=== PATIENT | male | born 1940 | race Caucasian/White ===

== ENCOUNTER 2019-12-26 19:55 | Observation (INO) | payer OTHER, SELFPAY ==
[2019-12-26 19:56] VITALS: PULSE 73; RESP 17; TEMP 35.8; O2SAT 96; BMI 29.0
--- NOTE | 2019-12-26 20:11 | W.ED.CHESTPA ---
Documented by User: ARMINDA Cárdenas 12/26/19 23:24 HPI - Chest Pain General: Chief Complaint: Chest Pain Stated Complaint: CHEST PAIN/BACK PAIN Time Seen by Provider: 12/26/19 20:11 History of Present Illness: HPI narrative: Patient is an 79-year-old male comes to the ED with back pain that radiates to the epigastric region and lower chest. Patient has a PMH of diabetes and hypertension. Patient says that the middle of the back pain that radiates to his lower chest and epigastric region started right after eating dinner tonight. He ate some fried chicken tenders and within an hour of eating he developed this pain. He rated it at its worst an 8 out of 10, but currently while here in the ED he says is gotten better and is now around a 2 out of 10. He has had some nausea with this pain and vomited once. Denies any bladder or bowel symptoms. Patient says he sat down and rested while at home when pain started and it did not improve. He tried to take some Tums at home and that did not improve it either. Denies any history of a prior heart attack or acid reflux. Patient still has his gallbladder. Associated symptoms: Reports abdominal pain (epigastric), nausea and vomiting; Deny dyspnea, fever(s) or palpitations Review of Systems Const: Denies: fever, chills or fatigue Eyes: Denies: change in vision or eye discomfort ENMT: Denies: throat pain, painful swallowing, nasal discharge or nasal congestion Card: Reports: chest pain (back pain radiates to anterior lower chest); Denies: palpitations, edema, swelling of feet/ankles, shortness of breath on exertion or shortness of breath when lying down Resp: Denies: shortness of breath, productive cough or non-productive cough GI: Reports: abdominal pain (epigastric), nausea and vomiting; Denies: diarrhea, constipation or blood in stool : Denies: flank pain, difficulty urinating, painful urination or blood in urine Musc: Denies: neck pain, back pain or extremity swelling Skin/Breast: Denies: rash or new lesion Neuro: Denies: headache, numbness in extremities or weakness in extremities COUNTS INCLUDE 234 BEDS AT THE [facility] ED PFSH: Medical History (Updated 12/27/19 @ 16:25 by Josh Bonilla MD) CKD (chronic kidney disease) Hyperlipidemia Hypertension Kidney failure Surgical History (Updated 12/27/19 @ 16:25 by Josh Bonilla MD) H/O left wrist surgery Hx of cataract surgery Status post laparoscopic cholecystectomy (~12/27/19) Social History Smoking and tobacco status: never smoked Physical Exam Narrative: EXAM NARRATIVE: Patient is an 79-year-old male who is sitting comfortably on the exam bed when I enter the room. He does not appear in any acute distress or respiratory distress. Const: COMMON NORMALS: oriented x3 HENMT: COMMON NORMALS: normocephalic HEAD & SCALP: normocephalic MOUTH: oral and palatal mucosa normal THROAT: posterior oropharynx normal and uvula midline Neck/C-Spine: COMMON NORMALS: supple GENERAL: Yes normal visual inspection Resp: COMMON NORMALS: normal respiratory effort, no retractions and no use of accessory muscles EFFORT & INSPECTION: Yes able to speak in complete sentences and No respiratory distress AUSCULTATION: crackles (light/mild--Mid and bases of both right and left lung.) Laterality: bilateral and posterior Cardio: COMMON NORMALS: regular rate, regular rhythm, S1 normal heart sound, S2 normal heart sound, no gallops, no clicks, no murmurs and peripheral pulses 2+ throughout RATE: regular rate RHYTHM: regular rhythm HEART SOUNDS: S1 normal and S2 normal PERIPHERAL PULSES: pulses 2+ throughout GI: COMMON NORMALS: normal to inspection, nondistended, normoactive bowel sounds, soft to palpation, no hepatosplenomegaly and no masses PALPATION: Yes soft, Yes tender Details: RUQ (caraballo sign) and Yes no hepatosplenomegaly : COMMON NORMALS: Yes no CVA tenderness BLADDER/KIDNEY EXAM: Yes no CVA tenderness Back/Pelvis: COMMON NORMALS: no CVA tenderness Extremity: COMMON NORMALS: normal to inspection, normal capillary refill and no pedal edema Neuro: COMMON NORMALS: oriented x3 and moves all extremities Skin: COMMON NORMALS: no rashes or lesions noted GENERAL SKIN EXAM: no rashes or lesions noted and dry skin Course ED course: I spoke with Dr. Damian about patient's case and ultrasound for gallbladder findings. We recommended that patient gets admitted and general surgery sees them tomorrow to remove gallbladder, but patient wanted to go home and think about it. Reevaluation(s): Reevaluation #1: Patient says he feels good and is not in any pain currently. Time: 22:33 Vital Signs: Vital signs: Vital Signs Temperature 100.0 F H 12/28/19 10:58 Pulse Rate 70 12/28/19 10:58 Respiratory Rate 16 12/28/19 10:58 Blood Pressure 141/63 12/28/19 10:58 Pulse Oximetry 93 12/28/19 10:58 MDM - Chest Pain MDM Narrative: Medical decision making narrative: Patient is an 79-year-old male comes to the ED with epigastric pain that radiates to the back. Physical exam was positive for right upper quadrant tenderness and Caraballo sign. EKG showed normal sinus rhythm and troponins were negative. Ultrasound of the gallbladder was performed and showed gallbladder wall thickening with multiple gallstones present. CBC was unremarkable white blood cell count was 7.7. CMP was remarkable for creatinine of 1.8. I discussed this case with Dr. Junior here in the ED and he recommended patient gets admitted and seen by general surgery for possible gallbladder removal. We discussed the ultrasound findings with the patient and told him about our recommendation of being admitted for possible surgery for gallbladder removal tomorrow. Patient agreed with plan and would like to be admitted. Dr. Damian is handling the admission process. Lab Data: Attestation: I reviewed the patient's lab results. Labs: Lab Results 12/26/19 12/26/19 12/26/19 Range/Units 20:30 20:30 20:30 WBC 7.7 (4.0-10.0) 10^3/ uL RBC 5.31 H (4.1-5.3) 10^6/u L Hgb 14.7 (11.7-16.6) g/dL Hct 46.0 (42.0-52.0) % MCV 86.6 (80-94) fL MCH 27.7 L (28.0-34.0) pg MCHC 32.0 (30.0-36.0) g/dL RDW 14.4 (12.1-15.1) % Plt Count 295 (130-400) 10^3/c mm MPV 9.5 (7.4-10.4) fL Neut % (Auto) 82.2 % Lymph % (Auto) 10.5 % [place] % (Auto) 5.0 % Eos % (Auto) 1.4 % Baso % (Auto) 0.5 % Neut # (Auto) 6.3 (1.8-7.7) 10^3/u L Lymph # (Auto) 0.8 (0.8-4.8) 10^3/u L [place] # (Auto) 0.4 (0.2-0.9) 10^3/u L Eos # (Auto) 0.1 (0.0-0.8) 10^3/u L Baso # (Auto) 0.0 (0.0-0.1) 10^3/u L Nucleated RBC % (a uto) 0 % Nucleated RBCs # 0.0 /100WBC Sodium 139 (136-145) mmol/L Potassium 4.0 (3.5-5.1) mmol/L Chloride 101 (98-107) mmol/L Carbon Dioxide 24 (22-29) mmol/L Anion Gap 18.0 (5-19) BUN 33 H (8-23) mg/dL Creatinine 1.8 H (0.7-1.2) mg/dL Glucose 198 H (65-115) mg/dL Estimat Average Gl ucose Hemoglobin A1c (4.0-6.0) % Calculated Osmolal ity 291 (285-295) mOsm/k g Calcium 10.2 (8.5-10.5) mg/dL Total Bilirubin 1.0 (0.15-1.2) mg/dL AST 46 H (0-40) U/L ALT 24 (0-41) U/L Alkaline Phosphata se 52 (40-130) IU/L Troponin T Baselin e 12 (0-15) ng/mL Troponin T 120 Min [place] (0-15) ng/mL Delta Troponin T (0-10) ABS# C-Reactive Protein (0.0-4.9) mg/L Total Protein 7.3 (6.6-8.7) g/dL Albumin 4.4 (3.5-5.2) g/dL Globulin 2.9 (1.3-4.6) g/dL Lipase 30 (13-60) U/L Procalcitonin (0-0.5) ng/mL 12/26/19 12/26/19 12/26/19 Range/Units 20:30 20:30 22:40 WBC (4.0-10.0) 10^3/ uL RBC (4.1-5.3) 10^6/u L Hgb (11.7-16.6) g/dL Hct (42.0-52.0) % MCV (80-94) fL MCH (28.0-34.0) pg MCHC (30.0-36.0) g/dL RDW (12.1-15.1) % Plt Count (130-400) 10^3/c mm MPV (7.4-10.4) fL Neut % (Auto) % Lymph % (Auto) % [place] % (Auto) % Eos % (Auto) % Baso % (Auto) % Neut # (Auto) (1.8-7.7) 10^3/u L Lymph # (Auto) (0.8-4.8) 10^3/u L [place] # (Auto) (0.2-0.9) 10^3/u L Eos # (Auto) (0.0-0.8) 10^3/u L Baso # (Auto) (0.0-0.1) 10^3/u L Nucleated RBC % (a uto) % Nucleated RBCs # /100WBC Sodium (136-145) mmol/L Potassium (3.5-5.1) mmol/L Chloride (98-107) mmol/L Carbon Dioxide (22-29) mmol/L Anion Gap (5-19) BUN (8-23) mg/dL Creatinine (0.7-1.2) mg/dL Glucose (65-115) mg/dL Estimat Average Gl ucose 146 Hemoglobin A1c 6.7 H (4.0-6.0) % Calculated Osmolal ity (285-295) mOsm/k g Calcium (8.5-10.5) mg/dL Total Bilirubin (0.15-1.2) mg/dL AST (0-40) U/L ALT (0-41) U/L Alkaline Phosphata se (40-130) IU/L Troponin T Baselin e (0-15) ng/mL Troponin T 120 Min [place] 13.59 (0-15) ng/mL Delta Troponin T 1.59 (0-10) ABS# C-Reactive Protein 5.1 H (0.0-4.9) mg/L Total Protein (6.6-8.7) g/dL Albumin (3.5-5.2) g/dL Globulin (1.3-4.6) g/dL Lipase (13-60) U/L Procalcitonin 0.05 (0-0.5) ng/mL Imaging Data^: CXR: Attestation: I personally reviewed and interpreted this imaging study as follows: Radiologist's impression: [address] [address] XRay Report Signed Patient: Siva Malik Unit #: [id number] : 1940 Age/Sex: 79 / M ADM Date: 12/26/19 Loc: ER Room/Bed: Attending Dr: Ordering Provider/Ordering MD: Brijesh Juarez Date of Service: 12/26/19 Procedure(s): XR chest 1V portable [id number] Accession Number(s): [id number] Report Number: [id number] PROCEDURE INFORMATION: Exam: XR Chest, 1 View Exam date and time: 12/26/2019 8:14 PM Age: 79 years old Clinical indication: Other: Back pain and low chest pain TECHNIQUE: Imaging protocol: XR of the chest Views: 1 view. COMPARISON: No relevant prior studies available. FINDINGS: Limitations: The study is made with less than full inspiration. Lungs: No focal infiltrate is identified. Pleural space: Unremarkable. No pleural effusion. No pneumothorax. Heart/Mediastinum: Heart is upper limits normal in size. Diaphragm: There is mild elevation of the left hemidiaphragm. Vasculature: There are atherosclerotic changes in the aortic arch. 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 XR/XR chest 1V portable [id number] IMPRESSION: No acute infiltrates. Dictated By: Salinas Alfonso Signed By: Salinas Alfonso Signed Date/Time: 12/26/192043 DD/ 42 US: Attestation: I personally reviewed and interpreted this imaging study as follows: Radiologist's impression: [place] [address] [place] [address] Ultrasound Report Signed Patient: Siva Malik Unit #: [id number] : 1940 Age/Sex: 79 / M ADM Date: 12/26/19 Loc: ER Room/Bed: Attending Dr: Ordering Provider/Ordering MD: Brijesh Juarez Date of Service: 12/26/19 Procedure(s): US gall bladder 76683 Accession Number(s): [id number] Report Number: [id number] PROCEDURE INFORMATION: Exam: US Abdomen Limited, Right Upper Quadrant Exam date and time: 12/26/2019 8:55 PM Age: 79 years old Clinical indication: Abdominal pain; Acute; Additional info: Epigastric pain with nausea and vomiting TECHNIQUE: Imaging protocol: Real-time ultrasound of the abdomen with image documentation. Examination was focused on the right upper quadrant. COMPARISON: US Renal Kidney Structu* [id number] 07/08/2019 3:04 PM FINDINGS: Liver: Liver is normal size and shows normal uniform echogenicity. There is no focal abnormality within the liver. Gallbladder: There are multiple gallstones in the gallbladder. There is borderline gallbladder wall thickening, the gallbladder wall measures 4 mm. There is no pericholecystic fluid. Common bile duct: There is no biliary tract dilatation, common bile duct measures 4 mm. Pancreas: Pancreas mostly obscured by intestinal gas. Right kidney: No focal abnormality is seen in the right kidney. There is no hydronephrosis. US/US gall bladder [id number] IMPRESSION: Cholelithiasis and mild gallbladder wall thickening. Dictated By: Salinas Alfonso Signed By: Salinas Alfonso Signed Date/Time: 12/26/192119 DD/ 18 EKG Data^: EKG 1: Attestation: I personally reviewed and interpreted this EKG as follows: EKG interpretation date: 12/26/19 EKG interpretation time: 20:13 Interpretation: Normal sinus rhythm with possible first-degree AV block. 72 bpm,no ST segment elevation or depression seen. Discharge Plan Discharge Patient Disposition: Admitted As Inpatient Admit Provider: Josh Bonilla Clinical Impression: Gallstones and inflammation of gallbladder without obstruction Condition: Stable Discharge Orders: Discharge Order (Routine); Ordered 12/27/19 Ordered By: Josh Bonilla Referrals: Josh Bonilla MD [Physician] - 2 weeks (Please call Dr. Bonilla's office on Sunday to schedule a post surgical followup to be seen in 2 weeks. [phone]) Prashanth Wheat MD [Family Provider] - (On Sunday, Please call [facility] to schedule a followup with your primary animal caregiver to be seen within 1 week. [phone]) Patient Instructions: Hydrocodone/Acetaminophen (By mouth), Laxative, Stool Softeners (By mouth), Ondansetron (By mouth), Biliary Colic (ED), Laparoscopic Cholecystectomy (DC), Acute Nausea and Vomiting (ED) Additional Instructions: 1. Up and walking as tolerated. 2. Ok to shower in 48 hours after surgery. 3. Remove Dermabond dressing in 7-10 days. 4. Do not lift more than 10 pounds. 5. Do not operate heavy machinery or drive while using pain medications. 6. Advised to return to ER or contact my office if there are any signs of infection like, increasing pain, fevers, chills, redness or drainage of pus. Discharge Date/Time: 12/26/19 23:44 Coding Level of Care Code ED Tailoring Teacher for Chg Fwd Exam Comprehensive Documented by User: Aixa Damian 12/29/19 18:46 HPI - Chest Pain General: Chief Complaint: Chest Pain Stated Complaint: CHEST PAIN/BACK PAIN Time Seen by Provider: 12/26/19 20:11 COUNTS INCLUDE 234 BEDS AT THE [facility] ED PFSH: Medical History (Updated 12/27/19 @ 16:25 by Jsoh Bonilla MD) CKD (chronic kidney disease) Hyperlipidemia Hypertension Kidney failure Surgical History (Updated 12/27/19 @ 16:25 by Josh Bonilla MD) H/O left wrist surgery Hx of cataract surgery Status post laparoscopic cholecystectomy (~12/27/19) Social History Smoking and tobacco status: never smoked Course Vital Signs: Vital signs: Vital Signs Temperature 100.0 F H 12/28/19 10:58 Pulse Rate 70 12/28/19 10:58 Respiratory Rate 16 12/28/19 10:58 Blood Pressure 141/63 12/28/19 10:58 Pulse Oximetry 93 12/28/19 10:58 MDM - Chest Pain Lab Data: Labs: Lab Results 12/26/19 12/26/19 12/26/19 Range/Units 20:30 20:30 20:30 WBC 7.7 (4.0-10.0) 10^3/ uL RBC 5.31 H (4.1-5.3) 10^6/u L Hgb 14.7 (11.7-16.6) g/dL Hct 46.0 (42.0-52.0) % MCV 86.6 (80-94) fL MCH 27.7 L (28.0-34.0) pg MCHC 32.0 (30.0-36.0) g/dL RDW 14.4 (12.1-15.1) % Plt Count 295 (130-400) 10^3/c mm MPV 9.5 (7.4-10.4) fL Neut % (Auto) 82.2 % Lymph % (Auto) 10.5 % [place] % (Auto) 5.0 % Eos % (Auto) 1.4 % Baso % (Auto) 0.5 % Neut # (Auto) 6.3 (1.8-7.7) 10^3/u L Lymph # (Auto) 0.8 (0.8-4.8) 10^3/u L [place] # (Auto) 0.4 (0.2-0.9) 10^3/u L Eos # (Auto) 0.1 (0.0-0.8) 10^3/u L Baso # (Auto) 0.0 (0.0-0.1) 10^3/u L Nucleated RBC % (a uto) 0 % Nucleated RBCs # 0.0 /100WBC Sodium 139 (136-145) mmol/L Potassium 4.0 (3.5-5.1) mmol/L Chloride 101 (98-107) mmol/L Carbon Dioxide 24 (22-29) mmol/L Anion Gap 18.0 (5-19) BUN 33 H (8-23) mg/dL Creatinine 1.8 H (0.7-1.2) mg/dL Glucose 198 H (65-115) mg/dL Estimat Average Gl ucose Hemoglobin A1c (4.0-6.0) % Calculated Osmolal ity 291 (285-295) mOsm/k g Calcium 10.2 (8.5-10.5) mg/dL Total Bilirubin 1.0 (0.15-1.2) mg/dL AST 46 H (0-40) U/L ALT 24 (0-41) U/L Alkaline Phosphata se 52 (40-130) IU/L Troponin T Baselin e 12 (0-15) ng/mL Troponin T 120 Min [place] (0-15) ng/mL Delta Troponin T (0-10) ABS# C-Reactive Protein (0.0-4.9) mg/L Total Protein 7.3 (6.6-8.7) g/dL Albumin 4.4 (3.5-5.2) g/dL Globulin 2.9 (1.3-4.6) g/dL Lipase 30 (13-60) U/L Procalcitonin (0-0.5) ng/mL 12/26/19 12/26/19 12/26/19 Range/Units 20:30 20:30 22:40 WBC (4.0-10.0) 10^3/ uL RBC (4.1-5.3) 10^6/u L Hgb (11.7-16.6) g/dL Hct (42.0-52.0) % MCV (80-94) fL MCH (28.0-34.0) pg MCHC (30.0-36.0) g/dL RDW (12.1-15.1) % Plt Count (130-400) 10^3/c mm MPV (7.4-10.4) fL Neut % (Auto) % Lymph % (Auto) % [place] % (Auto) % Eos % (Auto) % Baso % (Auto) % Neut # (Auto) (1.8-7.7) 10^3/u L Lymph # (Auto) (0.8-4.8) 10^3/u L [place] # (Auto) (0.2-0.9) 10^3/u L Eos # (Auto) (0.0-0.8) 10^3/u L Baso # (Auto) (0.0-0.1) 10^3/u L Nucleated RBC % (a uto) % Nucleated RBCs # /100WBC Sodium (136-145) mmol/L Potassium (3.5-5.1) mmol/L Chloride (98-107) mmol/L Carbon Dioxide (22-29) mmol/L Anion Gap (5-19) BUN (8-23) mg/dL Creatinine (0.7-1.2) mg/dL Glucose (65-115) mg/dL Estimat Average Gl ucose 146 Hemoglobin A1c 6.7 H (4.0-6.0) % Calculated Osmolal ity (285-295) mOsm/k g Calcium (8.5-10.5) mg/dL Total Bilirubin (0.15-1.2) mg/dL AST (0-40) U/L ALT (0-41) U/L Alkaline Phosphata se (40-130) IU/L Troponin T Baselin e (0-15) ng/mL Troponin T 120 Min [place] 13.59 (0-15) ng/mL Delta Troponin T 1.59 (0-10) ABS# C-Reactive Protein 5.1 H (0.0-4.9) mg/L Total Protein (6.6-8.7) g/dL Albumin (3.5-5.2) g/dL Globulin (1.3-4.6) g/dL Lipase (13-60) U/L Procalcitonin 0.05 (0-0.5) ng/mL Discharge Plan Discharge Patient Disposition: Admitted As Inpatient Admit Provider: Josh Bonilla Clinical Impression: Gallstones and inflammation of gallbladder without obstruction Condition: Stable Discharge Orders: Discharge Order (Routine); Ordered 12/27/19 Ordered By: Josh Bonilla Referrals: Josh Bonilla MD [Physician] - 2 weeks (Please call Dr. Bonilla's office on Sunday to schedule a post surgical followup to be seen in 2 weeks. [phone]) Prashanth Wheat MD [Family Provider] - (On Sunday, Please call [facility] to schedule a followup with your primary animal caregiver to be seen within 1 week. [phone]) Patient Instructions: Hydrocodone/Acetaminophen (By mouth), Laxative, Stool Softeners (By mouth), Ondansetron (By mouth), Biliary Colic (ED), Laparoscopic Cholecystectomy (DC), Acute Nausea and Vomiting (ED) Additional Instructions: 1. Up and walking as tolerated. 2. Ok to shower in 48 hours after surgery. 3. Remove Dermabond dressing in 7-10 days. 4. Do not lift more than 10 pounds. 5. Do not operate heavy machinery or drive while using pain medications. 6. Advised to return to ER or contact my office if there are any signs of infection like, increasing pain, fevers, chills, redness or drainage of pus. Discharge Date/Time: 12/26/19 23:44 Coding Level of Care Code ED Tailoring Teacher for Chg Fwd Exam Comprehensive
--- NOTE | 2019-12-26 20:12 | ECG_ITS ---
Measurements Intervals [place] Rate: 72 P: 60 LA: 273 QRS: 20 QRSD: 86 T: 64 QT: 380 QTc: 417 SINUS RHYTHM WITH FIRST DEGREE AV BLOCK MINIMAL ST DEPRESSION [0.025+ mV ST DEPRESSION] No previous ECG available for comparison Electronically Signed On 12-27-2019 14:01:53 CDT by Mary Ann Ortega M.D. [id number]
--- NOTE | 2019-12-26 20:20 | USR_ITS ---
PROCEDURE INFORMATION: Exam: US Abdomen Limited, Right Upper Quadrant Exam date and time: 12/26/2019 8:55 PM Age: 79 years old Clinical indication: Abdominal pain; Acute; Additional info: Epigastric pain with nausea and vomiting TECHNIQUE: Imaging protocol: Real-time ultrasound of the abdomen with image documentation. Examination was focused on the right upper quadrant. COMPARISON: US Renal Kidney Structu* [id number] 07/08/2019 3:04 PM FINDINGS: Liver: Liver is normal size and shows normal uniform echogenicity. There is no focal abnormality within the liver. Gallbladder: There are multiple gallstones in the gallbladder. There is borderline gallbladder wall thickening, the gallbladder wall measures 4 mm. There is no pericholecystic fluid. Common bile duct: There is no biliary tract dilatation, common bile duct measures 4 mm. Pancreas: Pancreas mostly obscured by intestinal gas. Right kidney: No focal abnormality is seen in the right kidney. There is no hydronephrosis. US/US gall bladder [id number] IMPRESSION: Cholelithiasis and mild gallbladder wall thickening.
[2019-12-26 20:58] LABS: Basophils % 0.5 %; Eosinophils # 0.1 10^3/uL (0.0-0.8); Eosinophils % 1.4 %; Hemoglobin 14.7 g/dL (11.7-16.6); Lymphocytes # 0.8 10^3/uL (0.8-4.8); Lymphocytes % 10.5 %; Mean Corpuscular Hemoglobin 27.7 pg (28.0-34.0); Mean Corpuscular Volume 86.6 fL (80-94); Mean Platelet Volume 9.5 fL (7.4-10.4); Monocytes # 0.4 10^3/uL (0.2-0.9); Neutrophils # 6.3 10^3/uL (1.8-7.7); Neutrophils % 82.2 %; Nucleated Red Blood Cells % 0 %; Platelet Count 295 10^3/cmm (130-400); Red Blood Count 5.31 10^6/uL (4.1-5.3); Red Cell Distribution Width 14.4 % (12.1-15.1); White Blood Count 7.7 10^3/uL (4.0-10.0)
[2019-12-26] MEDS: ondansetron 2 mg/ML SDV 2 mL 4 MG IVP (21:10)
[2019-12-26] MEDS: lidocaine 2% viscous 15 ML, aluminum-mag hydrox-simethicon 30 ML, sucralfate oral liq 1 GM PO (21:10)
[2019-12-26] MEDS: sodium chloride 0.9% 500 ML IV (21:10)
[2019-12-26 21:13] VITALS: BP 144/64; PULSE 86; RESP 16; O2SAT 96
[2019-12-26 21:19] LABS: Alanine Aminotransferase 24 U/L (0-41); Albumin Level 4.4 g/dL (3.5-5.2); Alkaline Phosphatase 52 IU/L (40-130); Aspartate Amino Transferase 46 U/L (0-40); Blood Urea Nitrogen 33 mg/dL (8-23); Calcium 10.2 mg/dL (8.5-10.5); Carbon Dioxide 24 mmol/L (22-29); Chloride 101 mmol/L (98-107); Globulin 2.9 g/dL (1.3-4.6); Glucose 198 mg/dL (65-115); Lipase 30 U/L (13-60); Osmolality Calculated 291 mOsm/kg (285-295); Sodium 139 mmol/L (136-145); Total Protein 7.3 g/dL (6.6-8.7)
[2019-12-26 21:21] LABS: Troponin(5th) Baseline 12 ng/mL (0-15)
--- NOTE | 2019-12-26 22:12 | ECG_ITS ---
Measurements Intervals [place] Rate: 73 P: 57 VA: 285 QRS: 28 QRSD: 85 T: 15 QT: 399 QTc: 442 SINUS RHYTHM WITH FIRST DEGREE AV BLOCK WITH FREQUENT SUPRAVENTRICULAR PREMATURE COM COMPLEXES MODERATE ST DEPRESSION [0.05+ mV ST DEPRESSION] No previous ECG available for comparison Electronically Signed On 12-27-2019 14:05:46 CDT by Mary Ann Ortega M.D. [email or web address]
[2019-12-26] MEDS: piperacillin-tazobactam 3.375 GM in sodium chloride 0.9% (plus) 50 ML IV (22:40)
[2019-12-26] MEDS: sodium chloride 0.9% 500 ML 999 ML IV (22:52)
[2019-12-26 22:59] LABS: Troponin 5 2HR 13.59 ng/mL (0-15); Troponin 5 2HR Delta 1.59 ABS# (0-10)
[2019-12-26 23:28] VITALS: BP 146/70; PULSE 68; RESP 16; O2SAT 96
[2019-12-26 23:56] VITALS: BP 152/65; PULSE 78; RESP 18; TEMP 36.6; O2SAT 96
[2019-12-27] VITALS (17 sets, daily range): BP systolic 115–158; BP diastolic 61–76; PULSE 61–87; RESP 16–26; TEMP 36.3–37.2; O2SAT 93–100
[2019-12-27] MEDS: sodium chloride 0.9% 1,000 ML 100 ML IV ×2 (00:02→13:12)
--- NOTE | 2019-12-27 01:01 | P.CONIM_ITS ---
Providers/Reason For Consult Consulting Physican/Specialty*: General surgery Reason for Consult*: Medicine consult, chest pain, CAROL Attending Physician: Josh Bonilla MD History of Present Illness History of Present Illness Siva Malik is a 79 year old male with a past medical history of hypertension, hyperlipidemia, CKD, diet-controlled type 2 diabetes mellitus, BPH who presents to the emergency room due to right-sided back pain, right flank pain, epigastric pain. Patient states that this evening, around 6 PM, he had a chicken basket from [employer], fried chicken tenders, with biscuits and gravy. After eating his meal, he sat in a chair, and started developed right back pain, pain persisted in any position, gradually worsened, radiated around to the right flank, and then also started to develop in the epigastrium some days and to some degree more on the right upper quadrant. Associate with some nausea, no vomiting, no fevers, no chills, no lightheadedness, no dizziness. Patient denies any previous history of abdominal pain, no history of cholelithiasis, no history of cholecystitis. As patient's symptoms persisted, became more severe he presented to the emergency room to seek attention. Patient denies any chest pain, does state that he has pain in the epigastrium, but no chest pain, no palpitations, no shortness of breath, no cough, he does have a greater than [id number] history of smoking, but quit more than 10 years ago, is not on any inhalers, does state that time from time to time he will have intermittent shortness of breath, no wheezing, no falls, no injuries, no history of DVTs, no history of PEs. Review of Systems Const: Denies: fever, chills, fatigue or malaise Eyes: Denies: change in vision or blurry vision ENMT: Denies: nasal congestion Resp: Denies: shortness of breath, productive cough, non-productive cough or wheezing GI: Denies: abdominal pain, nausea, vomiting, vomiting blood, diarrhea, constipation, blood in stool or black tarry stool : Denies: flank pain, difficulty urinating, painful urination or urinary frequency Musc: Denies: neck pain or back pain Skin/Breast: Denies: rash Neuro: Denies: headache, dizziness or vertigo Psych: Denies: anxiety or depression Endo: Denies: excessive urination or excessive thirst Meds/Allergies Home Medications and Allergies Home Medications Medication Instructions Recorded Confirmed Type amlodipine 5 mg PO BEDTIME 12/27/19 12/27/19 History aspirin [Aspirin Low Dose] 81 mg PO DAILY 12/27/19 12/27/19 History cinnamon bark [Cinnamon] 2,000 mg PO DAILY 12/27/19 12/27/19 History ergocalciferol (vitamin D2) 1 unit PO DAILY 12/27/19 12/27/19 History [Vitamin D2] lisinopril 40 mg PO BEDTIME 12/27/19 12/27/19 History lovastatin 20 mg PO DAILY 12/27/19 12/27/19 History metoprolol succinate 25 mg PO BEDTIME 12/27/19 12/27/19 History tamsulosin [Flomax] 0.4 mg PO BEDTIME 12/27/19 12/27/19 History trazodone 50 mg PO BEDTIME 12/27/19 12/27/19 History Allergies Allergy/AdvReac Type Severity Reaction Status Date / Time No Known Allergies Allergy Verified 12/27/19 00:03 Current Medications Current Medications Generic Name Dose Route Start Last Admin Trade Name Freq PRN Reason Stop Dose Admin Sodium Chloride 1,000 mls @ 100 mls/hr 12/26/19 23:40 12/27/19 00:02 Sodium Chloride 0.9% IV 100 mls/hr .Q10H MEGHAN Administration PFSH Acute PFSH: Medical History (Updated 12/27/19 @ 01:12 by Edgar Gibbons MD) CKD (chronic kidney disease) Hyperlipidemia Hypertension Kidney failure Surgical History (Updated 12/27/19 @ 01:07 by Edgar Gibbons MD) H/O left wrist surgery Hx of cataract surgery Social History Smoking and tobacco status: never smoked Vitals/I&O/Wt Last Vital Signs Temp 97.9 F 12/26/19 23:56 Pulse 78 12/26/19 23:56 Resp 18 12/26/19 23:56 BP 152/65 12/26/19 23:56 Pulse Ox 96 12/26/19 23:56 12/26/19 12/26/19 12/27/19 14:59 22:59 06:59 Intake Total 1050 / 1050 Balance 1050 / 1050 Weight last 48 hrs Weight 81.647 kg Physical Exam Const: COMMON NORMALS: no apparent distress and oriented x3 GENERAL APPEARANCE: cooperative and comfortable HENMT: COMMON NORMALS: normocephalic HEAD & SCALP: normocephalic Eye: COMMON NORMALS: PERRL, EOMs intact bilaterally and no papilledema GENERAL EYE: normal appearance of both eyes PUPIL: Yes PERRL DIRECT OPHTHALMOSCOPY: Yes no papilledema Neck/C-Spine: COMMON NORMALS: full ROM, no lymphadenopathy, no JVD and thyroid normal THYROID: thyroid normal Lymph: LYMPHATIC: no lymphadenopathy noted Resp: COMMON NORMALS: normal respiratory effort, no retractions, no use of accessory muscles and clear to auscultation bilaterally AUSCULTATION: clear to auscultation bilaterally Cardio: COMMON NORMALS: no JVD, regular rate, regular rhythm, S1 normal heart sound, S2 normal heart sound, no gallops, no clicks and no murmurs RATE: regular rate RHYTHM: regular rhythm HEART SOUNDS: S1 normal and S2 normal GI: COMMON NORMALS: normal to inspection, nondistended, normoactive bowel sounds, soft to palpation, non-tender and no hepatosplenomegaly PALPATION: Yes soft, Yes tender (Gastro) Details: RLQ and RUQ and Yes no hepatosplenomegaly : COMMON NORMALS: Yes no CVA tenderness BLADDER/KIDNEY EXAM: Yes no CVA tenderness Back/Pelvis: COMMON NORMALS: no CVA tenderness THORACIC SPINE/UPPER BACK: Yes normal to inspection, Yes thoracic ROM normal, No thoracic spinal tenderness and No paraspinal muscle tenderness LUMBAR SPINE/LOWER BACK: Yes normal to inspection, Yes lumbar ROM normal, No lumbar spinal tenderness and No paraspinal muscle tenderness Extremity: COMMON NORMALS: normal to inspection, full ROM and no pedal edema Neuro: COMMON NORMALS: oriented x3, CN's II-XII intact bilaterally, moves all extremities and no focal motor deficits Psych: COMMON NORMALS: mental status grossly normal, thought process normal and cooperative THOUGHT PROCESS: normal thought process Data Micro: Micro: Microbiology 12/26/19 22:40 Blood Culture - Pr eliminary Blood SPECIMEN [facility] DANIELLE 12/26/19 20:53 Blood Culture - Pr eliminary Blood SPECIMEN [facility] A&P Assessment and plan (1) Gallstones and inflammation of gallbladder without obstruction: -No significant leukocytosis -Cholelithiasis and mild gallbladder wall thickening -Inflammatory markers pending Plan: -N.p.o. -IV fluids -Zosyn -Blood cultures -Dr. Bonilla has been consulted Status: Acute (2) Hypertension: Hold lisinopril given acute kidney injury Continue amlodipine, continue metoprolol Status: Acute (3) Hyperlipidemia: Continue atorvastatin Status: Acute (4) CKD (chronic kidney disease): Status: Acute (5) Diet-controlled type 2 diabetes mellitus: Check hemoglobin A1c, check blood sugars 3 times daily Status: Acute (6) Epigastric pain: -Patient denies chest pain -Denies palpitations, denies shortness of breath -Denies history of CAD, no history of CABG, no history of CHF, no history of stress test -No history of DVT, no history of PE -Has had right wrist surgery, had anesthesia, no complications -Has a greater than [id number] history of smoking, quit more than 10 years ago, no diagnosis of COPD, chest x-ray no pneumonia, saturating high 90s on room air -EKG shows no acute ST-T wave changes, baseline troponin within normal limits -Patient is intermediate for intermediate risk surgery -Echocardiogram on July 11, 2017 showed an ejection fraction 62%, no regional wall motion abnormalities, pulmonary arterial pressure was 35 mmHg Plan: -Trend troponins -Serial EKGs, telemetry monitoring -We will obtain echocardiogram Status: Acute (7) Acute kidney injury superimposed on CKD: -Creatinine 1.8, baseline creatinine 1.1 -Patient states that he is Dr. 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
--- NOTE | 2019-12-27 01:18 | USCV_ITS ---
Siva Malik Age: 79 Gender: M : 1940 Exam Date: 12/27/2019 11:23 Ordering Phys: Edgar Gibbons MD Technologist: Corine Davidson Exam Location: [facility] [place] Indication: SOB BP: 115 / 65 HR: 84 Rhythm: Sinus Technical Quality: Suboptimal MEASUREMENTS (Male / Female) Normal Values 2D ECHO LV Diastolic Diameter PLAX 2.4 cm 4.2 - 5.9 / 3.9 - 5.3 cm LV Systolic Diameter PLAX 1.7 cm LV Chamber Size 3.6 cm IVS Diastolic Thickness 1.8 cm 0.6 - 1.0 / 0.6 - 0.9 cm IVS Systolic Thickness 1.9 cm LVPW Diastolic Thickness 0.7 cm 0.6 - 1.0 / 0.6 - 0.9 cm LVPW Systolic Thickness 1.3 cm RV Chamber Size 1.9 cm LVOT Diameter 1.8 cm LV Ejection Fraction 2D Teich 60.8 % LV Ejection Fraction MOD 2C 58.9 % LV Ejection Fraction 2C AL 59.6 % LA Diameter 4.0 cm LA Width 2.6 cm LA Height 5.5 cm RA Width 2.5 cm RA Height 5.5 cm Aorta at Sinotubular Diameter 1.8 cm M-MODE LV Diastolic Diameter MM 4.5 cm 4.2 - 5.9 / 3.9 - 5.3 cm LV Systolic Diameter MM 3.3 cm LV Ejection Fraction MM Teich 52.7 % IVS Diastolic Thickness MM 1.0 cm 0.6 - 1.0 / 0.6 - 0.9 cm IVS Systolic Thickness MM 1.2 cm LVPW Diastolic Thickness MM 1.0 cm 0.6 - 1.0 / 0.6 - 0.9 cm LVPW Systolic Thickness MM 1.1 cm Aortic Annulus Diameter 3.4 cm LA Ao Ratio MM 1.2 MV E Point Septal Separation 0.5 cm DOPPLER AV Peak Velocity 139.0 cm/s LVOT Peak Velocity 116.0 cm/s AV Area Cont Eq vti 2.0 cm squared AV Area Cont Eq pk 2.1 cm squared MV Area PHT 2.9 cm squared Mitral E to A Ratio 1.1 MV E' Velocity 12.0 cm/s Mitral E to MV E' Ratio 8.0 Mitral E to LV E' Lateral Ratio 8.4 Mitral E to LV E' Septal Ratio 7.7 TR Peak Velocity 290.0 cm/s TR Peak Gradient 33.6 mmHg TV Peak E Velocity 81.0 cm/s Right Atrial Pressure 3.0 mmHg Pulmonary Artery Systolic Pressu 36.6 mmHg PV Peak Velocity 126.0 cm/s RV Acceleration Time 0.1 s RV Ejection Time 0.2 s RV AcT/ET 0.3 FINDINGS Left Ventricle Normal left ventricular size, systolic function and wall thickness, with no regional wall motion abnormalities. Left ventricular ejection fraction is estimated at 71 %. Normal diastolic function. Right Ventricle Normal right ventricular size and systolic function, RVSP 36.6 mmHg. Right Atrium Normal right atrial size. Left Atrium Normal left atrial size. Mitral Valve Mild mitral annular calcification. Structurally normal mitral valve. No mitral valve stenosis. Trace mitral valve regurgitation. Aortic Valve Thickened trileaflet aortic valve. No aortic valve stenosis. No aortic valve regurgitation. Tricuspid Valve Structurally normal tricuspid valve. No tricuspid valve stenosis. Trace to mild tricuspid valve regurgitation. Pulmonic Valve No pulmonary valve stenosis. Trace pulmonary valve regurgitation. Pericardium No pericardial effusion. Aorta Normal sized aortic root. CONCLUSIONS 1. Normal left ventricular size, systolic function and wall thickness, with no regional wall motion abnormalities. Left ventricular ejection fraction is estimated at 71 %. Normal diastolic function. 2. Normal right ventricular size and systolic function, RVSP 36.6 mmHg. 3. No significant valvular abnormality. 4. When compared to study dated 07/11/2017, there has been no significant change. Mary Ann Ortega MD (Electronically Signed) Final Date: 27 December 2019 14:14 S
--- NOTE | 2019-12-27 01:18 | USR_ITS ---
PROCEDURE INFORMATION: Exam: US Retroperitoneal Complete. Exam date and time: 12/27/2019 10:27 AM Age: 79 years old Clinical indication: Abnormal findings; Abnormal lab test; Abnormal kidney function lab tests; Additional info: Jaspreet TECHNIQUE: Imaging protocol: Real-time ultrasound of the retroperitoneum with image documentation. Complete exam. COMPARISON: US gall bladder [id number] 12/26/2019 8:48 PM FINDINGS: Right kidney: No stones. No hydronephrosis. 3.6 cm x 5 cm x 10 cm (cortex 8.8 mm) Left kidney: No stones. No hydronephrosis. 10.6 cm x 5.3 cm x 4.2 cm (cortex 11.3 mm) The urinary bladder does not show intrinsic abnormality. The bladder is incompletely distended. The prostate gland shows areas of increased echogenicity which may reflect calcifications. The prostate gland measures 3.4 cm x 3.3 cm x 5 cm US/US renal BI* [id number] IMPRESSION: 1. Negative bilateral kidneys . 2. Prostate gland is prominent 3. Urinary bladder is incompletely filled .
[2019-12-27 01:59] LABS: Estmated Average Glucose 146; Hemoglobin A1C 6.7 % (4.0-6.0)
--- NOTE | 2019-12-27 02:12 | ECG_ITS ---
Measurements Intervals [place] Rate: 77 P: VA: 0 QRS: -23 QRSD: 84 T: 57 QT: 373 QTc: 423 SINUS RHYTHM WITH frequent pac's BORDERLINE LEFT AXIS DEVIATION [QRS AXIS < -20] POSSIBLE RIGHT VENTRICULAR CONDUCTION DELAY [RSR (QR) IN V1/V2] No previous ECG available for comparison Electronically Signed On 12-27-2019 14:04:01 CDT by Mary Ann Ortega M.D. [email or web address]
[2019-12-27 02:13] LABS: Protein Urine Neg (Negative); Urine Appearance Clear (CLEAR); Urine Color Yellow (Yellow); pH Urine 8 (5-7)
[2019-12-27 02:14] LABS: Add Urine Microscopic? YES; Bacteria Urine TRACE; Bilirubin Urine Neg (NEGATIVE); Blood Urine Trace (Negative); Glucose Urine UA 1+ (Normal); Ketones Urine Negative (Negative); Leukocyte Esterase Urine Negative (Negative); Nitrate Urine Negative (Negative); RBC Urine 0-4 /hpf (0-2); Sulfosalicylic Acid Urine Negative (Negative); Urobilinogen Urine Norm (Negative)
[2019-12-27 02:48] LABS: Procalcitonin 0.05 ng/mL (0-0.5)
[2019-12-27 02:59] LABS: C Reactive Protein 5.1 mg/L (0.0-4.9)
[2019-12-27 03:14] LABS: Basophils % 0.5 %; Eosinophils # 0.1 10^3/uL (0.0-0.8); Eosinophils % 0.8 %; Hemoglobin 12.2 g/dL (11.7-16.6); Lymphocytes # 0.6 10^3/uL (0.8-4.8); Lymphocytes % 10.3 %; Mean Corpuscular HGB Conc 32.1 g/dL (30.0-36.0); Mean Corpuscular Volume 87.4 fL (80-94); Mean Platelet Volume 9.2 fL (7.4-10.4); Monocytes # 0.4 10^3/uL (0.2-0.9); Monocytes % 7.2 %; Neutrophils # 4.9 10^3/uL (1.8-7.7); Nucleated Red Blood Cells % 0 %; Platelet Count 231 10^3/cmm (130-400); Red Blood Count 4.35 10^6/uL (4.1-5.3)
[2019-12-27 03:28] LABS: Troponin 5 6HR 18.58 ng/mL (0-15); Troponin 5 6HR Delta 6.58 ng/L (0-12)
[2019-12-27 03:56] LABS: Alanine Aminotransferase 213 U/L (0-41); Albumin Level 3.7 g/dL (3.5-5.2); Alkaline Phosphatase 54 IU/L (40-130); Anion Gap 16.3 (5-19); Aspartate Amino Transferase 360 U/L (0-40); Blood Urea Nitrogen 25 mg/dL (8-23); Calcium 9.5 mg/dL (8.5-10.5); Carbon Dioxide 23 mmol/L (22-29); Chloride 108 mmol/L (98-107); Globulin 2.2 g/dL (1.3-4.6); Glucose 200 mg/dL (65-115); Osmolality Calculated 298 mOsm/kg (285-295); Potassium 4.3 mmol/L (3.5-5.1); Sodium 143 mmol/L (136-145); Total Bilirubin 0.6 mg/dL (0.15-1.2); Total Protein 5.9 g/dL (6.6-8.7)
[2019-12-27 06:33] LABS: Glucose Point of Care 128 mg/dL (70-110)
[2019-12-27] MEDS: piperacillin-tazobactam 3.375 GM in sodium chloride 0.9% (plus) 50 ML IV (09:45)
--- NOTE | 2019-12-27 09:56 | P.HP_ITS ---
Providers/Chief Complaint Admitting Physician: Josh Bonilla MD Chief Complaint: CHEST PAIN/BACK PAIN History of Present Illness Siva Malik is a 79 year old male who presented to the ER last night with initially what is right-sided back pain which then subsequently radiated to the right upper quadrant. Patient had nausea and one episode of vomiting on his way in. He states that he had just eaten fried chicken at [employer] earlier in the evening. He denies any fevers, chills or jaundice. Review of Systems General: Reports: 10 or more systems reviewed and unremarkable except in HPI and below Medications/Allergies Home Medications Medication Instructions Recorded Confirmed Last Taken Type amlodipine 5 mg PO BEDTIME 12/27/19 12/27/19 Unknown History aspirin [Aspirin Low Dose] 81 mg PO DAILY 12/27/19 12/27/19 Unknown History cinnamon bark [Cinnamon] 2,000 mg PO DAILY 12/27/19 12/27/19 Unknown History ergocalciferol (vitamin D2) 1 unit PO DAILY 12/27/19 12/27/19 Unknown History [Vitamin D2] lisinopril 40 mg PO BEDTIME 12/27/19 12/27/19 Unknown History lovastatin 20 mg PO DAILY 12/27/19 12/27/19 Unknown History metoprolol succinate 25 mg PO BEDTIME 12/27/19 12/27/19 Unknown History tamsulosin [Flomax] 0.4 mg PO BEDTIME 12/27/19 12/27/19 Unknown History trazodone 50 mg PO BEDTIME 12/27/19 12/27/19 Unknown History Allergies Allergy/AdvReac Type Severity Reaction Status Date / Time No Known Allergies Allergy Verified 12/27/19 00:03 PFSH Acute PFSH: Medical History CKD (chronic kidney disease) Hyperlipidemia Hypertension Kidney failure Surgical History H/O left wrist surgery Hx of cataract surgery Social History Smoking and tobacco status: never smoked Vitals/I&O/Wt Last Vital Signs Temp 98.7 F 12/27/19 08:00 Pulse 83 12/27/19 08:00 Resp 17 04/18/20 08:00 BP 131/68 12/27/19 08:00 Pulse Ox 96 12/27/19 08:00 12/26/19 12/27/19 12/27/19 22:59 06:59 14:59 Intake Total 1050 / 1050 Output Total 0 / 0 Balance 1050 / 1050 Weight last 48 hrs Weight 180 lb Physical Exam Narrative: EXAM NARRATIVE: HEENT: Normocephalic Eye: Sclera /conjunctiva normal Respiratory and chest: Bilateral clear breath sounds on auscultation Cardiovascular: Normal S1 and S2 heart sounds Abdomen: Soft to palpation, tender right upper quadrant Neurological: Oriented to place person and time Skin: Intact, no lesions appreciated on gross exam Data : 12/27/19 03:00 12/27/19 03:00 Micro: Microbiology 12/26/19 22:40 Blood Culture - Preliminary Blood SPECIMEN COLLECTED 12/26/19 20:53 Blood Culture - Preliminary Blood SPECIMEN COLLECTED A&P Assessment and plan (1) Gallstones and inflammation of gallbladder without obstruction: 79-year-old gentleman with right upper quadrant pain, nausea and vomiting after eating greasy food, tender in the right upper quadrant. Ultrasound showed gallstones Plan for laparoscopic possible open cholecystectomy Procedure, risks, benefits and alternatives have been discussed with the patient who wishes to proceed with surgery. Status: Acute Attestations Medical Necessity Statement*: Symptomatic cholelithiasis Coding Level of Care Code Acute Compressed Gases Tester for Marla [facility] Diagnoses Gallstones and inflammation of gallbladder without obstruction K80.00
--- NOTE | 2019-12-27 10:00 | PC.NURSE ---
Surgical scrub completed for surgery at this time. Patient tolerated well.
[2019-12-27 11:04] LABS: Glucose Point of Care 150 mg/dL (70-110)
--- NOTE | 2019-12-27 11:18 | PC.NURSE ---
US at bedside to Electrocardiogram at this time.
--- NOTE | 2019-12-27 12:30 | PM.CONSULT ---
Providers/Reason For Consult Consulting Physican/Specialty*: Dr. Ortega, cardiology Reason for Consult*: Preop clearance for acute cholecystitis Attending Physician: Josh Bonilla MD History of Present Illness History of Present Illness Siva Malik is a 79 year old male with past medical history of hypertension,hyperlipidemia, chronic kidney disease stage3 (followed by Dr. Zuluaga), diabetes mellitus type 2 (diet-controlled) and benign prostatic hypertrophy who presented to the ER with complaints of right upper abdominal pain as well as right-sided back pain. Complains of some nausea but denies any vomiting fever, chills, lightheadedness or dizziness. He denies having any prior history of cholelithiasis or similar abdominal pain. 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 Before COVID pandemic he was able to go outside and do grocery shopping on his own. He denies having any exertional dyspnea or chest discomfort. His activities are limited by arthritis. He denies any history of OR or stents. He has [id number] history of smoking but states he quit about 4-5 years ago. In the ER he underwent abdominal ultrasound and was found to have cholelithiasis with gallbladder wall thickening. I have been asked to evaluate the patient for preop clearance for laparoscopic cholecystectomy. Review of Systems Const: Denies: fever or chills Card: Denies: chest pain, palpitations, irregular heart rhythm, shortness of breath on exertion or shortness of breath when lying down Resp: Denies: shortness of breath, productive cough or non-productive cough GI: Reports: abdominal pain and nausea; Denies: vomiting, blood in stool or black tarry stool : Denies: blood in urine Skin/Breast: Denies: rash Neuro: Denies: headache, numbness in extremities, weakness in extremities or slurred speech Psych: Denies: anxiety or depression Eduin/Lymph: Denies: easy bruising or easy bleeding Meds/Allergies Home Medications and Allergies Home Medications Medication Instructions Recorded Confirmed Type amlodipine 5 mg PO BEDTIME 12/27/19 12/27/19 History aspirin [Aspirin Low Dose] 81 mg PO DAILY 12/27/19 12/27/19 History cinnamon bark [Cinnamon] 2,000 mg PO DAILY 12/27/19 12/27/19 History ergocalciferol (vitamin D2) 1 unit PO DAILY 12/27/19 12/27/19 History [Vitamin D2] lisinopril 40 mg PO BEDTIME 12/27/19 12/27/19 History lovastatin 20 mg PO DAILY 12/27/19 12/27/19 History metoprolol succinate 25 mg PO BEDTIME 12/27/19 12/27/19 History tamsulosin [Flomax] 0.4 mg PO BEDTIME 12/27/19 12/27/19 History trazodone 50 mg PO BEDTIME 12/27/19 12/27/19 History Allergies Allergy/AdvReac Type Severity Reaction Status Date / Time No Known Allergies Allergy Verified 12/27/19 00:03 Current Medications Current Medications Generic Name Dose Route Start Last Admin Trade Name Freq PRN Reason Stop Dose Admin Atorvastatin Calcium 20 mg 12/27/19 09:00 12/27/19 09:49 Lipitor PO Not Given DAILY MEGHAN Sodium Chloride 1,000 mls @ 100 mls/hr 12/26/19 23:40 12/27/19 00:02 Sodium Chloride 0.9% IV 100 mls/hr .Q10H MEGHAN Administration Piperacillin Sod/Tazobactam 50 mls @ 12.5 mls/hr 12/27/19 08:30 12/27/19 09:45 Sod 3.375 gm/ Sodium Chloride IV 12.5 mls/hr Q8H MEGHAN Administration Protocol As Directed PFSH Acute PFSH: Medical History CKD (chronic kidney disease) Hyperlipidemia Hypertension Kidney failure Surgical History H/O left wrist surgery Hx of cataract surgery Social History Smoking and tobacco status: never smoked Vitals/I&O/Wt Last Vital Signs Temp 98.6 F 12/27/19 11:50 Pulse 83 12/27/19 11:50 Resp 17 12/27/19 11:50 BP 127/61 12/27/19 11:50 Pulse Ox 96 12/27/19 11:50 12/26/19 12/27/19 12/27/19 22:59 06:59 14:59 Intake Total 1050 / 1050 Output Total 0 / 0 675 / 675 Balance 1050 / 1050 -675 / -675 Weight last 48 hrs Weight 180 lb Physical Exam Narrative: EXAM NARRATIVE: GENERAL: Averagely built and averagely nourished in no acute distress HEENT: Extraocular movement intact. Pupils equal round reactive to light. No pallor or icterus. NECK: central trachea, no JVD, CARDIOVASCULAR SYSTEM: S1-S2 regular. No S3 or S4 present. No murmur rubs or gallops. RESPIRATORY SYSTEM: Chest clear to auscultation. No wheezes rhonchi or rubs heard. No use of accessory muscles. ABDOMEN: Soft, nontender and nondistended. Normal bowel sounds present. EXTREMITIES: No cyanosis or clubbing. No edema. No signs of chronic venous insufficiency. 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 No focal neurological deficits. Data Micro: Micro: Microbiology 12/26/19 22:40 Blood Culture - Pr eliminary Blood SPECIMEN [facility] D[facility] 12/26/19 20:53 Blood Culture - Pr eliminary Blood SPECIMEN [facility] A&P Assessment and plan (1) Pre-operative clearance: Functional status greater than 4 METS. His EKG showed sinus rhythm with first-degree AV block with frequent PACs. -No evidence of acute coronary syndrome CHF or significant valvular disease. -Patient is at acceptable risk for perioperative cardiac events. -No further cardiac testing is warranted at this point. Status: Acute (2) Gallstones and inflammation of gallbladder without obstruction: Status: Acute (3) Hypertension: Status: Acute Qualifiers: Hypertension type: essential hypertension Qualified Code(s): I10 - Essential (primary) hypertension (4) Hyperlipidemia: Status: Acute Qualifiers: Hyperlipidemia type: unspecified Qualified Code(s): E78.5 - Hyperlipidemia, unspecified (5) Diet-controlled type 2 diabetes mellitus: Status: Acute Additional A&P Information Episodes of bradycardia on telemetry last night with pauses than 2 seconds: Continue to monitor closely on telemetry, if these findings persist after the surgery would recommend discontinuing metoprolol. CAROL on chronic kidney disease stage III Transaminitis Thank you for allowing me to participate in patient's care. Please feel free to call with questions or concerns. Consult Attestations Medical Necessity Statement: As per primary team Coding Level of Care Code Acute Physicist [place] for [facility] Fwd Diagnoses Pre-operative clearance Z01.818 Gallstones and inflammation of gallbladder without obstruction K80.00 Hypertension I10 Hypertension type: essential hypertension Hyperlipidemia E78.5 Hyperlipidemia type: unspecified Diet-controlled type 2 diabetes mellitus E11.9
--- NOTE | 2019-12-27 12:57 | P.PN_ITS ---
Subjective Subjective: Interval history: The patient is doing okay. He reports that the pain is well controlled. Denies nausea vomiting. No chest pain, shortness of breath, cough, palpitations. No fever or chills. Medications: Reviewed: Yes Medication Review Details: Generic Name Dose Route Start Last Admin Trade Name Darellq PRN Reason Stop Dose Admin Atorvastatin Calci um 20 mg 12/27/19 09:00 12/27/19 09:49 Lipitor PO Not Given DAILY MEGHAN Sodium Chloride 1,000 mls @ 100 m ls/hr 12/26/19 23:40 12/27/19 00:02 Sodium Chloride 0.9% IV 100 mls/hr .Q10H MEGHAN Administration Piperacillin Sod/T azobactam 50 mls @ 12.5 mls /hr 12/27/19 08:30 12/27/19 09:45 Sod 3.375 gm/ So dium Chloride IV 12.5 mls/hr Q8H MEGHAN Administration Protocol As Directed Vitals/I&O/Wt Last Vital Signs Temp 98.6 F 12/27/19 11:50 Pulse 83 12/27/19 11:50 Resp 17 12/27/19 11:50 BP 127/61 12/27/19 11:50 Pulse Ox 96 12/27/19 11:50 12/26/19 12/27/19 12/27/19 22:59 06:59 14:59 Intake Total 1050 / 1050 Output Total 0 / 0 675 / 675 Balance 1050 / 1050 -675 / -675 Weight last 48 hrs Weight 81.647 kg Physical Exam Narrative: EXAM NARRATIVE: The patient is awake alert and oriented. No acute distress. Mood and affect are appropriate. Skin is warm and dry. Moist mucous membranes. Eyes PERRLA, extraocular muscle intact. Normal speech. Neck supple, no JVD Lungs clear bilaterally. Heart S1, S2, regular Abdomen soft, nontender, bowel sounds are present Extremities trace edema, no cyanosis, no calf tenderness bilaterally Data : 12/27/19 03:00 12/27/19 03:00 Micro: Microbiology 12/26/19 22:40 Blood Culture - Preliminary Blood SPECIMEN COLLECTED 12/26/19 20:53 Blood Culture - Preliminary Blood SPECIMEN COLLECTED A&P Additional A&P Information Acute cholecystitis. Currently on Zosyn. Continue pain management. Surgery after cardiac evaluation. Elevated LFTs. Probably secondary to above. Will continue monitoring. Reported back pain and epigastric pain with associated elevation of troponin. As a risk factors for coronary artery disease. Echo is ordered. Requesting cardiac consultation. Appreciate Dr. Ortega's input. Currently on aspirin and beta-bertrand. Hypertension. Currently well controlled. Continue current management. History of diabetes. We will monitor closely. For hyperglycemia will order insulin sliding scale. Chronic kidney disease with slightly worsened creatinine. We will continue hydration and monitoring of renal function. DVT prophylaxis. Teds and SCDs. Will consider Lovenox after surgery if it is okay from the surgical standpoint. The plan of care was discussed with the patient. He verbalized understanding and agreement. Attestations Medical Necessity Statement*: The plan of care requires that the patient remains in the hospital. Coding Level of Care Code Acute Dispatcher Tow Truck for Marla Stanley
--- NOTE | 2019-12-27 14:36 | PC.CHAP ---
Pastoral Care Encounter/Spiritual Assessment Type of Contact [] Declined medical observer visit [] Patient/Family/Request visit [] Outpatient visit [] Follow-up visit [] Physician referral [] Code/Alert [X] Routine visit [] Staff referral [] Actively dying [] Patient sleeping [] Family support [] [] Out of room [] Palliative care [] [] Receiving care in room [] Pre-surgical visit [] Trauma [] Long length of stay [] ICU visit [] Other: Relational/Emotional Strength [] Patient feels connected with others/family/visitors/staff [] Distress [] Loneliness/isolation [] Abandonment Spirituality of Patient [] Person of [place] [] Attends Yazidism of their [place] [] Believes in Prayer [] Reads Bible or Evangelical materials [] There are Spiritual issues to be addressed Referral Management Liaison Interventions [] Prayer [] Active listening [] Non-anxious presence [] Spiritual/emotional support [] Crisis/trauma care [] Spiritual counseling [] Bereavement support [] Provided bereavement packet [] Provided Bible/devotional materials [] Provided toy/stuffed animal, coloring book to patient or family member [] Provided Communion [] Anointing/[place] [] Salvation [] Completed spiritual assessment [] Other: Impact on Illness or Injury [] Angry [] Fearful [] Anxious [] Often cries [] Exhaustion [] Unable to work [] Unable to attend pentecostalism [] Unable to walk/stand [] Unable to read [] Unable to drive [] Unable to eat/drink [] Unable to sleep [] Unable to be with family [] Patient intubated [] Other: Summary Time spent with patient
--- NOTE | 2019-12-27 14:42 | PC.NURSE ---
Patient to surgery at this time. Patient's ring, wallet, and watch placed in a bio bag and placed in patient's back right pocket of his pants. Glasses and cellphone on the bedside table at bedside. Patient is A&Ox3. Respirations even and non-labored on room air.
--- NOTE | 2019-12-27 14:54 | P.ANESASSM_ITS ---
Pre-Anesthetic Assessment Pre-Anesthetic Assessment: Height/Weight: Height 1.68 m Weight 81.647 kg Temp Pulse Resp BP Pulse Ox 98.6 F 83 17 127/61 96 12/27/19 11:50 12/27/19 11:50 12/27/19 11:50 12/27/19 11:50 12/27/19 11:50 Preop Diagnosis: acute cholecystitis Proposed Procedure: Operation Date: 12/27/19 13:50 Proposed Procedures p Laparoscopic Cholecystectomy(Not Applicable) - Josh Bonilla MD Social: Social History: Tobacco (quit 30 year ago) and No alcohol Exam: Pre-Anes Outpt Exam: alert, oriented x 3, clear to auscultation bilater ally and regular rate & rhythm Airway: Submandibular: WNL Cervical ROM: WNL MP: 1 Dentition: False (Upper and lower) Pulmonary: Pulmonary: None reported CV/HEM: CV/HEM: HTN : : Chronic renal Insufficiency Hepatic: Hepatic: None reported GI: GI: None reported Metabolic: Metabolic: DM and Hyperlipidemia Musc/skel: Musc/skel: OA/DJD Neuropsych: Neuropsych: None reported Anesthetic Plan: ASA status: 2E Anesthesia: Anesthesia Evaluation and Gene ral Risk of > 500 ml blood loss (7ml/kg in children): No Meds/Allergies Current Medications: Current Medications Generic Name Dose Route Start Last Admin Trade Name Freq PRN Reason Stop Dose Admin Atorvastatin Calci um 20 mg 12/27/19 09:00 12/27/19 09:49 Lipitor PO Not Given DAILY MEGHAN Sodium Chloride 1,000 mls @ 100 m ls/hr 12/26/19 23:40 12/27/19 13:12 Sodium Chloride 0.9% IV 100 mls/hr .Q10H MEGHAN Administration Piperacillin Sod/T azobactam 50 mls @ 12.5 mls /hr 12/27/19 08:30 12/27/19 13:45 Sod 3.375 gm/ So dium Chloride IV Infused Q8H MEGHAN Infusion Protocol As Directed Additional Medication Information: Generic Name Dose Route Start Last Admin Trade Name Freq PRN Reason Stop Dose Admin Atorvastatin Calci um 20 mg 12/27/19 09:00 12/27/19 09:49 Lipitor PO Not Given DAILY MEGHAN Sodium Chloride 1,000 mls @ 100 m ls/hr 12/26/19 23:40 12/27/19 00:02 Sodium Chloride 0.9% IV 100 mls/hr .Q10H MEGHAN Administration Piperacillin Sod/T azobactam 50 mls @ 12.5 mls /hr 12/27/19 08:30 12/27/19 09:45 Sod 3.375 gm/ So dium Chloride IV 12.5 mls/hr Q8H MEGHAN Administration Protocol As Directed PFSH Anesthesia PFSH: Medical History CKD (chronic kidney disease) Hyperlipidemia Hypertension Kidney failure Surgical History H/O left wrist surgery Hx of cataract surgery Social History Smoking and tobacco status: never smoked Data Anesthesia CBC & Chem 7: 12/27/19 03:00 12/27/19 03:00 Other Labs: Laboratory Results - last 48 hr 12/26/19 12/26/19 12/26/19 20:30 20:30 20:30 WBC 7.7 RBC 5.31 H Hgb 14.7 Hct 46.0 MCV 86.6 MCH 27.7 L MCHC 32.0 RDW 14.4 Plt Count 295 MPV 9.5 Neut % (Auto) 82.2 Lymph % (Auto) 10.5 [place] % (Auto) 5.0 Eos % (Auto) 1.4 Baso % (Auto) 0.5 Neut # (Auto) 6.3 Lymph # (Auto) 0.8 [place] # (Auto) 0.4 Eos # (Auto) 0.1 Baso # (Auto) 0.0 Nucleated RBC % (auto) 0 Nucleated RBCs # 0.0 Sodium 139 Potassium 4.0 Chloride 101 Carbon Dioxide 24 Anion Gap 18.0 BUN 33 H Creatinine 1.8 H Glucose 198 H POC Glucose Estimat Average Glucose Hemoglobin A1c Calculated Osmolality 291 Calcium 10.2 Total Bilirubin 1.0 AST 46 H ALT 24 Alkaline Phosphatase 52 Troponin I 6 Hour Troponin I Hi Sens Del Troponin T Baseline 12 Troponin T 120 Minute Delta Troponin T C-Reactive Protein Total Protein 7.3 Albumin 4.4 Globulin 2.9 Lipase 30 Procalcitonin Urine Color Urine Appearance Urine pH Ur Specific [place] Urine Protein Urine Glucose (UA) Urine Ketones Urine Blood Urine Nitrate Urine Bilirubin Prot Sulfosalicylic Acd Urine Urobilinogen Ur Leukocyte Esterase Urine RBC Urine WBC Ur Squamous Epith Cells Urine Bacteria 12/26/19 12/26/19 12/26/19 20:30 20:30 22:40 WBC RBC Hgb Hct MCV MCH MCHC RDW Plt Count MPV Neut % (Auto) Lymph % (Auto) [place] % (Auto) Eos % (Auto) Baso % (Auto) Neut # (Auto) Lymph # (Auto) [place] # (Auto) Eos # (Auto) Baso # (Auto) Nucleated RBC % (auto) Nucleated RBCs # Sodium Potassium Chloride Carbon Dioxide Anion Gap BUN Creatinine Glucose POC Glucose Estimat Average Glucose 146 Hemoglobin A1c 6.7 H Calculated Osmolality Calcium Total Bilirubin AST ALT Alkaline Phosphatase Troponin I 6 Hour Troponin I Hi Sens Del Troponin T Baseline Troponin T 120 Minute 13.59 Delta Troponin T 1.59 C-Reactive Protein 5.1 H Total Protein Albumin Globulin Lipase Procalcitonin 0.05 Urine Color Urine Appearance Urine pH Ur Specific [place] Urine Protein Urine Glucose (UA) Urine Ketones Urine Blood Urine Nitrate Urine Bilirubin Prot Sulfosalicylic Acd Urine Urobilinogen Ur Leukocyte Esterase Urine RBC Urine WBC Ur Squamous Epith Cells Urine Bacteria 12/27/19 12/27/19 12/27/19 01:54 03:00 03:00 WBC 6.0 RBC 4.35 Hgb 12.2 Hct 38.0 L MCV 87.4 MCH 28.0 MCHC 32.1 RDW 14.0 Plt Count 231 MPV 9.2 Neut % (Auto) 81.0 Lymph % (Auto) 10.3 [place] % (Auto) 7.2 Eos % (Auto) 0.8 Baso % (Auto) 0.5 Neut # (Auto) 4.9 Lymph # (Auto) 0.6 L [place] # (Auto) 0.4 Eos # (Auto) 0.1 Baso # (Auto) 0.0 Nucleated RBC % (auto) 0 Nucleated RBCs # 0.0 Sodium Potassium Chloride Carbon Dioxide Anion Gap BUN Creatinine Glucose POC Glucose Estimat Average Glucose Hemoglobin A1c Calculated Osmolality Calcium Total Bilirubin AST ALT Alkaline Phosphatase Troponin I 6 Hour 18.58 H Troponin I Hi Sens Del 6.58 Troponin T Baseline Troponin T 120 Minute Delta Troponin T C-Reactive Protein Total Protein Albumin Globulin Lipase Procalcitonin Urine Color Yellow Urine Appearance Clear Urine pH 8 H Ur Specific [place] 1.010 Urine Protein Neg Urine Glucose (UA) 1+ Urine Ketones Negative Urine Blood Trace H Urine Nitrate Negative Urine Bilirubin Neg Prot Sulfosalicylic Acd Negative Urine Urobilinogen Norm Ur Leukocyte Esterase Negative Urine RBC 0-4 H Urine WBC None Ur Squamous Epith Cells None Urine Bacteria Trace 12/27/19 12/27/19 12/27/19 03:00 06:28 10:58 WBC RBC Hgb Hct MCV MCH MCHC RDW Plt Count MPV Neut % (Auto) Lymph % (Auto) [place] % (Auto) Eos % (Auto) Baso % (Auto) Neut # (Auto) Lymph # (Auto) [place] # (Auto) Eos # (Auto) Baso # (Auto) Nucleated RBC % (auto) Nucleated RBCs # Sodium 143 Potassium 4.3 Chloride 108 H Carbon Dioxide 23 Anion Gap 16.3 BUN 25 H Creatinine 1.6 H Glucose 200 H POC Glucose 128 150 Estimat Average Glucose Hemoglobin A1c Calculated Osmolality 298 H Calcium 9.5 Total Bilirubin 0.6 AST 360 H ALT 213 H Alkaline Phosphatase 54 Troponin I 6 Hour Troponin I Hi Sens Del Troponin T Baseline Troponin T 120 Minute Delta Troponin T C-Reactive Protein Total Protein 5.9 L Albumin 3.7 Globulin 2.2 Lipase Procalcitonin Urine Color Urine Appearance Urine pH Ur Specific [place] Urine Protein Urine Glucose (UA) Urine Ketones Urine Blood Urine Nitrate Urine Bilirubin Prot Sulfosalicylic Acd Urine Urobilinogen Ur Leukocyte Esterase Urine RBC Urine WBC Ur Squamous Epith Cells Urine Bacteria Micro: Microbiology 12/26/19 22:40 Blood Culture - Preliminary Blood SPECIMEN COLLECTED 12/26/19 20:53 Blood Culture - Preliminary Blood SPECIMEN COLLECTED Cardiac Studies: No Data to Display
[2019-12-27] MEDS: sodium chloride 0.9% 1,000 ML 30 ML IV (15:03)
[2019-12-27 15:11] LABS: Glucose Point of Care 109 mg/dL (70-110)
[2019-12-27] MEDS: metoprolol succinate ER (24 HR) 25 mg Tablet PO (15:12)
--- NOTE | 2019-12-27 16:26 | PM.OP ---
Operative Report Date of procedure: December 27, 2019 Pre-op Diagnosis: acute calculus cholecystitis Post-op diagnosis: same Procedure Done: Laparoscopic cholecystectomy Specimens removed/disposition: Gallbladder Surgeon: Josh Bonilla Anesthesia: General Estimated blood loss (mL): 10 Condition: stable Disposition: PACU Procedure: The patient was taken to the operating room and was intubated under general anesthesia. After the antibiotic had been administered, the abdomen was prepped and draped in a sterile manner. Using a #15 blade, a 1 centimeter infraumbilical curvilinear incision was made and using an open Duran technique the peritoneal cavity was entered. A 10 millimeter port was placed and 15 millimeters of pneumoperitoneum was created. A 10 millimeter, 30 degrees scope was then introduced. Three 5 millimeter ports were placed in the epigastric, midclavicular and the anterior axillary line two fingerbreadths below the costal margin on the right side under the direct visualization. Ratcheted forceps were introduced into the lateral most port and was used to retract the fundus of the gallbladder cephalad and using forceps the infundibulum of the gallbladder was retracted laterally. Using L-hook cautery the peritoneum overlying the Calot's triangle was opened medially and laterally until the cystic duct and the cystic artery were skeletonized. There was drainage of bile and spillage of stones due to an opening made in the body of the gallbladder which was irrigated and suctioned out. Dissection was carried along the body of the gallbladder and after ensuring critical view of safety, 4 clips applied on the cystic duct and 3 clips applied on the cystic artery and cut leaving, 3 clips on the remaining portion of the duct and 2 clips on the remaining portion of the artery. The rest of the gallbladder was dissected off the liver using L-hook cautery. There was no bleeding or bile leaking noted from the gallbladder fossa and the clips appeared to be in place. An EndoCatch bag was introduced to remove the gallbladder. All the ports were removed under direct visualization and there was no bleeding noted from the port sites. The fascia of the umbilicus was closed using [id number] Vicryl sutures and the subcutaneous tissue was approximated using 3-0 Vicryl sutures. The skin at all four ports were closed using 4-0 Monocryl and Dermabond. A total of 10 millimeters of 0.5% Marcaine was infiltrated around the port sites. The patient was stable throughout the procedure.
--- NOTE | 2019-12-27 16:27 | SUR.PHASEI ---
1626 PATIENT TO PACU AT THIS TIME FROM OR. ORAL AIRWAY IN PLACE. SPO2 100% ON SIMPLE MASK AT 8L. 4 INCISIONS TO ABDOMEN, CLOSED WITH AYLEEN WEISS.
--- NOTE | 2019-12-27 16:27 | PM.DCS ---
Discharge Providers Date of Admission: 12/26/19 22:51 Date of Discharge: December 27, 2019 Attending Provider at Admission: Josh Bonilla MD Attending Provider at Discharge: Josh Bonilla MD Diagnoses at Discharge Discharge Diagnosis (1) Status post laparoscopic cholecystectomy: Status: Acute Reason for Visit Reason for Visit: Reason For Visit: CHEST PAIN/BACK PAIN Hospital Course Hospital Course: Siva Malik is a 79 year old male who presented to the ER last night with initially what is right-sided back pain which then subsequently radiated to the right upper quadrant. Patient had nausea and one episode of vomiting on his way in. He states that he had just eaten fried chicken at [employer] earlier in the evening. He denies any fevers, chills or jaundice. Patient had couple of episodes of bradycardia and underwent an ECHO He was admitted to the hospital and underwent laparoscopic cholecystectomy the following day. At the time of discharge his vital signs are stable he is tolerating a clear liquid diet and his pain was controlled. Discharge Data Data Completed and Pending: Completed Studies During Hospitalization Category Date Time Status XR chest 1V fortunato ble [id number] Stat Exams 12/26/19 20:11 Completed CV echo complete* [id number] Routine Ultrasound 12/27/19 01:18 Completed US gall bladder 7 [id number] Urgent Ultrasound 12/26/19 20:20 Completed US renal BI* [id number] Routine Ultrasound 12/27/19 01:18 Taken Pending at discharge Category Date Time Status ES surgery / GI i mages Routine Exams 12/27/19 14:45 Ordered Blood Culture Sta t Lab 12/26/19 22:40 Results Complete Blood Co unt w/Auto AM LABS Lab 12/28/19 04:00 Ordered Magnesium AM LABS Lab 12/28/19 04:00 Ordered Renal Function Pa constantine AM LABS Lab 12/28/19 04:00 Ordered Labs from last 24 hours 12/27/19 12/27/19 12/27/19 15:07 10:58 06:28 WBC RBC Hgb Hct MCV MCH MCHC RDW Plt Count MPV Neut % (Auto) Lymph % (Auto) [place] % (Auto) Eos % (Auto) Baso % (Auto) Neut # (Auto) Lymph # (Auto) [place] # (Auto) Eos # (Auto) Baso # (Auto) Nucleated RBC % (a uto) Nucleated RBCs # Sodium Potassium Chloride Carbon Dioxide Anion Gap BUN Creatinine Glucose POC Glucose 109 150 128 Estimat Average Gl ucose Hemoglobin A1c Calculated Osmolal ity Calcium Total Bilirubin AST ALT Alkaline Phosphata se Troponin I 6 Hour Troponin I Hi Sens Del Troponin T Baselin e Troponin T 120 Min [place] Troponin T C-Reactive Protein Total Protein Albumin Globulin Lipase Procalcitonin Urine Color Urine Appearance Urine pH Ur Specific Gravit y Urine Protein Urine Glucose (UA) Urine Ketones Urine Blood Urine Nitrate Urine Bilirubin Prot Sulfosalicyli c Acd Urine Urobilinogen Ur Leukocyte Maddie ase Urine RBC Urine WBC Ur Squamous Epith Cells Urine Bacteria 12/27/19 12/27/19 12/27/19 03:00 03:00 03:00 WBC 6.0 RBC 4.35 Hgb 12.2 Hct 38.0 L MCV 87.4 MCH 28.0 MCHC 32.1 RDW 14.0 Plt Count 231 MPV 9.2 Neut % (Auto) 81.0 Lymph % (Auto) 10.3 [place] % (Auto) 7.2 Eos % (Auto) 0.8 Baso % (Auto) 0.5 Neut # (Auto) 4.9 Lymph # (Auto) 0.6 L [place] # (Auto) 0.4 Eos # (Auto) 0.1 Baso # (Auto) 0.0 Nucleated RBC % (a uto) 0 Nucleated RBCs # 0.0 Sodium 143 Potassium 4.3 Chloride 108 H Carbon Dioxide 23 Anion Gap 16.3 BUN 25 H Creatinine 1.6 H Glucose 200 H POC Glucose Estimat Average Gl ucose Hemoglobin A1c Calculated Osmolal ity 298 H Calcium 9.5 Total Bilirubin 0.6 AST 360 H ALT 213 H Alkaline Phosphata se 54 Troponin I 6 Hour 18.58 H Troponin I Hi Sens Del 6.58 Troponin T Baselin e Troponin T 120 Min [place] Troponin T C-Reactive Protein Total Protein 5.9 L Albumin 3.7 Globulin 2.2 Lipase Procalcitonin Urine Color Urine Appearance Urine pH Ur Specific Gravit y Urine Protein Urine Glucose (UA) Urine Ketones Urine Blood Urine Nitrate Urine Bilirubin Prot Sulfosalicyli c Acd Urine Urobilinogen Ur Leukocyte Maddie ase Urine RBC Urine WBC Ur Squamous Epith Cells Urine Bacteria 12/27/19 12/26/19 12/26/19 01:54 22:40 20:30 WBC RBC Hgb Hct MCV MCH MCHC RDW Plt Count MPV Neut % (Auto) Lymph % (Auto) [place] % (Auto) Eos % (Auto) Baso % (Auto) Neut # (Auto) Lymph # (Auto) [place] # (Auto) Eos # (Auto) Baso # (Auto) Nucleated RBC % (a uto) Nucleated RBCs # Sodium Potassium Chloride Carbon Dioxide Anion Gap BUN Creatinine Glucose POC Glucose Estimat Average Gl ucose Hemoglobin A1c Calculated Osmolal ity Calcium Total Bilirubin AST ALT Alkaline Phosphata se Troponin I 6 Hour Troponin I Hi Sens Del Troponin T Baselin e Troponin T 120 Min [place] 13.59 Delta Troponin T 1.59 C-Reactive Protein 5.1 H Total Protein Albumin Globulin Lipase Procalcitonin 0.05 Urine Color Yellow Urine Appearance Clear Urine pH 8 H Ur Specific Gravit y 1.010 Urine Protein Neg Urine Glucose (UA) 1+ Urine Ketones Negative Urine Blood Trace H Urine Nitrate Negative Urine Bilirubin Neg Prot Sulfosalicyli c Acd Negative Urine Urobilinogen Norm Ur Leukocyte Maddie ase Negative Urine RBC 0-4 H Urine WBC None Ur Squamous Epith Cells None Urine Bacteria Trace 12/26/19 12/26/19 12/26/19 20:30 20:30 20:30 WBC RBC Hgb Hct MCV MCH MCHC RDW Plt Count MPV Neut % (Auto) Lymph % (Auto) [place] % (Auto) Eos % (Auto) Baso % (Auto) Neut # (Auto) Lymph # (Auto) [place] # (Auto) Eos # (Auto) Baso # (Auto) Nucleated RBC % (a uto) Nucleated RBCs # Sodium 139 Potassium 4.0 Chloride 101 Carbon Dioxide 24 Anion Gap 18.0 BUN 33 H Creatinine 1.8 H Glucose 198 H POC Glucose Estimat Average Gl ucose 146 Hemoglobin A1c 6.7 H Calculated Osmolal ity 291 Calcium 10.2 Total Bilirubin 1.0 AST 46 H ALT 24 Alkaline Phosphata se 52 Troponin I 6 Hour Troponin I Hi Sens Del Troponin T Baselin e 12 Troponin T 120 Min [place] Troponin T C-Reactive Protein Total Protein 7.3 Albumin 4.4 Globulin 2.9 Lipase 30 Procalcitonin Urine Color Urine Appearance Urine pH Ur Specific Gravit y Urine Protein Urine Glucose (UA) Urine Ketones Urine Blood Urine Nitrate Urine Bilirubin Prot Sulfosalicyli c Acd Urine Urobilinogen Ur Leukocyte Maddie ase Urine RBC Urine WBC Ur Squamous Epith Cells Urine Bacteria 12/26/19 20:30 WBC 7.7 RBC 5.31 H Hgb 14.7 Hct 46.0 MCV 86.6 MCH 27.7 L MCHC 32.0 RDW 14.4 Plt Count 295 MPV 9.5 Neut % (Auto) 82.2 Lymph % (Auto) 10.5 [place] % (Auto) 5.0 Eos % (Auto) 1.4 Baso % (Auto) 0.5 Neut # (Auto) 6.3 Lymph # (Auto) 0.8 [place] # (Auto) 0.4 Eos # (Auto) 0.1 Baso # (Auto) 0.0 Nucleated RBC % (a uto) 0 Nucleated RBCs # 0.0 Sodium Potassium Chloride Carbon Dioxide Anion Gap BUN Creatinine Glucose POC Glucose Estimat Average Gl ucose Hemoglobin A1c Calculated Osmolal ity Calcium Total Bilirubin AST ALT Alkaline Phosphata se Troponin I 6 Hour Troponin I Hi Sens Del Troponin T Baselin e Troponin T 120 Min [place] Troponin T C-Reactive Protein Total Protein Albumin Globulin Lipase Procalcitonin Urine Color Urine Appearance Urine pH Ur Specific Gravit y Urine Protein Urine Glucose (UA) Urine Ketones Urine Blood Urine Nitrate Urine Bilirubin Prot Sulfosalicyli c Acd Urine Urobilinogen Ur Leukocyte Maddie ase Urine RBC Urine WBC Ur Squamous Epith Cells Urine Bacteria Imaging^: Echo: Radiologist's impression: MEASUREMENTS (Male / Female) Normal Values 2D ECHO LV Diastolic Diameter PLAX 2.4 cm 4.2 - 5.9 / 3.9 - 5.3 cm LV Systolic Diameter PLAX 1.7 cm LV Chamber Size 3.6 cm IVS Diastolic Thickness 1.8 cm 0.6 - 1.0 / 0.6 - 0.9 cm IVS Systolic Thickness 1.9 cm LVPW Diastolic Thickness 0.7 cm 0.6 - 1.0 / 0.6 - 0.9 cm LVPW Systolic Thickness 1.3 cm RV Chamber Size 1.9 cm LVOT Diameter 1.8 cm LV Ejection Fraction 2D Teich 60.8 % LV Ejection Fraction MOD 2C 58.9 % LV Ejection Fraction 2C AL 59.6 % LA Diameter 4.0 cm LA Width 2.6 cm LA Height 5.5 cm RA Width 2.5 cm RA Height 5.5 cm Aorta at Sinotubular Diameter 1.8 cm M-MODE LV Diastolic Diameter MM 4.5 cm 4.2 - 5.9 / 3.9 - 5.3 cm LV Systolic Diameter MM 3.3 cm LV Ejection Fraction MM Teich 52.7 % IVS Diastolic Thickness MM 1.0 cm 0.6 - 1.0 / 0.6 - 0.9 cm IVS Systolic Thickness MM 1.2 cm LVPW Diastolic Thickness MM 1.0 cm 0.6 - 1.0 / 0.6 - 0.9 cm LVPW Systolic Thickness MM 1.1 cm Aortic Annulus Diameter 3.4 cm LA Ao Ratio MM 1.2 MV E Point Septal Separation 0.5 cm DOPPLER AV Peak Velocity 139.0 cm/s LVOT Peak Velocity 116.0 cm/s AV Area Cont Eq vti 2.0 cm squared AV Area Cont Eq pk 2.1 cm squared MV Area PHT 2.9 cm squared Mitral E to A Ratio 1.1 MV E' Velocity 12.0 cm/s Mitral E to MV E' Ratio 8.0 Mitral E to LV E' Lateral Ratio 8.4 Mitral E to LV E' Septal Ratio 7.7 TR Peak Velocity 290.0 cm/s TR Peak Gradient 33.6 mmHg TV Peak E Velocity 81.0 cm/s Right Atrial Pressure 3.0 mmHg Pulmonary Artery Systolic Pressu 36.6 mmHg PV Peak Velocity 126.0 cm/s RV Acceleration Time 0.1 s RV Ejection Time 0.2 s RV AcT/ET 0.3 FINDINGS Left Ventricle Normal left ventricular size, systolic function and wall thickness, with no regional wall motion abnormalities. Left ventricular ejection fraction is estimated at 71 %. Normal diastolic function. Right Ventricle Normal right ventricular size and systolic function, RVSP 36.6 mmHg. Right Atrium Normal right atrial size. Left Atrium Normal left atrial size. Mitral Valve Mild mitral annular calcification. Structurally normal mitral valve. No mitral valve stenosis. Trace mitral valve regurgitation. Aortic Valve Thickened trileaflet aortic valve. No aortic valve stenosis. No aortic valve regurgitation. Tricuspid Valve Structurally normal tricuspid valve. No tricuspid valve stenosis. Trace to mild tricuspid valve regurgitation. Pulmonic Valve No pulmonary valve stenosis. Trace pulmonary valve regurgitation. Pericardium No pericardial effusion. Aorta Normal sized aortic root. CONCLUSIONS 1. Normal left ventricular size, systolic function and wall thickness, with no regional wall motion abnormalities. Left ventricular ejection fraction is estimated at 71 %. Normal diastolic function. 2. Normal right ventricular size and systolic function, RVSP 36.6 mmHg. 3. No significant valvular abnormality. 4. When compared to study dated 07/11/2017, there has been no significant change. US: Radiologist's impression: PROCEDURE INFORMATION: Exam: US Retroperitoneal Complete. Exam date and time: 12/27/2019 10:27 AM Age: 79 years old Clinical indication: Abnormal findings; Abnormal lab test; Abnormal kidney function lab tests; Additional info: Jaspreet TECHNIQUE: Imaging protocol: Real-time ultrasound of the retroperitoneum with image documentation. Complete exam. COMPARISON: US gall bladder [id number] 12/26/2019 8:48 PM FINDINGS: Right kidney: No stones. No hydronephrosis. 3.6 cm x 5 cm x 10 cm (cortex 8.8 mm) Left kidney: No stones. No hydronephrosis. 10.6 cm x 5.3 cm x 4.2 cm (cortex 11.3 mm) The urinary bladder does not show intrinsic abnormality. The bladder is incompletely distended. The prostate gland shows areas of increased echogenicity which may reflect calcifications. The prostate gland measures 3.4 cm x 3.3 cm x 5 cm US/US renal BI* [id number] IMPRESSION: 1. Negative bilateral kidneys . 2. Prostate gland is prominent 3. Urinary bladder is incompletely filled . Vitals: Last Vital Signs Temp 99.0 F 12/27/19 14:54 Pulse 87 12/27/19 14:54 Resp 18 12/27/19 14:54 BP 158/71 12/27/19 14:54 Pulse Ox 97 12/27/19 14:54 Discharge Plan Discharge Patient Disposition: Home, Self-Care Condition: Stable Prescriptions: New hydrocodone-acetaminophen [[place]] 5-325 mg tablet 1 tab PO Q6H 7 Days Qty: 20 RF: 0 docusate sodium [Colace] 100 mg capsule 100 mg PO BID Qty: 30 RF: 0 ondansetron HCl [Zofran] 4 mg tablet 4 mg PO Q6H PRN (Reason: nausea and vomiting) Qty: 20 RF: 0 No Action trazodone 50 mg Tablet 50 mg PO BEDTIME RF: 0 amlodipine 5 mg Tablet 5 mg PO BEDTIME RF: 0 Aspirin Low Dose 81 mg Tablet,Delayed Release (Dr/Ec) 81 mg PO DAILY RF: 0 Flomax 0.4 mg Capsule 0.4 mg PO BEDTIME RF: 0 metoprolol succinate 25 mg Tablet Extended Release 24 Hr 25 mg PO BEDTIME RF: 0 Vitamin D2 1,250 mcg (50,000 unit) Capsule 1 unit PO DAILY RF: 0 lovastatin 20 mg Tablet 20 mg PO DAILY RF: 0 lisinopril 40 mg Tablet 40 mg PO BEDTIME RF: 0 Cinnamon 500 mg Capsule 2,000 mg PO DAILY RF: 0 Discharge Orders: Discharge Order (Routine); Ordered 12/27/19 Ordered By: Josh Bonilla Referrals: Prashanth Wheat MD [Family Provider] - Josh Bonilla MD [Physician] - 2 weeks Patient Instructions: Cholecystitis (ED), Biliary Colic (ED), Acute Nausea and Vomiting (ED) Activity Restrictions/Additional Instructions: 1. Up and walking as tolerated. 2. Ok to shower in 48 hours after surgery. 3. Remove Dermabond dressing in 7-10 days. 4. Do not lift more than 10 pounds. 5. Do not operate heavy machinery or drive while using pain medications. 6. Advised to return to ER or contact my office if there are any signs of infection like, increasing pain, fevers, chills, redness or drainage of pus. Discharge Attestations Time Spent in Discharge Care*: less than 30 min Quality Metrics Clinical Quality Measures During this hospital stay, did patient experience: None Coding Level of Care Code Acute Certified Massage Therapist for Marla Stanley Diagnoses Status post laparoscopic cholecystectomy Z90.49
[2019-12-27] MEDS: fentaNYL 50 mcg/mL INJ 2mL IVP (16:37)
--- NOTE | 2019-12-27 17:05 | PC.NURSE ---
Patient returned to his room at this time. Patient is A&Ox3. Respirations even and non-labored on room air. Patient is rating his pain an 8/10.
--- NOTE | 2019-12-27 17:08 | SUR.PHASEI ---
1653 PATIENT TO MED SURG AT THIS TIME FROM PACU. RR EVEN AND UNLABORED. 4 INCISIONS TO ABDOMEN, CDI. TOLERATING ICE CHIPS. DENIES NAUSEA. WHEN ARRIVING TO MED SURG PATIENT AMBULATED TO BED WITH STEADY GAIT.
[2019-12-27 17:11] LABS: Glucose Point of Care 143 mg/dL (70-110)
[2019-12-27] MEDS: ondansetron 2 mg/ML SDV 2 mL 4 MG IVP (18:38)
[2019-12-27] MEDS: morphine 4 mg/mL SDV 1 mL 2 MG IVP (18:40)
[2019-12-27] MEDS: sodium chloride 0.9% 1,000 ML 75 ML IV (18:46)
[2019-12-27 21:19] LABS: Glucose Point of Care 143 mg/dL (70-110)
[2019-12-27] MEDS: HYDROcodone-acetaminophen 5-325 mg Tablet 1 TAB PO (21:31)
[2019-12-28] VITALS: BP 138/68; PULSE 82; RESP 18; TEMP 36.9; O2SAT 96
[2019-12-28 04:00] VITALS: BP 161/69; PULSE 71; RESP 18; TEMP 36.8; O2SAT 94
[2019-12-28] MEDS: HYDROcodone-acetaminophen 5-325 mg Tablet 1 TAB PO (04:01)
[2019-12-28] MEDS: sodium chloride 0.9% 1,000 ML 75 ML IV (05:12)
[2019-12-28 05:51] LABS: Basophils % 0.4 %; Eosinophils % 0.4 %; Hematocrit 40.5 % (42.0-52.0); Hemoglobin 12.6 g/dL (11.7-16.6); Lymphocytes # 0.5 10^3/uL (0.8-4.8); Lymphocytes % 5.7 %; Mean Corpuscular HGB Conc 31.1 g/dL (30.0-36.0); Mean Corpuscular Hemoglobin 27.7 pg (28.0-34.0); Mean Platelet Volume 9.6 fL (7.4-10.4); Monocytes # 0.6 10^3/uL (0.2-0.9); Monocytes % 7.1 %; Neutrophils # 7.4 10^3/uL (1.8-7.7); Neutrophils % 86.2 %; Nucleated Red Blood Cells % 0 %; Platelet Count 267 10^3/cmm (130-400); Red Blood Count 4.55 10^6/uL (4.1-5.3); Red Cell Distribution Width 14.6 % (12.1-15.1); White Blood Count 8.6 10^3/uL (4.0-10.0)
[2019-12-28 06:18] LABS: Magnesium 1.9 mg/dL (1.7-2.3)
[2019-12-28 06:19] LABS: Albumin Level 3.8 g/dL (3.5-5.2); Anion Gap 17.4 (5-19); Blood Urea Nitrogen 17 mg/dL (8-23); Calcium 9.2 mg/dL (8.5-10.5); Carbon Dioxide 21 mmol/L (22-29); Chloride 106 mmol/L (98-107); Glucose 136 mg/dL (65-115); Phosphorus 3.1 mg/dL (2.5-4.5); Potassium 4.4 mmol/L (3.5-5.1); Sodium 140 mmol/L (136-145)
[2019-12-28 07:58] VITALS: BP 141/63; PULSE 70; RESP 16; TEMP 37.8; O2SAT 93
--- NOTE | 2019-12-28 10:45 | PM.PN ---
Subjective Subjective: Interval history: Patient has been doing well denies any pain fevers chills or drainage Vitals/I&O/Wt Last Vital Signs Temp 100.0 F H 12/28/19 07:58 Pulse 70 12/28/19 07:58 Resp 16 12/28/19 07:58 BP 141/63 12/28/19 07:58 Pulse Ox 93 12/28/19 07:58 12/27/19 12/28/19 12/28/19 22:59 06:59 14:59 Intake Total 2049 Output Total 70 / 1495 250 / 1495 50 / 50 Balance -70 / 555 750 / 555 -50 / -50 Weight last 48 hrs Weight 180 lb Physical Exam Narrative: EXAM NARRATIVE: Abdomen:, Soft, nontender, nondistended incisions healing well Data : 12/28/19 04:55 12/28/19 04:55 Micro: Microbiology 12/26/19 22:40 Blood Culture - Preliminary Blood NEGATIVE TO DATE 12/26/19 20:53 Blood Culture - Preliminary Blood NEGATIVE TO DATE A&P Assessment and plan (1) Status post laparoscopic cholecystectomy: Doing well DC home today Status: Acute Attestations Medical Necessity Statement*: DC home today Coding Level of Care Code Acute Asbestos Wire Finisher for Chg Fwterrance Diagnoses Status post laparoscopic cholecystectomy Z90.49
[2019-12-28 10:58] VITALS: BP 141/63; PULSE 70; RESP 16; TEMP 37.8; O2SAT 93
== END 2019-12-28 10:59 | disposition home or self-care (01) ==
LOC: ER 22:57 → MEDSURG 23:18
PROVIDERS: Emergency Medicine; Family Medicine; Internal Medicine; Admitting Provider Surgery; Emergency Provider Physician Assistant; Family Provider Family Medicine; Visit Provider Surgery
PROC: 0FT44ZZ Resection of Gallbladder, Percutaneous Endoscopic Approach (ICD-10-PCS; CPT 47562; principal; 2019-12-27 13:30)
DX: K80.10 Calculus of gallbladder with chronic cholecystitis without obstruction (principal); Z79.82 Long term (current) use of aspirin; E78.5 Hyperlipidemia, unspecified; M19.90 Unspecified osteoarthritis, unspecified site; E11.22 Type 2 diabetes mellitus with diabetic chronic kidney disease; I12.9 Hypertensive chronic kidney disease with stage 1 through stage 4 chronic kidney disease, or unspecified chronic kidney disease; N18.9 Chronic kidney disease, unspecified
CPT/HCPCS: 47562; 12345; 36415; 36416; 71045; 76705; 76770; 80053; 80069; 81001; 82962; 83036; 83690; 83735; 84145; 84484; 85025; 86140; 87040; 88304; 93005; 93306; 96361; 96365; 96366; 96374; 99283; G0378; J2001; J2270; J2405; J2543; J2704; J3010; J3490; J7030; J7040

== ENCOUNTER 2020-02-16 10:14 | Outpatient (CLI) | payer OTHER, SELFPAY ==
--- NOTE | 2020-02-16 10:27 | CT_ITS ---
WS: [id number] NONCONTRAST CT RIGHT SHOULDER TECHNIQUE: Noncontrast CT right shoulder with coronal and sagittal reformatted images. CLINICAL INFORMATION: R SHOULDER PAIN COMPARISON: None. DLP: 1586.[address] scans at [facility] use at least one of these dose optimization techniques: automat ed exposure control; mA and/or kV adjustment per patient size (includes targeted exams where dose is matched to clinical indication); or iterative reconstruction. 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 No lytic de struction. Moderate degenerative arthritis at the AC joint. Mild downsloping of the acromion with sli ght subacromial spurring. Mild narrowing of the subacromial space. Mild chronic thinning of the supra spinatus. Infraspinatus appears intact. Teres minor appears intact. Normal subscapularis. Normal biceps tendon in the bicipital groove. Moderate degenerative narrowing at the glenohumeral yaneth nt. CT/CT shoulder RT wo con* [id number] IMPRESSION: 1. Moderate degenerative arthritis at the AC joint with mild downsloping of th e acromion. 2. Sclerotic lesion proximal humerus measuring 2.1 x 1.5 cm most consistent wi th benign chondroma. 3. Chronic thinning of the supraspinatus distally. Rotator cuff otherwise appe ars unremarkable. 4. Moderate degenerative narrowing of the glenohumeral joint. 5. No acute fractures.
== END 2020-02-16 10:15 | disposition home or self-care (01) ==
LOC: RAD 10:16
PROVIDERS: Family Provider Family Medicine; Visit Provider Family Medicine
DX: M25.511 Pain in right shoulder (principal); M19.011 Primary osteoarthritis, right shoulder; M89.9 Disorder of bone, unspecified
CPT/HCPCS: 73200

== ENCOUNTER → 2020-04-21 08:19 | Outpatient (BNVA) | payer OTHER, SELFPAY | PROVIDERS: Family Provider Family Medicine; PCP Family Medicine; Referring Provider Family Medicine; Visit Provider Anesthesiology Pain Medicine | DX: G89.29 Other chronic pain (principal); M75.91 Shoulder lesion, unspecified, right shoulder; M19.011 Primary osteoarthritis, right shoulder; M25.511 Pain in right shoulder; Z79.891 Long term (current) use of opiate analgesic | CPT/HCPCS: 20610; 99204; J1030; J3490 ==

== ENCOUNTER → 2020-05-19 09:32 | Outpatient (BNVA) | payer OTHER, SELFPAY | PROVIDERS: Family Provider Family Medicine; PCP Family Medicine; Visit Provider Anesthesiology Pain Medicine | DX: M19.011 Primary osteoarthritis, right shoulder (principal); M75.91 Shoulder lesion, unspecified, right shoulder | CPT/HCPCS: 99213 ==

== ENCOUNTER → 2020-07-14 09:45 | Outpatient (BNVA) | payer OTHER, SELFPAY | PROVIDERS: Family Provider Family Medicine; PCP Family Medicine; Visit Provider Anesthesiology Pain Medicine | DX: M79.672 Pain in left foot (principal); L60.0 Ingrowing nail; M19.011 Primary osteoarthritis, right shoulder; M75.91 Shoulder lesion, unspecified, right shoulder | CPT/HCPCS: 99213; 99214 ==

== ENCOUNTER 2020-07-20 00:57 | Inpatient (IN) | payer OTHER, MEDICARE, SELFPAY ==
[2020-07-20] VITALS (19 sets, daily range): BP systolic 98–174; BP diastolic 57–94; PULSE 60–87; RESP 14–30; TEMP 36.3–36.7; O2SAT 93–98; BMI 27.3
--- NOTE | 2020-07-20 01:09 | XR_ITS ---
WS: [id number] XR chest 1V portable [id number] REASON FOR EXAM: Dyspnea FINDINGS: Compared to previous examination of 12/26/2019 a reticular interstitial infiltrative pattern is seen in the lower lung parker, most notably on the left. The costophrenic angles are blunted, in part by a djacent consolidated lung. The heart is not significantly enlarged. The thoracic aorta is moderately tortuous. Popcorn-like calc ification in the humeral head, probable enchondroma. XR/XR chest 1V portable [id number] IMPRESSION: Interstitial infiltrative process in the lower lungs of uncertain chronicity. T he findings are compatible with acute subacute pneumonitis, less likely congest linda failure.
--- NOTE | 2020-07-20 01:10 | ECG_ITS ---
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 Measurements Intervals [place] Rate: 77 P: 79 DC: 220 QRS: -52 QRSD: 85 T: 95 QT: 313 QTc: 355 Interpretive Statements SINUS RHYTHM WITH FIRST DEGREE AV BLOCK PATTERN CONSISTENT WITH PULMONARY DISEASE LEFT ANTERIOR FASCICULAR BLOCK [QRS AXIS <= -45, QR IN I, RS IN II] NONSPECIFIC ST & T-WAVE ABNORMALITY Compared to ECG 12/27/2019 10:34:03 First degree AV block now present Left anterior fascicular block now present T-wave abnormality now present Electronically Signed On 07-20-2020 19:15:34 MILK BOTTLER by Fer Mayers M.D. [email or web address]
--- NOTE | 2020-07-20 01:20 | W.ED.SOB ---
HPI - SOB/Dyspnea General: Chief Complaint: Shortness of Breath/Dyspnea Stated Complaint: SOB Time Seen by Provider: 07/20/20 01:03 Source: patient and EMS Mode of arrival: EMS Limitations: no limitations History of Present Illness: HPI Narrative: Don very nice 79-year-old male comes in complaining of pain across both the shoulder blades, shortness of breath and diaphoresis. Patient was at home getting ready for bed when he developed the symptoms and of back pain first. He developed the diaphoresis and nausea and then became sweaty. This is primarily now he feels short of breath. He denies any fevers, chills or other complaints. Patient denies a history of heart problems but does have a history of high blood pressure and kidney disease according to him. Currently the patient still does have his back pain. Associated symptoms: Reports diaphoresis and nausea; Deny abdominal pain, chest congestion, chest pain, dizziness, extremity pain, fever(s), hemoptysis, lightheadedness, orthopnea, palpitations, syncope or vomiting Review of Systems Const: Reports: diaphoresis; Denies: fever(s), chills, body aches, fatigue or malaise Eyes: Denies: change in vision, blurry vision, photophobia, eye discomfort, eye discharge, eye redness or yellow eyes ENMT: Denies: throat pain, odynophagia, hoarseness, swelling of lips/tongue, ear or mastoid pain, ear discharge, change in hearing or nasal discharge Card: Denies: chest pain, palpitations, irregular heart rhythm, edema, lightheadedness, syncope, pre-syncope, dyspnea on exertion or orthopnea Resp: Reports: dyspnea; Denies: productive cough, non-productive cough, wheezing, hemoptysis or chest congestion GI: Reports: nausea; Denies: abdominal pain, vomiting, hematemesis, coffee ground emesis, heartburn, diarrhea, constipation, GI cramping, hematochezia or melena : Denies: flank pain, dysuria, urinary frequency, urinary urgency or hematuria Musc: Reports: back pain; Denies: neck pain, extremity pain, extremity swelling, joint pain, joint swelling, joint redness, joint warmth or joint stiffness Skin/Breast: Denies: rash, pruritus, erythema, skin pain or skin tenderness Neuro: Denies: headache(s), numbness in extremities, weakness in extremities, sensory changes, lack of coordination, difficulty walking, dizziness, vertigo, confusion, Slurred speech present or seizure-like activity Eduin/Lymph: Denies: easy bruising, easy bleeding, petechiae, purpura or enlarged lymph nodes All/Imm: Denies: urticaria, throat swelling, tongue swelling, facial swelling or acute wheezing PFSH ED PFSH: Medical History (Updated 07/20/20 @ 03:40 by Soumya Melara MD) CKD (chronic kidney disease) Hyperlipidemia Hypertension 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 Pain management contract signed Surgical History H/O left wrist surgery Hx of cataract surgery Status post laparoscopic cholecystectomy (~12/27/19) Family History Denies family history of CAD (coronary artery disease) Anesthesia complication Bleeding disorder Social History Smoking and tobacco status: former smoker Alcohol intake: never Physical Exam Const: COMMON NORMALS: no acute distress, patient oriented x3, no limitations and alert GENERAL APPEARANCE: cooperative HENMT: COMMON NORMALS: normocephalic, atraumatic, external ears normal, EAC's normal and Normal external nose present HEAD & SCALP: normal to inspection, normocephalic and atraumatic FACE & SINUS: normal facial exam and face symmetric NOSE: Normal external nose present and Normal nares present EXTERNAL EAR: Yes external ears normal EXTERNAL AUDITORY CANAL: EAC's normal MOUTH: Normal oral and palatal mucosa present, lip normal and tongue normal Eye: COMMON NORMALS: Equal, round and reactive pupils present and conjunctivae normal GENERAL EYE: appearance normal, both eyes and all related structures ALIGNMENT: Yes alignment normal PERIORBITAL: periorbital findings normal EYELID: eyelids normal CONJUNCTIVA: Yes conjunctivae normal SCLERA: sclerae normal PUPIL: Yes Equal, round and reactive pupils present Neck/C-Spine: COMMON NORMALS: full ROM, no lymphadenopathy, supple, no meningeal signs and no JVD GENERAL: Yes normal visual inspection and Yes trachea midline Chest: COMMONS NORMALS: normal inspection of the chest and normal palpation of entire chest wall Resp: COMMON NORMALS: normal respiratory effort, No retractions, No use of accessory muscles and clear to auscultation bilaterally EFFORT & INSPECTION: Yes able to speak in complete sentences and Yes symmetric chest movement AUSCULTATION: clear to auscultation bilaterally, no crackles, no rales, no rhonchi and no wheezes Cardio: COMMON NORMALS: no JVD, regular rate, regular rhythm, S1 normal heart sound present and S2 normal heart sound present RATE: regular rate RHYTHM: regular rhythm HEART SOUNDS: S1 normal heart sound present, S2 normal heart sound present, no click, no gallops, no murmurs and no rubs GI: COMMON NORMALS: Soft to palpation and No hepatosplenomegaly present PALPATION: Yes Soft to palpation, No Tenderness to palpation present (GI), No Guarding due to palpation present (GI), No Rigid due to palpation, Yes No hepatosplenomegaly present, No Hernia present, No Palpable mass present and No Pulsatile mass present : COMMON NORMALS: Yes no CVA tenderness BLADDER/KIDNEY EXAM: Yes no CVA tenderness Back/Pelvis: COMMON NORMALS: no CVA tenderness, thoracic and lumbar spine normal to inspection, no thoracic nor lumbar tenderness and thoraco-lumbar ROM normal Extremity: COMMON NORMALS: normal to inspection, full ROM, capillary refill normal, no joint enlargement, no clubbing, cyanosis or edema and no calf tenderness Neuro: COMMON NORMALS: patient oriented x3, CN's II-XII intact bilaterally, moves all extremities, no focal motor deficits and no sensory deficits noted SENSORIUM/ORIENTATION: Yes alert MENINGEAL SIGNS: Yes no meningeal signs SPEECH: speech normal Psych: COMMON NORMALS: mental status grossly normal, Normal thought process present, cooperative, normal affect, speech normal and activity/motor behavior normal SPEECH: Yes normal speech THOUGHT PROCESS: Normal thought process present Skin: COMMON NORMALS: no rashes or lesions noted, turgor normal, no jaundice, no petechiae and no mottling GENERAL SKIN EXAM: no rashes or lesions noted and turgor normal Course ED course: 212 -EKGs and Case reviewed with Dr. Mayers. He agrees with heparin and Lasix at this time but believes because the patient's blood pressure has been soft to hold off on nitroglycerin. Currently the patient is chest pain free. 9 -patient second troponin is come back with a positive delta. Patient is still having no chest pain or shortness of breath. This was reviewed with Dr. Melara, agrees with going ahead and giving 300 mg of Plavix p.o. Vital Signs: Vital signs: Vital Signs Temperature 98.0 F 07/20/20 01:01 Pulse Rate 69 07/20/20 03:46 Respiratory Rate 14 07/20/20 03:46 Blood Pressure 124/71 07/20/20 03:46 Pulse Oximetry 96 07/20/20 03:46 MDM - SOB/Dyspnea Lab Data: Labs: Lab Results 07/20/20 07/20/20 07/20/20 Range/Units 00:45 00:45 00:45 WBC 12.7 H (4.0-10.0) 10^3/ uL RBC 5.54 H (4.1-5.3) 10^6/u L Hgb 15.5 (11.7-16.6) g/dL Hct 49.2 (42.0-52.0) % MCV 88.8 (80-94) fL MCH 28.0 (28.0-34.0) pg MCHC 31.5 (30.0-36.0) g/dL RDW 14.0 (12.1-15.1) % Plt Count 315 (130-400) 10^3/c mm MPV 10.0 (7.4-10.4) fL Neut % (Auto) 85.9 % Lymph % (Auto) 8.3 % [place] % (Auto) 3.6 % Eos % (Auto) 1.3 % Baso % (Auto) 0.5 % Neut # (Auto) 10.91 H (1.8-7.7) 10^3/u L Lymph # (Auto) 1.1 (0.8-4.8) 10^3/u L [place] # (Auto) 0.5 (0.2-0.9) 10^3/u L Eos # (Auto) 0.2 (0.0-0.8) 10^3/u L Baso # (Auto) 0.1 (0.0-0.1) 10^3/u L Nucleated RBC % (a uto) 0 % Nucleated RBCs # 0.0 /100WBC PT 14.20 (12.1-14.9) SECO NDS INR 1.06 (0.8-1.2) Sodium 140 (136-145) mmol/L Potassium 4.0 (3.5-5.1) mmol/L Chloride 103 (98-107) mmol/L Carbon Dioxide 23 (22-29) mmol/L Anion Gap 18.0 (5-19) BUN 28 H (8-23) mg/dL Creatinine 2.0 H (0.7-1.2) mg/dL GFR Calculation Not Reportable Glucose 255 H (65-115) mg/dL Calculated Osmolal ity 304 H (285-295) mOsm/k g Calcium 9.6 (8.5-10.5) mg/dL Total Bilirubin 0.3 (0.15-1.2) mg/dL AST 17 (0-40) U/L ALT 14 (0-41) U/L Alkaline Phosphata se 64 (40-130) IU/L Creatine Kinase 42 (39-308) U/L Troponin T Baselin e (0-15) ng/L Troponin T 120 Min havasupai (0-15) ng/L Delta Troponin T (0-10) ABS# NT-Pro-B Natriuret Pep 958 H (0-450) pg/mL Total Protein 7.0 (6.6-8.7) g/dL Albumin 4.1 (3.5-5.2) g/dL Globulin 2.9 (1.3-4.6) g/dL Urine Color (Yellow) Urine Appearance (CLEAR) Urine pH (5-7) Ur Specific Gravit y (1.005-1.030) Urine Protein (Negative) Urine Glucose (UA) (Normal) Urine Ketones (Negative) Urine Blood (Negative) Urine Nitrate (Negative) Urine Bilirubin (Negative) Urine Urobilinogen (Negative) mg/dL Ur Leukocyte Maddie ase (Negative) Influenza Type A A g (Negative) Influenza Type B A g (Negative) SARS-CoV-2 Ag (Rap id) (Negative) 07/20/20 07/20/20 07/20/20 Range/Units 00:45 01:47 02:19 WBC (4.0-10.0) 10^3/ uL RBC (4.1-5.3) 10^6/u L Hgb (11.7-16.6) g/dL Hct (42.0-52.0) % MCV (80-94) fL MCH (28.0-34.0) pg MCHC (30.0-36.0) g/dL RDW (12.1-15.1) % Plt Count (130-400) 10^3/c mm MPV (7.4-10.4) fL Neut % (Auto) % Lymph % (Auto) % [place] % (Auto) % Eos % (Auto) % Baso % (Auto) % Neut # (Auto) (1.8-7.7) 10^3/u L Lymph # (Auto) (0.8-4.8) 10^3/u L [place] # (Auto) (0.2-0.9) 10^3/u L Eos # (Auto) (0.0-0.8) 10^3/u L Baso # (Auto) (0.0-0.1) 10^3/u L Nucleated RBC % (a uto) % Nucleated RBCs # /100WBC PT (12.1-14.9) SECO NDS INR (0.8-1.2) Sodium (136-145) mmol/L Potassium (3.5-5.1) mmol/L Chloride (98-107) mmol/L Carbon Dioxide (22-29) mmol/L Anion Gap (5-19) BUN (8-23) mg/dL Creatinine (0.7-1.2) mg/dL GFR Calculation Glucose (65-115) mg/dL Calculated Osmolal ity (285-295) mOsm/k g Calcium (8.5-10.5) mg/dL Total Bilirubin (0.15-1.2) mg/dL AST (0-40) U/L ALT (0-41) U/L Alkaline Phosphata se (40-130) IU/L Creatine Kinase (39-308) U/L Troponin T Baselin e 89 H (0-15) ng/L Troponin T 120 Min havasupai (0-15) ng/L Delta Troponin T (0-10) ABS# NT-Pro-B Natriuret Pep (0-450) pg/mL Total Protein (6.6-8.7) g/dL Albumin (3.5-5.2) g/dL Globulin (1.3-4.6) g/dL Urine Color Yellow (Yellow) Urine Appearance Clear (CLEAR) Urine pH 5.0 (5-7) Ur Specific Gravit y 1.015 (1.005-1.030) Urine Protein Neg (Negative) Urine Glucose (UA) Norm (Normal) Urine Ketones Negative (Negative) Urine Blood Neg (Negative) Urine Nitrate Negative (Negative) Urine Bilirubin Neg (Negative) Urine Urobilinogen Norm (Negative) mg/dL Ur Leukocyte Maddie ase Negative (Negative) Influenza Type A A g Negative (Negative) Influenza Type B A g Negative (Negative) SARS-CoV-2 Ag (Rap id) (Negative) 07/20/20 07/20/20 Range/Units 02:19 03:36 WBC (4.0-10.0) 10^3/ uL RBC (4.1-5.3) 10^6/u L Hgb (11.7-16.6) g/dL Hct (42.0-52.0) % MCV (80-94) fL MCH (28.0-34.0) pg MCHC (30.0-36.0) g/dL RDW (12.1-15.1) % Plt Count (130-400) 10^3/c mm MPV (7.4-10.4) fL Neut % (Auto) % Lymph % (Auto) % [place] % (Auto) % Eos % (Auto) % Baso % (Auto) % Neut # (Auto) (1.8-7.7) 10^3/u L Lymph # (Auto) (0.8-4.8) 10^3/u L [place] # (Auto) (0.2-0.9) 10^3/u L Eos # (Auto) (0.0-0.8) 10^3/u L Baso # (Auto) (0.0-0.1) 10^3/u L Nucleated RBC % (a uto) % Nucleated RBCs # /100WBC PT (12.1-14.9) SECO NDS INR (0.8-1.2) Sodium (136-145) mmol/L Potassium (3.5-5.1) mmol/L Chloride (98-107) mmol/L Carbon Dioxide (22-29) mmol/L Anion Gap (5-19) BUN (8-23) mg/dL Creatinine (0.7-1.2) mg/dL GFR Calculation Glucose (65-115) mg/dL Calculated Osmolal ity (285-295) mOsm/k g Calcium (8.5-10.5) mg/dL Total Bilirubin (0.15-1.2) mg/dL AST (0-40) U/L ALT (0-41) U/L Alkaline Phosphata se (40-130) IU/L Creatine Kinase (39-308) U/L Troponin T Baselin e (0-15) ng/L Troponin T 120 Min havasupai 417.9 H (0-15) ng/L Delta Troponin T 328.9 H* (0-10) ABS# NT-Pro-B Natriuret Pep (0-450) pg/mL Total Protein (6.6-8.7) g/dL Albumin (3.5-5.2) g/dL Globulin (1.3-4.6) g/dL Urine Color (Yellow) Urine Appearance (CLEAR) Urine pH (5-7) Ur Specific Gravit y (1.005-1.030) Urine Protein (Negative) Urine Glucose (UA) (Normal) Urine Ketones (Negative) Urine Blood (Negative) Urine Nitrate (Negative) Urine Bilirubin (Negative) Urine Urobilinogen (Negative) mg/dL Ur Leukocyte Maddie ase (Negative) Influenza Type A A g (Negative) Influenza Type B A g (Negative) SARS-CoV-2 Ag (Rap id) Negative (Negative) Imaging Data^: CXR: Attestation: I personally reviewed and interpreted this imaging study as follows: My impression: Cardiomegaly with mild pulmonary vascular congestion. EKG Data^: EKG 1: Attestation: I personally reviewed and interpreted this EKG as follows: EKG Interpretation Date: 07/20/20 EKG interpretation time: 01:05 Interpretation: Normal sinus rhythm with ventricular rate of 77 beats a minute, ST segment depression in inferior, anterior and lateral leads. New from previous. EKG 2: Attestation: I personally reviewed and interpreted this EKG as follows: EKG Interpretation Date: 07/20/20 EKG interpretation time: 01:55 Interpretation: Normal sinus rhythm at 82 beats a minute, first-degree AV block, nonspecific ST and T wave changes. EKG 3: Attestation: I personally reviewed and interpreted this EKG as follows: EKG Interpretation Date: 07/20/20 EKG interpretation time: 04:27 Interpretation: Normal sinus rhythm at 70 beats a minute, T wave inversions in V2, V3 V4 and V5. Otherwise no acute ST-T wave changes. Discharge Plan Discharge Prescriptions: No Action omeprazole 20 mg capsule,delayed release(DR/EC) 20 mg PO DAILY RF: 0 trazodone 50 mg Tablet 50 mg PO BEDTIME RF: 0 Aspirin Low Dose 81 mg Tablet,Delayed Release (Dr/Ec) 81 mg PO DAILY RF: 0 Flomax 0.4 mg Capsule 0.4 mg PO BEDTIME RF: 0 metoprolol succinate 25 mg Tablet Extended Release 24 Hr 25 mg PO BEDTIME RF: 0 Vitamin D2 1,250 mcg (50,000 unit) Capsule 1 unit PO DAILY RF: 0 lovastatin 20 mg Tablet 20 mg PO DAILY RF: 0 lisinopril 40 mg Tablet 40 mg PO BEDTIME RF: 0 Cinnamon 500 mg Capsule 2,000 mg PO DAILY RF: 0 Zofran 4 mg tablet 4 mg PO Q6H PRN (Reason: nausea and vomiting) Qty: 20 RF: 0 Colace 100 mg capsule 100 mg PO BID Qty: 30 RF: 0 Coding Level of Care Code ED Flatwork Folder for Chg Fwd Exam Comprehensive
[2020-07-20 01:30] LABS: INR 1.06 (0.8-1.2)
[2020-07-20 01:31] LABS: Basophils # 0.1 10^3/uL (0.0-0.1); Basophils % 0.5 %; Eosinophils # 0.2 10^3/uL (0.0-0.8); Eosinophils % 1.3 %; Hematocrit 49.2 % (42.0-52.0); Hemoglobin 15.5 g/dL (11.7-16.6); Lymphocytes # 1.1 10^3/uL (0.8-4.8); Lymphocytes % 8.3 %; Mean Corpuscular HGB Conc 31.5 g/dL (30.0-36.0); Mean Corpuscular Volume 88.8 fL (80-94); Monocytes # 0.5 10^3/uL (0.2-0.9); Monocytes % 3.6 %; Neutrophils # 10.91 10^3/uL (1.8-7.7); Neutrophils % 85.9 %; Nucleated Red Blood Cells % 0 %; Platelet Count 315 10^3/cmm (130-400); Red Blood Count 5.54 10^6/uL (4.1-5.3); White Blood Count 12.7 10^3/uL (4.0-10.0)
--- NOTE | 2020-07-20 01:46 | ECG_ITS ---
[facility] Test Date: 2020-07-20 Pat Name: Siva Malik Department: Room: Gender: Male Bar Manager: : 1940 Requested By: Aixa Burkett Order Number: [id number] Desi MD: Fer Mayers M.D. Measurements Intervals [place] Rate: 82 P: 95 CT: 231 QRS: -37 QRSD: 92 T: 78 QT: 375 QTc: 439 Interpretive Statements SINUS RHYTHM WITH FIRST DEGREE AV BLOCK MARKED LEFT AXIS DEVIATION [QRS AXIS < -30] NONSPECIFIC ST & T-WAVE ABNORMALITY Compared to ECG 07/20/2020 01:05:10 Left-axis deviation now present Left anterior fascicular block no longer present T-wave abnormality still present Electronically Signed On 07-20-2020 19:15:47 CAT SCAN TECHNOLOGIST by Fer Mayers M.D. [id number] f
[2020-07-20 01:56] LABS: Troponin(5th) Baseline 89 ng/L (0-15)
[2020-07-20 02:04] LABS: Alanine Aminotransferase 14 U/L (0-41); Albumin Level 4.1 g/dL (3.5-5.2); Alkaline Phosphatase 64 IU/L (40-130); Aspartate Amino Transferase 17 U/L (0-40); Blood Urea Nitrogen 28 mg/dL (8-23); Calcium 9.6 mg/dL (8.5-10.5); Carbon Dioxide 23 mmol/L (22-29); Chloride 103 mmol/L (98-107); Creatine Phosphokinase 42 U/L (39-308); Globulin 2.9 g/dL (1.3-4.6); Glucose 255 mg/dL (65-115); NT Pro B Type Natriuretic Pept 958 pg/mL (0-450); Osmolality Calculated 304 mOsm/kg (285-295); Sodium 140 mmol/L (136-145); Total Bilirubin 0.3 mg/dL (0.15-1.2)
[2020-07-20 02:22] LABS: Add Urine Microscopic? NO
--- NOTE | 2020-07-20 02:27 | PM.HP ---
Providers/Chief Complaint Primary Care Provider: Portia Larose MD Chief Complaint: SOB History of Present Illness Siva Malik is a 79 year old male who does not have significant past cardiac history came in with chief complaint of right-sided chest discomfort. Patient is stating that since December he has been experiencing right-sided chest discomfort especially back pain which gets aggravated after eating. Today when he went to bed after eating dinner he started experiencing back pain in between his scapula which was radiating towards his right arm and neck area associated with nausea and diaphoresis. He is describing this discomfort as sharp stabbing pain, endorses orthopnea and PND, has not noticed recent edema of legs. He considers himself fairly active, lives alone, former smoker. Patient is stating that his symptoms were improved after taking sublingual nitroglycerin. Diagnosis in the ER revealed normal hemodynamics, patient is chest pain-free, troponin 89, EKG showing diffuse ST depression, he has been initiated on heparin drip, at the time of my evaluation not endorsing active chest pain, new onset CHF, bilateral vascular congestion evident on x-ray, pulmonary oedema. He has received 40 mg of IV Lasix as well. Review of Systems Const: Reports: chills, body aches and fatigue Eyes: Denies: change in vision ENMT: Denies: throat pain Card: Reports: chest pain, lightheadedness, dyspnea on exertion and orthopnea Resp: Denies: dyspnea GI: Denies: abdominal pain : Denies: flank pain Musc: Denies: neck pain Skin/Breast: Denies: lesions Neuro: Denies: headache(s) Psych: Denies: anxiety Endo: Denies: polyuria Eduin/Lymph: Denies: easy bruising All/Imm: Denies: urticaria Medications/Allergies Home Medications Medication Instructions Recorded Confirmed Last Taken Type Aspirin Low Dose 81 mg PO DAILY 12/27/19 07/14/20 Unknown History Cinnamon 2,000 mg PO DAILY 12/27/19 07/14/20 Unknown History Flomax 0.4 mg PO BEDTIME 12/27/19 07/14/20 Unknown History Vitamin D2 1 unit PO DAILY 12/27/19 07/14/20 Unknown History docusate sodium [Colace] 100 mg PO BID #30 cap 12/27/19 07/14/20 Unknown Rx lisinopril 40 mg PO BEDTIME 12/27/19 07/14/20 Unknown History lovastatin 20 mg PO DAILY 12/27/19 07/14/20 Unknown History metoprolol succinate 25 mg PO BEDTIME 12/27/19 07/14/20 Unknown History ondansetron HCl [Zofran] 4 mg PO Q6H PRN #20 tab 12/27/19 07/14/20 Unknown Rx trazodone 50 mg PO BEDTIME 12/27/19 07/14/20 Unknown History omeprazole 20 mg capsule,delayed 20 mg PO DAILY 07/14/20 07/14/20 Unknown History release Allergies Allergy/AdvReac Type Severity Reaction Status Date / Time No Known Allergies Allergy Verified 07/14/20 10:24 PFSH Acute PFSH: Medical History (Updated 07/20/20 @ 03:40 by Soumya Melara MD) CKD (chronic kidney disease) Hyperlipidemia Hypertension Kidney failure [facility] (current) use of opiate analgesic Pain management contract signed Surgical History H/O left wrist surgery Hx of cataract surgery Status post laparoscopic cholecystectomy (~12/27/19) Family History Denies family history of CAD (coronary artery disease) Anesthesia complication Bleeding disorder Social History Smoking and tobacco status: former smoker Alcohol intake: never Vitals/I&O/Wt Last Vital Signs Temp 98.0 F 07/20/20 01:01 Pulse 84 07/20/20 01:26 Resp 20 H 07/20/20 01:26 BP 106/63 07/20/20 01:26 Pulse Ox 95 07/20/20 01:26 Weight last 48 hrs Weight 79.379 kg Physical Exam Narrative: EXAM NARRATIVE: elderly male Currently laying comfortably in his bed Saturating well on 4 L nasal cannula Not complaining of active chest pain Appears stated age S1, S2 no sinus arrhythmia, no overt clinical signs of heart failure Bilateral breath sounds present with crackles at the bases no active wheezing or stridor Abdomen soft nontender bowel sound present Lower extremity no edema gangrene ulcer EOMI, PERRLA Appropriate mood and affect No acute respiratory distress Data : 07/20/20 00:45 07/20/20 00:45 A&P Assessment and plan (1) NSTEMI (non-ST elevated myocardial infarction): Status: Acute (2) Acute kidney injury superimposed on chronic kidney disease: Status: Acute (3) New onset of congestive heart failure: Status: Acute Additional A&P Information Non-ST segment elevation [place] Diffuse ST depression, troponin 89, No active chest pain, hemodynamically stable I would go ahead and initiate ACS protocol with heparin Echo in the morning Most likely after 48 hours he will further intervention such as cardiac stress test versus angiogram Acute on chronic kidney disease Patient was supposed to follow-up with nephrology of of this month, he will need to reschedule his appointment Acute on chronic kidney disease most likely secondary to CHF onset Anticipating improvement with diuresis New onset CHF Received 40 IV Lasix in the ER He is na?ve to Lasix I would only use p.o. 20 mg of Lasix for now Chest x-ray consistent with primary edema, high BNP, Start aspirin, Plavix high-dose statin, hold lisinopril Type 2 diabetes: Consistent carb diet, insulin sliding scale low-dose Full code DVT prophylaxis not needed currently on heparin drip Cardiac diet Attestations Medical Necessity Statement*: Anticipating discharge in less than 48 hours currently need management of new onset CHF, A. fib Time Spent in Patient Care: (>than 50% of time spent in counselling and/or direct pt care on unit). 40min Coding Level of Care Code Acute Painter Helper Spray for Marla Stanley Diagnoses NSTEMI (non-ST elevated myocardial infarction) I21.4 Acute kidney injury superimposed on chronic kidney disease N17.9; N18.9 New onset of congestive heart failure I50.9
[2020-07-20] MEDS: FUROsemide 10 mg/mL SDV 2mL 20 MG IVP ×2 (02:40→03:04)
[2020-07-20] MEDS: aspirin 325 mg Tablet PO (02:40)
[2020-07-20 03:10] LABS: Bilirubin Urine Neg (Negative); Blood Urine Neg (Negative); Glucose Urine UA Norm (Normal); Ketones Urine Negative (Negative); Leukocyte Esterase Urine Negative (Negative); Nitrate Urine Negative (Negative); Protein Urine Neg (Negative); Specific Gravity, Urine 1.015 (1.005-1.030); Urine Appearance Clear (CLEAR); Urine Color Yellow (Yellow); Urobilinogen Urine Norm (Negative)
[2020-07-20 03:13] LABS: Influenza A by IFA Negative (Negative); Influenza B by IFA Negative (Negative); SARS Covid-2 Antigen Negative (Negative)
[2020-07-20 04:13] LABS: Troponin 5 2HR 417.9 ng/L (0-15); Troponin 5 2HR Delta 328.9 ABS# (0-10)
[2020-07-20] MEDS: clopidogrel 300 mg Tablet PO (04:32)
--- NOTE | 2020-07-20 07:10 | ECG_ITS ---
[facility] Test Date: 2020-07-20 Pat Name: Siva Malik Department: Room: Gender: Male Analysis Director: : 1940 Requested By: Aixa Burkett Order Number: [id number] Desi MD: Fer Mayers M.D. Measurements Intervals [place] Rate: 72 P: 57 VA: 213 QRS: -19 QRSD: 95 T: 82 QT: 400 QTc: 438 Interpretive Statements SINUS RHYTHM WITH MARKED SINUS ARRHYTHMIA WITH FIRST DEGREE AV BLOCK ST DEVIATION AND MODERATE T-WAVE ABNORMALITY, CONSIDER ANTEROLATERAL ISCHEMIA [-0.1+ mV T WAVE IN V3-V6] Compared to ECG 07/20/2020 01:55:51 Possible ischemia now present Left-axis deviation no longer present T-wave abnormality still present Electronically Signed On 07-20-2020 19:24:57 PRINCIPAL CONSULTANT by Fer Mayers M.D. [id number] f
[2020-07-20] MEDS: heparin 5,000 unit/mL INJ 1 mL IV (08:00)
[2020-07-20] MEDS: heparin drip 25,000 UNIT/500 ML PREMIX 22.2 UNIT IV (08:00)
--- NOTE | 2020-07-20 09:15 | USCV_ITS ---
Siva Malik Age: 79 Gender: M : 1940 Exam Date: 07/20/2020 09:28 Ordering Phys: Fer Mayers MD ([email or web address]) Technologist: Ricardo Yen Exam Location: [facility] [place] Indication: mi BP: 152 / 74 HR: 66 Rhythm: Sinus Technical Quality: Fair MEASUREMENTS (Male / Female) Normal Values 2D ECHO LV Diastolic Diameter PLAX 3.3 cm 4.2 - 5.9 / 3.9 - 5.3 cm LV Systolic Diameter PLAX 2.3 cm IVS Diastolic Thickness 0.9 cm 0.6 - 1.0 / 0.6 - 0.9 cm IVS Systolic Thickness 1.1 cm LVPW Diastolic Thickness 0.9 cm 0.6 - 1.0 / 0.6 - 0.9 cm LVPW Systolic Thickness 1.4 cm LVOT Diameter 2.1 cm LV Ejection Fraction 2D Teich 58.1 % LV Ejection Fraction MOD 2C 69.1 % LV Ejection Fraction 2C AL 68.1 % LA Diameter 3.4 cm LA Width 3.4 cm LA Height 4.4 cm RA Width 2.9 cm RA Height 4.6 cm M-MODE LV Diastolic Diameter MM 4.4 cm 4.2 - 5.9 / 3.9 - 5.3 cm LV Systolic Diameter MM 3.1 cm LV Ejection Fraction MM Teich 56.9 % IVS Diastolic Thickness MM 0.9 cm 0.6 - 1.0 / 0.6 - 0.9 cm IVS Systolic Thickness MM 1.1 cm LVPW Diastolic Thickness MM 1.0 cm 0.6 - 1.0 / 0.6 - 0.9 cm LVPW Systolic Thickness MM 1.4 cm RV Diastolic Diameter MM 1.2 cm Aortic Annulus Diameter 3.7 cm LA Ao Ratio MM 1.1 MV E Point Septal Separation 0.8 cm DOPPLER AV Peak Velocity 114.0 cm/s LVOT Peak Velocity 73.0 cm/s AV Area Cont Eq vti 2.2 cm squared AV Area Cont Eq pk 2.2 cm squared MV Area PHT 5.0 cm squared Mitral E to A Ratio 1.4 MV E' Velocity 49.0 cm/s Mitral E to MV E' Ratio 9.6 Mitral E to LV E' Lateral Ratio 8.7 Mitral E to LV E' Septal Ratio 10.8 TR Peak Velocity 224.7 cm/s TR Peak Gradient 20.2 mmHg TV Peak E Velocity 95.0 cm/s PV Peak Velocity 104.0 cm/s FINDINGS Left Ventricle Mild diffuse hypokinesia of the LV apex. Left ventricular ejection fraction around 50 to 55%. Right Ventricle Normal right ventricular size and systolic function. Right Atrium Normal right atrial size. Left Atrium The left atrium is normal in size. Mitral Valve Thickened mitral valve. Mild mitral valve regurgitation. Aortic Valve Thickened aortic valve Tricuspid Valve Trace to mild tricuspid valve regurgitation. Pulmonic Valve Mild pulmonary valve regurgitation. Pericardium Normal pericardium without effusion. Aorta Normal ascending aorta dimension. CONCLUSIONS Normal LV size with borderline low ejection fraction 50 to 55%. Mild diffuse hypokinesia of the LV apex. Thickened mitral valve. Mild mitral valve regurgitation. Thickened aortic valve. Trace to mild tricuspid valve regurgitation. There is no pericardial effusion. There are no intracardiac masses. Compared to the study from 12/27/2019, the segmental wall motion normalities appear to be new Dr Fer Mayers MD FACC (Electronically Signed) Final Date: 20 July 2020 17:12 S
--- NOTE | 2020-07-20 13:37 | PM.PN ---
Subjective Subjective: Interval history: Overnight H&P and labs reviewed. Patient continues to have increasing troponin delta's, up to 700 now. Denies any current chest pain at this time. 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 Continue aspirin statin, beta-blockers Cardiology consult appreciated, seen by Dr. Mayers this morning. Acute on chronic kidney disease Patient was supposed to follow-up with nephrology of of this month, he will need to reschedule his appointment New onset CHF Continue p.o. 20 mg of Lasix for now Chest x-ray consistent with primary edema, high BNP Continue aspirin, Plavix high-dose statin, hold lisinopril Type 2 diabetes: Consistent carb diet, insulin sliding scale low-dose Full code DVT prophylaxis not needed currently on heparin drip Cardiac diet Attestations Medical Necessity Statement*: Change to inpatient admission as patient is having an active NSTEMI, will need further cardiology evaluation and possible intervention. 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
[2020-07-20] MEDS: atorvastatin 40 mg Tablet 80 MG PO (14:59)
[2020-07-20] MEDS: FUROsemide 20 mg Tablet PO (15:00)
[2020-07-20] MEDS: pantoprazole DR 40 mg Tablet PO (15:01)
[2020-07-20 15:18] LABS: Partial Thromboplastin Time 160.9 SECONDS (23.9-36.7)
--- NOTE | 2020-07-20 15:45 | PC.NURSE ---
at at 1534 received critical PTT 160.9. Notified Dr Kingsley. Pt on Heparin protocol.
--- NOTE | 2020-07-20 15:55 | PC.NURSE ---
telephond Dr Kingsley and reported PTT 160.9. no new orders
--- NOTE | 2020-07-20 16:21 | P.CONIM_ITS ---
Providers/Reason For Consult Consulting Physican/Specialty*: MEKHI Talib/Cardiology Reason for Consult*: Patient with new onset of chest pain and shortness of breath Attending Physician: Paty Kingsley MD Primary Care Provider: Portia Larose MD History of Present Illness History of Present Illness Siva Mailk is a 79 year old male with a history of high blood pressure, type 2 diabetes and dyslipidemia, apparently has been in his baseline state of health up until last night when he had an acute onset of pain in the back, between the shoulder blades, around 10 PM. The pain started getting worse associated with shortness of breath. He tried Tums, Maalox and aspirin. Since there was no relief of the symptoms, ambulance was called in. He was brought to the emergency room for further evaluation management. In the emergency room, he was found to have features of acute heart failure. He was somewhat hypotensive. EKG showed diffuse nonspecific T wave changes. Troponin T was found to be elevated. Cardiology consult is requested for further cardiac evaluation recommendations. According the patient, he has been having episodes of back pain at least twice a week or so for the last more than 6 months. Usually the symptoms may last anywhere from 5 to 10 minutes then goes away by itself. He thought it may be related to gas or some other stomach issues. However yesterday the pain was more severe and lasting longer associated with shortness of breath. He did not have any fever or chills. No cough or palpitations. No dizziness or syncopal episodes. Patient has no previous history for coronary disease, myocardial infarction or congestive heart failure. He had the gallbladder surgery in December of this year. Ever since, he has been having some stomach issues. Initial troponin T was 8-9. 2-hour delta was 328 and a 6-hour delta was 789. Review of Systems Narrative: CONSTITUTIONAL: No fever or chills. EYES: No blurring of vision or other visual disturbances lately. ENT: No hoarseness of voice, auditory disturbances or sore throat. CARDIOVASCULAR: As mentioned above. RESPIRATORY: No significant cough. GASTROINTESTINAL: No hematemesis or melena. GENITOURINARY: No dysuria or hematuria. INTEGUMENTARY: No skin rashes or history of skin cancer. NEURO: No transient ischemic attacks or amaurosis. PSYCHIATRIC: No history of psychosis or major depression. HEMATOLOGIC: No bleeding disorders or significant anemia. ENDOCRINE: Type 2 diabetes as mentioned above MUSCULOSKELETAL: No recent joint pain or swelling. ALLERGY/IMMUNOLOGY: As mentioned above. Meds/Allergies Home Medications and Allergies Home Medications Medication Instructions Recorded Confirmed Last Taken Type aspirin [Aspirin Low Dose] 81 mg PO DAILY 12/27/19 07/20/20 07/19/20 History cinnamon bark [Cinnamon] 1,000 mg PO BID 12/27/19 07/20/20 07/19/20 History lisinopril 40 mg PO BEDTIME 12/27/19 07/20/20 07/19/20 History lovastatin 20 mg PO DAILY 12/27/19 07/20/20 07/19/20 History metoprolol succinate 25 mg PO BEDTIME 12/27/19 07/20/20 07/19/20 History ondansetron HCl [Zofran] 4 mg PO Q6H PRN #20 tab 12/27/19 07/20/20 Unknown Rx tamsulosin [Flomax] 0.4 mg PO BEDTIME 12/27/19 07/20/20 07/19/20 History trazodone 50 mg PO BEDTIME PRN 12/27/19 07/20/20 Unknown History omeprazole 20 mg capsule,delayed 20 mg PO DAILY 07/14/20 07/20/20 07/19/20 History release cholecalciferol (vitamin D3) 50 mcg PO DAILY 07/20/20 07/20/20 Unknown History [Vitamin D3] docusate sodium [Colace] 100 mg PO BID PRN 07/20/20 07/20/20 Unknown History Allergies Allergy/AdvReac Type Severity Reaction Status Date / Time No Known Allergies Allergy Verified 07/20/20 08:36 Current Medications Current Medications Generic Name Dose Route Start Last Admin Trade Name Freq PRN Reason Stop Dose Admin Aspirin 81 mg 07/20/20 14:00 07/20/20 15:02 Aspirin 81 Mg Ec Tablet PO Not Given DAILY MEGHAN Atorvastatin Calcium 80 mg 07/20/20 14:00 07/20/20 14:59 Atorvastatin 40 Mg Tablet PO 80 mg DAILY MEGHAN Administration Furosemide 20 mg 07/20/20 14:00 07/20/20 15:00 Furosemide 20 Mg Tablet PO 20 mg DAILY MEGHAN Administration Pantoprazole Sodium 40 mg 07/20/20 13:37 07/20/20 15:[address] 40 Mg Tablet PO 40 mg DAILY MEGHAN Administration PFSH Acute PFSH: Medical History (Updated 07/20/20 @ 16:34 by Fer Mayers MD) Benign essential hypertension with target blood pressure below 140/90 CKD (chronic kidney disease) Hyperlipidemia Hypertension Kidney failure FCI (current) use of opiate analgesic Pain management contract signed Surgical History H/O left wrist surgery Hx of cataract surgery Status post laparoscopic cholecystectomy (~12/27/19) Family History Denies family history of CAD (coronary artery disease) Anesthesia complication Bleeding disorder Social History Smoking and tobacco status: former smoker Alcohol intake: never Vitals/I&O/Wt Last Vital Signs Temp 97.4 F L 07/20/20 14:00 Pulse 60 07/20/20 16:00 Resp 19 H 07/20/20 16:00 BP 139/90 07/20/20 16:00 Pulse Ox 96 07/20/20 16:00 07/20/20 07/20/20 07/20/20 06:59 14:59 22:59 Intake Total 177.6 / 177.6 Balance 177.6 / 177.6 Weight last 48 hrs Weight 175 lb Physical Exam Narrative: EXAM NARRATIVE: GENERAL: The patient is alert and oriented times three. Not in any acute distress. HEENT: No significant pallor, icterus or lymphadenopathy. The pupils are reactant to light. Oral cavity: There are no mucous membrane lesions. Funduscopic examination: The fundus was not visualized NECK: Trachea appears to be central. No masses noted. No JVD or thyromegaly appreciated. No carotid bruit. RESPIRATORY: Chest is symmetrical. No intercostals muscle retraction or any accessory muscle activation. There is no chest wall tenderness. Breath sounds are heard bilaterally. No rales or rhonchi heard. No evidence of any consolidation. BREASTS: Deferred. HEART: The PMI is in the 5th left intercostals space just inside the midclavicular line. No palpable precordial events. S1 and S2 are normal. No S3 or S4 heard. No pericardial rub or any click heard. Short systolic murmur in the left sternal border. No diastolic murmurs. ABDOMEN: No vessel pulsations or distention. No tenderness. No organomegaly appreciated. No abdominal bruit. Bowel sounds are normally heard. : Deferred. RECTAL: Deferred. LYMPHATIC: No lymphadenopathy noted in the neck or groin. EXTREMITIES: No edema or cyanosis. No clubbing. Peripheral pulses are palpable but weak bilaterally. No evidence of cyanosis. MUSCULOSKELETAL: No acute joint deformities or swelling. SKIN: There are no significant scars or skin rash noted. NEUROPSYCHIATRIC: The patient is alert and oriented x3. Appears to be in a good mood. The higher functions are grossly within normal limits. No tremors or rigidity noted. Data Labs: Other Labs: Laboratory Last Values WBC 12.7 10^3/uL (4.0 -10.0) H 07/20/20 00:45 RBC 5.54 10^6/uL (4.1 -5.3) H 07/20/20 00:45 Hgb 15.5 g/dL (11.7-1 6.6) 07/20/20 00:45 Hct 49.2 % (42.0-52.0 ) 07/20/20 00:45 MCV 88.8 fL (80-94) 07/20/20 00:45 MCH 28.0 pg (28.0-34. 0) 07/20/20 00:45 MCHC 31.5 g/dL (30.0-3 6.0) 07/20/20 00:45 RDW 14.0 % (12.1-15.1 ) 07/20/20 00:45 Plt Count 315 10^3/cmm (130 -400) 07/20/20 00:45 MPV 10.0 fL (7.4-10.4 ) 07/20/20 00:45 Neut % (Auto) 85.9 % 07/20/20 00:45 Lymph % (Auto) 8.3 % 07/20/20 00:45 Craig % (Auto) 3.6 % 07/20/20 00:45 Eos % (Auto) 1.3 % 07/20/20 00:45 Baso % (Auto) 0.5 % 07/20/20 00:45 Neut # (Auto) 10.91 10^3/uL (1. 8-7.7) H 07/20/20 00:45 Lymph # (Auto) 1.1 10^3/uL (0.8- 4.8) 07/20/20 00:45 Craig # (Auto) 0.5 10^3/uL (0.2- 0.9) 07/20/20 00:45 Eos # (Auto) 0.2 10^3/uL (0.0- 0.8) 07/20/20 00:45 Baso # (Auto) 0.1 10^3/uL (0.0- 0.1) 07/20/20 00:45 Nucleated RBC % (a uto) 0 % 07/20/20 00:45 Nucleated RBCs # 0.0 /100WBC 07/20/20 00:45 PT 14.20 SECONDS (12 .1-14.9) 07/20/20 00:45 INR 1.06 (0.8-1.2) 07/20/20 00:45 APTT 160.9 SECONDS (23 .9-36.7) H* 07/20/20 14:34 Sodium 140 mmol/L (136-1 45) 07/20/20 00:45 Potassium 4.0 mmol/L (3.5-5 .1) 07/20/20 00:45 Chloride 103 mmol/L (98-10 7) 07/20/20 00:45 Carbon Dioxide 23 mmol/L (22-29) 07/20/20 00:45 Anion Gap 18.0 (5-19) 07/20/20 00:45 BUN 28 mg/dL (8-23) H 07/20/20 00:45 Creatinine 2.0 mg/dL (0.7-1. 2) H 07/20/20 00:45 GFR Calculation Not Reportable 07/20/20 00:45 Glucose 255 mg/dL (65-115 ) H 07/20/20 00:45 Calculated Osmolal ity 304 mOsm/kg (285- 295) H 07/20/20 00:45 Calcium 9.6 mg/dL (8.5-10 .5) 07/20/20 00:45 Total Bilirubin 0.3 mg/dL (0.15-1 .2) 07/20/20 00:45 AST 17 U/L (0-40) 07/20/20 00:45 ALT 14 U/L (0-41) 07/20/20 00:45 Alkaline Phosphata se 64 IU/L (40-130) 07/20/20 00:45 Creatine Kinase 42 U/L (39-308) 07/20/20 00:45 Troponin T Baselin e 89 ng/L (0-15) H 07/20/20 00:45 Troponin T 120 Min peggy 417.9 ng/L (0-15) H 07/20/20 03:36 Delta Troponin T 328.9 ABS# (0-10) H* 07/20/20 03:36 Troponin T Hi Sens 6Hr 882.0 ng/L (0-15) H 07/20/20 07:20 Troponin T Hi Sens 6Hr Delta 793.0 ng/L (0-12) H* 07/20/20 07:20 NT-Pro-B Natriuret Pep 958 pg/mL (0-450) H 07/20/20 00:45 Total Protein 7.0 g/dL (6.6-8.7 ) 07/20/20 00:45 Albumin 4.1 g/dL (3.5-5.2 ) 07/20/20 00:45 Globulin 2.9 g/dL (1.3-4.6 ) 07/20/20 00:45 Urine Color Yellow (Yellow) 07/20/20 01:47 Urine Appearance Clear (CLEAR) 07/20/20 01:47 Urine pH 5.0 (5-7) 07/20/20 01:47 Ur Specific Gravit y 1.015 (1.005-1.0 30) 07/20/20 01:47 Urine Protein Neg (Negative) 07/20/20 01:47 Urine Glucose (UA) Norm (Normal) 07/20/20 01:47 Urine Ketones Negative (Negati ve) 07/20/20 01:47 Urine Blood Neg (Negative) 07/20/20 01:47 Urine Nitrate Negative (Negati ve) 07/20/20 01:47 Urine Bilirubin Neg (Negative) 07/20/20 01:47 Urine Urobilinogen Norm mg/dL (Negat linda) 07/20/20 01:47 Ur Leukocyte Maddie ase Negative (Negati ve) 11/10/20 01:47 Influenza Type A A g Negative (Negati ve) 07/20/20 02:19 Influenza Type B A g Negative (Negati ve) 07/20/20 02:19 SARS-CoV-2 Ag (Rap id) Negative (Negati ve) 07/20/20 02:19 Imaging^: CXR: Radiologist's impression: Chest x-ray from today revealed Interstitial infiltrative process in the lower lungs of uncertain chronicity. The findings are compatible with acute subacute pneumonitis, less likely congestive failure. EKG^: EKG 1: My Interpretation: The EKG showed a normal sinus rhythm with a diffuse T wave changes in the anterolateral leads. Compared to the previous EKG from December 2019, these changes are new. A&P Assessment and plan (1) Acute diastolic heart failure: Most likely this is related to ischemia. His LV function is not known at this time. An echocardiogram would be helpful to evaluate LV function and rule out other pathology. Patient may be treated with careful IV diuresis and other symptomatic measures. Status: Acute (2) NSTEMI (non-ST elevated myocardial infarction): Troponin T elevation and the abnormal EKG is suggestive of a non-ST elevation myocardial infarction. For further evaluation of the coronary status, patient requires a cardiac catheterization. In the meanwhile, he may be kept on aspirin, Plavix, subcu Lovenox, beta-bertrand and others antibiotic measures. Status: Acute (3) Acute kidney injury superimposed on CKD: Patient may be carefully treated with IV fluids. Status: Acute (4) Benign essential hypertension with target blood pressure below 140/90: We will optimize antihypertensive medications. Status: Acute (5) Diet-controlled type 2 diabetes mellitus: Currently on the diet and close monitoring of the blood sugar. Status: Acute (6) Hyperlipidemia: Aggressive treatment of the dyslipidemia would be appropriate at this point. Patient may start on a high-dose statin. Status: Acute Qualifiers: Hyperlipidemia type: unspecified Qualified Code(s): E78.5 - Hyperlipidemia, unspecified Additional A&P Information In view of the patient is a complicated course of the acute myocardial infarction, he may benefit from an early cardiac catheterization and decide on further management. Because of the abnormal kidney function, he carries a high risk for contrast-induced nephropathy. We will go ahead and hydrate him properly. We will repeat the BMP in the morning. After reviewing the above and also based on the patient's clinical progress, further recommendations will be made. 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
[2020-07-20 16:47] LABS: Glucose Point of Care 147 mg/dL (70-110)
[2020-07-20] MEDS: amlodipine 5 mg Tablet 2.5 MG PO (17:40)
[2020-07-20] MEDS: sodium chloride 0.9% 1,000 ML 50 ML IV (18:01)
--- NOTE | 2020-07-20 19:38 | PC.NURSE ---
Received report from MAHENDRA Horowitz. Patient resting in bed at this time Denies pain or needs. Assessment completed as documented. Discussed plan for left heart cath in the morning. Patient stated that Dr Mayers has already spoke with him. No distress observed.
[2020-07-20] MEDS: enoxaparin 80 mg/0.8 mL Syringe SUBCUT (20:21)
[2020-07-20] MEDS: metoprolol succinate ER (24 HR) 25 mg Tablet PO (20:21)
[2020-07-21] VITALS (26 sets, daily range): BP systolic 88–162; BP diastolic 48–89; PULSE 55–96; RESP 15–26; TEMP 36.1–37.1; O2SAT 76–98
--- NOTE | 2020-07-21 00:57 | PC.NURSE ---
During sleep patient heart rate will drop to the 30s very briefly. Mostly heart rate maintains in the upper 50s to low 60s. No distress observed.
--- NOTE | 2020-07-21 05:25 | PC.NURSE ---
Discussed plan for [facility] this morning. Consent signed. Patient prepped for cath. Patient verbalized complete understanding.
[2020-07-21 05:47] LABS: Partial Thromboplastin Time 43.5 SECONDS (23.9-36.7)
[2020-07-21 05:51] LABS: Anion Gap 13.1 (5-19); Blood Urea Nitrogen 28 mg/dL (8-23); Calcium 9.4 mg/dL (8.5-10.5); Carbon Dioxide 30 mmol/L (22-29); Chloride 101 mmol/L (98-107); Glucose 150 mg/dL (65-115); Osmolality Calculated 298 mOsm/kg (285-295); Potassium 4.1 mmol/L (3.5-5.1); Sodium 140 mmol/L (136-145)
[2020-07-21] MEDS: diphenhydrAMINE 50 mg Capsule PO (05:59)
[2020-07-21 06:40] LABS: NT Pro B Type Natriuretic Pept 6636 pg/mL (0-450)
[2020-07-21] MEDS: sodium chloride 0.9% 250 ML IV (06:47)
[2020-07-21] MEDS: sodium chloride 0.9% 1,000 ML 75 ML IV (06:48)
--- NOTE | 2020-07-21 06:52 | PC.NURSE ---
Went to begin fluids as ordered to help with kidney clearance per Dr Mayers. While talking to patient, patient remembered that his kidney doctor told me to never, ever have a procedure done that requires contrast. Patient is opting out of having a left heart cath today. Informed Dr Mayers. Doctor to come in and talk with patient to explain risks and benefits. 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
--- NOTE | 2020-07-21 08:30 | PM.PN ---
Subjective Subjective: Interval history: The patient is feeling okay. No chest pain or palpitations. No dizziness or syncopal episode. No unusual shortness of breath. He had some episodes of second-degree type I AV block on the monitor through the night. His creatinine was 1.9 this morning. Medications: Reviewed: Yes Medication Review Details: Current Medications Amlodipine Besylate (Amlodipine 5 Mg Tablet) 2.5 mg PO DAILY [facility] Last Admin: 07/20/20 17:40 Dose: 2.5 mg Documented by: Aspirin (Aspirin 81 Mg Ec Tablet) 81 mg PO DAILY [facility] Atorvastatin Calcium (Atorvastatin 40 Mg Tablet) 80 mg PO DAILY [facility] Last Admin: 07/20/20 14:59 Dose: 80 mg Documented by: Clopidogrel Bisulfate (Clopidogrel 75 Mg Tablet) 75 mg PO DAILY [facility] Enoxaparin Sodium (Enoxaparin 80 Mg/0.8 Ml Syringe) 80 mg SUBCUT Q24H [facility] Last Admin: 07/20/20 20:21 Dose: 80 mg Documented by: Furosemide (Furosemide 20 Mg Tablet) 20 mg PO DAILY [facility] Last Admin: 07/20/20 15:00 Dose: 20 mg Documented by: Sodium Chloride (Sodium Chloride 0.9%) 1,000 mls @ 75 mls/hr IV .[id number] [facility] Last Infusion: 07/21/20 06:48 Dose: 0 mls/hr Documented by: Sodium Chloride (Sodium Chloride 0.9%) 1,000 mls @ 50 mls/hr IV .Q20H ONE Stop: 07/21/20 12:46 Last Infusion: 07/21/20 06:32 Dose: Infused Documented by: Metoprolol Succinate (Metoprolol Succinate Er (24 Hr) 25 Mg Tablet) 25 mg PO BEDTIME [facility] Last Admin: 07/20/20 20:21 Dose: 25 mg Documented by: Pantoprazole Sodium (Pantoprazole Dr 40 Mg Tablet) 40 mg PO DAILY [facility] Last Admin: 07/20/20 15:01 Dose: 40 mg Documented by: Vitals/I&O/Wt Last Vital Signs Temp 98.0 F 07/21/20 06:58 Pulse 64 07/21/20 06:58 Resp 18 07/21/20 06:58 BP 139/72 07/21/20 06:58 Pulse Ox 98 07/21/20 06:58 07/20/20 07/21/20 07/21/20 22:59 06:59 14:59 Intake Total 537.6 / 537.6 625.833 / 1163.433 Output Total 350 / 350 175 / 525 Balance 187.6 / 187.6 450.833 / 638.433 Weight last 48 hrs Weight 175 lb Physical Exam Narrative: EXAM NARRATIVE: GENERAL: The patient is alert and oriented times three. Not in any acute distress. HEENT: No significant pallor, icterus or lymphadenopathy. NECK: Trachea appears to be central. No masses noted. No JVD or thyromegaly appreciated. No carotid bruit. RESPIRATORY: Chest is symmetrical. No intercostals muscle retraction or any accessory muscle activation. There is no chest wall tenderness. Breath sounds are heard bilaterally. No rales or rhonchi heard. No evidence of any consolidation. BREASTS: Deferred. HEART: The PMI is in the 5th left intercostals space just inside the midclavicular line. No palpable precordial events. S1 and S2 are normal. No S3 or S4 heard. No pericardial rub or any click heard. Short systolic murmur in the left sternal border. No diastolic murmurs. ABDOMEN: No vessel pulsations or distention. No tenderness. No organomegaly appreciated. No abdominal bruit. Bowel sounds are normally heard. : Deferred. RECTAL: Deferred. LYMPHATIC: No lymphadenopathy noted in the neck or groin. EXTREMITIES: No edema or cyanosis. No clubbing. Peripheral pulses are palpable but weak bilaterally. No evidence of cyanosis. MUSCULOSKELETAL: No acute joint deformities or swelling. SKIN: There are no significant scars or skin rash noted. NEUROPSYCHIATRIC: The patient is alert and oriented x3. Appears to be in a good mood. The higher functions are grossly within normal limits. No tremors or rigidity noted. Data : 07/21/20 14:21 07/21/20 14:21 A&P Assessment and plan (1) Acute diastolic heart failure: Most likely this is related to ischemia. The wall motion normalities by echocardiogram is suggestive of underlying coronary ischemia. Hemodynamically he is currently compensated. We will continue to hydrate him carefully because of the chronic kidney disease. Status: Acute (2) NSTEMI (non-ST elevated myocardial infarction): Troponin T elevation and the abnormal EKG is suggestive of a non-ST elevation myocardial infarction. For further evaluation of the coronary status, patient requires a cardiac catheterization. In the meanwhile, he may be kept on aspirin, Plavix, subcu Lovenox, beta-bertrand and others antibiotic measures. Status: Acute (3) Acute kidney injury superimposed on CKD: Patient may be carefully treated with IV fluids. I discussed with the Dr. Zuluaga, the patient's bracelet former about the coronary angiogram. We will try to use the minimum amount of dye and also do careful IV hydration. Dr. Zuluaga agreed with the angiogram in view of the current clinical condition. Status: Acute (4) Benign essential hypertension with target blood pressure below 140/90: The blood pressure is getting under control. Continue optimizing medications. Status: Acute (5) Diet-controlled type 2 diabetes mellitus: Currently on a diet and close monitoring of the blood sugar. We will continue the same. Status: Acute (6) Hyperlipidemia: Aggressive treatment of the dyslipidemia would be appropriate at this point. Patient may start on a high-dose statin. Status: Acute Qualifiers: Hyperlipidemia type: unspecified Qualified Code(s): E78.5 - Hyperlipidemia, unspecified Additional A&P Information I discussed the patient in detail about the cardiac catheterization and the possibility of contrast-induced nephropathy in view of his underlying chronic kidney disease. The risk of bleeding, hematoma, vascular injury, myocardial infarction, CVA, renal failure and other concomitant complications were explained in detail. Patient understood this well and consented to proceed. We will continue the care with IV hydration. Repeat BMP and CBC at 2 PM today. Attestations Medical Necessity Statement*: Patient requires continued hospital stay for close monitoring and further management Coding Level of Care Code Acute Lead Former for [facility]aden Diagnoses Acute diastolic heart failure I50.31 NSTEMI (non-ST elevated myocardial infarction) I21.4 Acute kidney injury superimposed on CKD N17.9; N18.9 Benign essential hypertension with target blood pressure below 140/90 I10 Diet-controlled type 2 diabetes mellitus E11.9 Hyperlipidemia E78.5 Hyperlipidemia type: unspecified
[2020-07-21] MEDS: amlodipine 5 mg Tablet 2.5 MG PO (08:44)
[2020-07-21] MEDS: FUROsemide 20 mg Tablet PO (08:44)
[2020-07-21] MEDS: atorvastatin 40 mg Tablet 80 MG PO (08:44)
[2020-07-21] MEDS: pantoprazole DR 40 mg Tablet PO (08:44)
[2020-07-21 14:35] LABS: Basophils # 0.1 10^3/uL (0.0-0.1); Basophils % 0.6 %; Eosinophils # 0.1 10^3/uL (0.0-0.8); Eosinophils % 1.4 %; Hematocrit 44.9 % (42.0-52.0); Hemoglobin 13.9 g/dL (11.7-16.6); Lymphocytes # 0.9 10^3/uL (0.8-4.8); Lymphocytes % 10.4 %; Mean Corpuscular Volume 90.5 fL (80-94); Mean Platelet Volume 9.5 fL (7.4-10.4); Monocytes # 0.5 10^3/uL (0.2-0.9); Monocytes % 5.2 %; Neutrophils # 7.26 10^3/uL (1.8-7.7); Neutrophils % 81.9 %; Nucleated Red Blood Cells % 0 %; Platelet Count 256 10^3/cmm (130-400); Red Blood Count 4.96 10^6/uL (4.1-5.3); Red Cell Distribution Width 14.1 % (12.1-15.1); White Blood Count 8.9 10^3/uL (4.0-10.0)
[2020-07-21] MEDS: clopidogrel 75 mg Tablet PO (14:41)
--- NOTE | 2020-07-21 14:57 | ECG_ITS ---
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 Measurements Intervals [place] Rate: 95 P: 62 [place]: 256 QRS: -46 QRSD: 93 T: 127 QT: 314 QTc: 395 Interpretive Statements SINUS RHYTHM WITH FIRST DEGREE AV BLOCK LEFT ANTERIOR FASCICULAR BLOCK [QRS AXIS <= -45, QR IN I, RS IN II] SEPTAL MYOCARDIAL INFARCTION [40+ ms Q WAVE IN V1/V2], PROBABLY OLD Compared to ECG 07/20/2020 04:27:12 Left anterior fascicular block now present Myocardial infarct finding now present Sinus arrhythmia no longer present T-wave abnormality no longer present Possible ischemia no longer present Electronically Signed On 07-21-2020 16:07:36 INSURANCE ADVISER by Karel Torres M.D. [id number]
[2020-07-21] MEDS: nitroglycerin 0.4 mg sublingual Tablet SUBLINGUAL (15:04)
[2020-07-21 16:00] LABS: Anion Gap 11.1 (5-19); Blood Urea Nitrogen 28 mg/dL (8-23); Calcium 9.4 mg/dL (8.5-10.5); Carbon Dioxide 28 mmol/L (22-29); Chloride 102 mmol/L (98-107); Glucose 130 mg/dL (65-115); Osmolality Calculated 291 mOsm/kg (285-295); Potassium 4.1 mmol/L (3.5-5.1); Sodium 137 mmol/L (136-145)
--- NOTE | 2020-07-21 16:13 | XACV_ITS ---
Exam Room: [facility] Ht: 170 cm Wt: 79 kg BSA: 1.95 m2 Gender: Male : 1940 Any Known Allergies: No known allergies Exam Priority: Routine Procedure(s): Procedure Description: Diagnostic procedure Procedure Description: Left Heart Catheterization Procedure Description: Coronary Angiography Diagnostic Cath Status: Urgent Diagnostic Findings * Left main is a medium caliber vessel with diffuse calcification causing around 20 to 30% luminal narrowing. * The left anterior descending artery is a medium caliber vessel which appears to wrap around the LV apex minimally. The the proximal medial and the mid segment of the artery was found to have extensive calcification. The mid segment appears to be somewhat ectatic. There is a high-grade ostial stenosis of around 90 to 95%. The diagonal branches are relatively small caliber vessels with mild diffuse disease.. The first septal lithoduplicator operator branch was found to have 60% diffuse narrowing proximally. * The left circumflex artery is a medium caliber vessel with 20 to 30% diffuse narrowing proximally. After giving off a small caliber obtuse marginal branch, the artery appears to be completely occluded. Extensive calcification was noted in the mid and distal segment of the circumflex artery. * The right coronary artery is a medium caliber dominant vessel which was found to have around 50% ostial narrowing. Proximal ,mid and distal segment of the artery were found to have 20 to 30% diffuse intimal irregularities. The PDA and the PLV branches were found to have mild diffuse disease. These branches were found to be giving of collaterals to the distal circumflex artery, great 2-3 collaterals. Conclusions 1. 79-year-old white male with a history of hypertension, type 2 diabetes, dyslipidemia, chronic kidney disease, presented with an acute onset of chest pain and shortness of breath. He was found to have features of a non-ST elevation myocardial infarction, complicated with acute diastolic heart failure. His echocardiogram revealed mild diffuse hypokinesia of the LV apex. Ejection fraction was around 50 to 55%. In view of the patient's presenting symptoms and the abnormal objective findings, in order to further evaluate his coronary status, a cardiac catheterization was recommended. Patient underwent left heart catheterization with a left and right coronary angiogram today. The findings are as follows. 2. 1. Extensive coronary calcification involving the left main and proximal segments of all the 3 coronary arteries. 2. 2.High-grade lesion involving the ostium of the left and descending artery. 3. Total occlusion of the mid circumflex artery. Grade 2-3 right left collaterals.4. Mild diffuse disease in the other vessels.5. LVEDP of 18 mmHg. 3. I discussed and reviewed the cardiac catheterization data with Dr. Landon. Surgery would be ideal but the patient is not wanting to undergo surgical intervention. It was thought to be appropriate to discuss with the patient and family in detail about the complex coronary intervention and then make a final decision. So for this reason, it was decided to transfer the patient back to the medical floor and consider PCI at a later time. Patient tolerated the procedure very well with no complications. He did not have any chest pain during the procedure or after the procedure. Diagnostic RX Recommendation: PCI w/o planned CABG LV EDP: 18 mmHg Left Ventriculography Findings: * LV gram was not performed because of the patient is a chronic kidney disease. Pressures Phase:Rest AO : 103 / 44 ( 66 ) @ 11:03:00 AM 87 / 44 ( 63 ) @ 11:09:00 AM 126 / 59 ( 85 ) @ 11:12:00 AM 136 / 60 ( 94 ) @ 11:14:00 AM 136 / 62 ( 92 ) @ 11:14:00 AM LV : 148 / -6 / @ 11:14:00 AM 145 / -5 / @ 11:14:00 AM Valves Phase:DefaultPhase AV : 9.0 @ 5:34:43 PM AV Mean Gradient: 14.0 @ 5:34:43 PM Clinical Evaluation EBL: 5mL-10mL Procedural Details Procedure Consent Obtained. Pre-Procedure Time Out. Identified patient by full name and date of as verbalized by the patient/guarantor. Does the consent match the physician's order: Yes. Accurate & Complete Informed Consent: Yes. Inpatient/Outpatient History & Physical on Chart: Yes. If H&P is completed, is and addenduem needed: No; If yes, is the addendum complete: N/A. Visualize and Verify Site with Patient/Guarantor: N/A. Relevant Radiology Images available: N/A. Pre-op teaching completed and patient verbalized understanding. The risks, benefits, and alternatives of sedation and/or procedure were discussed by physician. The patient agrees to continue. Procedure started. [facility] Clinical Fraility Score: 4: Vulnerable. Product Sales Representative Indications: ACS > 24 hours. Chest Pain Symptom Assessment: Atypical Angina. Cardiovascular Instability: No. Correct patient, site and procedure confirmed by cath team. PERRLA. Strong, equal hand solderer production line bilaterally. Lungs clear x 5 lobes. IV Site on Arrival: 20 gauge in the left anticubital. IV Fluids: 0.9% NaCl at KVO. 200 mL infused prior to ballistics laboratory gunsmith. Pre Procedural Pulses: bilateral dorsalis pedis was Doppled. Pre Procedural Pulses: bilateral posterior tibial was Doppled. Oxygen started at 2liters/min via nasal canula. bilateral groins was prepped with chloroprep then draped in the usual sterile fashion. right radial was prepped with chloroprep then draped in the usual sterile fashion. Baseline sample Acquired. HR: 100 BPM. Equipment: 6F - Radial. Cardiac Cath Pack. ACIST Manifold Kit Model BT 2000. Heparinized Saline (2 units/mL), 1000 mL bag. Physician notified. Physician arrived. Physician scrubbed in. Immediate Pre-Procedure Time Out. Correct Patient: Yes; Correct Procedure: Yes; Correct Site: Yes; Correct Patient Position: Yes; Correct Supplies: Yes; Dried Flammable Prep: Yes; Blood Products Available: N/A;. Lidocaine 1% infiltrated to the right radial. Arterial access obtained. A fsboWOWumo 5 Fr Georgi Radial Catheter, 110cm was advanced over the wire and used for Left coronary angiography. Multiple views taken of left coronary artery. Catheter redirected to the RCA. Called Dr Landon to come view films. EDP Sample taken: LV 148/-7,18; HR: 105 BPM; SpO2: 96%. Pullback taken: LV 145/-6,18; AO 136/60(94); Mean: 14mmHg, Peak to Peak: 9mmHg, SEP: 8sec/min; HR: 91 BPM; SpO2: 97%. Side port of sheath attached to Normal Saline flush at KVO to maintain patency. Dr Landon arrived. Catheter removed over the exchange wire. Physician scrubbed out. A TR Band was successful obtaining hemostatsis at the Right Radial artery insertion site. TR band placed. Hemostasis obtained. Post Procedure: Pulses reassessed and unchanged. PERRLA. Strong, equal hand solderer production line bilaterally. No VTE prophylaxis required. Medication's Wasted: Lidocaine 1% = 18 mL. Medication's Wasted: Heparin = 1000 units. Medication's Wasted: Nitro = 50 mg. Total IV fluids: 150 mL. Medication's Wasted: Other = versed 2 mg. 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 Complications: none. Estimated blood loss: 5mL-10mL. Contrast type used: Omnipaque 300 mgI/mL, 500 mL bottle. Procedure completed. Patient transferred by bed to 1st floor. Vital chart was stopped. Access Site Site: Right Radial artery Sheath Size: 6 Fr Hemostasis Method: TR Band Hemostasis Success: Successful Procedure Medications Start: 4:42 PM Stop: 4:42 PM Medication: Fentanyl Amount: 50 mcg Route: I.V. Start: 4:52 PM Stop: 4:52 PM Medication: Versed Amount: 1 mg Route: I.V. Start: 4:59 PM Stop: 4:59 PM Medication: Verapamil Amount: 5 mg Route: I.A. Start: 5:00 PM Stop: 5:00 PM Medication: 0.9% Saline Amount: 125 ml Route: I.V. bolus Start: 5:00 PM Stop: 5:00 PM Medication: Versed Amount: 1 mg Route: I.V. Start: 5:03 PM Stop: 5:03 PM Medication: Heparin Amount: 5000 units Route: I.V. Start: 5:15 PM Stop: 5:15 PM Medication: Fentanyl Amount: 50 mcg Route: I.V. I, the attending physician, have reviewed and verified all procedure medications. Yes, all medications given per verbal order History/Risk Factors Hypertension: Yes Dyslipidemia: No Peripheral Arterial Disease (PAD): No Myocardial Infarction (NC): No Obesity: No Renal Disease: No Tobacco Use: Former Prior Interventions PCI: No CABG: No Valve Surgery: No Report Signatures Finalized by Dr Fer Mayers MD [facility] on 07/21/2020 06:39 PM
--- NOTE | 2020-07-21 16:45 | W.PM.OPSUD ---
Surgery/Procedure H&P Update DATE OF PROCEDURE: July 21, 2020 DATE H&P PERFORMED: 07/20/20 H&P UPDATE INFORMATION: I have reviewed H&P completed within last 30 days, I have examined patient prior to procedure and No changes to prior documentation PREOP DIAGNOSIS: acute calculus cholecystitis PLANNED PROCEDURE: Operation Date: 07/21/20 07:00 Proposed Procedures p Cardiac Catheterization-left heart cath with coronary angiogram and poss pci(Not Applicable) - Fer Mayers MD PATIENT REASSESSED PRIOR TO SEDATION, WITH NO CHANGE NOTED: Yes PHYSICAL EXAM: alert and oriented x 3 AIRWAY EVAL/ANESTHESIA PLAN: normal airway, see other exam findings, ASA III, Monitored Anesthesia, Local Anesthesia, Risks, benefits & alternatives of sedation and/or procedure discussed and Patient agrees to continue as planned
--- NOTE | 2020-07-21 16:58 | P.PN_ITS ---
Subjective Subjective: Interval history: Denies chest pain currently. Denies shortness of breath. Had some chest pain earlier but that resolved after a nitroglycerin. Says otherwise doing okay. 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 ORIENTATION/CONSCIOUSNESS: Yes awake HENMT: COMMON NORMALS: oropharynx normal Neck/C-Spine: COMMON NORMALS: no JVD Resp: COMMON NORMALS: normal respiratory effort and clear to auscultation bilaterally AUSCULTATION: clear to auscultation bilaterally Cardio: COMMON NORMALS: no JVD, regular rhythm, S1 normal heart sound present, S2 normal heart sound present and No murmurs present (Cardio) RHYTHM: regular rhythm HEART SOUNDS: S1 normal heart sound present and S2 normal heart sound present GI: COMMON NORMALS: Normal to inspection, nondistended, normoactive bowel sounds present, Soft to palpation and non-tender PALPATION: Yes Soft to p alpation Extremity: COMMON NORMALS: no joint enlargement and no pedal edema Neuro: COMMON NORMALS: moves all extremities SENSORIUM/ORIENTATION: Yes alert Skin: COMMON NORMALS: no rashes or lesions noted GENERAL SKIN EXAM: no rashes or lesions noted Data : 07/21/20 14:21 07/21/20 14:21 A&P Assessment and plan (1) NSTEMI (non-ST elevated myocardial infarction): Been prepared to go for assessment by coronary angiography. And episodes of chest discomfort earlier which resolved with nitroglycerin. Continue aspirin, statin, beta-blockers. Additional recommendations by ca rdiology depending on findings. Status: Acute (2) Acute kidney injury superimposed on chronic kidney disease: Monitor renal function. Creatinine today is 1.6. Lisinopril on hold. Status: Acute (3) New onset of congestive heart failure: Lasix 20 mg daily. Monitor I&O. Assessment for possible significant ischemic cardiomyopathy/CAD as above. Status: Acute Additional A&P Information Type 2 diabetes: Consistent carb diet, insulin sliding scale low-dose Full code DVT prophylaxis not needed currently on heparin drip Cardiac diet Attestations Medical Necessity Statement*: Continue admission for assessment management of non-STEMI, new onset CHF in the setting of acute kidney injury on chronic kidney disease. Coding Level of Care Code Acute Drone Software Development Engineer for [facility] Fwd Diagnoses NSTEMI (non-ST elevated myocardial infarction) I21.4 Acute kidney injury superimposed on chronic kidney disease N17.9; N18.9 New onset of congestive heart failure I50.9
--- NOTE | 2020-07-21 18:40 | PC.NURSE ---
Received bedside report from MAHENDRA Horowitz. Patient is s/p [facility] with right radial access. TR band in place. No s/s of active bleeding or hematoma formation observed. Patient has palpable pulse to distal right extremity. Patient denies pain to site. Did note old blood under TR band with no current active bleeding. Received okay for visitor to remain at bedside waiting for Dr Landon to discussed plan for possible CABG vs Stent placement. Instructed patient on site care, restrictions and need to call for assistance. Patient stated, I use my hands and weight to get myself up to pee. Patient did verbalize understanding and said he would ask for assistance. Patient denies other needs at this time. No distress observed.
[2020-07-21] MEDS: metoprolol succinate ER (24 HR) 25 mg Tablet PO (20:21)
[2020-07-21] MEDS: sodium chloride 0.9% 1,000 ML 100 ML IV (20:21)
--- NOTE | 2020-07-21 20:39 | PC.NURSE ---
Rounding with Dr Landon. Doctor discussing plan for possible CABG vs PCI. Patient expressed understanding. Plan at this time is to return to laborer hoisting in the am. Decreased fluids to 50ml/hr per Dr Landon request to prevent possible fluid overload related to disease to the LAD.
--- NOTE | 2020-07-21 21:00 | P.CONIM_ITS ---
Providers/Reason For Consult Consulting Physican/Specialty*: Interventional cardiology Reason for Consult*: High risk PCI Attending Physician: Paty Kingsley MD Primary Care Provider: Portia Larose MD History of Present Illness History of Present Illness Siva Malik is a 79 year old male past medical history significant for history of coronary artery disease, diabetes mellitus, hypertension, hyperlipidemia, COPD admitted with worsening of between shoulder pain shortness of breath with increased in frequency and duration along with dynamic EKG changes suggestive of unstable angina. Patient was ruled in for acute coronary syndrome/non-ST elevation SD, patient underwent left heart cath by Dr. Mayers he was noted to have severely diseased ostial more than 90% calcified stenotic lesion. He also has moderate ostial RCA 60% stenosis. Since patient was under influence of narcotic analgesics he was taken off the table. I came back again later once he was totally aware of his sounding awake and oriented. I spoke with the patient and his friend who was sitting by bedside. Patient was given the option of talking to the surgeon and considering CABG which he refused. He was explained all the risk benefit and alternative of the PCI by myself. He understand the risk for complications such as bleeding, dissection, acute closure of the left main LAD, arrhythmia, cardiogenic shock, contrast-induced nephropathy leading to transient or permanent dialysis and in worse case scenario . He would like to proceed with PCI. We will schedule him in the morning. Review of Systems Narrative: CONSTITUTIONAL: No fever or chills. EYES: No blurring of vision or other visual disturbances lately. ENT: No hoarseness of voice, auditory disturbances or sore throat. CARDIOVASCULAR: As mentioned above. RESPIRATORY: No significant cough. GASTROINTESTINAL: No hematemesis or melena. GENITOURINARY: No dysuria or hematuria. INTEGUMENTARY: No skin rashes or history of skin cancer. NEURO: No transient ischemic attacks or amaurosis. PSYCHIATRIC: No history of psychosis or major depression. HEMATOLOGIC: No bleeding disorders or significant anemia. ENDOCRINE: Type 2 diabetes as mentioned above MUSCULOSKELETAL: No recent joint pain or swelling. ALLERGY/IMMUNOLOGY: As mentioned above. Const: Reports: chills, body aches, fatigue and diaphoresis; Denies: fever(s) or malaise Eyes: Denies: change in vision, blurry vision, photophobia, eye discomfort, eye discharge, eye redness or yellow eyes ENMT: Denies: throat pain, odynophagia, hoarseness, swelling of lips/tongue, ear or mastoid pain, ear discharge, change in hearing or nasal discharge Card: Reports: chest pain, lightheadedness, dyspnea on exertion and orthopnea; Denies: palpitations, irregular heart rhythm, edema, syncope or pre-syncope Resp: Denies: dyspnea, productive cough, non-productive cough, wheezing, hemoptysis or chest congestion GI: Reports: nausea; Denies: abdominal pain, vomiting, hematemesis, coffee ground emesis, heartburn, diarrhea, constipation, GI cramping, hematochezia or melena : Denies: flank pain, dysuria, urinary frequency, urinary urgency or hematuria Musc: Reports: back pain; Denies: neck pain, extremity pain, extremity swelling, joint pain, joint swelling, joint redness, joint warmth or joint stiffness Skin/Breast: Denies: rash, pruritus, erythema, skin pain, skin tenderness or lesions Neuro: Denies: headache(s), numbness in extremities, weakness in extremities, sensory changes, lack of coordination, difficulty walking, dizziness, vertigo, confusion, Slurred speech present or seizure-like activity Psych: Denies: anxiety Endo: Denies: polyuria Eduin/Lymph: Denies: easy bruising, easy bleeding, petechiae, purpura or enlarged lymph nodes All/Imm: Denies: urticaria, throat swelling, tongue swelling, facial swelling or acute wheezing Meds/Allergies Home Medications and Allergies Home Medications Medication Instructions Recorded Confirmed Last Taken Type aspirin [Aspirin Low Dose] 81 mg PO DAILY 12/27/19 07/20/20 07/19/20 History cinnamon bark [Cinnamon] 1,000 mg PO BID 12/27/19 07/20/20 07/19/20 History lisinopril 40 mg PO BEDTIME 12/27/19 07/20/20 07/19/20 History lovastatin 20 mg PO DAILY 12/27/19 07/20/20 07/19/20 History metoprolol succinate 25 mg PO BEDTIME 12/27/19 07/20/20 07/19/20 History ondansetron HCl [Zofran] 4 mg PO Q6H PRN #20 tab 12/27/19 07/20/20 Unknown Rx tamsulosin [Flomax] 0.4 mg PO BEDTIME 12/27/19 07/20/20 07/19/20 History trazodone 50 mg PO BEDTIME PRN 12/27/19 07/20/20 Unknown History omeprazole 20 mg capsule,delayed 20 mg PO DAILY 07/14/20 07/20/20 07/19/20 History release cholecalciferol (vitamin D3) 50 mcg PO DAILY 07/20/20 07/20/20 Unknown History [Vitamin D3] docusate sodium [Colace] 100 mg PO BID PRN 07/20/20 07/20/20 Unknown History Allergies Allergy/AdvReac Type Severity Reaction Status Date / Time No Known Allergies Allergy Verified 07/20/20 08:36 Current Medications Current Medications Generic Name Dose Route Start Last Admin Trade Name Freq PRN Reason Stop Dose Admin Amlodipine Besylate 2.5 mg 07/20/20 16:45 07/21/20 08:44 Amlodipine 5 Mg Tablet PO 2.5 mg DAILY MEGHAN Administration Aspirin 81 mg 07/21/20 09:00 07/21/20 12:04 Aspirin 81 Mg Ec Tablet PO Not Given DAILY MEGHAN Atorvastatin Calcium 80 mg 07/20/20 14:00 07/21/20 08:44 Atorvastatin 40 Mg Tablet PO 80 mg DAILY MEGHAN Administration Clopidogrel Bisulfate 75 mg 07/21/20 09:00 07/21/20 14:41 Clopidogrel 75 Mg Tablet PO 75 mg DAILY MEGHAN Administration Furosemide 20 mg 07/20/20 14:00 07/21/20 08:44 Furosemide 20 Mg Tablet PO 20 mg DAILY MEGHAN Administration Metoprolol Succinate 25 mg 07/20/20 21:00 07/21/20 20:21 Metoprolol Succinate Er (24 Hr) 25 Mg Tablet PO 25 mg BEDTIME MEGHAN Administration Nitroglycerin 0.4 mg 07/21/20 14:59 07/21/20 15:04 Nitroglycerin 0.4 Mg Sublingual Tablet SUBLINGUAL 0.4 ml Q5M PRN Administration CHEST PAIN Pantoprazole Sodium 40 mg 07/20/20 13:37 07/21/20 08:[address] 40 Mg Tablet PO 40 mg DAILY MEGHAN Administration Additional Medication Information Current Medications Amlodipine Besylate (Amlodipine 5 Mg Tablet) 2.5 mg PO DAILY MEGHAN Last Admin: 07/20/20 17:40 Dose: 2.5 mg Documented by: Aspirin (Aspirin 81 Mg Ec Tablet) 81 mg PO DAILY [facility] Atorvastatin Calcium (Atorvastatin 40 Mg Tablet) 80 mg PO DAILY [facility] Last Admin: 07/20/20 14:59 Dose: 80 mg Documented by: Clopidogrel Bisulfate (Clopidogrel 75 Mg Tablet) 75 mg PO DAILY [facility] Enoxaparin Sodium (Enoxaparin 80 Mg/0.8 Ml Syringe) 80 mg SUBCUT Q24H [facility] Last Admin: 07/20/20 20:21 Dose: 80 mg Documented by: Furosemide (Furosemide 20 Mg Tablet) 20 mg PO DAILY [facility] Last Admin: 07/20/20 15:00 Dose: 20 mg Documented by: Sodium Chloride (Sodium Chloride 0.9%) 1,000 mls @ 75 mls/hr IV .[id number] [facility] Last Infusion: 07/21/20 06:48 Dose: 0 mls/hr Documented by: Sodium Chloride (Sodium Chloride 0.9%) 1,000 mls @ 50 mls/hr IV .Q20H ONE Stop: 07/21/20 12:46 Last Infusion: 07/21/20 06:32 Dose: Infused Documented by: Metoprolol Succinate (Metoprolol Succinate Er (24 Hr) 25 Mg Tablet) 25 mg PO BEDTIME [facility] Last Admin: 07/20/20 20:21 Dose: 25 mg Documented by: Pantoprazole Sodium (Pantoprazole Dr 40 Mg Tablet) 40 mg PO DAILY [facility] Last Admin: 07/20/20 15:01 Dose: 40 mg Documented by: PFSH Acute PFSH: Medical History (Updated 07/20/20 @ 16:34 by Fer Mayers MD) Benign essential hypertension with target blood pressure below 140/90 CKD (chronic kidney disease) Hyperlipidemia Hypertension Kidney failure jail (current) use of opiate analgesic Pain management contract signed Surgical History H/O left wrist surgery Hx of cataract surgery Status post laparoscopic cholecystectomy (~12/27/19) Family History Denies family history of CAD (coronary artery disease) Anesthesia complication Bleeding disorder Social History Smoking and tobacco status: former smoker Alcohol intake: never Dietary Habits: Current diet type/program: regular Exercise: Physical activity functional status: independent ambulation Vitals/I&O/Wt Last Vital Signs Temp 97.4 F L 07/21/20 20:22 Pulse 82 07/21/20 20:22 Resp 21 H 07/21/20 20:22 BP 105/55 07/21/20 20:22 Pulse Ox 95 07/21/20 20:22 07/21/20 07/21/20 07/21/20 06:59 14:59 22:59 Intake Total 625.833 / 1163.433 360 / 360 33.333 / 393.333 Output Total 175 / 525 400 / 400 200 / 600 Balance 450.833 / 638.433 -40 / -40 -166.667 / -206.667 Weight last 48 hrs Weight 175 lb Physical Exam Narrative: EXAM NARRATIVE: GENERAL: Patient is alert, awake and oriented x3. NECK: No jugular vein distension. HEENT: No cyanosis. No icterus. No pallor. HEART: Regular S1 and S2. No murmur, rub or gallop. LUNGS: Clear to auscultate bilaterally. ABDOMEN: Soft, nontender and nondistended. Positive bowel sounds. No guarding, rebound or tenderness. CENTRAL NERVOUS SYSTEM: Grossly nonfocal. EXTREMITIES: Lower extremities without edema bilaterally. A&P Assessment and plan (1) Acute diastolic heart failure: Appear to be well compensated now. Continue current regimen. Status: Acute (2) NSTEMI (non-ST elevated myocardial infarction): As above due to highly calcified significant ostial LAD lesion in the face of acute coronary syndrome we will proceed with PCI. Patient has been explained all risk benefit and alternative for the procedure. He understand the high risk nature of the procedure. He would like to proceed with it. He has been loaded with Plavix. Continue current regimen anticoagulation. Status: Acute (3) Acute kidney injury superimposed on CKD: Continue IV fluid. Since patient continues to have off-and-on chest pain we will proceed with angiogram in the morning. Status: Acute (4) Benign essential hypertension with target blood pressure below 140/90: Controlled. Continue current regimen Status: Acute (5) Diet-controlled type 2 diabetes mellitus: Continue current regimen with sliding scale insulin Status: Acute (6) Hyperlipidemia: Patient is on a high-dose statin. Continue Status: Acute Qualifiers: Hyperlipidemia type: unspecified Qualified Code(s): E78.5 - Hyperlipidemia, unspecified Additional A&P Information I discussed the patient in detail about the cardiac catheterization and the possibility of contrast-induced nephropathy in view of his underlying chronic kidney disease. The risk of bleeding, hematoma, vascular injury, myocardial infarction, CVA, renal failure and other concomitant complications were e xplained in detail. Patient understood this well and consented to proceed. We will continue the care with IV hydration. Repeat BMP and CBC at 2 PM today. Coding Level of Care Code New Pt Acute Globe Cleaner for Chg Fwd Patient Type New History Comprehensive Exam Comprehensive Medical Decision Making High Complexity Diagnoses Acute diastolic heart failure I50.31 NSTEMI (non-ST elevated myocardial infarction) I21.4 Acute kidney injury superimposed on CKD N17.9; N18.9 Benign essential hypertension with target blood pressure below 140/90 I10 Diet-controlled type 2 diabetes mellitus E11.9 Hyperlipidemia E78.5 Hyperlipidemia type: unspecified
[2020-07-21] MEDS: sodium chloride 0.9% 1,000 ML 50 ML IV (21:13)
--- NOTE | 2020-07-21 22:44 | PC.NURSE ---
Initiated TR band removal at 1940 removing 2ml of air eery 15-20min until all air removed at 2225. Cleaned site. Bruising observed to site. No active bleeding or hematoma observed. Covered with 2x2 and bio-occlusive. Instructed patient on site care and restrictions. Patient verbalized understanding stating I will call for help. No other distress observed.
[2020-07-22] VITALS (53 sets, daily range): BP systolic 88–165; BP diastolic 51–92; PULSE 60–86; RESP 12–26; TEMP 36.3–37.1; O2SAT 92–99
--- NOTE | 2020-07-22 00:16 | PC.NURSE ---
Dressing to right wrist remains c,d,i. No s/s of bleeding or hematoma formation observed. Pateint resting with eyes closed and even respirations observed. No distress noted.
--- NOTE | 2020-07-22 03:15 | PC.NURSE ---
Right wrist remain free from bleeding or hematoma formation. Dressing is c,d,i.
[2020-07-22 05:29] LABS: Basophils # 0.1 10^3/uL (0.0-0.1); Basophils % 0.8 %; Eosinophils # 0.1 10^3/uL (0.0-0.8); Eosinophils % 1.5 %; Hematocrit 41.9 % (42.0-52.0); Hemoglobin 13.3 g/dL (11.7-16.6); Lymphocytes # 0.8 10^3/uL (0.8-4.8); Lymphocytes % 10.6 %; Mean Corpuscular HGB Conc 31.7 g/dL (30.0-36.0); Mean Corpuscular Hemoglobin 28.3 pg (28.0-34.0); Mean Corpuscular Volume 89.1 fL (80-94); Mean Platelet Volume 9.6 fL (7.4-10.4); Monocytes # 0.5 10^3/uL (0.2-0.9); Monocytes % 6.2 %; Neutrophils # 6.42 10^3/uL (1.8-7.7); Neutrophils % 80.6 %; Nucleated Red Blood Cells % 0 %; Platelet Count 262 10^3/cmm (130-400); Red Cell Distribution Width 14.2 % (12.1-15.1)
--- NOTE | 2020-07-22 05:33 | PC.NURSE ---
Assisted patient with urinal. Reinforced instruction of right wrist site care. Site remains c,d,i and free from s/s of bleeding or hematoma formation. Bruising in noted to site. Right extremity has palpable pulse and is pink, warm. Patient denies any pain or other needs at this time. Fluids remain running at 50ml/hr. No distress observed.
[2020-07-22 06:06] LABS: Anion Gap 14.1 (5-19); Blood Urea Nitrogen 27 mg/dL (8-23); Carbon Dioxide 26 mmol/L (22-29); Chloride 105 mmol/L (98-107); Creatinine Clr Calc Pharmacy 42.5069; Glucose 138 mg/dL (65-115); Osmolality Calculated 299 mOsm/kg (285-295); Potassium 4.1 mmol/L (3.5-5.1); Sodium 141 mmol/L (136-145)
--- NOTE | 2020-07-22 07:27 | XACV_ITS ---
Exam Room: [facility] Ht: 170 cm Wt: 79 kg BSA: 1.95 m2 Gender: Male : 1940 Any Known Allergies: No known allergies Exam Priority: Routine Procedure(s): Procedure Description: Diagnostic procedure Procedure Description: PCI procedure Procedure Description: Drug Eluting Coronary Stent Procedure Description: PTCA Procedure Description: Miscellaneous Procedure Description: ACT Procedure Description: Coronary Angiography Diagnostic Cath Status: Urgent Diagnostic Findings * LM has 0% stenosis. * CX has 0% stenosis. * RCA has 0% stenosis. * Proximal Left Anterior Descending Coronary Artery: Severe 95% stenosis, KRISTA: 2 flow. * Coronary angiography shows right dominance. PCI Status: Urgent PCI Indication: New Onset Angina <= 2 months Interventional Findings * Proximal Left Anterior Descending Coronary Artery: 95% stenosis treated with AB TREK 2.50X8 RX BALLOON, MDT Rambo SHEILA 3.0X12 FLACA, and MDT TOBY EUPHORA RX [id number] BALLOON. 0% residual stenosis, KRISTA: 3 flow. Conclusions 1. There is severe coronary artery disease with one vessel disease. 2. Proximal Left Anterior Descending Coronary Artery was treated with two Balloon and Drug Eluting Stent. 3. Reason for 4. intervention: 5. Patient had angiogram yesterday 6. by Dr. Mayers for 7. worsening of chest pain shortness of breath 8. and 9. abnormal 10. stress test he was noted to have ostial 11. 95% 12. stenosis. 13. I reviewed the films and 14. took patient off the table 15. as to discuss 16. regarding 17. PCI versus CABG 18. options. 19. I met with the patient and her best friend who was by bedside twice 1 last night and this morning before the procedure I have given him the option of CABG patient would not like to proceed with CABG and asked me that I showed proceed with stenting. Patient has been explained all risk benefit and alternative for the procedure. Patient gave me permission to proceed with PCI. It is the reason he is brought back to the [facility] this morning.. 20. Please note that 21. RCA was not engaged. Recommendations * 1-Return to inpatient for close monitoring and routine cath care 2-Risk factor modification for secondary prevention 3-Statin and aspirin 81 mg life--long, if tolerated 4-Patient was pre-loaded with 300 mg of Plavix, continue Plavix 75mg p.o. daily for at least one year. We will assess at the end of one year again to continue if further or not 5-Continue optimal medical management 6-Follow up with Dr. Mayers in four weeks and your primary care in 10 days. Interventional RX Recommendation: PCI w/o planned CABG Diagnostic RX Recommendation: PCI w/o planned CABG Pressures Phase:Rest AO : 114 / 50 ( 74 ) @ 2:02:00 AM 101 / 49 ( 71 ) @ 2:12:00 AM Clinical Evaluation EBL: 5mL-10mL Procedural Details Procedure Consent Obtained. Pre-Procedure Time Out. Identified patient by full name and date of as verbalized by the patient/guarantor. Does the consent match the physician's order: Yes. Accurate & Complete Informed Consent: Yes. Inpatient/Outpatient History & Physical on Chart: Yes. If H&P is completed, is and addenduem needed: No; If yes, is the addendum complete: N/A. Visualize and Verify Site with Patient/Guarantor: N/A. Relevant Radiology Images available: Yes. Pre-op teaching completed and patient verbalized understanding. The risks, benefits, and alternatives of sedation and/or procedure were discussed by physician. The patient agrees to continue. Procedure started. [facility] Clinical Fraility Score: 4: Vulnerable. [facility] Indications: ACS > 24 hours. Chest Pain Symptom Assessment: Atypical Angina. Cardiovascular Instability: No. Correct patient, site and procedure confirmed by cath team. PERRLA. 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 Lungs clear x 5 lobes. IV Site on Arrival: 20 gauge in the left anticubital. IV Fluids: 0.9% NaCl at KVO. 500 mL infused prior to electroplating laborer. Pre Procedural Pulses: bilateral dorsalis pedis was Doppled. Pre Procedural Pulses: bilateral posterior tibial was Doppled. Oxygen started at 2liters/min via nasal canula. bilateral groins was prepped with chloroprep then draped in the usual sterile fashion. Physician arrived. Baseline sample Acquired. HR: 93 BPM. Equipment: 6F - Femoral. Cardiac Cath Pack. ACIST Manifold Kit Model BT 2000. Heparinized Saline (2 units/mL), 1000 mL bag. Kit, Micropuncture. Hemodynamic formulas in Rest were re-calculated based on hemoglobin value from 07/22/2020 5:09:00 AM. AP pads applied to patient. Physician scrubbed in. Immediate Pre-Procedure Time Out. Correct Patient: Yes; Correct Procedure: Yes; Correct Site: Yes; Correct Patient Position: Yes; Correct Supplies: Yes; Dried Flammable Prep: Yes; Blood Products Available: N/A;. Lidocaine 1% infiltrated to the right groin. Arterial access obtained with micropuncture set. 6 urdu XB 3.5 SH guide catheter was inserted over the wire. [place] guidewire was advanced through the guide catheter to lesion in the prox LAD. Inflation number : 1 A AB TREK 2.50X8 RX BALLOON was prepped and advanced across the Prox LAD , then inflated to 18 STEPH for 0:09 seconds. Inflation number: 2 The AB TREK 2.50X8 RX BALLOON was reinflated across the Prox LAD, to 20 STEPH for 0:12 seconds. Balloon out. Inflation Number : 3 A PADMINI Ricks SHEILA 3.0X12 FLACA -Lot Number# [id number] exp date 03/11/2022 was prepped and advanced across the Prox LAD. The stent was deployed at 14 STEPH for 0:14 seconds. Stent balloon out over wire. Inflation number : 4 A PADMINI LUIS EUPHORA RX [id number] BALLOON was prepped and advanced across the Prox LAD , then inflated to 18 STEPH for 0:15 seconds. Inflation number: 5 The MDT NC EUPHORA RX [id number] BALLOON was reinflated across the Prox LAD, to 20 STEPH for 0:21 seconds. Inflation number: 6 The MDT NC EUPHORA RX [id number] BALLOON was reinflated across the Prox LAD, to 20 STEPH for 0:14 seconds. Balloon out. Wire out. Angiography performed. Guide catheter out. ACT drawn. Results 246 seconds. Therapeutic limits - pre-heparin administration 90-150 seconds and monitoring heparin during a vascular procedure >250 seconds. Physician review of films. Physician scrubbed out. A Suture was successful obtaining hemostatsis at the Right Femoral artery insertion site. Sheath(s) sutured into position with 2-0 silk and sterile 4x4's and Op-site applied over the site. No oozing or signs and symptoms of hematoma noted. Arterial sheath flushed and connected to tranducer and pressure bag with heparinized saline. Post Procedure: Pulses reassessed and unchanged. PERRLA. 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 Medication's Wasted: Lidocaine 1% = 10 mL. Medication's Wasted: Heparin = 2000 units. Medication's Wasted: Fentanyl = 75 mcg. Total IV fluids: 60.8 mL. Contrast type used: Omnipaque 300 mgI/mL, 500 mL bottle. Post-op diagnosis: successful PCI of LAD. Complications: none. Estimated blood loss: 5mL-10mL. No VTE prophylaxis required. Procedure completed. Patient transferred by bed to 1st floor. Vital chart was stopped. Access Site Site: Right Femoral artery Sheath Size: 6 Fr Hemostasis Method: Suture Hemostasis Success: Successful Procedure Medications Start: 7:41 AM Stop: 7:41 AM Medication: Versed Amount: 1 mg Route: I.V. Start: 7:41 AM Stop: 7:41 AM Medication: Fentanyl Amount: 25 mcg Route: I.V. Start: 7:51 AM Stop: 7:51 AM Medication: Versed Amount: 1 mg Route: I.V. Start: 8:04 AM Stop: 8:04 AM Medication: Heparin Amount: 7000 units Route: I.V. I, the attending physician, have reviewed and verified all procedure medications. Yes, all medications given per verbal order History/Risk Factors Hypertension: Yes Dyslipidemia: No Peripheral Arterial Disease (PAD): No Myocardial Infarction (NC): No Obesity: No Renal Disease: No Tobacco Use: Former Prior Interventions PCI: No CABG: No Valve Surgery: No Report Signatures Finalized by Soumya Landon MD on 08/05/2020 04:49 PM
--- NOTE | 2020-07-22 07:46 | W.PM.OPSUD ---
Surgery/Procedure H&P Update DATE OF PROCEDURE: July 22, 2020 DATE H&P PERFORMED: 07/20/20 H&P UPDATE INFORMATION: I have reviewed H&P completed within last 30 days and I have examined patient prior to procedure PREOP DIAGNOSIS: Non-ST elevation [place] PLANNED PROCEDURE: Operation Date: 07/21/20 07:00 Proposed Procedures p Cardiac Catheterization-left heart cath with coronary angiogram and poss pci(Not Applicable) - Fer Mayers MD Operation Date: 07/22/20 07:00 Proposed Procedures p Cardiac Catheterization(Left) - Soumya Landon MD PATIENT REASSESSED PRIOR TO SEDATION, WITH NO CHANGE NOTED: Yes PHYSICAL EXAM: alert, oriented x 3 and clear to auscultation bilaterally AIRWAY EVAL/ANESTHESIA PLAN: ASA II, Risks, benefits & alternatives of sedation and/or procedure discussed and Patient agrees to continue as planned
--- NOTE | 2020-07-22 08:03 | PM.PN ---
Subjective Subjective: Interval history: Cath earlier today with stenting of ostial LAD, improved renal function with IVF hydration, hemodynamically stable, afebrile, had 400 mL urine output overnight. Medications: Reviewed: Yes Medication Review Details: Active Medications Generic Name Dose Route Start Last Admin Trade Name Freq PRN Reason Stop Dose Admin Acetaminophen 650 mg 07/21/20 17:33 Acetaminophen 32 5 Mg Tablet PO Q6H PRN MILD PAIN Al Hydrox/Mg [place] x/Simethicone 30 ml 07/21/20 17:33 Lbar-Grw-[place] de-Shanta 30 Ml Udc PO Q15M PRN INDIGESTION Alprazolam 0.25 mg 07/21/20 17:33 Alprazolam 0.25 Mg Tablet PO TID PRN ANXIETY Amlodipine Besylat e 2.5 mg 07/20/20 16:45 07/21/20 08:44 Amlodipine 5 Mg Tablet PO 2.5 mg DAILY MEGHAN Administration Aspirin 81 mg 07/21/20 09:00 07/21/20 12:04 Aspirin 81 Mg Ec Tablet PO Not Given DAILY MEGHAN Atorvastatin Calci um 80 mg 07/20/20 14:00 07/21/20 08:44 Atorvastatin 40 Mg Tablet PO 80 mg DAILY MEGHAN Administration Atropine Sulfate 0.5 mg 07/21/20 17:33 Atropine 1 Mg/Ml Sdv 1 Ml IVP PRN PRN Symptomatic corinne cardia Clopidogrel Bisulf ate 75 mg 07/21/20 09:00 07/21/20 14:41 Clopidogrel 75 M g Tablet PO 75 mg DAILY MEGHAN Administration Fentanyl 50 mcg 07/21/20 17:33 Fentanyl 50 Mcg/ Ml Inj 2ml IVP PRN PRN Prior to sheath r emoval Furosemide 20 mg 07/20/20 14:00 07/21/20 08:44 Furosemide 20 Mg Tablet PO 20 mg DAILY MEGHAN Administration Sodium Chloride 1,000 mls @ 50 ml s/hr 07/21/20 20:43 07/21/20 21:13 Sodium Chloride 0.9% IV 50 mls/hr .Q20H MEGHAN Administration Magnesium Hydroxid e 30 ml 07/21/20 17:33 Magnesium Hydrox fantasma 30 Ml Udc PO DAILY PRN CONSTIPATION Metoprolol Succina te 25 mg 07/20/20 21:00 07/21/20 20:21 Metoprolol Succi elda Er (24 Hr) 25 Mg Tablet PO 25 mg BEDTIME MEGHAN Administration Naloxone HCl 0.1 mg 07/21/20 17:33 Naloxone 0.4 Mg/ Ml Sdv IVP Q2M PRN RESPIRATORY RATE < 8/MIN Nitroglycerin 0.4 mg 07/21/20 14:59 07/21/20 15:04 Nitroglycerin 0. 4 Mg Sublingual Ta blet SUBLINGUAL 0.4 ml Q5M PRN Administration CHEST PAIN Pantoprazole Sodiu m 40 mg 07/20/20 13:37 07/21/20 08:[address] 40 Mg Tablet PO 40 mg DAILY MEGHAN Administration Temazepam 15 mg 07/21/20 17:33 Temazepam 15 Mg Capsule PO BEDTIME PRN INSOMNIA No Known Allergies Allergy (Verified 07/20/20 08:36) Vitals/I&O/Wt Last Vital Signs Temp 97.4 F L 07/22/20 07:02 Pulse 72 07/22/20 07:02 Resp 15 07/22/20 07:02 BP 123/70 07/22/20 07:02 Pulse Ox 97 07/22/20 07:02 07/21/20 07/22/20 07/22/20 22:59 06:59 14:59 Intake Total 57.500 / 417.500 0 / 417.500 Output Total 400 / 800 200 / 1000 100 / 100 Balance -342.500 / -382.500 -200 / -582.500 -100 / -100 Physical Exam Const: COMMON NORMALS: no acute distress and patient oriented x3 GENERAL APPEARANCE: cooperative and comfortable ORIENTATION/CONSCIOUSNESS: Yes awake OTHER: -looks appropriate for age HENMT: COMMON NORMALS: normocephalic, atraumatic, hearing grossly normal bilaterally and moist oral mucous membranes HEAD & SCALP: normocephalic and atraumatic Eye: COMMON NORMALS: Equal, round and reactive pupils present, EOMs intact bilaterally and conjunctivae normal CONJUNCTIVA: Yes conjunctivae normal PUPIL: Yes Equal, round and reactive pupils present Neck/C-Spine: COMMON NORMALS: full ROM GENERAL: Yes normal visual inspection and Yes trachea midline Resp: COMMON NORMALS: normal respiratory effort, No retractions, No use of accessory muscles and clear to auscultation bilaterally EFFORT & INSPECTION: Yes able to speak in complete sentences, Yes symmetric chest movement and No tachypneic AUSCULTATION: clear to auscultation bilaterally Cardio: COMMON NORMALS: regular rate, regular rhythm, S1 normal heart sound present, S2 normal heart sound present and No murmurs present (Cardio) RATE: regular rate RHYTHM: regular rhythm HEART SOUNDS: S1 normal heart sound present and S2 normal heart sound present GI: COMMON NORMALS: Normal to inspection, nondistended, normoactive bowel sounds present, Soft to palpation and non-tender PALPATION: Yes Soft to palpation Extremity: COMMON NORMALS: normal to inspection, full ROM and no clubbing, cyanosis or edema; negative for no pedal edema NARRATIVE EXTREMITY EXAM: -R wrist; clean/dry dressing in place, no hematoma Neuro: COMMON NORMALS: patient oriented x3, moves all extremities, no focal motor deficits and no sensory deficits noted Psych: COMMON NORMALS: mental status grossly normal, Normal thought process present, cooperative, normal affect and speech normal SPEECH: Yes normal speech THOUGHT PROCESS: Normal thought process present Skin: COMMON NORMALS: no rashes or lesions noted, no jaundice, no petechiae and no mottling GENERAL SKIN EXAM: no rashes or lesions noted Data : 07/22/20 05:09 07/22/20 05:09 A&P Assessment and plan (1) NSTEMI (non-ST elevated myocardial infarction): -noted troponin elevation with significant delta of 79 -telemetry monitoring -s/p left heart cath (07/21) 90 to 95% high-grade ostial stenosis, 20-30% diffuse narrowing of LCx, 50% ostial narrowing of RCA -s/p PCI today with FLACA to ostial LAD, patient declined CABG -on IVF hydration due to CAROL -VSS; continue to monitor -Echo: EF=50-55%, mild MR, mild diffuse hypokinesia of LV apex, trace to mild TR, mild AR -on ASA, Plavix, statin, amlodipine, BB Status: Acute (2) Benign essential hypertension with target blood pressure below 140/90: -VSS; continue to monitor -continue oral antihypertensives Status: Chronic (3) Acute diastolic heart failure: -well compensated -Echo as noted above -continue oral Lasix Status: Acute (4) Acute kidney injury superimposed on chronic kidney disease: -on gentle IVF hydration -improving renal function, continue to trend -avoid nephrotoxins, renally dose meds -baseline Cr is around 1-1.2 -ACEi on hold Status: Acute (5) Hyperlipidemia: -on statin Status: Chronic Qualifiers: Hyperlipidemia type: unspecified Qualified Code(s): E78.5 - Hyperlipidemia, unspecified (6) CKD (chronic kidney disease): -follows up with Dr. Zuluaga Status: Chronic Qualifiers: Chronic kidney disease stage: stage 2 (mild) Qualified Code(s): N18.2 - Chronic kidney disease, stage 2 (mild) (7) Diet-controlled type 2 diabetes mellitus: -A1c-6.7 -Accucheks, ISS,hypoglycemia precautions Status: Acute Additional A&P Information -Advanced age -GERD; on PPI -cardiac diet as tolerated -GI ppx with PPI -DVT ppx not needed as was on therapeutic anticoagulation -Dispo: home -Code status: FULL code Attestations Medical Necessity Statement*: Patient requires hospitalization for continued mananagement of NSTEMI s/p PCI with LAD stenting. Time Spent in Patient Care: 16 - 35 minutes (>than 50% of time spent in counselling and/or direct pt care on unit). Coding Level of Care Code Acute Inspector Aluminum Boat for Chg Fwd Exam Comprehensive Diagnoses NSTEMI (non-ST elevated myocardial infarction) I21.4 Benign essential hypertension with target blood pressure below 140/90 I10 Acute diastolic heart failure I50.31 Acute kidney injury superimposed on chronic kidney disease N17.9; N18.9 Hyperlipidemia E78.5 Hyperlipidemia type: unspecified CKD (chronic kidney disease) N18.2 Chronic kidney disease stage: stage 2 (mild) Diet-controlled type 2 diabetes mellitus E11.9
--- NOTE | 2020-07-22 08:43 | P.PN_ITS ---
Subjective Subjective: Interval history: Status post PCI to ostial LAD with 3.0x12 drug- eluting stent postdilated with 3.25 x 8 noncompliant balloon. Excellent angiographic result with KRISTA-3 flow was achieved. Patient tolerated procedure well without any complication. Medications: Reviewed: Yes Medication Review Details: Active Medications Generic Name Dose Route Start Last Admin Trade Name Freq PRN Reason Stop Dose Admin Acetaminophen 650 mg 07/21/20 17:33 Acetaminophen 32 5 Mg Tablet PO Q6H PRN MILD PAIN Al Hydrox/Mg [place] x/Simethicone 30 ml 07/21/20 17:33 Lxna-New-Vcrjeqg de-Shanta 30 Ml Udc PO Q15M PRN INDIGESTION Alprazolam 0.25 mg 07/21/20 17:33 Alprazolam 0.25 Mg Tablet PO TID PRN ANXIETY Amlodipine Besylat e 2.5 mg 07/20/20 16:45 07/21/20 08:44 Amlodipine 5 Mg Tablet PO 2.5 mg DAILY MEGHAN Administration Aspirin 81 mg 07/21/20 09:00 07/21/20 12:04 Aspirin 81 Mg Ec Tablet PO Not Given DAILY MEGHAN Atorvastatin Calci um 80 mg 07/20/20 14:00 07/21/20 08:44 Atorvastatin 40 Mg Tablet PO 80 mg DAILY MEGHAN Administration Atropine Sulfate 0.5 mg 07/21/20 17:33 Atropine 1 Mg/Ml Sdv 1 Ml IVP PRN PRN Symptomatic corinne cardia Clopidogrel Bisulf ate 75 mg 07/21/20 09:00 07/21/20 14:41 Clopidogrel 75 M g Tablet PO 75 mg DAILY MEGHAN Administration Fentanyl 50 mcg 07/21/20 17:33 Fentanyl 50 Mcg/ Ml Inj 2ml IVP PRN PRN Prior to sheath r emoval Furosemide 20 mg 07/20/20 14:00 07/21/20 08:44 Furosemide 20 Mg Tablet PO 20 mg DAILY MEGHAN Administration Sodium Chloride 1,000 mls @ 50 ml s/hr 07/21/20 20:43 07/21/20 21:13 Sodium Chloride 0.9% IV 50 mls/hr .Q20H MEGHAN Administration Magnesium Hydroxid e 30 ml 07/21/20 17:33 Magnesium Hydrox fantasma 30 Ml Udc PO DAILY PRN CONSTIPATION Metoprolol Succina te 25 mg 07/20/20 21:00 07/21/20 20:21 Metoprolol Succi elda Er (24 Hr) 25 Mg Tablet PO 25 mg BEDTIME MEGHAN Administration Naloxone HCl 0.1 mg 07/21/20 17:33 Naloxone 0.4 Mg/ Ml Sdv IVP Q2M PRN RESPIRATORY RATE < 8/MIN Nitroglycerin 0.4 mg 07/21/20 14:59 07/21/20 15:04 Nitroglycerin 0. 4 Mg Sublingual Ta blet SUBLINGUAL 0.4 ml Q5M PRN Administration CHEST PAIN Pantoprazole Sodiu m 40 mg 07/20/20 13:37 07/21/20 08:[address] 40 Mg Tablet PO 40 mg DAILY MEGHAN Administration Temazepam 15 mg 07/21/20 17:33 Temazepam 15 Mg Capsule PO BEDTIME PRN INSOMNIA No Known Allergies Allergy (Verified 07/20/20 08:36) Vitals/I&O/Wt Last Vital Signs Temp 97.4 F L 07/22/20 07:02 Pulse 72 07/22/20 07:02 Resp 15 07/22/20 07:02 BP 123/70 07/22/20 07:02 Pulse Ox 97 07/22/20 07:02 07/21/20 07/22/20 07/22/20 22:59 06:59 14:59 Intake Total 57.500 / 417.500 0 / 417.500 Output Total 400 / 800 200 / 1000 100 / 100 Balance -342.500 / -382.500 -200 / -582.500 -100 / -100 Physical Exam Narrative: EXAM NARRATIVE: GENERAL: Patient is alert, awake and oriented x3. NECK: No jugular vein distension. HEENT: No cyanosis. No icterus. No pallor. HEART: Regular S1 and S2. No murmur, rub or gallop. LUNGS: Clear to auscultate bilaterally. ABDOMEN: Soft, nontender and nondistended. Positive bowel sounds. No guarding, rebound or tenderness. CENTRAL NERVOUS SYSTEM: Grossly nonfocal. EXTREMITIES: Lower extremities without edema bilaterally. Const: COMMON NORMALS: alert Resp: COMMON NORMALS: clear to auscultation bilaterally AUSCULTATION: clear to auscultation bilaterally Neuro: SENSORIUM/ORIENTATION: Yes alert Data : 07/22/20 05:09 07/22/20 05:09 A&P Assessment and plan (1) Acute diastolic heart failure: Well compensated continue current regimen as per Dr. Mayers Status: Acute (2) NSTEMI (non-ST elevated myocardial infarction): Post PCI with drug-eluting stent to ostial LAD. Patient was loaded with 300 mg of Plavix. Patient tolerated procedure well. Stent was dilated with noncompliant balloon. Good apposition noted. KRISTA-3 flow with excellent angiographic result was achieved. Status: Acute (3) Acute kidney injury superimposed on CKD: Continue IV fluid for the next 8 to 10 hours at 75 mL/h. Status: Acute (4) Benign essential hypertension with target blood pressure below 140/90: Controlled. Continue current regimen Status: Chronic (5) Diet-controlled type 2 diabetes mellitus: Continue current regimen with sliding scale insulin Status: Acute (6) Hyperlipidemia: Patient is on a high-dose statin. Continue Status: Chronic Qualifiers: Hyperlipidemia type: unspecified Qualified Code(s): E78.5 - Hyperlipidemia, unspecified Additional A&P Information I discussed the patient in detail about the cardiac catheterization and the possibility of contrast-induced nephropathy in view of his underlying chronic kidney disease. The risk of bleeding, hematoma, vascular injury, myocardial infarction, CVA, renal failure and other concomitant complications were explained in detail. Patient understood this well and consented to proceed. We will continue the care with IV hydration. Repeat BMP and CBC at 2 PM today. Attestations Medical Necessity Statement*: Patient require continuation hospitalization post PCI. 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
[2020-07-22] MEDS: dextrose 5%-sod chloride 0.45% 1,000 ML 100 ML IV (09:05)
[2020-07-22] MEDS: pantoprazole DR 40 mg Tablet PO (09:06)
[2020-07-22] MEDS: FUROsemide 20 mg Tablet PO (09:06)
[2020-07-22] MEDS: atorvastatin 40 mg Tablet 80 MG PO (09:06)
[2020-07-22] MEDS: clopidogrel 300 mg Tablet PO (09:06)
[2020-07-22] MEDS: aspirin 81 mg EC Tablet PO (09:06)
[2020-07-22] MEDS: amlodipine 5 mg Tablet 2.5 MG PO (09:06)
[2020-07-22 11:10] LABS: Partial Thromboplastin Time 184.3 SECONDS (23.9-36.7)
[2020-07-22 13:46] LABS: Partial Thromboplastin Time 35.5 SECONDS (23.9-36.7)
--- NOTE | 2020-07-22 16:18 | PM.PN ---
Subjective Subjective: Interval history: Patient underwent a PCI of the proximal/ostial LAD lesion today by Dr. Landon. He had an uneventful postprocedure course. No hematoma or bleeding in the right groin. No other specific complaints. Medications: Reviewed: Yes Medication Review Details: Current Medications Acetaminophen (Acetaminophen 325 Mg Tablet) 650 mg PO Q6H PRN PRN Reason: MILD PAIN Al Hydrox/Mg Hydrox/Simethicone (Ydlo-Dlr-Lyngqteqj-Shanta 30 Ml Udc) 30 ml PO Q15M PRN PRN Reason: INDIGESTION Al Hydrox/Mg Hydrox/Simethicone (Dtkr-Avc-Rsqrqaynv-Shanta 30 Ml Udc) 30 ml PO Q15M PRN PRN Reason: INDIGESTION Alprazolam (Alprazolam 0.25 Mg Tablet) 0.25 mg PO TID PRN PRN Reason: ANXIETY Amlodipine Besylate (Amlodipine 5 Mg Tablet) 2.5 mg PO DAILY [facility] Last Admin: 07/22/20 09:06 Dose: 2.5 mg Documented by: Aspirin (Aspirin 81 Mg Ec Tablet) 81 mg PO DAILY [facility] Last Admin: 07/22/20 09:06 Dose: 81 mg Documented by: Atorvastatin Calcium (Atorvastatin 40 Mg Tablet) 80 mg PO DAILY [facility] Last Admin: 07/22/20 09:06 Dose: 80 mg Documented by: Atropine Sulfate (Atropine 1 Mg/Ml Sdv 1 Ml) 0.5 mg IVP PRN PRN PRN Reason: Symptomatic bradycardia Clopidogrel Bisulfate (Clopidogrel 75 Mg Tablet) 75 mg PO DAILY [facility] Last Admin: 07/21/20 14:41 Dose: 75 mg Documented by: Fentanyl (Fentanyl 50 Mcg/Ml Inj 2ml) 50 mcg IVP PRN PRN PRN Reason: Prior to sheath removal Furosemide (Furosemide 20 Mg Tablet) 20 mg PO DAILY [facility] Last Admin: 07/22/20 09:06 Dose: 20 mg Documented by: Sodium Chloride (Sodium Chloride 0.9%) 1,000 mls @ 50 mls/hr IV .Q20H [facility] Last Infusion: 07/22/20 09:05 Dose: Infused Documented by: Dextrose/Sodium Chloride (Dextrose 5%-Sod Chloride 0.45%) 1,000 mls @ 100 mls/hr IV .Q10H [facility] Last Admin: 07/22/20 09:05 Dose: 100 mls/hr Documented by: Magnesium Hydroxide (Magnesium Hydroxide 30 Ml Udc) 30 ml PO DAILY PRN PRN Reason: CONSTIPATION Magnesium Hydroxide (Magnesium Hydroxide 30 Ml Udc) 30 ml PO DAILY PRN PRN Reason: CONSTIPATION Metoprolol Succinate (Metoprolol Succinate Er (24 Hr) 25 Mg Tablet) 25 mg PO BEDTIME [facility] Last Admin: 07/21/20 20:21 Dose: 25 mg Documented by: Naloxone HCl (Naloxone 0.4 Mg/Ml Sdv) 0.1 mg IVP Q2M PRN PRN Reason: RESPIRATORY RATE < 8/MIN Nitroglycerin (Nitroglycerin 0.4 Mg Sublingual Tablet) 0.4 mg SUBLINGUAL Q5M PRN PRN Reason: CHEST PAIN Last Admin: 07/21/20 15:04 Dose: 0.4 ml Documented by: Pantoprazole Sodium (Pantoprazole Dr 40 Mg Tablet) 40 mg PO DAILY [facility] Last Admin: 07/22/20 09:06 Dose: 40 mg Documented by: Temazepam (Temazepam 15 Mg Capsule) 15 mg PO BEDTIME PRN PRN Reason: INSOMNIA Vitals/I&O/Wt Last Vital Signs Temp 98.3 F 07/22/20 15:47 Pulse 77 07/22/20 15:47 Resp 16 07/22/20 15:47 BP 125/69 07/22/20 15:47 Pulse Ox 96 07/22/20 15:47 07/22/20 07/22/20 07/22/20 06:59 14:59 22:59 Intake Total 0 / 417.500 833.333 / 833.333 Output Total 200 / 1000 425 / 425 200 / 625 Balance -200 / -582.500 408.333 / 408.333 -200 / 208.333 Physical Exam Narrative: EXAM NARRATIVE: GENERAL: The patient is alert and oriented times three. Not in any acute distress. HEENT: No significant pallor, icterus or lymphadenopathy. NECK: Trachea appears to be central. No masses noted. No JVD or thyromegaly appreciated. No carotid bruit. RESPIRATORY: Chest is symmetrical. No intercostals muscle retraction or any accessory muscle activation. There is no chest wall tenderness. Breath sounds are heard bilaterally. No rales or rhonchi heard. No evidence of any consolidation. BREASTS: Deferred. HEART: The PMI is in the 5th left intercostals space just inside the midclavicular line. No palpable precordial events. S1 and S2 are normal. No S3 or S4 heard. No pericardial rub or any click heard. Short systolic murmur in the left sternal border. No diastolic murmurs. ABDOMEN: No vessel pulsations or distention. No tenderness. No organomegaly appreciated. No abdominal bruit. Bowel sounds are normally heard. : Deferred. RECTAL: Deferred. LYMPHATIC: No lymphadenopathy noted in the neck or groin. EXTREMITIES: No hematoma bleeding in the right groin or at the right radial arterial puncture site. MUSCULOSKELETAL: No acute joint deformities or swelling. SKIN: There are no significant scars or skin rash noted. NEUROPSYCHIATRIC: The patient is alert and oriented x3. Appears to be in a good mood. The higher functions are grossly within normal limits. No tremors or rigidity noted. Const: COMMON NORMALS: alert Neuro: SENSORIUM/ORIENTATION: Yes alert Data : 07/22/20 05:09 07/22/20 05:09 A&P Assessment and plan (1) Atherosclerosis of coronary artery of [place] heart without angina pectoris: Patient underwent a cardiac catheterization yesterday. He was found to have total occlusion of the mid circumflex artery. High-grade stenosis of the ostium of the LAD. Mild to moderate diffuse disease in the other vessels. He underwent PCI of the ostial LAD lesion today. Currently seems to be stable. Status: Acute Qualifiers: Coronary Disease-Associated Artery/Lesion type: [place] artery Qualified Code(s): I25.10 - Atherosclerotic heart disease of [place] coronary artery without angina pectoris (2) Acute diastolic heart failure: Currently compensated. Continue on the current medications. Status: Acute (3) NSTEMI (non-ST elevated myocardial infarction): May continue on the Plavix, beta-bertrand, statin and other current medications. Status: Acute (4) Acute kidney injury superimposed on CKD: The creatinine was 1.4 today. He will be carefully hydrated today. Repeat BMP in the morning. Status: Acute (5) Benign essential hypertension with target blood pressure below 140/90: Controlled. Continue current regimen Status: Chronic (6) Diet-controlled type 2 diabetes mellitus: Continue current regimen with sliding scale insulin Status: Acute (7) Hyperlipidemia: Patient is on a high-dose statin. Continue Status: Chronic Qualifiers: Hyperlipidemia type: unspecified Qualified Code(s): E78.5 - Hyperlipidemia, unspecified Additional A&P Information We will go ahead and do a BMP in the morning. If the patient continues to remain stable with no new symptoms, may be discharged home tomorrow. Attestations Medical Necessity Statement*: Possible discharge home tomorrow Coding Level of Care Code Acute Reimbursement Spec for Marla Fwd Diagnoses Atherosclerosis of coronary artery of [place] heart without angina pectoris I25.10 Coronary Disease-Associated Artery/Lesion type: [place] artery Acute diastolic heart failure I50.31 NSTEMI (non-ST elevated myocardial infarction) I21.4 Acute kidney injury superimposed on CKD N17.9; N18.9 Benign essential hypertension with target blood pressure below 140/90 I10 Diet-controlled type 2 diabetes mellitus E11.9 Hyperlipidemia E78.5 Hyperlipidemia type: unspecified
--- NOTE | 2020-07-22 19:13 | PC.NURSE ---
Received report from [employer]. Patient resting in bed. Patient is s/p [place] with right groin access. Dressing in place remains c,d,i. No s/s of bleeding or hematoma formation observed. Informed patient of timing he can get up and move. Patient verbalized complete understanding and stated, I can hardly wait. Patient denies pain or other needs at this time. No distress observed.
[2020-07-22] MEDS: metoprolol succinate ER (24 HR) 25 mg Tablet PO (20:36)
--- NOTE | 2020-07-22 20:40 | PC.NURSE ---
Assisted patient up to bathroom s/p [facility]. Patient able to ambulate well with only standby assist. Right groin dressing remains c,d,i with no s/s of bleeding or hematoma formation observed. Patient denies pain to site or other discomforts. No other distress observed.
[2020-07-23] VITALS (8 sets, daily range): BP systolic 104–149; BP diastolic 53–83; PULSE 52–95; RESP 14–22; TEMP 36.6–36.8; O2SAT 94–96
[2020-07-23 06:14] LABS: Basophils # 0.1 10^3/uL (0.0-0.1); Basophils % 0.5 %; Eosinophils # 0.2 10^3/uL (0.0-0.8); Eosinophils % 1.3 %; Hematocrit 43.3 % (42.0-52.0); Hemoglobin 13.6 g/dL (11.7-16.6); Lymphocytes # 0.8 10^3/uL (0.8-4.8); Lymphocytes % 6.4 %; Mean Corpuscular HGB Conc 31.4 g/dL (30.0-36.0); Mean Corpuscular Hemoglobin 27.9 pg (28.0-34.0); Mean Corpuscular Volume 88.7 fL (80-94); Mean Platelet Volume 9.6 fL (7.4-10.4); Monocytes # 0.7 10^3/uL (0.2-0.9); Monocytes % 6.4 %; Neutrophils # 9.89 10^3/uL (1.8-7.7); Neutrophils % 85.1 %; Nucleated Red Blood Cells % 0 %; Platelet Count 282 10^3/cmm (130-400); Red Blood Count 4.88 10^6/uL (4.1-5.3); White Blood Count 11.6 10^3/uL (4.0-10.0)
[2020-07-23 06:29] LABS: Anion Gap 13.9 (5-19); Blood Urea Nitrogen 22 mg/dL (8-23); Calcium 9.2 mg/dL (8.5-10.5); Carbon Dioxide 26 mmol/L (22-29); Chloride 103 mmol/L (98-107); Glucose 152 mg/dL (65-115); Osmolality Calculated 294 mOsm/kg (285-295); Potassium 3.9 mmol/L (3.5-5.1); Sodium 139 mmol/L (136-145)
--- NOTE | 2020-07-23 08:10 | PM.DCS ---
Discharge Providers Date of Admission: 07/20/20 13:57 Date of Discharge: July 23, 2020 Attending Provider at Admission: Soumya Melara MD Attending Provider at Discharge: Sapna Diaz MD Consults: Cardiology Primary Care Provider: Portia Larose MD Diagnoses at Discharge Discharge Diagnosis (1) NSTEMI (non-ST elevated myocardial infarction): Status: Acute Permanent problem details: -noted troponin elevation with significant delta of 79 -telemetry monitoring -s/p left heart cath (07/21) 90 to 95% high-grade ostial stenosis, 20-30% diffuse narrowing of LCx, 50% ostial narrowing of RCA -s/p PCI (07/23) with FLACA to ostial LAD, patient declined CABG -off IVF hydration -VSS; continue to monitor -Echo: EF=50-55%, mild MR, mild diffuse hypokinesia of LV apex, trace to mild TR, mild AR -on ASA, Plavix, statin, amlodipine, BB (2) Benign essential hypertension with target blood pressure below 140/90: Status: Chronic Permanent problem details: -VSS; continue to monitor -continue oral antihypertensives (3) Acute diastolic heart failure: Status: Acute Permanent problem details: -well compensated -Echo as noted above -continue oral Lasix (4) Acute kidney injury superimposed on chronic kidney disease: Status: Acute Permanent problem details: -off gentle IVF hydration -improving renal function, continue to trend -avoid nephrotoxins, renally dose meds -baseline Cr is around 1-1.2 -ACEi on hold (5) Hyperlipidemia: Status: Chronic Permanent problem details: -on statin Qualifiers: Hyperlipidemia type: unspecified Qualified Code(s): E78.5 - Hyperlipidemia, unspecified (6) CKD (chronic kidney disease): Status: Chronic Permanent problem details: -f/u with Dr. Zuluaga Qualifiers: Chronic kidney disease stage: stage 2 (mild) Qualified Code(s): N18.2 - Chronic kidney disease, stage 2 (mild) (7) Diet-controlled type 2 diabetes mellitus: Status: Chronic Permanent problem details: -A1c-6.7 Reason for Visit Reason for Visit: SOB Hospital Course Hospital Course Patient was admitted to the cardiac stepdown unit after having presented with complaints of chest pain and placed on telemetry monitoring. He was started on medical management with aspirin, statin, Plavix as well as IV diuresis due to concern for decompensated CHF. FLORENTIN inhibitor was held due to acute renal impairment. Cardiology was consulted particularly in light of EKG changes and patient had a coronary angiogram with noted highly calcified significant ostial LAD lesion which was subsequently stented. He did require some IV fluid hydration due to noted acute renal impairment with improvement in his renal function. He has been hemodynamically stable, afebrile and on room air. He is to continue aspirin, statin, Plavix, beta-bertrand and will require appropriate follow-up with cardiology as well as his primary care provider. He is to follow-up with Cailin Lee in 1 week at [facility] for post cath check and follow-up labs. He is advised to seek medical attention immediately should any of his symptoms recur. He may resume ACEi now that renal function has improved. Physical Exam Const: COMMON NORMALS: no acute distress and patient oriented x3 GENERAL APPEARANCE: cooperative and comfortable ORIENTATION/CONSCIOUSNESS: Yes awake OTHER: -looks appropriate for age HENMT: COMMON NORMALS: normocephalic, atraumatic, hearing grossly normal bilaterally and moist oral mucous membranes HEAD & SCALP: normocephalic and atraumatic Eye: COMMON NORMALS: Equal, round and reactive pupils present, EOMs intact bilaterally and conjunctivae normal CONJUNCTIVA: Yes conjunctivae normal PUPIL: Yes Equal, round and reactive pupils present Neck/C-Spine: COMMON NORMALS: full ROM GENERAL: Yes normal visual inspection and Yes trachea midline Resp: COMMON NORMALS: normal respiratory effort, No retractions, No use of accessory muscles and clear to auscultation bilaterally EFFORT & INSPECTION: Yes able to speak in complete sentences, Yes symmetric chest movement and No tachypneic AUSCULTATION: clear to auscultation bilaterally Cardio: COMMON NORMALS: regular rate, regular rhythm, S1 normal heart sound present, S2 normal heart sound present and No murmurs present (Cardio) RATE: regular rate RHYTHM: regular rhythm HEART SOUNDS: S1 normal heart sound present and S2 normal heart sound present GI: COMMON NORMALS: Normal to inspection, nondistended, normoactive bowel sounds present, Soft to palpation and non-tender PALPATION: Yes Soft to palpation : OTHER: -R groin cath site; clean/dry/intact dressing in place, no apparent hematoma, + pulse Extremity: COMMON NORMALS: normal to inspection, full ROM and no clubbing, cyanosis or edema; negative for no pedal edema NARRATIVE EXTREMITY EXAM: -R wrist; clean/dry dressing in place, no hematoma Neuro: COMMON NORMALS: patient oriented x3, moves all extremities, no focal motor deficits and no sensory deficits noted Psych: COMMON NORMALS: mental status grossly normal, Normal thought process present, cooperative, normal affect and speech normal SPEECH: Yes normal speech THOUGHT PROCESS: Normal thought process present Skin: COMMON NORMALS: no rashes or lesions noted, no jaundice, no petechiae and no mottling GENERAL SKIN EXAM: no rashes or lesions noted Discharge Data Data Completed and Pending: Completed Studies During Hospitalization Category Date Time Status AUTOMOTIVE ENGINEERING TECHNICIAN request for service Routin e Exams 07/21/20 16:13 Completed XR chest 1V fortunato ble [id number] Stat Exams 07/20/20 01:09 Completed CV echo complete* [id number] Urgent Ultrasound 07/20/20 09:15 Completed Pending at discharge Category Date Time Status AUTOMOTIVE ENGINEERING TECHNICIAN request for service Routin e Exams 07/22/20 07:27 Taken Basic Metabolic P gulshan AM LABS Lab 07/24/20 04:00 Ordered Complete Blood Co unt w/Auto AM LABS Lab 07/24/20 04:00 Ordered Platelet Count Q2 D Lab 07/24/20 04:00 Ordered Labs from last 24 hours 07/23/20 07/23/20 07/22/20 05:43 05:43 13:15 WBC 11.6 H RBC 4.88 Hgb 13.6 Hct 43.3 MCV 88.7 MCH 27.9 L MCHC 31.4 RDW 14.0 Plt Count 282 MPV 9.6 Neut % (Auto) 85.1 Lymph % (Auto) 6.4 Price % (Auto) 6.4 Eos % (Auto) 1.3 Baso % (Auto) 0.5 Neut # (Auto) 9.89 H Lymph # (Auto) 0.8 Price # (Auto) 0.7 Eos # (Auto) 0.2 Baso # (Auto) 0.1 Nucleated RBC % (a uto) 0 Nucleated RBCs # 0.0 APTT 35.5 D Sodium 139 Potassium 3.9 Chloride 103 Carbon Dioxide 26 Anion Gap 13.9 BUN 22 Creatinine 1.3 H GFR Calculation Not Reportable Glucose 152 H Calculated Osmolal ity 294 Calcium 9.2 07/22/20 10:35 WBC RBC Hgb Hct MCV MCH MCHC RDW Plt Count MPV Neut % (Auto) Lymph % (Auto) Price % (Auto) Eos % (Auto) Baso % (Auto) Neut # (Auto) Lymph # (Auto) Price # (Auto) Eos # (Auto) Baso # (Auto) Nucleated RBC % (a uto) Nucleated RBCs # APTT 184.3 H* Sodium Potassium Chloride Carbon Dioxide Anion Gap BUN Creatinine GFR Calculation Glucose Calculated Osmolal ity Calcium Vitals: Last Vital Signs Temp 98.3 F 07/23/20 07:42 Pulse 80 07/23/20 07:42 Resp 16 07/23/20 07:42 BP 134/70 07/23/20 07:42 Pulse Ox 96 07/23/20 07:42 Discharge Plan Discharge Patient Disposition: Home Condition: Stable Prescriptions: New atorvastatin 40 mg Tablet 80 mg PO DAILY Qty: 60 RF: 0 clopidogrel 75 mg Tablet 75 mg PO DAILY Qty: 30 RF: 0 amlodipine 5 mg Tablet 2.5 mg PO DAILY Qty: 30 RF: 0 furosemide 20 mg Tablet 20 mg PO DAILY Qty: 30 RF: 0 Continued omeprazole 20 mg capsule,delayed release(DR/EC) 20 mg PO DAILY RF: 0 trazodone 50 mg Tablet 50 mg PO BEDTIME PRN (Reason: Sleep) RF: 0 tamsulosin [Flomax] 0.4 mg Capsule 0.4 mg PO BEDTIME RF: 0 cinnamon bark [Cinnamon] 500 mg Capsule 1,000 mg PO BID RF: 0 ondansetron HCl [Zofran] 4 mg tablet 4 mg PO Q6H PRN (Reason: nausea and vomiting) Qty: 20 RF: 0 Vitamin D3 50 mcg (2,000 unit) Capsule 50 mcg PO DAILY RF: 0 Colace 100 mg capsule 100 mg PO BID PRN (Reason: Constipation) RF: 0 Aspirin Low Dose 81 mg Tablet,Delayed Release (Dr/Ec) 81 mg PO DAILY Qty: 30 RF: 0 metoprolol succinate 25 mg Tablet Extended Release 24 Hr 25 mg PO BEDTIME Qty: 30 RF: 0 lisinopril 40 mg Tablet 40 mg PO BEDTIME Qty: 30 RF: 0 Discontinued lovastatin 20 mg Tablet 20 mg PO DAILY RF: 0 Discharge Orders: Discharge Order (Routine); Ordered 07/23/20 Ordered By: Sapna Diaz Referrals: Portia Larose MD [Primary Care Provider] - 4-7 days (Post hospital discharge follow up) Fer Mayers MD [Physician] - 1 month Cailin Lee FNP [Nurse Practitioner] - 1 week (Post cath check) Discharge Diet: Cardiac Discharge Activity: Increase activity as tolerated Activity Restrictions/Additional Instructions: -Please continue to follow up with your kidney doctor as previously scheduled Discharge Attestations Time Spent in Discharge Care*: greater than 30 min Specific Discharge Activities: educating patient, discussing with pcp/other providers, discussing with case aide/social workers/dc planners, documenting/other paperwork and evaluating patient/reviewing data Status at Discharge: Cognitive status at discharge: cognitively intact, Behavioral status at discharge: cooperative and independent in ADL's, Functional status at discharge: independent ambulation Overall status at discharge: patient is progressing back to baseline Quality Metrics Clinical Quality Measures During this hospital stay, did patient experience: None Coding Level of Care Code Acute Director Airport Operations for g Fwd Exam Comprehensive Diagnoses NSTEMI (non-ST elevated myocardial infarction) I21.4 Benign essential hypertension with target blood pressure below 140/90 I10 Acute diastolic heart failure I50.31 Acute kidney injury superimposed on chronic kidney disease N17.9; N18.9 Hyperlipidemia E78.5 Hyperlipidemia type: unspecified CKD (chronic kidney disease) N18.2 Chronic kidney disease stage: stage 2 (mild) Diet-controlled type 2 diabetes mellitus E11.9
[2020-07-23] MEDS: FUROsemide 20 mg Tablet PO (09:07)
[2020-07-23] MEDS: pantoprazole DR 40 mg Tablet PO (09:07)
[2020-07-23] MEDS: atorvastatin 40 mg Tablet 80 MG PO (09:08)
[2020-07-23] MEDS: amlodipine 5 mg Tablet 2.5 MG PO (09:08)
[2020-07-23] MEDS: aspirin 81 mg EC Tablet PO (09:09)
[2020-07-23] MEDS: clopidogrel 75 mg Tablet PO (09:09)
--- NOTE | 2020-07-23 09:19 | DCPLANNER ---
IMM completed on 07/23/2020 @ 0907. Copy of rights given to pt.
--- NOTE | 2020-07-23 09:21 | PM.PN ---
Subjective Subjective: Interval history: This patient is feeling okay. He has not had any chest pain or palpitations. No dizziness or syncopal episodes. No fever, chills or cough. He has been ambulating on telemetry without any difficulty. No other specific complaints at this time. Medications: Reviewed: Yes Medication Review Details: Current Medications Acetaminophen (Acetaminophen 325 Mg Tablet) 650 mg PO Q6H PRN PRN Reason: MILD PAIN Al Hydrox/Mg Hydrox/Simethicone (Zoik-Khv-Uruzyhpkq-Shanta 30 Ml Udc) 30 ml PO Q15M PRN PRN Reason: INDIGESTION Al Hydrox/Mg Hydrox/Simethicone (Yoeq-Scu-Chpiidxcv-Shanta 30 Ml Udc) 30 ml PO Q15M PRN PRN Reason: INDIGESTION Alprazolam (Alprazolam 0.25 Mg Tablet) 0.25 mg PO TID PRN PRN Reason: ANXIETY Amlodipine Besylate (Amlodipine 5 Mg Tablet) 2.5 mg PO DAILY [facility] Last Admin: 07/23/20 09:08 Dose: 2.5 mg Documented by: Aspirin (Aspirin 81 Mg Ec Tablet) 81 mg PO DAILY [facility] Last Admin: 07/23/20 09:09 Dose: 81 mg Documented by: Atorvastatin Calcium (Atorvastatin 40 Mg Tablet) 80 mg PO DAILY [facility] Last Admin: 07/23/20 09:08 Dose: 80 mg Documented by: Atropine Sulfate (Atropine 1 Mg/Ml Sdv 1 Ml) 0.5 mg IVP PRN PRN PRN Reason: Symptomatic bradycardia Clopidogrel Bisulfate (Clopidogrel 75 Mg Tablet) 75 mg PO DAILY [facility] Last Admin: 07/23/20 09:09 Dose: 75 mg Documented by: Fentanyl (Fentanyl 50 Mcg/Ml Inj 2ml) 50 mcg IVP PRN PRN PRN Reason: Prior to sheath removal Furosemide (Furosemide 20 Mg Tablet) 20 mg PO DAILY [facility] Last Admin: 07/23/20 09:07 Dose: 20 mg Documented by: Magnesium Hydroxide (Magnesium Hydroxide 30 Ml Udc) 30 ml PO DAILY PRN PRN Reason: CONSTIPATION Magnesium Hydroxide (Magnesium Hydroxide 30 Ml Udc) 30 ml PO DAILY PRN PRN Reason: CONSTIPATION Metoprolol Succinate (Metoprolol Succinate Er (24 Hr) 25 Mg Tablet) 25 mg PO BEDTIME [facility] Last Admin: 07/22/20 20:36 Dose: 25 mg Documented by: Naloxone HCl (Naloxone 0.4 Mg/Ml Sdv) 0.1 mg IVP Q2M PRN PRN Reason: RESPIRATORY RATE < 8/MIN Nitroglycerin (Nitroglycerin 0.4 Mg Sublingual Tablet) 0.4 mg SUBLINGUAL Q5M PRN PRN Reason: CHEST PAIN Last Admin: 07/21/20 15:04 Dose: 0.4 ml Documented by: Pantoprazole Sodium (Pantoprazole Dr 40 Mg Tablet) 40 mg PO DAILY [facility] Last Admin: 07/23/20 09:07 Dose: 40 mg Documented by: Temazepam (Temazepam 15 Mg Capsule) 15 mg PO BEDTIME PRN PRN Reason: INSOMNIA Vitals/I&O/Wt Last Vital Signs Temp 98.3 F 07/23/20 07:42 Pulse 80 07/23/20 07:42 Resp 16 07/23/20 07:42 BP 134/70 07/23/20 07:42 Pulse Ox 96 07/23/20 07:42 07/22/20 07/23/20 07/23/20 22:59 06:59 14:59 Intake Total 360 / 1193.333 Output Total 525 / 950 Balance -165 / 243.333 Physical Exam Narrative: EXAM NARRATIVE: GENERAL: The patient is alert and oriented times three. Not in any acute distress. HEENT: No significant pallor, icterus or lymphadenopathy. NECK: Trachea appears to be central. No masses noted. No JVD or thyromegaly appreciated. No carotid bruit. RESPIRATORY: Chest is symmetrical. No intercostals muscle retraction or any accessory muscle activation. There is no chest wall tenderness. Breath sounds are heard bilaterally. No rales or rhonchi heard. No evidence of any consolidation. BREASTS: Deferred. HEART: The PMI is in the 5th left intercostals space just inside the midclavicular line. No palpable precordial events. S1 and S2 are normal. No S3 or S4 heard. No pericardial rub or any click heard. Short systolic murmur in the left sternal border. No diastolic murmurs. ABDOMEN: No vessel pulsations or distention. No tenderness. No organomegaly appreciated. No abdominal bruit. Bowel sounds are normally heard. : Deferred. RECTAL: Deferred. LYMPHATIC: No lymphadenopathy noted in the neck or groin. EXTREMITIES: No hematoma bleeding in the right groin or at the right radial arterial puncture site. MUSCULOSKELETAL: No acute joint deformities or swelling. SKIN: There are no significant scars or skin rash noted. NEUROPSYCHIATRIC: The patient is alert and oriented x3. Appears to be in a good mood. The higher functions are grossly within normal limits. No tremors or rigidity noted. Const: COMMON NORMALS: alert Neuro: SENSORIUM/ORIENTATION: Yes alert Data : 07/23/20 05:43 07/23/20 05:43 A&P Assessment and plan (1) Atherosclerosis of coronary artery of [place] heart without angina pectoris: Patient had the cardiac catheterization on 07/21/2020. he was found to have total occlusion of the mid circumflex artery. High-grade stenosis of the ostium of the LAD. Mild to moderate diffuse disease in the other vessels. He underwent PCI of the ostial LAD lesion yesterday. Currently seems to be stable. No new symptoms. Status: Acute Qualifiers: Coronary Disease-Associated Artery/Lesion type: [place] artery Qualified Code(s): I25.10 - Atherosclerotic heart disease of [place] coronary artery without angina pectoris (2) Acute diastolic heart failure: Currently compensated. Continue on the current medications. Status: Acute (3) NSTEMI (non-ST elevated myocardial infarction): May continue on the Plavix, beta-bertrand, statin and other current medications. Discontinue the Nitropaste. We will start her on isosorbide mononitrate 30 mg p.o. daily Status: Acute (4) Acute kidney injury superimposed on CKD: The creatinine was 1.4 yesterday. Today it came down to 1.3. He has significant improvement of the creatinine level since hospital admission. Status: Acute (5) Benign essential hypertension with target blood pressure below 140/90: Controlled. Continue current regimen Status: Chronic (6) Diet-controlled type 2 diabetes mellitus: Continue current regimen with sliding scale insulin Status: Chronic (7) Hyperlipidemia: Patient is on a high-dose statin. Continue Status: Chronic Qualifiers: Hyperlipidemia type: unspecified Qualified Code(s): E78.5 - Hyperlipidemia, unspecified Additional A&P Information If the patient continues to remain stable, may be discharged home today. Appointment the heart care services with Cailin, the nurse practitioner next week. Appointment with me in the office in a month. Discontinue the Nitropaste and start him on isosorbide mononitrate 30 mg p.o. daily. Patient may go home with the isosorbide mononitrate. May continue with other medications as the days Attestations Medical Necessity Statement*: Possible discharge home today Coding Level of Care Code Acute Sustainability Consultant for Marla Stanley Exam Problem Focused Diagnoses Atherosclerosis of coronary artery of [place] heart without angina pectoris I25.10 Coronary Disease-Associated Artery/Lesion type: [place] artery Acute diastolic heart failure I50.31 NSTEMI (non-ST elevated myocardial infarction) I21.4 Acute kidney injury superimposed on CKD N17.9; N18.9 Benign essential hypertension with target blood pressure below 140/90 I10 Diet-controlled type 2 diabetes mellitus E11.9 Hyperlipidemia E78.5 Hyperlipidemia type: unspecified
== END 2020-07-23 13:00 | disposition home or self-care (01) | DRG 246 ==
LOC: ER 07:34 → CSU 10:54
PROVIDERS: Internal Medicine; Internal Medicine Cardiovascular Disease; Student in an Organized Health Care Education/Training Program; Admitting Provider Internal Medicine; Emergency Provider Emergency Medicine; PCP Family Medicine; Visit Provider Family Medicine
PROC: 4A023N7 Measurement of Cardiac Sampling and Pressure, Left Heart, Percutaneous Approach (ICD-10-PCS; principal; 2020-07-21 07:00)
PROC: 027034Z Dilation of Coronary Artery, One Artery with Drug-eluting Intraluminal Device, Percutaneous Approach (ICD-10-PCS; principal; 2020-07-22 07:00)
DX: I21.4 Non-ST elevation (NSTEMI) myocardial infarction (principal); I50.31 Acute diastolic (congestive) heart failure; I13.0 Hypertensive heart and chronic kidney disease with heart failure and stage 1 through stage 4 chronic kidney disease, or unspecified chronic kidney disease; N17.9 Acute kidney failure, unspecified; I25.10 Atherosclerotic heart disease of native coronary artery without angina pectoris; Z87.891 Personal history of nicotine dependence; N18.9 Chronic kidney disease, unspecified; E11.22 Type 2 diabetes mellitus with diabetic chronic kidney disease; E78.5 Hyperlipidemia, unspecified; Z79.899 Other long term (current) drug therapy
CPT/HCPCS: 12345; 36415; 36416; 71045; 80048; 80053; 81003; 82550; 82962; 83880; 84484; 85025; 85347; 85610; 85730; 87426; 87804; 93005; 93306; 93452; 96372; 96375; 99283; C1725; C1769; C1874; C1887; C1894; C9600; G0378; J1644; J1650; J1940; J2250; J3010; J3490; J7030; J7050; J7799; Q0163; Q9967

== ENCOUNTER → 2020-07-30 10:25 | Outpatient (BNVA) | payer OTHER, MEDICARE, SELFPAY | PROVIDERS: PCP Family Medicine; Visit Provider Nurse Practitioner Family | DX: I25.10 Atherosclerotic heart disease of native coronary artery without angina pectoris (principal) | CPT/HCPCS: 80048 ==

== ENCOUNTER → 2020-09-07 09:45 | Outpatient (BNVA) | payer OTHER, SELFPAY | PROVIDERS: PCP Family Medicine; Visit Provider Anesthesiology Pain Medicine | DX: M19.011 Primary osteoarthritis, right shoulder (principal); M75.91 Shoulder lesion, unspecified, right shoulder; L60.0 Ingrowing nail | CPT/HCPCS: 20610; 99213; J1030; J3490 ==

== ENCOUNTER 2022-02-23 08:15 | Outpatient (CLI) | payer OTHER, SELFPAY ==
--- NOTE | 2022-02-23 08:32 | USCV_ITS ---
Siva Malik Age: 81 Gender: M : 1940 Exam Date: 02/23/2022 08:54 Ordering Phys: Portia Larose MD Technologist: Exam Location: [facility] [place] Indication: cad BP: 124 / 82 HR: 91 Rhythm: Sinus Technical Quality: Adequate MEASUREMENTS (Male / Female) Normal Values 2D ECHO LV Diastolic Diameter PLAX 3.1 cm 4.2 - 5.9 / 3.9 - 5.3 cm LV Systolic Diameter PLAX 1.9 cm IVS Diastolic Thickness 1.0 cm 0.6 - 1.0 / 0.6 - 0.9 cm IVS Systolic Thickness 1.5 cm LVPW Diastolic Thickness 1.1 cm 0.6 - 1.0 / 0.6 - 0.9 cm LVPW Systolic Thickness 1.4 cm LVOT Diameter 2.0 cm LV Ejection Fraction 2D Teich 72.9 % LV Ejection Fraction MOD 2C 84.1 % LV Ejection Fraction 2C AL 83.9 % LA Diameter 3.3 cm Aorta at Sinotubular Diameter 2.4 cm M-MODE Aortic Annulus Diameter 1.9 cm LA Ao Ratio MM 2.0 MV E Point Septal Separation 1.3 cm DOPPLER AV Peak Velocity 119.0 cm/s LVOT Peak Velocity 86.0 cm/s AV Area Cont Eq vti 2.2 cm squared AV Area Cont Eq pk 2.2 cm squared MV Area PHT 5.0 cm squared Mitral E to A Ratio 1.2 MV E' Velocity 45.0 cm/s Mitral E to MV E' Ratio 8.1 Mitral E to LV E' Lateral Ratio 7.9 Mitral E to LV E' Septal Ratio 8.2 TR Peak Velocity 143.0 cm/s TR Peak Gradient 8.2 mmHg TV Peak E Velocity 74.0 cm/s Right Atrial Pressure 3.0 mmHg Pulmonary Artery Systolic Pressu 11.2 mmHg PV Peak Velocity 142.0 cm/s FINDINGS Left Ventricle Normal left ventricular size. LV systolic function is normal with EF of 55-60%. No regional wall motion abnormalities. Diastolic function is normal Right Ventricle The right ventricle is normal in size and function. Right Atrium The right atrium is normal in size. Left Atrium The left atrium is normal in size. Mitral Valve Structurally normal mitral valve without significant stenosis or prolapse. There is no mitral regurgitation. Aortic Valve Grossly normal without significant stenosis. There is no aortic regurgitation. Tricuspid Valve Structurally normal tricuspid valve without significant stenosis. Trace tricuspid regurgitation. Pulmonary artery systolic pressure is normal. Pulmonic Valve Not well visualized Pericardium Normal pericardium without effusion. Aorta Normal ascending aorta dimension. IVC CONCLUSIONS LV systolic function is normal with EF of 55-60% Diastolic function is normal Trace tricuspid regurgitation Compared to prior echocardiogram from 07/20/2020, no significant changes are seen. Karel Torres MD (Electronically Signed) Final Date: 25 February 2022 11:14 S
== END 2022-02-23 08:16 | disposition home or self-care (01) ==
LOC: RAD 08:20
PROVIDERS: PCP Family Medicine; Visit Provider Family Medicine
DX: Z01.89 Encounter for other specified special examinations (principal)
CPT/HCPCS: 93306

== ENCOUNTER 2022-04-06 15:51 | Emergency (ER) | payer OTHER, MEDICARE, SELFPAY ==
[2022-04-06 16:58] VITALS: BP 180/71; PULSE 80; RESP 15; TEMP 36.4; O2SAT 98; BMI 19.9
--- NOTE | 2022-04-06 17:05 | ED_ITS ---
HPI - Abdominal Pain General: Chief Complaint: Abdominal Pain Stated Complaint: Abd uncomfortable/pain Time Seen by Provider: 04/06/22 17:05 History of Present Illness: 81-year-old male patient comes in today with complaints of mid lower abdominal pain. Patient reports no nausea or vomiting, no diarrhea, reports last bowel movement yesterday, describes the pain more as discomfort than pain. Patient reports no fever or chills. Patient appears nontoxic. Patient appears in no acute distress. Patient does report having had a colonoscopy about 3 to 4 years ago and had some polyps at that time. Patient denies any history of diverticulosis. Patient reports having his gallbladder removed. Review of record patient has a history of coronary artery disease, congestive heart failure, acute kidney injury, type 2 diabetes mellitus, and hyperlipidemia. Associated Symptoms: Denies chills, constipation, diarrhea, fever(s), nausea and vomiting Review of Systems General: Reports: 10 or more systems reviewed and unremarkable except in HPI and below Const: Denies: fever(s), chills or body aches Card: Denies: chest pain, palpitations or irregular heart rhythm Resp: Denies: dyspnea GI: Reports: abdominal pain; Denies: nausea, vomiting, diarrhea or constipation : Denies: difficulty urinating Musc: Denies: neck pain or back pain Skin/Breast: Denies: rash Neuro: Denies: headache(s) PFSH ED PFSH: Medical History Atherosclerosis of coronary artery of [place] heart without angina pectoris Benign essential hypertension with target blood pressure below 140/90 CKD (chronic kidney disease) -f/u with Dr. Zuluaga Hyperlipidemia -on statin Kidney failure [employer] (current) use of opiate analgesic Pain management contract signed Surgical History H/O left wrist surgery Hx of cataract surgery Status post laparoscopic cholecystectomy (~12/27/19) Family History Denies family history of CAD (coronary artery disease) Anesthesia complication Bleeding disorder Social History Smoking and tobacco status: former smoker Alcohol intake: never Physical Exam Const: COMMON NORMALS: alert HENMT: COMMON NORMALS: normocephalic HEAD & SCALP: normocephalic Neck/C-Spine: COMMON NORMALS: full ROM Lymph: LYMPHATIC: no lymphadenopathy noted Resp: COMMON NORMALS: normal respiratory effort and clear to auscultation bilaterally AUSCULTATION: clear to auscultation bilaterally Cardio: COMMON NORMALS: regular rate and regular rhythm RATE: regular rate RHYTHM: regular rhythm GI: COMMON NORMALS: Soft to palpation AUSCULTATION: Yes normoactive bowel sounds PALPATION: Yes Soft to palpation and Yes Tenderness to palpation present (GI) (Lower mid abdominal tenderness) Extremity: COMMON NORMALS: normal to inspection and no pedal edema Neuro: SENSORIUM/ORIENTATION: Yes alert Skin: COMMON NORMALS: no rashes or lesions noted GENERAL SKIN EXAM: no rashes or lesions noted Course Vital Signs: Vital signs: Vital Signs Temperature 97.7 F 04/06/22 20:24 Pulse Rate 90 04/06/22 20:24 Respiratory Rate 15 04/06/22 20:24 Blood Pressure 160/81 04/06/22 20:24 Pulse Oximetry 96 04/06/22 20:24 Oxygen Delivery Me thod 04/06/22 20:24 MDM - Abdominal Pain Medical Decision Making 81-year-old male patient comes in today with complaints of mid lower abdominal pain for about 1 week. On exam respirations are even lungs are clear to auscultation. Heart rates regular. Abdomen is soft with some mid abdominal tenderness. Bowel sounds are present. Vital signs are normal except for some elevation of blood pressure. At 160 systolic. Differential diagnosis includes appendicitis, diverticulitis, cystitis, bowel obstruction. Blood count was unremarkable. CMP noted some mild renal insufficiency and mild glucose elevation at 187. Urinalysis had significant amounts of blood and white blood cells. CT of the abdomen pelvis was unremarkable. Due to patient's mid lower abdominal tenderness is suspected cystitis. We will go ahead and put patient on cephalexin 500, 1 tablet twice a day for 7 days. Encourage plenty of fluids and follow-up with primary care. Patient reported understanding agreed to plan. Lab Data : 04/06/22 17:49 04/06/22 17:49 Labs/Radiology: Radiology Impressions Abdomen/Pelvis CT 04/06/22 17:21 IMPRESSION: Negative for acute abdominopelvic abnormality. Laboratory Results WBC 9.1 10^3/uL (4.0-10.0) 04/06/22 17:49 RBC 5.05 10^6/uL (4.1-5.3) 04/06/22 17:49 Hgb 14.0 g/dL (11.7-16.6) 04/06/22 17:49 Hct 43.7 % (42.0-52.0) 04/06/22 17:49 MCV 86.5 fl (80-94) 04/06/22 17:49 MCH 27.7 pg (28.0-34.0) L 04/06/22 17:49 MCHC 32.0 g/dL (30.0-36.0) 04/06/22 17:49 RDW 15.5 % (12.1-15.1) H 04/06/22 17:49 Plt Count 311 10^3/cmm (130-400) 04/06/22 17:49 MPV 9.4 fL (7.4-10.4) 04/06/22 17:49 Neut % (Auto) 86.6 % 04/06/22 17:49 Lymph % (Auto) 7.4 % 04/06/22 17:49 [place] % (Auto) 4.7 % 04/06/22 17:49 Eos % (Auto) 0.7 % 04/06/22 17:49 Baso % (Auto) 0.4 % 04/06/22 17:49 Neut # (Auto) 7.85 10^3/uL (1.8-7.7) H 04/06/22 17:49 Lymph # (Auto) 0.7 10^3/uL (0.8-4.8) L 04/06/22 17:49 [place] # (Auto) 0.4 10^3/uL (0.2-0.9) 04/06/22 17:49 Eos # (Auto) 0.1 10^3/uL (0.0-0.8) 04/06/22 17:49 Baso # (Auto) 0.0 10^3/uL (0.0-0.1) 04/06/22 17:49 Nucleated RBC % (auto) 0 % 04/06/22 17:49 Nucleated RBCs # 0.0 /100WBC 04/06/22 17:49 Sodium 142 mmol/L (136-145) 04/06/22 17:49 Potassium 4.1 mmol/L (3.5-5.1) 04/06/22 17:49 Chloride 103 mmol/L (98-107) 04/06/22 17:49 Carbon Dioxide 25 mmol/L (22-29) 04/06/22 17:49 Anion Gap 18.1 (5-19) 04/06/22 17:49 BUN 18 mg/dL (8-23) 04/06/22 17:49 Creatinine 1.3 mg/dL (0.7-1.2) H 04/06/22 17:49 GFR Calculation Not Reportable 04/06/22 17:49 Glucose 187 mg/dL (65-115) H 04/06/22 17:49 Calculated Osmolality 301 mOsm/kg (285-295) H 04/06/22 17:49 Calcium 9.9 mg/dL (8.5-10.5) 04/06/22 17:49 Total Bilirubin 0.7 mg/dL (0.15-1.2) 04/06/22 17:49 AST 21 U/L (0-40) 04/06/22 17:49 ALT 23 U/L (0-41) 04/06/22 17:49 Alkaline Phosphatase 81 IU/L (40-130) 04/06/22 17:49 Total Protein 7.3 g/dL (6.6-8.7) 04/06/22 17:49 Albumin 4.2 g/dL (3.5-5.2) 04/06/22 17:49 Globulin 3.1 g/dL (1.3-4.6) 04/06/22 17:49 Lipase 26 U/L (13-60) 04/06/22 17:49 Urine Color Yellow (Yellow) 04/06/22 18:44 Urine Appearance Clear (CLEAR) 04/06/22 18:44 Urine pH 5 (5-7) 04/06/22 18:44 Ur Specific [place] 1.020 (1.005-1.030) 04/06/22 18:44 Urine Protein 1+ (Negative) H 04/06/22 18:44 Urine Glucose (UA) 2+ (Normal) H 04/06/22 18:44 Urine Ketones Negative (Negative) 04/06/22 18:44 Urine Blood 2+ (Negative) H 04/06/22 18:44 Urine Nitrate Negative (Negative) 04/06/22 18:44 Urine Bilirubin Neg (Negative) 04/06/22 18:44 Urine Urobilinogen 1 mg/dL (Negative) H 04/06/22 18:44 Ur Leukocyte Esterase Negative (Negative) 04/06/22 18:44 Urine RBC 0-4 /hpf (0-2) H 04/06/22 18:44 Urine WBC 0-4 /hpf (0-5) H 04/06/22 18:44 Ur Squamous Epith Cells 0-4 /hpf (0-5) H 04/06/22 18:44 Calcium Oxalate Crystal 0-4 /hpf H 04/06/22 18:44 Amorphous Sediment Not Reportable 04/06/22 18:44 Urine Bacteria Trace /hpf (NONE) 04/06/22 18:44 Urine Mucus 1+ /hpf 04/06/22 18:44 Discharge Plan Discharge Patient Disposition: Home Clinical Impression: Cystitis Abdominal pain Qualifiers: Abdominal location: lower abdomen, unspecified Qualified Code(s): R10.30 - Lower abdominal pain, unspecified Condition: Stable Prescriptions: New cephalexin 500 mg capsule 500 mg PO BID 7 Days Qty: 13 0RF No Action imiquimod 5 % cream in packet 1 applic topical ONCE Qty: 24 1RF Rx Instructions: Apply a thin film to right protestant, right jaw and left nasal tip M-F (off weekends) for 6 weeks silver sulfadiazine [Silvadene] 1 % cream 1 applic topical BID Qty: 50 0RF Rx Instructions: apply a 1.5 mm thickness acetaminophen-codeine 300-30 mg tablet 1 tab PO Q6H PRN (Reason: pain) 7 Days Qty: 20 0RF [place] Low Dose Aspirin 81 mg tablet,delayed release (DR/EC) 81 mg PO DAILY Qty: 90 3RF atorvastatin 40 mg tablet 80 mg PO DAILY Qty: 180 3RF clopidogrel 75 mg tablet 75 mg PO DAILY Qty: 90 3RF furosemide 20 mg tablet 20 mg PO DAILY Qty: 90 3RF trazodone 50 mg Tablet 50 mg PO BEDTIME PRN (Reason: Sleep) tamsulosin [Flomax] 0.4 mg Capsule 0.4 mg PO BEDTIME cinnamon bark [Cinnamon] 500 mg Capsule 1,000 mg PO BID Vitamin D3 50 mcg (2,000 unit) Capsule 50 mcg PO DAILY Discharge Orders: Discharge ED (Routine); Ordered 04/06/22 Ordered By: Sahil Alves Referrals: Portia Larose MD [Primary Care Provider] - Discharge Diet: Usual diet Discharge Activity: Increase activity as tolerated Patient Instructions: Abdominal Pain (ED) Activity Restrictions/Additional Instructions: Home and rest. Drink plenty of fluids. Is important to drink plenty of water with antibiotic for your urinary tract infection. Take 1 tablet twice a day for a total of 14 doses. Follow-up with primary care in 1 week for recheck. Return to ED for worsening symptoms such as difficulty with urinating, vomiting and inability to hold fluids down, blood in vomit or stool, or fever greater than 1 00.3, or new concerns. Coding Level of Care Code ED Back [facility] for Marla Stanley
--- NOTE | 2022-04-06 17:21 | CTR_ITS ---
PROCEDURE INFORMATION: Exam: CT Abdomen And Pelvis Without Contrast Exam date and time: 04/06/2022 6:47 PM Age: 81 years old Clinical indication: Abdominal pain; Generalized; Prior surgery; Surgery date: 6+ months; Surgery type: Gb; Additional info: Lower abd pain, concern for infection TECHNIQUE: Imaging protocol: Computed tomography of the abdomen and pelvis without contrast. Radiation optimization: All CT scans at this facility use at least one of these dose optimization techniques: automated exposure control; mA and/or kV adjustment per patient size (includes targeted exams where dose is matched to clinical indication); or iterative reconstruction. COMPARISON: US gall bladder [id number] 12/26/2019 8:48 PM RADIATION DOSE METRICS: Total DLP (mGy-cm): 487.83 FINDINGS: Lungs: Fibrotic interstitial changes in the periphery of the lung bases with scattered areas of peripheral honeycombing. Liver: Normal. No mass. Gallbladder and bile ducts: Cholecystectomy. Unremarkable biliary system. Pancreas: Normal. No ductal dilation. Spleen: Normal. No splenomegaly. Adrenal glands: Normal. No mass. Kidneys and ureters: Normal. No hydronephrosis. Stomach and bowel: Unremarkable. No obstruction. No mucosal thickening. Appendix: Unremarkable appendix. Intraperitoneal space: Unremarkable. No free air. No significant fluid collection. Vasculature: Diffuse abdominal aorta atherosclerosis. Negative for aneurysm. Lymph nodes: Unremarkable. No enlarged lymph nodes. Urinary bladder: Unremarkable as visualized. Reproductive: Mild severity prostatomegaly. Bones/joints: Mild concavity of the superior vertebral endplate of L1. Unremarkable lumbar spine alignment. Soft tissues: Unremarkable. CT/CT abdomen pelvis con [id number] IMPRESSION: Negative for acute abdominopelvic abnormality.
[2022-04-06 17:55] LABS: Basophils % 0.4 %; Eosinophils # 0.1 10^3/uL (0.0-0.8); Eosinophils % 0.7 %; Hematocrit 43.7 % (42.0-52.0); Lymphocytes # 0.7 10^3/uL (0.8-4.8); Lymphocytes % 7.4 %; Mean Corpuscular Hemoglobin 27.7 pg (28.0-34.0); Mean Corpuscular Volume 86.5 fl (80-94); Mean Platelet Volume 9.4 fL (7.4-10.4); Monocytes # 0.4 10^3/uL (0.2-0.9); Monocytes % 4.7 %; Neutrophils # 7.85 10^3/uL (1.8-7.7); Neutrophils % 86.6 %; Nucleated Red Blood Cells % 0 %; Platelet Count 311 10^3/cmm (130-400); Red Blood Count 5.05 10^6/uL (4.1-5.3); Red Cell Distribution Width 15.5 % (12.1-15.1); White Blood Count 9.1 10^3/uL (4.0-10.0)
[2022-04-06 18:24] LABS: Alanine Aminotransferase 23 U/L (0-41); Albumin Level 4.2 g/dL (3.5-5.2); Alkaline Phosphatase 81 IU/L (40-130); Anion Gap 18.1 (5-19); Aspartate Amino Transferase 21 U/L (0-40); Blood Urea Nitrogen 18 mg/dL (8-23); Calcium 9.9 mg/dL (8.5-10.5); Carbon Dioxide 25 mmol/L (22-29); Chloride 103 mmol/L (98-107); Globulin 3.1 g/dL (1.3-4.6); Glucose 187 mg/dL (65-115); Lipase 26 U/L (13-60); Osmolality Calculated 301 mOsm/kg (285-295); Potassium 4.1 mmol/L (3.5-5.1); Sodium 142 mmol/L (136-145); Total Bilirubin 0.7 mg/dL (0.15-1.2); Total Protein 7.3 g/dL (6.6-8.7)
[2022-04-06 20:24] VITALS: BP 160/81; PULSE 90; RESP 15; TEMP 36.5; O2SAT 96
[2022-04-06 20:45] LABS: Add Urine Microscopic? YES; Bilirubin Urine Neg (Negative); Blood Urine 2+ (Negative); Glucose Urine UA 2+ (Normal); Ketones Urine Negative (Negative); Leukocyte Esterase Urine Negative (Negative); Nitrate Urine Negative (Negative); Protein Urine 1+ (Negative); Urine Appearance Clear (CLEAR); Urine Color Yellow (Yellow); Urobilinogen Urine 1 mg/dL (Negative); pH Urine 5 (5-7)
[2022-04-06 20:46] LABS: Add Urine Culture? No; Bacteria Urine TRACE /hpf; Calcium Oxalate Crystals Urine 0-4 /hpf; Mucus Urine 1+ /hpf; RBC Urine 0-4 /hpf (0-2); Squamous Epithelial Cell Urine 0-4 /hpf (0-5); WBC Urine 0-4 /hpf (0-5)
[2022-04-06] MEDS: cephALEXin 500 mg Capsule PO (21:07)
[2022-04-06 21:08] VITALS: BP 148/81; PULSE 87; RESP 16; TEMP 36.5; O2SAT 96
== END 2022-04-06 21:10 | disposition home or self-care (01) ==
PROVIDERS: Physician Assistant; Emergency Provider Nurse Practitioner Family; PCP Family Medicine
DX: N30.90 Cystitis, unspecified without hematuria (principal); R10.30 Lower abdominal pain, unspecified; Z79.82 Long term (current) use of aspirin; Z79.02 Long term (current) use of antithrombotics/antiplatelets; I25.10 Atherosclerotic heart disease of native coronary artery without angina pectoris; I10 Essential (primary) hypertension; E78.5 Hyperlipidemia, unspecified; Z87.891 Personal history of nicotine dependence
CPT/HCPCS: 74176; 80053; 81001; 83690; 85025; 99284

== ENCOUNTER → 2022-05-25 12:40 | Outpatient (BNVA) | payer OTHER, SELFPAY | PROVIDERS: PCP Family Medicine; Visit Provider Internal Medicine | DX: I25.10 Atherosclerotic heart disease of native coronary artery without angina pectoris (principal); I12.9 Hypertensive chronic kidney disease with stage 1 through stage 4 chronic kidney disease, or unspecified chronic kidney disease; N18.9 Chronic kidney disease, unspecified; Z87.891 Personal history of nicotine dependence; E11.22 Type 2 diabetes mellitus with diabetic chronic kidney disease | CPT/HCPCS: 99214 ==

== ENCOUNTER 2022-08-26 08:16 | Inpatient (IN) | payer OTHER, MEDICARE, SELFPAY ==
[2022-08-26] VITALS (14 sets, daily range): BP systolic 107–126; BP diastolic 46–76; PULSE 66–81; RESP 14–18; TEMP 36.7–36.9; O2SAT 92–98; BMI 22.1
--- NOTE | 2022-08-26 08:43 | XRR_ITS ---
PROCEDURE INFORMATION: Exam: XR Chest Exam date and time: 08/26/2022 8:54 AM Age: 82 years old Clinical indication: Shortness of breath; Patient HX: SOB. Mild hypoxia on monitor. ; Additional info: Dyspnea/cough TECHNIQUE: Imaging protocol: Radiologic exam of the chest. Views: 1 view. COMPARISON: CR XR chest 1V portable [id number] 07/20/2020, CT abdomen pelvis 04/06/2022, CT right shoulder 02/16/2020 FINDINGS: Lungs: No consolidation. Stable subtle peripheral reticular opacities suggestive of mild fibrotic changes. Pleural spaces: Unremarkable. No pleural effusion. No pneumothorax. Heart/Mediastinum: No cardiomegaly. Bones/joints: Stable sclerotic lesion with lobulated margins in the right humeral neck is compatible with benign finding, likely enchondroma. XR/XR chest 1V portable [id number] IMPRESSION: No acute findings.
--- NOTE | 2022-08-26 08:49 | XRR_ITS ---
PROCEDURE INFORMATION: Exam: XR Left Elbow Exam date and time: 08/26/2022 8:55 AM Age: 82 years old Clinical indication: Injury or trauma; Blunt trauma (contusions or hematomas); Patient HX: Fall this a. M. At home into dresser onto floor. C/O elbow, hand, left lower leg pain. Skin tear to elbow and hand. TECHNIQUE: Imaging protocol: Radiologic exam of the Left elbow. Views: 3 or more views. COMPARISON: No relevant prior studies available. FINDINGS: Bones/joints: Osseous structures are intact. No fracture or malalignment. Mild degenerative changes involving the ulnar humeral joint otherwise joint surfaces are preserved. Soft tissues: Unremarkable. XR/XR elbow LT min 3V* [id number] IMPRESSION: Negative exam. No acute bony abnormalities.
--- NOTE | 2022-08-26 08:49 | XRR_ITS ---
PROCEDURE INFORMATION: Exam: XR Left Tibia and Fibula Exam date and time: 08/26/2022 8:55 AM Age: 82 years old Clinical indication: Injury or trauma; Blunt trauma; Patient HX: Fall this a. M. At home into dresser onto floor. C/O elbow, hand, left lower leg pain. Skin tear to elbow and hand. TECHNIQUE: Imaging protocol: Radiologic exam of the Left tibia and fibula. Views: 2 views. COMPARISON: No relevant prior studies available. FINDINGS: Bones/joints: Osseous structures are intact. No fracture or malalignment. Visualized joint surfaces are preserved. There are calcaneal spurs noted. Soft tissues: There are vascular calcifications within the soft tissues which are otherwise unremarkable.. XR/XR tibia fibula LT 2V [id number] IMPRESSION: Negative exam. No acute bony abnormalities.
--- NOTE | 2022-08-26 08:49 | XRR_ITS ---
PROCEDURE INFORMATION: Exam: XR Left Hand Exam date and time: 08/26/2022 8:55 AM Age: 82 years old Clinical indication: Injury or trauma; Blunt trauma (contusions or hematomas); Prior surgery; Surgery type: Wrist; Patient HX: Fall this a. M. At home into dresser onto floor. C/O elbow, hand, left lower leg pain. Skin tear to elbow and hand. TECHNIQUE: Imaging protocol: Radiologic exam of the Left hand. Views: 3 or more views. COMPARISON: No relevant prior studies available. FINDINGS: Bones/joints: Bones are somewhat demineralized. Mild degenerative changes are noted along the wrist joint and orthopedic hardware in the distal radius partially visualized. No fracture, dislocation or malalignment. Soft tissues: Unremarkable. XR/XR hand LT min 3V* [id number] IMPRESSION: No acute bony abnormalities.
--- NOTE | 2022-08-26 08:51 | CTR_ITS ---
PROCEDURE INFORMATION: Exam: CT Head Without Contrast Exam date and time: 08/26/2022 9:20 AM Age: 82 years old Clinical indication: Injury or trauma; Blunt trauma (contusions or hematomas); Patient HX: Fall this a. M. At home into dresser onto floor. No loc. ; Additional info: Fall/trauma TECHNIQUE: Imaging protocol: Computed tomography of the head without contrast. Radiation optimization: All CT scans at this facility use at least one of these dose optimization techniques: automated exposure control; mA and/or kV adjustment per patient size (includes targeted exams where dose is matched to clinical indication); or iterative reconstruction. COMPARISON: No relevant prior studies available. RADIATION DOSE METRICS: Total DLP (mGy-cm): 1075.11 FINDINGS: Brain: No acute intracranial hemorrhage. No edema. No mass effect. There are small foci of increased signal seen on the FLAIR and T2 weighted sequences with no restricted diffusion in the bilateral periventricular white matter suggestive of chronic small vessel ischemic changes. The sulci are dilated in keeping with predominantly peripheral brain atrophy. There are stable small fluid density foci in bilateral basal ganglia suggestive of chronic lacunar infarctions. Cerebral ventricles: No ventriculomegaly. Paranasal sinuses: There is mucosal thickening in the paranasal sinuses with no air-fluid levels compatible with chronic sinusitis with sparing of the frontal sinuses. This includes nearly complete opacification of the right maxillary sinus with partially hyperdense secretions with diffuse thickening of the bony adams of the sinus. Mastoid air cells: No mastoid effusion. Bones/joints: There is an old fracture in the left lamina papyracea . Soft tissues: Unremarkable. CT/CT head wo con* [id number] IMPRESSION: No CT evidence of acute intracranial hemorrhage, mass or acute infarction. No acute skull fracture. Old fracture of the left lamina papyracea. Chronic sinusitis.
--- NOTE | 2022-08-26 08:51 | ED_ITS ---
HPI - Fall General: Chief Complaint: Fall Stated Complaint: LEFT LEG PAIN S/P FALL Time Seen by Provider: 08/26/22 08:21 Source: patient Mode of arrival: EMS History of Present Illness: 82-year-old male presents emergency room states last for 5 days began to get very weak he had a cough as well. Cough is been nonproductive he denies any chest pain. He stumbled and fell due to his weakness ground-level fall while at home. He did hit his head against a piece of furniture as he went down he denies any loss of consciousness denies any neck pain. He is complaining of pain at his left hand elbow and left lower tib-fib. He has skin tear on the dorsum of his left hand and his left elbow with some bruising in the anterior distal tibia. He denies any vomiting after his fall. Denies any abdominal pain chest pain. MD complaint: fall Onset (ago): minute(s) Fall from: standing Fall witnessed: no Place fall occurred: home Loss of consciousness: None Prolonged down time: no Symptoms prior to fall: lightheadedness Location of injury - extremities: Left: elbow, hand and lower leg Associated symptoms-after fall: Reports lightheadedness and weakness; Denies abdominal pain, chest pain, confusion, difficulty walking, headache(s), hematuria, neck pain, numbness, short of breath or vertigo Review of Systems Const: Denies: fever(s), chills, body aches, change in appetite, fatigue or malaise ENMT: Denies: throat pain, ear or mastoid pain, nasal discharge or nasal congestion Card: Reports: lightheadedness; Denies: chest pain Resp: Denies: dyspnea, productive cough or non-productive cough GI: Denies: abdominal pain : Denies: hematuria Musc: Reports: extremity pain and joint pain; Denies: neck pain, back pain or extremity swelling Skin/Breast: Denies: rash or pruritus Neuro: Denies: headache(s), difficulty walking, vertigo or confusion PFSH ED PFSH: Medical History Atherosclerosis of coronary artery of [place] heart without angina pectoris Benign essential hypertension with target blood pressure below 140/90 CKD (chronic kidney disease) -f/u with Dr. Zuluaga Hyperlipidemia -on statin Kidney failure alf (current) use of opiate analgesic Pain management contract signed Surgical History H/O left wrist surgery Hx of cataract surgery Status post laparoscopic cholecystectomy (~12/27/19) Family History Denies family history of CAD (coronary artery disease) Anesthesia complication Bleeding disorder Social History Smoking and tobacco status: former smoker Alcohol intake: never Physical Exam Const: GENERAL APPEARANCE: cooperative and comfortable ORIENTATIO N/CONSCIOUSNESS: Yes awake, Yes oriented to person, Yes oriented to place and Yes oriented to time HENMT: COMMON NORMALS: normocephalic, atraumatic and hearing grossly normal bilaterally HEAD & SCALP: normocephalic and atraumatic Resp: COMMON NORMALS: normal respiratory effort, No retractions, No use of accessory muscles and clear to auscultation bilaterally AUSCULTATION: clear to auscultation bilaterally Cardio: COMMON NORMALS: regular rate, regular rhythm and No murmurs present (Cardio) RATE: regular rate RHYTHM: regular rhythm GI: COMMON NORMALS: Soft to palpation and No hepatosplenomegaly present AUSCULTATION: Yes normoactive bowel sounds PALPATION: Yes Soft to palpation, No Tenderness to palpation present (GI), No Guarding due to palpation present (GI) and Yes No hepatosplenomegaly present Extremity: COMMON NORMALS: normal to inspection, capillary refill normal, no clubbing, cyanosis or edema and no pedal edema OTHER: Patient complains of pain in the knee and the left lower leg with manipulation of the leg denies hip pain Neuro: SENSORIUM/ORIENTATION: Yes oriented to person, Yes oriented to place and Yes oriented to time Skin: COMMON NORMALS: no rashes or lesions noted GENERAL SKIN EXAM: no rashes or lesions noted Course Vital Signs: Vital signs: Vital Signs Temperature 98.1 F 08/26/22 08:19 Pulse Rate 67 08/26/22 13:30 Respiratory Rate 14 08/26/22 08:19 Blood Pressure 112/59 08/26/22 13:30 Pulse Oximetry 95 08/26/22 13:30 Oxygen Delivery Me thod 08/26/22 13:30 MDM - Fall Medical Decision Making Patient denied hip pain the entire time however is not able to sit even sit up or stand we went ahead and x-rayed the hip and the knee knee was negative of the hip shows a comminuted intertrochanteric fracture fracture of the femoral neck at the base. It is comminuted. Discussed with hospitalist and orthopedist orders written Medical Records I reviewed the patient's medical records. Lab Data I reviewed the patient's lab results. 08/26/22 08:40 08/26/22 08:40 Radiology Impressions Chest X-Ray 08/26/22 08:43 IMPRESSION: No acute findings. Elbow X-Ray 08/26/22 08:49 IMPRESSION: Negative exam. No acute bony abnormalities. Hand X-Ray 08/26/22 08:49 IMPRESSION: No acute bony abnormalities. Tibia/Fibula X-Ray 08/26/22 08:49 IMPRESSION: Negative exam. No acute bony abnormalities. Head CT 08/26/22 08:51 IMPRESSION: No CT evidence of acute intracranial hemorrhage, mass or acute infarction. No acute skull fracture. Old fracture of the left lamina papyracea. Chronic sinusitis. ADDENDUM: 08/26/22 1002 Correction of findings in brain: No acute intracranial hemorrhage. No edema. There are hypodense areas in the bilateral periventricular white matter suggestive of chronic small vessel ischemic changes. The sulci are dilated in keeping with predominantly peripheral brain atrophy. There are stable small fluid density foci in bilateral basal ganglia suggestive of chronic lacunar infarctions. Hip/Pelvis X-Ray 08/26/22 11:18 IMPRESSION: Acute comminuted intertrochanteric fracture left hip. Knee X-Ray 08/26/22 11:23 IMPRESSION: No acute bony abnormalities. Hip CT 08/26/22 11:49 IMPRESSION: Acute comminuted intertrochanteric fracture left hip Laboratory Results WBC 10.2 10^3/uL (4.0-10.0) H 08/26/22 08:40 RBC 4.53 10^6/uL (4.1-5.3) 08/26/22 08:40 Hgb 12.7 g/dL (11.7-16.6) 08/26/22 08:40 Hct 39.5 % (42.0-52.0) L 08/26/22 08:40 MCV 87.2 fl (80-94) 08/26/22 08:40 MCH 28.0 pg (28.0-34.0) 08/26/22 08:40 MCHC 32.2 g/dL (30.0-36.0) 08/26/22 08:40 RDW 14.3 % (12.1-15.1) 08/26/22 08:40 Plt Count 277 10^3/cmm (130-400) 08/26/22 08:40 MPV 10.2 fL (7.4-10.4) 08/26/22 08:40 Neut % (Auto) 80.6 % 08/26/22 08:40 Lymph % (Auto) 9.9 % 08/26/22 08:40 Harrison % (Auto) 8.6 % 08/26/22 08:40 Eos % (Auto) 0.1 % 08/26/22 08:40 Baso % (Auto) 0.4 % 08/26/22 08:40 Neut # (Auto) 8.23 10^3/uL (1.8-7.7) H 08/26/22 08:40 Lymph # (Auto) 1.0 10^3/uL (0.8-4.8) 08/26/22 08:40 Harrison # (Auto) 0.9 10^3/uL (0.2-0.9) 08/26/22 08:40 Eos # (Auto) 0.0 10^3/uL (0.0-0.8) 08/26/22 08:40 Baso # (Auto) 0.0 10^3/uL (0.0-0.1) 08/26/22 08:40 Nucleated RBC % (auto) 0 % 08/26/22 08:40 Nucleated RBCs # 0.0 /100WBC 08/26/22 08:40 PT 15.30 SECONDS (12.1-14.9) H 08/26/22 08:40 INR 1.18 (0.8-1.2) 08/26/22 08:40 APTT 32.2 SECONDS (23.9-36.7) 08/26/22 08:40 Sodium 137 mmol/L (136-145) 08/26/22 08:40 Potassium 3.8 mmol/L (3.5-5.1) 08/26/22 08:40 Chloride 98 mmol/L (98-107) 08/26/22 08:40 Carbon Dioxide 26 mmol/L (22-29) 08/26/22 08:40 Anion Gap 16.8 (5-19) 08/26/22 08:40 BUN 19 mg/dL (8-23) 08/26/22 08:40 Creatinine 1.6 mg/dL (0.7-1.2) H 08/26/22 08:40 GFR Calculation Not Reportable 08/26/22 08:40 Glucose 138 mg/dL (65-115) H 08/26/22 08:40 Calculated Osmolality 288 mOsm/kg (285-295) 08/26/22 08:40 Calcium 9.6 mg/dL (8.5-10.5) 08/26/22 08:40 Phosphorus 3.1 mg/dL (2.5-4.5) 08/26/22 08:40 Total Bilirubin 0.8 mg/dL (0.15-1.2) 08/26/22 08:40 AST 13 U/L (0-40) 08/26/22 08:40 ALT 8 U/L (0-41) 08/26/22 08:40 Alkaline Phosphatase 56 U/L (40-130) 08/26/22 08:40 Total Protein 6.5 g/dL (6.6-8.7) L 08/26/22 08:40 Albumin 4.0 g/dL (3.5-5.2) 08/26/22 08:40 Globulin 2.5 g/dL (1.3-4.6) 08/26/22 08:40 Vitamin B12 150 pg/mL (232-1245) L 08/26/22 08:40 Procalcitonin 0.09 ng/mL (0-0.5) 08/26/22 08:40 Discharge Plan Discharge Patient Disposition: Admitted As Inpatient Clinical Impression: Closed intertrochanteric fracture of left femur, Atherosclerosis of coronary artery of [place] heart without angina pectoris, CKD (chronic kidney disease), Diet-controlled type 2 diabetes mellitus Condition: Stable Prescriptions: No Action imiquimod 5 % cream in packet 1 applic topical ONCE Qty: 24 1RF Rx Instructions: Apply a thin film to right moravian, right jaw and left nasal tip M-F (off weekends) for 6 weeks silver sulfadiazine [Silvadene] 1 % cream 1 applic topical BID Qty: 50 0RF Rx Instructions: apply a 1.5 mm thickness Stewart Low Dose Aspirin 81 mg tablet,delayed release (DR/EC) 81 mg PO DAILY Qty: 90 3RF atorvastatin 40 mg tablet 80 mg PO DAILY Qty: 180 3RF clopidogrel 75 mg tablet 75 mg PO DAILY Qty: 90 3RF furosemide 20 mg tablet 20 mg PO DAILY Qty: 90 3RF trazodone 50 mg Tablet 50 mg PO BEDTIME PRN (Reason: Sleep) tamsulosin [Flomax] 0.4 mg Capsule 0.4 mg PO BEDTIME cinnamon bark [Cinnamon] 500 mg Capsule 1,000 mg PO BID Vitamin D3 50 mcg (2,000 unit) Capsule 50 mcg PO DAILY Referrals: Portia Larose MD [Primary Care Provider] - Coding Level of Care Code ED Reduction Furnace Operator Helper for Marla Stanley
--- NOTE | 2022-08-26 09:07 | ECG_ITS ---
[facility] Test Date: 2022-08-26 Pat Name: Siva Malik Department: Room: Gender: Male Mat Packer: : 1940 Requested By: Emre Bird Order Number: [id number] Reading MD: David Sherman Measurements Intervals [place] Rate: 74 P: 0 [place]: 0 QRS: -21 QRSD: 86 T: 72 QT: 382 QTc: 424 Interpretive Statements SINUS RHYTHM WITH FIRST DEGREE AV BLOCK and sinus arrhythmia BORDERLINE LEFT AXIS DEVIATION [QRS AXIS < -20] ABNORMAL RHYTHM ECG Compared to ECG 07/21/2020 14:55:56 Myocardial infarct finding no longer present Electronically Signed On 08-27-2022 15:30:03 TWIST PACKER by David Sherman [id number]
[2022-08-26 09:10] LABS: Basophils % 0.4 %; Eosinophils % 0.1 %; Hematocrit 39.5 % (42.0-52.0); Hemoglobin 12.7 g/dL (11.7-16.6); Lymphocytes % 9.9 %; Mean Corpuscular HGB Conc 32.2 g/dL (30.0-36.0); Mean Corpuscular Volume 87.2 fl (80-94); Mean Platelet Volume 10.2 fL (7.4-10.4); Monocytes # 0.9 10^3/uL (0.2-0.9); Monocytes % 8.6 %; Neutrophils # 8.23 10^3/uL (1.8-7.7); Neutrophils % 80.6 %; Nucleated Red Blood Cells % 0 %; Platelet Count 277 10^3/cmm (130-400); Red Blood Count 4.53 10^6/uL (4.1-5.3); Red Cell Distribution Width 14.3 % (12.1-15.1); White Blood Count 10.2 10^3/uL (4.0-10.0)
[2022-08-26] MEDS: tetanus-diphtheria tox (adult) 0.5 mL SDV IM (09:17)
[2022-08-26] MEDS: mupirocin oint 22 gm 1 APPLIC TOPICAL (09:22)
[2022-08-26 09:51] LABS: Alanine Aminotransferase 8 U/L (0-41); Alkaline Phosphatase 56 U/L (40-130); Anion Gap 16.8 (5-19); Aspartate Amino Transferase 13 U/L (0-40); Blood Urea Nitrogen 19 mg/dL (8-23); Calcium 9.6 mg/dL (8.5-10.5); Carbon Dioxide 26 mmol/L (22-29); Chloride 98 mmol/L (98-107); Globulin 2.5 g/dL (1.3-4.6); Glucose 138 mg/dL (65-115); Osmolality Calculated 288 mOsm/kg (285-295); Potassium 3.8 mmol/L (3.5-5.1); Sodium 137 mmol/L (136-145); Total Bilirubin 0.8 mg/dL (0.15-1.2); Total Protein 6.5 g/dL (6.6-8.7)
[2022-08-26] MEDS: sodium chloride 0.9% 500 ML 999 ML IV (10:28)
[2022-08-26] MEDS: HYDROcodone-acetaminophen 5-325 mg Tablet 1 TAB PO (10:29)
--- NOTE | 2022-08-26 11:18 | XRR_ITS ---
PROCEDURE INFORMATION: Exam: XR Left Hip Exam date and time: 08/26/2022 11:29 AM Age: 82 years old Clinical indication: Injury or trauma; Fall; Blunt trauma (contusions or hematomas); Left; Hip; Additional info: Pain TECHNIQUE: Imaging protocol: Radiologic exam of the Left hip. Views: 2 or 3 views hip with pelvis when performed. COMPARISON: CT abdomen pelvis wo con [id number] 04/06/2022 6:47 PM FINDINGS: Bones/joints: There is an acute comminuted intertrochanteric fracture which extends inferiorly for approximately 3 cm. There is some minimal displacement and malalignment at the fracture site. Soft tissues: Unremarkable. XR/XR hip LT 2-3V wo/w pel* [id number] IMPRESSION: Acute comminuted intertrochanteric fracture left hip.
--- NOTE | 2022-08-26 11:23 | XRR_ITS ---
PROCEDURE INFORMATION: Exam: XR Left Knee Exam date and time: 08/26/2022 11:33 AM Age: 82 years old Clinical indication: Injury or trauma; Fall; Blunt trauma; Knee; Left; Additional info: Pain TECHNIQUE: Imaging protocol: Radiologic exam of the Left knee. Views: 3 views. COMPARISON: CR (LOW EXM, ) 08/26/2022 8:55 AM FINDINGS: Bones/joints: Osseous structures are intact. No fracture or malalignment. Visualized joint surfaces are preserved. Small degenerative spur arising the superior pole of patella. Soft tissues: Small linear calcification along the anteromedial aspect of Hoffa's fat pad likely degenerative or vascular in nature. There are vascular calcifications present below the knee joint. XR/XR knee LT 3V* [id number] IMPRESSION: No acute bony abnormalities.
[2022-08-26] MEDS: sodium chloride 0.9% 1,000 ML 999 ML IV (11:25)
--- NOTE | 2022-08-26 11:49 | CTR_ITS ---
PROCEDURE INFORMATION: Exam: CT Left Lower Extremity Without Contrast, Hip Exam date and time: 08/26/2022 11:54 AM Age: 82 years old Clinical indication: Injury or trauma; Fall; Fracture, traumatic; Closed fracture; Hip; Left; Additional info: Hip FX TECHNIQUE: Imaging protocol: CT of the Left lower extremity without contrast was performed. Exam focused on the hip. Radiation optimization: All CT scans at this facility use at least one of these dose optimization techniques: automated exposure control; mA and/or kV adjustment per patient size (includes targeted exams where dose is matched to clinical indication); or iterative reconstruction. COMPARISON: CR (PELVIS, ) 08/26/2022 11:29 AM RADIATION DOSE METRICS: Total DLP (mGy-cm): 258.82 FINDINGS: Bones/joints: There is a comminuted intertrochanteric fracture the that extends from just above the greater trochanter through the inferior aspect of the femoral neck. A There is an additional obliquely ordered fracture more inferiorly the that extends into the proximal femoral shaft. Lesser trochanter is avulsed and mildly distracted. There is no involvement of the femoral head which is normally aligned within the acetabulum. Remaining visualized osseous structures are unremarkable. Soft tissues: There is mild soft tissue swelling at the fracture site. Muscle bundles are unremarkable. CT/CT hip LT wo con* [id number] IMPRESSION: Acute comminuted intertrochanteric fracture left hip
[2022-08-26 12:00] LABS: INR 1.18 (0.8-1.2); Partial Thromboplastin Time 32.2 SECONDS (23.9-36.7)
--- NOTE | 2022-08-26 12:42 | PM.HP ---
Providers/Chief Complaint Primary Care Provider: Portia Larose MD Chief Complaint: LEFT LEG PAIN S/P FALL History of Present Illness Siva Malik is a 82 year old male with past medical history of hypertension, CKD, hyperlipidemia, chronic opioid use, CAD status post PCI to LAD in the past, hyperlipidemia, diabetes presented to the hospital today due to a fall. He says for the last few days he has been feeling weaker than usual and also has had a cough but not bringing up any sputum at this time. He says due to the weakness he stumbled and fell while at home. He says he is unsure how he went down. It was right after he got up from toilet and walked out of bathroom. Significant other found him wedged between dresser and the wall. He did hit his head against a piece of furniture but did not lose any consciousness. Patient does not have any neck pain or shoulder pain at this time. He does complain of some pain at left lower tibia-fibula and left hand elbow. There is also a small laceration on dorsum of left hand and his elbow. Some bruising present on anterior distal tibia as well. Patient denies any nausea, vomiting, diarrhea, abdominal pain, chest pain, shortness of breath. His main complaint is overall generalized weakness. Denies any vertigo, did say he had some lightheadedness. His last echo was in February 2022 which showed normal EF of 55 to 60% and diastolic dysfunction. Trace mitral regurg present. States recently had URI symptoms, loss of appetite. When checked for flu and covid at clinic yesterday they were negative. Denies history of arrythmias. ED course: Blood pressure 118/54, respiratory 14, pulse 80, temperature 98.1, pulse ox 96% on room air. Chest x-ray shows no acute findings, elbow x-ray negative for bony abnormalities, hand x-ray negative for bony abnormalities, fibula and tibia no bony abnormalities, head CT has no evidence of acute intracranial hemorrhage mass or acute infarction, no acute skull fracture. Chronic sinusitis present, chronic lacunar infarcts present. Hip x-ray shows acute comminuted intertrochanteric fracture of left hip, left knee x-ray negative, CT hip also shows acute comminuted intertrochanteric fracture of left hip. Medications/Allergies Home Medications Medication Instructions Recorded Confirmed Last Taken Type cinnamon bark 500 mg capsule 1,000 mg PO BID 12/27/19 05/25/22 07/19/20 History (Cinnamon) tamsulosin 0.4 mg capsule (Flomax) 0.4 mg PO BEDTIME 12/27/19 05/25/22 07/19/20 History trazodone 50 mg tablet 50 mg PO BEDTIME PRN Sleep 12/27/19 05/25/22 Unknown History cholecalciferol (vitamin D3) 50 50 mcg PO DAILY 07/20/20 05/25/22 Unknown History mcg (2,000 unit) capsule (Vitamin D3) imiquimod 5 % topical cream packet 1 applic topical ONCE #24 ea 08/08/21 05/25/22 Unknown Rx aspirin 81 mg tablet,delayed 81 mg PO DAILY #90 tabs 08/24/21 05/25/22 Unknown Rx release (Stewart Low Dose Aspirin) atorvastatin 40 mg tablet 80 mg PO DAILY #180 tabs 08/24/21 05/25/22 Unknown Rx clopidogrel 75 mg tablet 75 mg PO DAILY #90 tabs 08/24/21 05/25/22 Unknown Rx furosemide 20 mg tablet 20 mg PO DAILY #90 tabs 08/24/21 05/25/22 Unknown Rx silver sulfadiazine 1 % topical 1 applic topical BID #50 grams 10/21/21 05/25/22 Unknown Rx cream (Silvadene) Allergies Allergy/AdvReac Type Severity Reaction Status Date / Time No Known Allergies Allergy Verified 05/25/22 12:49 PFSH Acute PFSH: Medical History Atherosclerosis of coronary artery of [place] heart without angina pectoris Benign essential hypertension with target blood pressure below 140/90 CKD (chronic kidney disease) -f/u with Dr. Zuluaga Hyperlipidemia -on statin Kidney failure prison (current) use of opiate analgesic Pain management contract signed Surgical History H/O left wrist surgery Hx of cataract surgery Status post laparoscopic cholecystectomy (~12/27/19) Family History Denies family history of CAD (coronary artery disease) Anesthesia complication Bleeding disorder Social History Smoking and tobacco status: former smoker Alcohol intake: never Vitals/I&O/Wt Last Vital Signs Temp 98.1 F 08/26/22 08:19 Pulse 77 08/26/22 11:00 Resp 14 08/26/22 08:19 BP 126/46 08/26/22 11:00 Pulse Ox 93 08/26/22 11:00 O2 Del Method 08/26/22 11:00 Physical Exam Narrative: General: Alert oriented x3, patient seen laying in bed on room air at this time. Appearing comfortable. Complains of knee pain and says it does not hurt at this time. HEENT: Normocephalic, atraumatic, EOMI, breathing normally. Cardio: Regular rate rhythm, normal S1-S2, no murmurs Respiratory: Clear to auscultation b/l, no wheezes GI: Abdomen soft, nontender, nondistended, bowel sounds + Behavior: Appropriate and cooperative Extremities: No edema b/l Urinary Catheter Management: Rick: Cath Placed During This Visit: yes Urinary Catheter Date of Insertion: 08/26/22 Urinary Catheter Time of Insertion: 12:39 Data 08/26/22 08:40 08/26/22 08:40 A&P Assessment and plan (1) Atherosclerosis of coronary artery of [place] heart without angina pectoris: Qualifiers: Coronary Disease-Associated Artery/Lesion type: [place] artery Qualified Code(s): I25.10 - Atherosclerotic heart disease of [place] coronary artery without angina pectoris (2) Benign essential hypertension with target blood pressure below 140/90: (3) Hyperlipidemia: Qualifiers: Hyperlipidemia type: unspecified Qualified Code(s): E78.5 - Hyperlipidemia, unspecified (4) CKD (chronic kidney disease): Qualifiers: Chronic kidney disease stage: stage 2 (mild) Qualified Code(s): N18.2 - Chronic kidney disease, stage 2 (mild) (5) Hip fracture: (6) Generalized weakness: Plan #Acute fracture left hip #S/p mechanical fall vs other etiology #Generalized weakness #Hx CAD s/p PCI FLACA to LAD #HTN #HLD #CKD, baseline 1.5-1.6 - Hold aspirin, plavix - Consult orthopedic surgery. Dr. Grey plans for OR on Sunday - Continue atorvastatin 40 - Hold tamsulosin - Check orthostatic vitals - Monitor on telemetry - Continue trazodone - Check urine culture, UA - Check vitamin b12, phosphorus - EKG reviewed, no ischemic changes - Echo recently done in february 2022: EF 55-60%, diastolic dysfunction present. - Continue to monitor in hospital and plan for surgery on Sunday. Will need tele monitoring to r/o occult arrhythmia however my suspicion is after URI pt was dehydrated and had loss of appetite. He was still taking all this medications including flomax, he may have had orthostatic hypotension. - Will continue to gently hydrate patient. DNR/DNI. He says let me go . He has a step daughter and a significant other. He says both are aware of his wishes and this has been discussed before. His significant other is present at bedside and pt states her and his daughter are to make decisions of his behalf if he is unable to . DVT PPx: Heparin sub cu BID Attestations Medical Necessity Statement*: will cross > 2 midnight stay for management of hip fracture and weakness and fall Coding Level of Care Code Acute Type Copy Examiner for g Fwd Diagnoses Atherosclerosis of coronary artery of [place] heart without angina pectoris I25.10 Coronary Disease-Associated Artery/Lesion type: [place] artery Benign essential hypertension with target blood pressure below 140/90 I10 Hyperlipidemia E78.5 Hyperlipidemia type: unspecified CKD (chronic kidney disease) N18.2 Chronic kidney disease stage: stage 2 (mild) Hip fracture S72.009A Generalized weakness R53.1
[2022-08-26 13:32] LABS: Procalcitonin 0.09 ng/mL (0-0.5)
[2022-08-26] MEDS: acetaminophen 325 mg Tablet 650 MG PO (13:44)
[2022-08-26] MEDS: heparin 5,000 unit/mL INJ 1 mL 5000 UNIT SUBCUT (13:45)
[2022-08-26] MEDS: sodium chloride 0.9% 1,000 ML 75 ML IV (13:50)
[2022-08-26 14:07] LABS: Phosphorus 3.1 mg/dL (2.5-4.5)
[2022-08-26 14:24] LABS: Vitamin B12 150 pg/mL (232-1245)
[2022-08-26] MEDS: morphine 4 mg/mL SDV 1 mL 2 MG IVP ×2 (19:49→23:45)
--- NOTE | 2022-08-26 20:16 | PM.CONSULT ---
Providers/Reason For Consult Consulting Physician/Specialty*: Racheal Grey MD Reason for Consult*: Left comminuted intertrochanteric hip fracture Requesting Physician: Emre Max MD Attending Physician: Eleonora Cortes MD Primary Care Provider: Portia Larose MD History of Present Illness History of Present Illness Siva Malik is a 82 year old male who was admitted through the emergency department earlier today with complaints of left hip pain. The patient notes over the past week he has become progressively weaker, and he has not felt like eating. He states that he thinks perhaps because of the weakness he stumbled and fell right after he got up from the toilet and walked out of the bathroom. Reportedly, his significant other found him wedged between the dresser and the wall. He did not lose consciousness or complain of any dizziness prior to his fall. He presented with a laceration on the dorsum of his hand and also about his elbow. He had some bruising on the anterior distal tibia, but x-ray studies of these areas were negative. Patient was admitted to the medical service. He is on Plavix, but given the nature of the fracture, we will proceed with operative intervention as soon as possible. Review of Systems Const: Denies: fever(s), chills, body aches, change in appetite, fatigue or malaise Eyes: Denies: photophobia ENMT: Denies: throat pain, ear or mastoid pain, nasal discharge or nasal congestion Card: Reports: lightheadedness; Denies: chest pain Resp: Denies: dyspnea, productive cough or non-productive cough GI: Denies: abdominal pain : Denies: hematuria Musc: Reports: extremity pain and joint pain; Denies: neck pain, back pain, extremity swelling or joint warmth Skin/Breast: Denies: rash or pruritus Neuro: Denies: headache(s), difficulty walking, vertigo or confusion All/Imm: Denies: acute wheezing Medications/Allergies Home Medications Medication Instructions Recorded Confirmed Last Taken Type cinnamon bark 500 mg capsule 1,000 mg PO BID 12/27/19 05/25/22 07/19/20 History (Cinnamon) tamsulosin 0.4 mg capsule (Flomax) 0.4 mg PO BEDTIME 12/27/19 05/25/22 07/19/20 History trazodone 50 mg tablet 50 mg PO BEDTIME PRN Sleep 12/27/19 05/25/22 Unknown History cholecalciferol (vitamin D3) 50 50 mcg PO DAILY 07/20/20 05/25/22 Unknown History mcg (2,000 unit) capsule (Vitamin D3) imiquimod 5 % topical cream packet 1 applic topical ONCE #24 ea 08/08/21 05/25/22 Unknown Rx aspirin 81 mg tablet,delayed 81 mg PO DAILY #90 tabs 08/24/21 05/25/22 Unknown Rx release (Stewart Low Dose Aspirin) atorvastatin 40 mg tablet 80 mg PO DAILY #180 tabs 08/24/21 05/25/22 Unknown Rx clopidogrel 75 mg tablet 75 mg PO DAILY #90 tabs 08/24/21 05/25/22 Unknown Rx furosemide 20 mg tablet 20 mg PO DAILY #90 tabs 08/24/21 05/25/22 Unknown Rx silver sulfadiazine 1 % topical 1 applic topical BID #50 grams 10/21/21 05/25/22 Unknown Rx cream (Silvadene) Allergies Allergy/AdvReac Type Severity Reaction Status Date / Time No Known Allergies Allergy Verified 05/25/22 12:49 Current Medications Generic Name Dose Route Start Last Admin Trade Name Freq PRN Reason Stop Dose Admin Acetaminophen 650 mg 08/26/22 12:38 08/26/22 13:44 Acetaminophen 325 Mg Tablet PO 650 mg Q6H PRN Administration Mild/Mod Pain Or Temp >/= 101 Heparin Sodium (Porcine) 5,000 unit 08/26/22 12:45 08/26/22 13:45 Heparin 5,000 Unit/Ml Inj 1 Ml SUBCUT 5,000 unit Q12H MEGHAN Administration Morphine Sulfate 2 mg 08/26/22 17:10 08/26/22 19:49 Morphine 4 Mg/Ml Sdv 1 Ml IVP 2 mg Q4H PRN Administration SEVERE PAIN PFSH Acute PFSH: Medical History Atherosclerosis of coronary artery of [place] heart without angina pectoris Benign essential hypertension with target blood pressure below 140/90 CKD (chronic kidney disease) -f/u with Dr. 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 Pain management contract signed Surgical History H/O left wrist surgery Hx of cataract surgery Status post laparoscopic cholecystectomy (~12/27/19) Family History Denies family history of CAD (coronary artery disease) Anesthesia complication Bleeding disorder Social History Smoking and tobacco status: former smoker Alcohol intake: never Dietary Habits: Current diet type/program: regular Exercise: Physical activity functional status: independent ambulation Vitals/I&O/Wt Last Vital Signs Temp 98.4 F 08/26/22 16:00 Pulse 79 08/26/22 16:40 Resp 16 08/26/22 19:49 BP 122/63 08/26/22 16:00 Pulse Ox 96 08/26/22 16:40 O2 Del Method 08/26/22 17:12 08/26/22 08/26/22 08/26/22 06:59 14:59 22:59 Intake Total 1919 Balance 1919 Weight last 48 hrs Weight 158 lb 6 oz Physical Exam Const: COMMON NORMALS: no acute distress, average body habitus, patient oriented x3 and alert GENERAL APPEARANCE: cooperative and comfortable ORIENTATION/CONSCIOUSNESS: Yes awake HENMT: COMMON NORMALS: normocephalic and atraumatic HEAD & SCALP: normocephalic and atraumatic Eye: GENERAL EYE: appearance normal, both eyes and all related structures Chest: COMMONS NORMALS: normal inspection of the chest Resp: COMMON NORMALS: normal respiratory effort EFFORT & INSPECTION: Yes able to speak in complete sentences and Yes symmetric chest movement Extremity: LEFT LOWER EXTREMITY: Yes hip joint (Patient complains of pain in the left hip joint.) Left hip: Yes inspection (Minimal bruising.), Yes palpation (Tender to palpation.), Yes ROM (Not evaluated secondary to pain.) and Yes neurovascular exam (Intact distally.) Neuro: COMMON NORMALS: patient oriented x3 SENSORIUM/ORIENTATION: Yes alert Psych: COMMON NORMALS: mental status grossly normal APPEARANCE: Yes grossly normal ATTITUDE: Yes calm and Yes engaged ATTENTION/CONCENTRATION: Yes attention grossly intact Skin: COMMON NORMALS: no rashes or lesions noted GENERAL SKIN EXAM: no rashes or lesions noted Urinary Catheter Management: Rick: Cath Placed During This Visit: yes Urinary Catheter Date of Insertion: 08/26/22 Urinary Catheter Time of Insertion: 12:39 Data 08/26/22 08:40 08/26/22 08:[address]: My impression: CT was obtained to assure there was no pathologic nature to this fracture. There is no evidence of cortical destruction or evidence of pathologic reason for the patient's intertrochanteric comminuted femur fracture with subtrochanteric extension. Xray Ortho: My impression: 2 views of the left hip was obtained demonstrating a comminuted intertrochanteric and subtrochanteric left hip fracture with displacement. There is angulation as well, and the fracture does extend to below the lesser trochanter. There is comminution in the greater trochanteric area as well as the intertrochanteric area. This comminution is visualized on both AP and lateral planes. A&P Assessment and plan (1) Closed intertrochanteric fracture of left femur: This 82-year-old gentleman had a fall at home after getting up from the toilet. He was found wedged between the wall and a dresser. He denies any loss of consciousness, but he does note increasing weakness over the past week. He states he just has not been hungry and has not been eating well and feels he may have been dehydrated. Imaging in the emergency department demonstrated a very comminuted intertrochanteric hip fracture with extension into the subtrochanteric area. There was some concern of possible pathologic fracture given the nature of the patient's history of his fall, but CT scan did not demonstrate any evidence of pathologic processes. The patient will be scheduled for operative intervention tomorrow in the form of open reduction internal fixation utilizing a long gamma nail. This was discussed with the patient. Risks and complications were explained and consents will be signed. Qualifiers: Encounter type: initial encounter Fracture alignment: displaced Qualified Code(s): S72.142A - Displaced intertrochanteric fracture of left femur, initial encounter for closed fracture (2) Subtrochanteric fracture of left femur: Subtrochanteric extension from the patient's comminuted intertrochanteric hip fracture is evident on both CT and plain film. Qualifiers: Encounter type: initial encounter Fracture type: closed Fracture alignment: displaced Qualified Code(s): S72.22XA - Displaced subtrochanteric fracture of left femur, initial encounter for closed fracture Coding Level of Care Code Acute Supervisor Electronics Processing for [facility] Fwd Diagnoses Closed intertrochanteric fracture of left femur S72.142A Encounter type: initial encounter Fracture alignment: displaced Subtrochanteric fracture of left femur S72.22XA Encounter type: initial encounter Fracture type: closed Fracture alignment: displaced
--- NOTE | 2022-08-26 21:10 | PC.NURSE ---
1700 patient recieved to [id number] from ER. assessment completed. 1914 Dr Grey here and patient seen
[2022-08-27] VITALS (16 sets, daily range): BP systolic 91–154; BP diastolic 48–77; PULSE 67–88; RESP 15–19; TEMP 36.4–36.9; O2SAT 91–100
--- NOTE | 2022-08-27 | XR_ITS ---
WS: [id number] Exam: XR hip LT 2-3V wo/w pel* [id number] Date/Time of Exam: 08/27/2022 12:00 AM Reason For Exam: OR PICS-Tochanteric Femoral Nail Comparison 08/26/2022. AP and lateral intraoperative C-arm images of the left hip are submitted for evaluation. There is internal orthopedic fixation of a comminuted intertrochanteric fracture of the left hip with an intramedullary eileen and femoral neck screw. The fracture is stabilized in satisfactory alignment f or healing. Postoperative changes in the adjacent soft tissues. XR/XR hip LT 2-3V wo/w pel* [id number] IMPRESSION: 1. Satisfactory ORIF of an intertrochanteric fracture of the left hip.
[2022-08-27] MEDS: heparin 5,000 unit/mL INJ 1 mL 5000 UNIT SUBCUT ×2 (00:42→13:24)
[2022-08-27 04:05] LABS: Basophils % 0.1 %; Hematocrit 33.3 % (42.0-52.0); Hemoglobin 10.5 g/dL (11.7-16.6); Lymphocytes # 0.6 10^3/uL (0.8-4.8); Lymphocytes % 6.9 %; Mean Corpuscular HGB Conc 31.5 g/dL (30.0-36.0); Mean Corpuscular Hemoglobin 27.8 pg (28.0-34.0); Mean Corpuscular Volume 88.1 fl (80-94); Mean Platelet Volume 9.7 fL (7.4-10.4); Monocytes # 0.7 10^3/uL (0.2-0.9); Monocytes % 8.1 %; Neutrophils % 84.7 %; Nucleated Red Blood Cells % 0 %; Platelet Count 237 10^3/cmm (130-400); Red Blood Count 3.78 10^6/uL (4.1-5.3); Red Cell Distribution Width 14.5 % (12.1-15.1); White Blood Count 8.5 10^3/uL (4.0-10.0)
[2022-08-27 04:28] LABS: Alanine Aminotransferase 10 U/L (0-41); Albumin Level 3.3 g/dL (3.5-5.2); Alkaline Phosphatase 43 U/L (40-130); Aspartate Amino Transferase 17 U/L (0-40); Blood Urea Nitrogen 22 mg/dL (8-23); Calcium 8.8 mg/dL (8.5-10.5); Carbon Dioxide 25 mmol/L (22-29); Chloride 100 mmol/L (98-107); Globulin 2.7 g/dL (1.3-4.6); Glucose 119 mg/dL (65-115); Magnesium 1.6 mg/dL (1.7-2.3); Osmolality Calculated 286 mOsm/kg (285-295); Sodium 136 mmol/L (136-145); Total Bilirubin 0.6 mg/dL (0.15-1.2)
--- NOTE | 2022-08-27 06:22 | P.ANESASSM_ITS ---
Pre-Anesthetic Assessment Height/Weight: Height 1.8 m Weight 71.838 kg Temp Pulse Resp BP Pulse Ox O2 Del Method 98.2 F 85 17 124/65 94 08/27/22 04:00 08/27/22 04:00 08/27/22 04:00 08/27/22 04:00 08/27/22 04:00 08/26/22 17:12 Preop Diagnosis: Left intertrochanteric/subtrochanteric fracture femur Operation Date: 08/27/22 11:20 Proposed Procedures p Trochanteric Femoral Nail(Left) - Racheal Grey MD Familial anesthetic complications: None Was Beta Anna taken within 24 hours: N/A Was Clonidine taken within 24 hours: N/A Last intake: > 8hrs Social No alcohol and No tobacco Exam alert, oriented x 3, clear to auscultation bilaterally and regular rate & rhythm Airway Mallampati: Class II Dentition: false CV/HEM Atrial Fibrillation, Arrythmia, Coronary Artery Disease (stent -2019) and Myocardial Infarction (nstemi 2019) 02/23/22 EHCO CONCLUSIONS ?LV systolic function is normal with EF of 55-60% ?Diastolic function is normal ?Trace tricuspid regurgitation ?Compared to prior echocardiogram from 07/20/2020, no significant ?changes are seen. Chronic Renal Insufficiency Metabolic Diabetes Mellitus and Hyperlipidemia Anesthetic Plan ASA status: 3 Anesthesia: General Risk of > 500 ml blood loss (7ml/kg in children): No Medications/Allergies Home Medications Medication Instructions Recorded Confirmed Last Taken Type cinnamon bark 500 mg capsule 1,000 mg PO BID 12/27/19 05/25/22 07/19/20 History (Cinnamon) tamsulosin 0.4 mg capsule (Flomax) 0.4 mg PO BEDTIME 12/27/19 05/25/22 07/19/20 History trazodone 50 mg tablet 50 mg PO BEDTIME PRN Sleep 12/27/19 05/25/22 Unknown History cholecalciferol (vitamin D3) 50 50 mcg PO DAILY 07/20/20 05/25/22 Unknown History mcg (2,000 unit) capsule (Vitamin D3) imiquimod 5 % topical cream packet 1 applic topical ONCE #24 ea 08/08/21 05/25/22 Unknown Rx aspirin 81 mg tablet,delayed 81 mg PO DAILY #90 tabs 08/24/21 05/25/22 Unknown Rx release (Stewart Low Dose Aspirin) atorvastatin 40 mg tablet 80 mg PO DAILY #180 tabs 08/24/21 05/25/22 Unknown Rx clopidogrel 75 mg tablet 75 mg PO DAILY #90 tabs 08/24/21 05/25/22 Unknown Rx furosemide 20 mg tablet 20 mg PO DAILY #90 tabs 08/24/21 05/25/22 Unknown Rx silver sulfadiazine 1 % topical 1 applic topical BID #50 grams 10/21/21 05/25/22 Unknown Rx cream (Silvadene) Allergies Allergy/AdvReac Type Severity Reaction Status Date / Time No Known Allergies Allergy Verified 05/25/22 12:49 Current Medications Generic Name Dose Route Start Last Admin Trade Name Freq PRN Reason Stop Dose Admin Acetaminophen 650 mg 08/26/22 12:38 08/26/22 13:44 Acetaminophen 325 Mg Tablet PO 650 mg Q6H PRN Administration Mild/Mod Pain Or Temp >/= 101 Heparin Sodium (Porcine) 5,000 unit 08/26/22 12:45 08/27/22 00:42 Heparin 5,000 Unit/Ml Inj 1 Ml SUBCUT 5,000 unit Q12H MEGHAN Administration Morphine Sulfate 2 mg 08/26/22 17:10 08/26/22 23:45 Morphine 4 Mg/Ml Sdv 1 Ml IVP 2 mg Q4H PRN Administration SEVERE PAIN PFSH Anesthesia Medical History Atherosclerosis of coronary artery of [place] heart without angina pectoris Benign essential hypertension with target blood pressure below 140/90 CKD (chronic kidney disease) -f/u with Dr. Zuluaga Hyperlipidemia -on statin Kidney failure residential (current) use of opiate analgesic Pain management contract signed Surgical History H/O left wrist surgery Hx of cataract surgery Status post laparoscopic cholecystectomy (~12/27/19) Family History Denies family history of CAD (coronary artery disease) Anesthesia complication Bleeding disorder Social History Smoking and tobacco status: former smoker Alcohol intake: never Data Anesthesia 08/27/22 03:37 08/27/22 03:37 Short CBC 08/26/22 08/27/22 Range/Units 08:40 03:37 WBC 10.2 H 8.5 (4.0-10.0) 10^3/uL Hgb 12.7 10.5 L (11.7-16.6) g/dL Hct 39.5 L 33.3 L (42.0-52.0) % MCV 87.2 88.1 (80-94) fl Plt Count 277 237 (130-400) 10^3/cmm Neut % (Auto) 80.6 84.7 % Neut # (Auto) 8.23 H 7.20 (1.8-7.7) 10^3/uL BMP 08/26/22 08/27/22 08:40 03:37 Sodium 137 136 Potassium 3.8 4.0 Chloride 98 100 Carbon Dioxide 26 25 BUN 19 22 Creatinine 1.6 H 1.3 H Glucose 138 H 119 H Calcium 9.6 8.8 Liver Function 08/26/22 08/27/22 Range/Units 08:40 03:37 Total Bilirubin 0.8 0.6 (0.15-1.2) mg/dL AST 13 17 (0-40) U/L ALT 8 10 (0-41) U/L Alkaline Phosphatase 56 43 (40-130) U/L Albumin 4.0 3.3 L (3.5-5.2) g/dL Coags 08/26/22 08:40 PT 15.30 H INR 1.18 APTT 32.2 Cardiac Studies: Echocardiogram 02/23/22 Echocardiogram Ultrasound 07/20/20 Cardiac Event Monitor 02/16/21
--- NOTE | 2022-08-27 07:00 | PC.NURSE ---
Bedside report received from KellyMercedes
--- NOTE | 2022-08-27 07:32 | PC.NURSE ---
Pt to OR with OR staff.
[2022-08-27] MEDS: CELEcoxib 200 mg Capsule 400 MG PO (08:00)
[2022-08-27] MEDS: acetaminophen 1,000 MG/100 ML PIGGYBACK 400 MG IV ×3 (08:02→23:35)
[2022-08-27] MEDS: sodium chloride 0.9% 1,000 ML 30 ML IV (08:06)
[2022-08-27] MEDS: ceFAZolin 2,000 MG in sodium chloride 0.9% (plus) 50 ML 100 MG IV ×2 (08:45→17:46)
[2022-08-27] MEDS: ceFAZolin 1,000 mg SDV 1000 MG IRRIGATION (09:23)
--- NOTE | 2022-08-27 10:51 | PM.OP ---
Operative Report Date of procedure: August 27, 2022 Pre-op diagnosis: Left intertrochanteric/subtrochanteric comminuted displaced hip fracture Post-op diagnosis: Left intertrochanteric/subtrochanteric comminuted displaced hip fracture Post-op findings: Comminuted, displaced, shortened left intertrochanteric hip fracture with subtrochanteric extension Procedure done: Open reduction internal fixation right intertrochanteric/subtrochanteric hip fracture utilizing the gamma 3 long nail Implants: The Maureen gamma 3 long trochanteric nail, right, 11 mm x 380 mm x 125 degrees, a lag screw size 10.5 mm x 100 mm, and a distal fully threaded locking screws size 5 mm x 40 mm Specimens removed/disposition: None Surgeon: Racheal Grey Earth Science Teacher: None Anesthesia: General (Intubated, ASA 3) Estimated blood loss (mL): 50 IV fluids (mL): 1,000 Urine output (mL): 150 Complications: None Findings: Severely comminuted, shortened, displaced and angulated intertrochanteric hip fracture with subtrochanteric extension Condition: stable Disposition: PACU (Then return to floor for postoperative rehabilitation and pain management) Brief History: Siva Malik is a 82 year old male who was admitted through the emergency department with complaints of left hip pain.? The patient notes over the past week he has become progressively weaker, and he has not felt like eating.? He states that he thinks perhaps because of the weakness he stumbled and fell right after he got up from the toilet and walked out of the bathroom.? Reportedly, his significant other found him wedged between the dresser and the wall.? He did not lose consciousness or complain of any dizziness prior to his fall.? He presented with a laceration on the dorsum of his hand and also about his elbow.? He had some bruising on the anterior distal tibia, but x-ray studies of these areas were negative.? Patient was admitted to the medical service.? He is on Plavix, but given the nature of the fracture, we elected to proceed with surgical intervention as soon as possible. Consents was obtained, and questions were answered at the time of initial consultation. Consents are signed in the preoperative holding area. Patient will proceed with surgical intervention today. Procedure: Patient was brought to the operating theater. After undergoing adequate general anesthesia, intubated, ASA 3, the patient was transferred to the fracture table, positioned on the table and fluoroscopic guidance obtained throughout the surgical procedure. Prior to the commencement of the surgical procedure, a surgical pause was performed. At the time of the surgical pause, we confirmed the site and side of surgery as well as preoperative surgical markings and appropriate and timely administration of IV antibiotics, Ancef 2 g. Availability of equipment was also confirmed. Fluoroscopy was used to confirm the fracture was appropriately reduced in both AP and lateral planes. An incision was then made slightly above the greater trochanter to allow access to the greater trochanter. An awl was used to enter the greater trochanter and a guidewire was subsequently placed. Once the guidewire was confirmed to be in appropriate position in AP and lateral planes, reaming was accomplished over this to allow for the proximal diameter of the nail.? Guidewire was then removed, and a long intramedullary guidewire was placed with care being made to confirm it was intramedullary in both AP and lateral planes. Reaming was then accomplished over this guidewire.? An 11 mm nail was felt to be the appropriate nail after the reaming process, so we reamed to a size 13 to allow passage of the nail. An 11 mm x 380 mm x 125 degree long right trochanteric nail was placed into appropriate position with positioning being confirmed in AP and lateral planes on the x-ray. It passed without difficulty. Guidewire was then passed through the jigging system into the femoral head. We wanted to be center or slightly inferior and posterior to center. Guidewire was placed into appropriate position. Once the guidewire was in appropriate position, this position was confirmed by x-ray.? The guidewire was then measured and we chose a 100 everybody blames it on you Brijesh mm lag screw.? We reamed to allow for the lag screw to be placed.? The 100 mm lag screw was then passed into the femoral head through the trochanteric nail. This was passed uneventfully and again position was confirmed in AP and lateral planes. Compression was obtained under fluoroscopic guidance.? The set screw was then placed in position, tightened completely, and subsequently backed off one-eighth turn. The construct was left in position and attention was directed distally. A perfect capitan grande band technique was used distally for the static distal screw position for the long trochanteric nail.? Appropriate drill was placed through the trochanteric nail.? Position was confirmed in AP and lateral planes.? Measurement was obtained for determination of screw length.? The appropriate size screw was chosen and was passed distally without difficult.? Once the screw was in position, we confirmed appropriate placement of the components.? The proximal jogging system had been removed prior to the perfect capitan grande band technique.? Attention was then directed to closure. The hip was copiously irrigated with normal saline with antibiotics. Following this it was dried and closed. Tensor fascia jason was closed proximally with 0 Vicryl in an interrupted fashion. Subcutaneous tissues were closed with 2-0 Monocryl, and the skin was closed with 3-0 Monocryl. This was then covered with Dermabond and OpSite. The patient was removed from the fracture table and returned to recovery in satisfactory condition. The patient will be discharged to the floor for postoperative rehabilitation and pain management. There were no specimens obtained. Related Problem List Diagnoses (1) Closed intertrochanteric fracture of left femur: (2) Subtrochanteric fracture of left femur:
--- NOTE | 2022-08-27 10:53 | PC.NURSE ---
report received from PACU ETA for arrival 10 - 20 minutes
--- NOTE | 2022-08-27 11:14 | PC.NURSE ---
pt back from OR.
--- NOTE | 2022-08-27 11:39 | ANE.PACU2 ---
Inpatient post-anesthesia follow up: Airway intact: Yes Vital signs: Temperature 97.8 F Pulse Rate [Orthos tatic 77 Sitting] Pulse Rate [Orthos tatic Lying] 79 Pulse Rate 88 Respiratory Rate 16 Blood Pressure [Or thostatic 107/46 Sitting Right Arm] Blood Pressure [Or thostatic 124/55 Lying Right Arm] Blood Pressure 104/64 Pulse Oximetry 94 Oxygen Delivery Me thod Room Air Oxygen Flow Rate 10 Fraction of Inspir ed Oxygen Hydration adequate: Yes Nausea and vomiting: No Pain level: 1 Mental status: Baseline
--- NOTE | 2022-08-27 16:50 | P.PN_ITS ---
Subjective Subjective: Open reduction internal fixation right intertrochanteric/subtrochanteric hip fracture utilizing the gamma 3 long nail earlier this morning tolerated procedure well pain is under control, no acute complaints Medications: Reviewed: Yes Vitals/I&O/Wt Last Vital Signs Temp 97.6 F 08/27/22 16:00 Pulse 80 08/27/22 16:00 Resp 15 08/27/22 16:00 BP 106/64 08/27/22 16:00 Pulse Ox 93 08/27/22 16:00 O2 Del Method 08/27/22 16:00 O2 Flow Rate 10 08/27/22 10:45 08/27/22 08/27/22 08/27/22 06:59 14:59 22:59 Intake Total 1920 / 1920 Output Total 500 / 500 550 / 550 100 / 650 Balance -500 / 1480 1370 / 1370 -100 / 1270 Weight last 48 hrs Weight 71.838 kg Physical Exam Narrative: General: No acute distress, AO x3 HEENT: PERRLA, pupils bilaterally equal and reactive, pallors not present Chest: Normal vesicular breath sounds, no added sounds, equal good air entry bilaterally CVS: S1-S2 regular, no murmurs, no tachycardia, no gallops, no rubs Abdomen: Soft, nontender, no organomegaly, bowel sounds present Neuro: No focal deficits, no facial deformity, AO x3, power 5/5 in all limbs Urinary Catheter Management: Rick: Cath Placed During This Visit: yes Reason for Continuing Indwelling Catheter: Acute Urinary Retention or O bstruction Urinary Catheter Date of Insertion: 08/26/22 Urinary Catheter Time of Insertion: 12:39 Data 08/27/22 03:37 08/27/22 03:37 A&P Assessment and plan (1) Atherosclerosis of coronary artery of [place] heart without angina pectoris: (2) Benign essential hypertension with target blood pressure below 140/90: (3) Hyperlipidemia: Qualifiers: Hyperlipidemia type: unspecified Qualified Code(s): E78.5 - Hyperlipidemia, unspecified (4) CKD (chronic kidney disease): (5) Hip fracture: (6) Generalized weakness: Plan #Acute fracture left hip #S/p mechanical fall vs other etiology #Generalized weakness #Hx CAD s/p PCI FLACA to LAD #HTN #HLD #CKD, baseline 1.5-1.6 - okay to resume aspirin, plavix per orthopedics now - Continue atorvastatin 40 - Hold tamsulosin - Check orthostatic vitals when able to get out of bed - Monitor on telemetry - Continue trazodone - Check urine culture, UA - Check vitamin b12, phosphorus - EKG reviewed, no ischemic changes - Echo recently done in february 2022: EF 55-60%, diastolic dysfunction present. - Continue to monitor in hospital and plan for surgery on Sunday. Will need tele monitoring to r/o occult arrhythmia however my suspicion is after URI pt was dehydrated and had loss of appetite. He was still taking all this medications including flomax, he may have had orthostatic hypotension. - Will continue to gently hydrate patient. DNR/DNI. DVT PPx: Heparin sub cu BID Attestations Medical Necessity Statement*: s/p surgical fixation today, post op monitoring, pain control, disposition planning Coding Level of Care Code Acute Game Farm Helper for g Fwd Diagnoses Atherosclerosis of coronary artery of [place] heart without angina pectoris I25.10 Benign essential hypertension with target blood pressure below 140/90 I10 Hyperlipidemia E78.5 Hyperlipidemia type: unspecified CKD (chronic kidney disease) N18.9 Hip fracture S72.009A Generalized weakness R53.1
[2022-08-27] MEDS: sennosides-docusate Tablet 2 TAB PO (17:48)
[2022-08-27] MEDS: tamsulosin 0.4 mg Capsule PO (20:30)
[2022-08-28] VITALS (16 sets, daily range): BP systolic 93–119; BP diastolic 48–68; PULSE 61–95; RESP 16–18; TEMP 36.3–36.8; O2SAT 91–98
[2022-08-28] MEDS: heparin 5,000 unit/mL INJ 1 mL 5000 UNIT SUBCUT ×2 (00:29→13:19)
[2022-08-28] MEDS: ceFAZolin 2,000 MG in sodium chloride 0.9% (plus) 50 ML 100 MG IV (00:29)
[2022-08-28] MEDS: oxyCODONE 5 mg IR Tab/Cap PO ×2 (03:24→11:31)
[2022-08-28 04:18] LABS: Basophils % 0.2 %; Eosinophils # 0.1 10^3/uL (0.0-0.8); Eosinophils % 0.8 %; Hematocrit 23.1 % (42.0-52.0); Hemoglobin 7.1 g/dL (11.7-16.6); Lymphocytes # 0.6 10^3/uL (0.8-4.8); Lymphocytes % 10.1 %; Mean Corpuscular HGB Conc 30.7 g/dL (30.0-36.0); Mean Corpuscular Hemoglobin 27.3 pg (28.0-34.0); Mean Corpuscular Volume 88.8 fl (80-94); Mean Platelet Volume 9.6 fL (7.4-10.4); Monocytes # 0.5 10^3/uL (0.2-0.9); Monocytes % 7.4 %; Neutrophils # 5.14 10^3/uL (1.8-7.7); Neutrophils % 81.2 %; Nucleated Red Blood Cells % 0 %; Platelet Count 200 10^3/cmm (130-400); Red Cell Distribution Width 14.3 % (12.1-15.1); White Blood Count 6.3 10^3/uL (4.0-10.0)
[2022-08-28 04:47] LABS: Alanine Aminotransferase 10 U/L (0-41); Albumin Level 2.4 g/dL (3.5-5.2); Alkaline Phosphatase 36 U/L (40-130); Anion Gap 13.8 (5-19); Aspartate Amino Transferase 22 U/L (0-40); Blood Urea Nitrogen 27 mg/dL (8-23); Calcium 8.1 mg/dL (8.5-10.5); Carbon Dioxide 22 mmol/L (22-29); Chloride 105 mmol/L (98-107); Globulin 2.4 g/dL (1.3-4.6); Glucose 131 mg/dL (65-115); Osmolality Calculated 291 mOsm/kg (285-295); Potassium 3.8 mmol/L (3.5-5.1); Sodium 137 mmol/L (136-145); Total Bilirubin 0.3 mg/dL (0.15-1.2); Total Protein 4.8 g/dL (6.6-8.7)
[2022-08-28] MEDS: acetaminophen 1,000 MG/100 ML PIGGYBACK 400 MG IV (10:23)
[2022-08-28] MEDS: clopidogrel 75 mg Tablet PO (10:24)
[2022-08-28] MEDS: CELEcoxib 200 mg Capsule PO (10:24)
[2022-08-28] MEDS: cholecalciferol (vitamin D3) 1,000 unit Tablet 2000 UNIT PO (10:24)
[2022-08-28] MEDS: cyanocobalamin 1,000 mcg/mL SDV 1000 MCG SUBCUT (10:24)
[2022-08-28] MEDS: atorvastatin 40 mg Tablet 80 MG PO (10:27)
[2022-08-28] MEDS: aspirin 81 mg EC Tablet PO (10:27)
[2022-08-28] MEDS: ceFAZolin 2,000 MG in sodium chloride 0.9% (plus) 50 ML 10 MG IV (11:33)
[2022-08-28] MEDS: sennosides-docusate Tablet 2 TAB PO ×2 (11:37→18:48)
--- NOTE | 2022-08-28 12:01 | PM.PN ---
Subjective Subjective: Seen this morning. Sitting up in chair with family at bedside. Hemoglobin 7.1. 1 unit of blood has been ordered but has not been started yet. Patient says he still feels weak overall. States he is comfortable however. Vitals/I&O/Wt Last Vital Signs Temp 98.3 F 08/28/22 11:41 Pulse 94 08/28/22 11:41 Resp 16 08/28/22 11:41 BP 109/68 08/28/22 11:41 Pulse Ox 97 08/28/22 11:41 O2 Del Method 08/28/22 11:41 O2 Flow Rate 10 08/27/22 10:45 08/27/22 08/28/22 08/28/22 22:59 06:59 14:59 Intake Total 630 / 2550 300 / 2850 120 / 120 Output Total 250 / 800 250 / 1050 Balance 380 / 1750 50 / 1800 120 / 120 Weight last 48 hrs Weight 71.838 kg Physical Exam Narrative: General: Alert oriented x3, patient seen sitting up in chair with family at bedside.. Appearing comfortable. HEENT: Normocephalic, atraumatic, EOMI, breathing normally. Cardio: Regular rate rhythm, normal S1-S2, no murmurs Respiratory: Clear to auscultation b/l, no wheezes GI: Abdomen soft, nontender, nondistended, bowel sounds + Behavior: Appropriate and cooperative Extremities: No edema b/l Urinary Catheter Management: Rick: Cath Placed During This Visit: yes, but has since been removed by the nurse Reason for Continuing Indwelling Catheter: Decision to DC Catheter Urinary Catheter Date of Insertion: 08/26/22 Urinary Catheter Time of Insertion: 12:39 Date Urinary Catheter Removed: 08/28/22 Time Urinary Catheter Discontinued: 06:22 Data 08/28/22 04:09 08/28/22 04:09 A&P Assessment and plan (1) Atherosclerosis of coronary artery of [place] heart without angina pectoris: (2) Benign essential hypertension with target blood pressure below 140/90: (3) Hyperlipidemia: Qualifiers: Hyperlipidemia type: unspecified Qualified Code(s): E78.5 - Hyperlipidemia, unspecified (4) CKD (chronic kidney disease): (5) Hip fracture: (6) Generalized weakness: Plan #Acute fracture left hip status postrepair #Postop blood loss anemia #S/p mechanical fall vs other etiology #Generalized weakness #Hx CAD s/p PCI FLACA to LAD #HTN #HLD #CKD, baseline 1.5-1.6 -Continue aspirin and Plavix. - Continue atorvastatin 40 - Hold tamsulosin -Check orthostatic vitals in a.m. - Monitor on telemetry - Continue trazodone -AUA negative for nitrites and leukocyte esterase. 1+ protein, 2+ blood present. -B12 level low. Started on subcutaneous B12 injections daily for 5 days. Thereafter transition to oral. - EKG reviewed, no ischemic changes - Echo recently done in february 2022: EF 55-60%, diastolic dysfunction present. -Order 1 unit packed RBC today. Hemoglobin 7.1. Was 10.3 yesterday. Check posttransfusion CBC. - Will continue to gently hydrate patient. ? Physical therapy occupational therapy. DNR/DNI. DVT PPx: Heparin sub cu BID Family updated at bedside. Attestations Medical Necessity Statement*: Continue to manage for acute fracture left hip status post repair and postop care with complications of postop blood loss anemia. Expect patient to stay in the hospital another 24 to 48 hours pending clinical course. Coding Level of Care Code Acute Potato Chip Packaging Machine Operator for Marla Fwd Diagnoses Atherosclerosis of coronary artery of [place] heart without angina pectoris I25.10 Benign essential hypertension with target blood pressure below 140/90 I10 Hyperlipidemia E78.5 Hyperlipidemia type: unspecified CKD (chronic kidney disease) N18.9 Hip fracture S72.009A Generalized weakness R53.1
--- NOTE | 2022-08-28 12:24 | PC.CHAP ---
Pastoral Care Encounter/Spiritual Assessment Type of Contact [] Declined humid system operator visit [] Patient/Family/Request visit [] Outpatient visit [] Follow-up visit [] Physician referral [] Code/Alert [x] Routine visit [] Staff referral [] Actively dying [] Patient sleeping [] Family support [] [] Out of room [] Palliative care [] [] Receiving care in room [] Pre-surgical visit [] Trauma [] Long length of stay [] ICU visit [] Other: Relational/Emotional Strength [x] Patient feels connected with others/family/visitors/staff [] Distress [] Loneliness/isolation [] Abandonment Spirituality of Patient [x] Person of Ursula [x Attends Oriental Orthodox of their Ursula x] Believes in Prayer x[] Reads Bible or Nondenominational materials [] There are Spiritual issues to be addressed Human Resources Supervisor Interventions [x Prayer [x] Active listening [x] Non-anxious presence [x] Spiritual/emotional support [] Crisis/trauma care [] Spiritual counseling [] Bereavement support [] Provided bereavement packet [] Provided Bible/devotional materials [] Provided toy/stuffed animal, coloring book to patient or family member [] Provided Communion [] Anointing/Addison [] Salvation [x] Completed spiritual assessment [] Other: Impact on Illness or Injury [] Angry [] Fearful [] Anxious [] Often cries [] Exhaustion [] Unable to work [] Unable to attend yarsanism [] Unable to walk/stand [] Unable to read [] Unable to drive [] Unable to eat/drink [] Unable to sleep [] Unable to be with family [] Patient intubated [] Other: Summary Time spent with patient 10 min
[2022-08-28] MEDS: sodium chloride 0.9% (100 ml) 100 ML 125 ML (12:57)
--- NOTE | 2022-08-28 13:44 | PM.PN ---
Subjective Subjective: Patient is evaluated this afternoon. He is doing well. He is working with physical therapy, but secondary to his operative dehydrated and weakened state, he will likely require skilled the time of discharge. This is being weighted at the time he is seen in the hospital. His significant other is present at the time as well. Medications: Reviewed: Yes Vitals/I&O/Wt Last Vital Signs Temp 97.6 F 08/28/22 13:20 Pulse 75 08/28/22 13:20 Resp 17 08/28/22 13:20 BP 94/56 08/28/22 13:20 Pulse Ox 94 08/28/22 13:20 O2 Del Method 08/28/22 11:41 O2 Flow Rate 10 08/27/22 10:45 08/27/22 08/28/22 08/28/22 22:59 06:59 14:59 Intake Total 630 / 2550 300 / 2850 240 / 240 Output Total 250 / 800 250 / 1050 Balance 380 / 1750 50 / 1800 240 / 240 Weight last 48 hrs Weight 158 lb 6 oz Physical Exam Const: COMMON NORMALS: no acute distress, average body habitus, patient oriented x3 and alert GENERAL APPEARANCE: cooperative and comfortable ORIENTATION/CONSCIOUSNESS: Yes awake HENMT: COMMON NORMALS: normocephalic and atraumatic HEAD & SCALP: normocephalic and atraumatic Eye: GENERAL EYE: appearance normal, both eyes and all related structures Chest: COMMONS NORMALS: normal inspection of the chest Resp: COMMON NORMALS: normal respiratory effort EFFORT & INSPECTION: Yes able to speak in complete sentences and Yes symmetric chest movement Extremity: LEFT LOWER EXTREMITY: Yes hip joint (Dressing is dry and intact.) Left hip: Yes inspection (No significant ecchymosis.), Yes palpation (No significant tenderness.) and Yes neurovascular exam (Intact distally with no evidence of DVT.) Neuro: COMMON NORMALS: patient oriented x3 SENSORIUM/ORIENTATION: Yes alert Psych: COMMON NORMALS: mental status grossly normal APPEARANCE: Yes grossly normal ATTITUDE: Yes calm and Yes engaged ATTENTION/CONCENTRATION: Yes attention grossly intact Skin: COMMON NORMALS: no rashes or lesions noted GENERAL SKIN EXAM: no rashes or lesions noted Urinary Catheter Management: Rick: Cath Placed During This Visit: yes, but has since been removed by the nurse Reason for Continuing Indwelling Catheter: Decision to DC Catheter Urinary Catheter Date of Insertion: 08/26/22 Urinary Catheter Time of Insertion: 12:39 Date Urinary Catheter Removed: 08/28/22 Time Urinary Catheter Discontinued: 06:22 Data 08/28/22 04:09 08/28/22 04:09 A&P Assessment and plan (1) Closed intertrochanteric fracture of left femur: This 82-year-old gentleman had a fall at home after getting up from the toilet. He was found wedged between the wall and a dresser. He denies any loss of consciousness, but he does note increasing weakness over the past week. He states he just has not been hungry and has not been eating well and feels he may have been dehydrated. Imaging in the emergency department demonstrated a very comminuted intertrochanteric hip fracture with extension into the subtrochanteric area. There was some concern of possible pathologic fracture given the nature of the patient's history of his fall, but CT scan did not demonstrate any evidence of pathologic processes. Patient underwent open reduction internal fixation of a left intertrochanteric hip fracture uneventfully. Currently, he is working with therapy and awaiting transfer to nursing home when felt to be medically appropriate. Qualifiers: Encounter type: initial encounter Fracture alignment: displaced Qualified Code(s): S72.142A - Displaced intertrochanteric fracture of left femur, initial encounter for closed fracture (2) Subtrochanteric fracture of left femur: Subtrochanteric extension from the patient's comminuted intertrochanteric hip fracture is evident on both CT and plain film. Qualifiers: Encounter type: initial encounter Fracture type: closed Fracture alignment: displaced Qualified Code(s): S72.22XA - Displaced subtrochanteric fracture of left femur, initial encounter for closed fracture Attestations Medical Necessity Statement*: Ongoing medical care and therapy following ORIF left hip fracture. Coding Level of Care Code Acute Survey Supervisor for [facility] Fwd Diagnoses Closed intertrochanteric fracture of left femur S72.142A Encounter type: initial encounter Fracture alignment: displaced Subtrochanteric fracture of left femur S72.22XA Encounter type: initial encounter Fracture type: closed Fracture alignment: displaced
[2022-08-28] MEDS: acetaminophen 500 mg Tablet 1000 MG PO (15:16)
[2022-08-28 17:47] LABS: Basophils % 0.2 %; Eosinophils % 0.3 %; Hematocrit 27.8 % (42.0-52.0); Lymphocytes # 0.4 10^3/uL (0.8-4.8); Lymphocytes % 4.7 %; Mean Corpuscular HGB Conc 32.4 g/dL (30.0-36.0); Mean Corpuscular Hemoglobin 28.1 pg (28.0-34.0); Mean Corpuscular Volume 86.9 fl (80-94); Monocytes # 0.6 10^3/uL (0.2-0.9); Neutrophils # 8.14 10^3/uL (1.8-7.7); Neutrophils % 88.6 %; Nucleated Red Blood Cells % 0 %; Platelet Count 233 10^3/cmm (130-400); White Blood Count 9.2 10^3/uL (4.0-10.0)
[2022-08-28] MEDS: sodium chloride 0.9% 1,000 ML 75 ML IV (18:49)
[2022-08-28] MEDS: tamsulosin 0.4 mg Capsule PO (20:33)
--- NOTE | 2022-08-28 20:41 | PC.NURSE ---
URINARY RETENTION Pt urinated about 25ml in urinal. Upon questioning learned that pt had not urinated all day other than this. Bladder scan was done and 393ml shown to be in bladder. Dr Melara was called and order was received to replace Rick. This was done with return of 300ml urine.
[2022-08-29] VITALS (15 sets, daily range): BP systolic 93–128; BP diastolic 52–73; PULSE 57–91; RESP 16–18; TEMP 36.5–36.8; O2SAT 91–98
[2022-08-29] MEDS: acetaminophen 500 mg Tablet 1000 MG PO ×4 (00:03→23:53)
[2022-08-29] MEDS: heparin 5,000 unit/mL INJ 1 mL 5000 UNIT SUBCUT ×3 (00:03→23:53)
[2022-08-29 05:18] LABS: Basophils % 0.3 %; Eosinophils # 0.2 10^3/uL (0.0-0.8); Eosinophils % 3.3 %; Hematocrit 24.2 % (42.0-52.0); Hemoglobin 7.7 g/dL (11.7-16.6); Lymphocytes # 0.5 10^3/uL (0.8-4.8); Lymphocytes % 8.1 %; Mean Corpuscular HGB Conc 31.8 g/dL (30.0-36.0); Mean Corpuscular Hemoglobin 27.6 pg (28.0-34.0); Mean Corpuscular Volume 86.7 fl (80-94); Mean Platelet Volume 9.9 fL (7.4-10.4); Monocytes # 0.4 10^3/uL (0.2-0.9); Monocytes % 6.1 %; Neutrophils # 4.91 10^3/uL (1.8-7.7); Neutrophils % 81.5 %; Nucleated Red Blood Cells % 0 %; Platelet Count 210 10^3/cmm (130-400); Red Blood Count 2.79 10^6/uL (4.1-5.3); Red Cell Distribution Width 14.6 % (12.1-15.1)
[2022-08-29] MEDS: sodium chloride 0.9% 1,000 ML 75 ML IV ×2 (05:24→17:42)
[2022-08-29 05:42] LABS: Anion Gap 10.7 (5-19); Blood Urea Nitrogen 26 mg/dL (8-23); Calcium 8.3 mg/dL (8.5-10.5); Carbon Dioxide 25 mmol/L (22-29); Chloride 108 mmol/L (98-107); Glucose 133 mg/dL (65-115); Osmolality Calculated 297 mOsm/kg (285-295); Potassium 3.7 mmol/L (3.5-5.1); Sodium 140 mmol/L (136-145)
[2022-08-29 06:23] LABS: Glucose Point of Care 156 mg/dL (70-110)
[2022-08-29] MEDS: oxyCODONE 5 mg IR Tab/Cap PO ×2 (09:37→19:04)
[2022-08-29] MEDS: aspirin 81 mg EC Tablet PO (09:37)
[2022-08-29] MEDS: sennosides-docusate Tablet 2 TAB PO ×2 (09:38→16:55)
[2022-08-29] MEDS: atorvastatin 40 mg Tablet 80 MG PO (09:38)
[2022-08-29] MEDS: CELEcoxib 200 mg Capsule PO (09:38)
[2022-08-29] MEDS: cholecalciferol (vitamin D3) 1,000 unit Tablet 2000 UNIT PO (09:38)
[2022-08-29] MEDS: clopidogrel 75 mg Tablet PO (09:38)
[2022-08-29] MEDS: cyanocobalamin 1,000 mcg/mL SDV 1000 MCG SUBCUT (09:38)
--- NOTE | 2022-08-29 12:38 | PM.PN ---
Subjective Subjective: This morning. No other events of the night. Hemoglobin 7.7 this morning. He says he feels a little better. Placement into alf being looked at at this time by case management. Family present at bedside. Patient states he tried to get up from his chair today with physical therapy however felt very weak and could not do it on his own. Vitals/I&O/Wt Last Vital Signs Temp 98.0 F 08/29/22 11:54 Pulse 57 L 08/29/22 11:54 Resp 18 08/29/22 11:54 BP 121/67 08/29/22 11:54 Pulse Ox 97 08/29/22 11:54 O2 Del Method 08/28/22 16:00 O2 Flow Rate 10 08/27/22 10:45 08/28/22 08/29/22 08/29/22 22:59 06:59 14:59 Intake Total 370 / 610 1093.75 / 1703.75 510 / 510 Output Total 25 / 25 600 / 625 Balance 345 / 585 493.75 / 1078.75 510 / 510 Physical Exam Narrative: General: Alert oriented x3, patient seen sitting up in chair with family at bedside.. Appearing comfortable. HEENT: Normocephalic, atraumatic, EOMI, breathing normally. Cardio: Regular rate rhythm, normal S1-S2, no murmurs Respiratory: Clear to auscultation b/l, no wheezes GI: Abdomen soft, nontender, nondistended, bowel sounds + Behavior: Appropriate and cooperative Extremities: No edema b/l. Mild tenderness to palpation at surgical site. Urinary Catheter Management: Rick: Cath Placed During This Visit: yes, but has since been removed by the nurse Reason for Continuing Indwelling Catheter: Acute Urinary Retention or Obstruction Urinary Catheter Date of Insertion: 08/28/22 Urinary Catheter Time of Insertion: 20:40 Date Urinary Catheter Removed: 08/28/22 Time Urinary Catheter Discontinued: 06:22 Data 08/29/22 04:51 08/29/22 04:51 A&P Assessment and plan (1) Atherosclerosis of coronary artery of [place] heart without angina pectoris: (2) Benign essential hypertension with target blood pressure below 140/90: (3) Hyperlipidemia: Qualifiers: Hyperlipidemia type: unspecified Qualified Code(s): E78.5 - Hyperlipidemia, unspecified (4) CKD (chronic kidney disease): (5) Hip fracture: (6) Generalized weakness: Plan #Acute fracture left hip status postrepair #Postop blood loss anemia #S/p mechanical fall vs other etiology #Generalized weakness #Hx CAD s/p PCI FLACA to LAD #HTN #HLD #CKD, baseline 1.5-1.6 -Continue aspirin and Plavix. - Continue atorvastatin 40 - Hold tamsulosin - Monitor on telemetry - Continue trazodone -AUA negative for nitrites and leukocyte esterase. 1+ protein, 2+ blood present. -B12 level low. Started on subcutaneous B12 injections daily for 5 days. Thereafter transition to oral. - EKG reviewed, no ischemic changes - Echo recently done in february 2022: EF 55-60%, diastolic dysfunction present. -patient is status post 1 unit RBC. Hemoglobin went up to 9. 7.7 this morning. I will recheck this evening. We will check every 12 hours. We will transfuse below 8 due to history of CAD.. - Will continue to gently hydrate patient. ? Physical therapy occupational therapy. DNR/DNI. DVT PPx: Heparin sub cu BID Family updated at bedside. Attestations Medical Necessity Statement*: Patient requires continued management of postop blood loss anemia, generalized weakness. He needs continued physical therapy. correction placement being set up. Coding Level of Care Code Acute Cutter Operator Helper for Marla Stanley Diagnoses Atherosclerosis of coronary artery of [place] heart without angina pectoris I25.10 Benign essential hypertension with target blood pressure below 140/90 I10 Hyperlipidemia E78.5 Hyperlipidemia type: unspecified CKD (chronic kidney disease) N18.9 Hip fracture S72.009A Generalized weakness R53.1
--- NOTE | 2022-08-29 13:23 | PC.SOCIAL ---
Pg 2 IMM Explained to pt Pg 2 IMM. No questions voiced. Provided pt a copy. Initialed, dated, & timed a copy & placed in chart.
[2022-08-29] MEDS: sodium chloride 0.9% 100 ML 20 ML IV (14:04)
[2022-08-29 18:31] LABS: Basophils % 0.2 %; Eosinophils # 0.2 10^3/uL (0.0-0.8); Eosinophils % 3.1 %; Hematocrit 30.9 % (42.0-52.0); Hemoglobin 9.8 g/dL (11.7-16.6); Lymphocytes # 0.5 10^3/uL (0.8-4.8); Lymphocytes % 8.3 %; Mean Corpuscular HGB Conc 31.7 g/dL (30.0-36.0); Mean Corpuscular Hemoglobin 27.6 pg (28.0-34.0); Mean Platelet Volume 9.8 fL (7.4-10.4); Monocytes # 0.4 10^3/uL (0.2-0.9); Monocytes % 6.6 %; Neutrophils # 5.25 10^3/uL (1.8-7.7); Neutrophils % 81.2 %; Nucleated Red Blood Cells % 0 %; Platelet Count 259 10^3/cmm (130-400); Red Blood Count 3.55 10^6/uL (4.1-5.3); Red Cell Distribution Width 14.9 % (12.1-15.1); White Blood Count 6.5 10^3/uL (4.0-10.0)
[2022-08-29] MEDS: tamsulosin 0.4 mg Capsule PO (21:52)
[2022-08-30] VITALS (12 sets, daily range): BP systolic 112–125; BP diastolic 57–65; PULSE 54–81; RESP 18–19; TEMP 36.6–36.8; O2SAT 94–98
[2022-08-30 03:33] LABS: Basophils % 0.2 %; Eosinophils # 0.2 10^3/uL (0.0-0.8); Eosinophils % 4.1 %; Hematocrit 27.6 % (42.0-52.0); Hemoglobin 8.7 g/dL (11.7-16.6); Lymphocytes # 0.4 10^3/uL (0.8-4.8); Lymphocytes % 8.4 %; Mean Corpuscular HGB Conc 31.5 g/dL (30.0-36.0); Mean Corpuscular Hemoglobin 27.4 pg (28.0-34.0); Mean Corpuscular Volume 87.1 fl (80-94); Monocytes # 0.4 10^3/uL (0.2-0.9); Monocytes % 7.4 %; Neutrophils # 4.04 10^3/uL (1.8-7.7); Neutrophils % 78.9 %; Nucleated Red Blood Cells % 0 %; Platelet Count 219 10^3/cmm (130-400); Red Blood Count 3.17 10^6/uL (4.1-5.3); Red Cell Distribution Width 15.7 % (12.1-15.1); White Blood Count 5.1 10^3/uL (4.0-10.0)
[2022-08-30 04:01] LABS: Anion Gap 8.9 (5-19); Blood Urea Nitrogen 23 mg/dL (8-23); Calcium 8.3 mg/dL (8.5-10.5); Carbon Dioxide 24 mmol/L (22-29); Chloride 109 mmol/L (98-107); Glucose 140 mg/dL (65-115); Osmolality Calculated 292 mOsm/kg (285-295); Potassium 3.9 mmol/L (3.5-5.1); Sodium 138 mmol/L (136-145)
[2022-08-30] MEDS: oxyCODONE 5 mg IR Tab/Cap PO ×4 (05:06→20:33)
[2022-08-30] MEDS: sodium chloride 0.9% 1,000 ML 75 ML IV (06:32)
[2022-08-30] MEDS: atorvastatin 40 mg Tablet 80 MG PO (10:10)
[2022-08-30] MEDS: cholecalciferol (vitamin D3) 1,000 unit Tablet 2000 UNIT PO (10:10)
[2022-08-30] MEDS: CELEcoxib 200 mg Capsule PO (10:10)
[2022-08-30] MEDS: clopidogrel 75 mg Tablet PO (10:11)
[2022-08-30] MEDS: sennosides-docusate Tablet 2 TAB PO ×2 (10:11→17:35)
[2022-08-30] MEDS: aspirin 81 mg EC Tablet PO (10:11)
[2022-08-30] MEDS: acetaminophen 500 mg Tablet 1000 MG PO ×2 (10:11→15:44)
[2022-08-30] MEDS: cyanocobalamin 1,000 mcg/mL SDV 1000 MCG SUBCUT (10:11)
[2022-08-30] MEDS: heparin 5,000 unit/mL INJ 1 mL 5000 UNIT SUBCUT (12:06)
--- NOTE | 2022-08-30 13:40 | P.PN_ITS ---
Subjective Subjective: seen this am HB stable feels better making progress with physical therapy. Vitals/I&O/Wt Last Vital Signs Temp 98.1 F 08/30/22 11:42 Pulse 54 L 08/30/22 11:42 Resp 18 08/30/22 11:42 BP 114/59 08/30/22 11:42 Pulse Ox 94 08/30/22 11:42 O2 Del Method 08/30/22 11:42 O2 Flow Rate 10 08/27/22 10:45 08/29/22 08/30/22 08/30/22 22:59 06:59 14:59 Intake Total 1621.167 / 2371.167 962.5 / 3333.667 240 / 240 Output Total 600 / 600 300 / 900 Balance 1021.167 / 1771.167 662.5 / 2433.667 240 / 240 Physical Exam Narrative: General: Alert oriented x3, patient seen sitting up in chair with family at bedside.. Appearing comfortable. HEENT: Normocephalic, atraumatic, EOMI, breathing normally. Cardio: Regular rate rhythm, normal S1-S2, no murmurs Respiratory: mild ronchi and crakels at bases. GI: Abdomen soft, nontender, nondistended, bowel sounds + Behavior: Appropriate and cooperative Extremities: No edema b/l. Mild tenderness to palpation at surgical site. some ecchymoses present on forearm Urinary Catheter Management: Rick: Cath Placed During This Visit: yes, but has since been removed by the nurse Reason for Continuing Indwelling Catheter: Acute Urinary Retention or Obstruction Urinary Catheter Date of Insertion: 08/28/22 Urinary Catheter Time of Insertion: 20:40 Date Urinary Catheter Removed: 08/28/22 Time Urinary Catheter Discontinued: 06:22 Data 08/30/22 03:05 08/30/22 03:05 A&P Assessment and plan (1) Atherosclerosis of coronary artery of [place] heart without angina pectoris: (2) Benign essential hypertension with target blood pressure below 140/90: (3) Hyperlipidemia: Qualifiers: Hyperlipidemia type: unspecified Qualified Code(s): E78.5 - Hyperlipidemia, unspecified (4) CKD (chronic kidney disease): (5) Hip fracture: (6) Generalized weakness: Plan #Acute fracture left hip status postrepair #Postop blood loss anemia #S/p mechanical fall vs other etiology #Generalized weakness #Hx CAD s/p PCI FLACA to LAD #HTN #HLD #CKD, baseline 1.5-1.6 -Continue aspirin and Plavix. - Continue atorvastatin 40 - Hold tamsulosin - Monitor on telemetry - Continue trazodone -AUA negative for nitrites and leukocyte esterase. 1+ protein, 2+ blood present. -B12 level low. Started on subcutaneous B12 injections daily for 5 days. The reafter transition to oral. - EKG reviewed, no ischemic changes - Echo recently done in february 2022: EF 55-60%, diastolic dysfunction present. -patient is status post 1 unit RBC. Hemoglobin stable 8.7. - stop IV fluids today ? Physical therapy occupational therapy. - Pt making progress with PT. he is partial nonweightbearing at this time. Able to get up with assistance Pending placement to [facility]. DNR/DNI. DVT PPx: Heparin sub cu BID Family updated at bedside. Attestations Medical Necessity Statement*: pending placement to [facility] Coding Level of Care Code Acute Waiter/Waitress Third Class for Marla Fwterrance Diagnoses Atherosclerosis of coronary artery of [place] heart without angina pectoris I25.10 Benign essential hypertension with target blood pressure below 140/90 I10 Hyperlipidemia E78.5 Hyperlipidemia type: unspecified CKD (chronic kidney disease) N18.9 Hip fracture S72.009A Generalized weakness R53.1
--- NOTE | 2022-08-30 16:43 | P.PN_ITS ---
Subjective Subjective: The patient is seen this afternoon with his family in the room. He has been up to the chair, but he has not been ambulating outside of his room. Physical therapy continues to work with him. He continues to complain of weakness which he states was present for couple weeks prior to this admission, and this weakness, he feels, is what caused his fall. Medications: Reviewed: Yes Vitals/I&O/Wt Last Vital Signs Temp 98.0 F 08/30/22 15:10 Pulse 59 L 08/30/22 15:10 Resp 18 08/30/22 15:10 BP 112/57 08/30/22 15:10 Pulse Ox 96 08/30/22 15:10 O2 Del Method 08/30/22 11:42 O2 Flow Rate 10 08/27/22 10:45 08/30/22 08/30/22 08/30/22 06:59 14:59 22:59 Intake Total 962.5 / 3333.667 480 / 480 Output Total 300 / 900 Balance 662.5 / 2433.667 480 / 480 Physical Exam Const: COMMON NORMALS: no acute distress, average body habitus, patient oriented x3 and alert GENERAL APPEARANCE: cooperative and comfortable ORIENTATION/CONSCIOUSNESS: Yes awake HENMT: COMMON NORMALS: normocephalic and atraumatic HEAD & SCALP: normocephalic and atraumatic Eye: GENERAL EYE: appearance normal, both eyes and all related structures Chest: COMMONS NORMALS: normal inspection of the chest Resp: COMMON NORMALS: normal respiratory effort EFFORT & INSPECTION: Yes able to speak in complete sentences and Yes symmetric chest movement Neuro: COMMON NORMALS: patient oriented x3 SENSORIUM/ORIENTATION: Yes alert Psych: COMMON NORMALS: mental status grossly normal APPEARANCE: Yes grossly normal ATTITUDE: Yes calm and Yes engaged ATTENTION/CONCENTRATION: Yes attention grossly intact Skin: COMMON NORMALS: no rashes or lesions noted GENERAL SKIN EXAM: no rashes or lesions noted Urinary Catheter Management: Rick: Cath Placed During This Visit: yes, but has since been removed by the nurse Reason for Continuing Indwelling Catheter: Acute Urinary Retention or Obstruction Urinary Catheter Date of Insertion: 08/28/22 Urinary Catheter Time of Insertion: 20:40 Date Urinary Catheter Removed: 08/28/22 Time Urinary Catheter Discontinued: 06:22 Data 08/30/22 03:05 08/30/22 03:05 A&P Assessment and plan (1) Closed intertrochanteric fracture of left femur: This 82-year-old gentleman had a fall at home after getting up from the toilet. He was found wedged between the wall and a dresser. He denies any loss of consciousness, but he does note increasing weakness over the past week. He states he just has not been hungry and has not been eating well and feels he may have been dehydrated. Imaging in the emergency department demonstrated a very comminuted intertrochanteric hip fracture with extension into the subtrochanteric area. Patient continues to await placement to shelter. He continues to complain of weakness which is limiting his ability to work with therapies. He is working with physical therapy, however, on a daily basis. Qualifiers: Encounter type: initial encounter Fracture alignment: displaced Qualified Code(s): S72.142A - Displaced intertrochanteric fracture of left fem ur, initial encounter for closed fracture (2) Subtrochanteric fracture of left femur: Subtrochanteric extension from the patient's comminuted intertrochanteric hip fracture is evident on both CT and plain film. Qualifiers: Encounter type: initial encounter Fracture type: closed Fracture alignment: displaced Qualified Code(s): S72.22XA - Displaced subtrochanteric fracture of left femur, initial encounter for closed fracture Attestations Medical Necessity Statement*: Ongoing care following left hip fracture. Coding Level of Care Code Acute Senior Reliability Engineer for Marla Stanley Diagnoses Closed intertrochanteric fracture of left femur S72.142A Encounter type: initial encounter Fracture alignment: displaced Subtrochanteric fracture of left femur S72.22XA Encounter type: initial encounter Fracture type: closed Fracture alignment: displaced
[2022-08-30] MEDS: tamsulosin 0.4 mg Capsule PO (20:33)
[2022-08-31] VITALS (9 sets, daily range): BP systolic 112–154; BP diastolic 62–75; PULSE 70–80; RESP 16–19; TEMP 36.4–36.7; O2SAT 95–99
[2022-08-31] MEDS: heparin 5,000 unit/mL INJ 1 mL 5000 UNIT SUBCUT ×2 (01:13→13:41)
[2022-08-31] MEDS: acetaminophen 500 mg Tablet 1000 MG PO ×3 (01:13→17:00)
[2022-08-31 02:02] LABS: Basophils % 0.2 %; Eosinophils # 0.2 10^3/uL (0.0-0.8); Eosinophils % 4.4 %; Hematocrit 30.8 % (42.0-52.0); Hemoglobin 9.5 g/dL (11.7-16.6); Lymphocytes # 0.5 10^3/uL (0.8-4.8); Lymphocytes % 11.5 %; Mean Corpuscular HGB Conc 30.8 g/dL (30.0-36.0); Mean Corpuscular Hemoglobin 26.5 pg (28.0-34.0); Mean Platelet Volume 9.5 fL (7.4-10.4); Monocytes # 0.5 10^3/uL (0.2-0.9); Neutrophils # 3.25 10^3/uL (1.8-7.7); Neutrophils % 72.1 %; Nucleated Red Blood Cells % 0 %; Platelet Count 256 10^3/cmm (130-400); Red Blood Count 3.58 10^6/uL (4.1-5.3); Red Cell Distribution Width 15.7 % (12.1-15.1); White Blood Count 4.5 10^3/uL (4.0-10.0)
[2022-08-31 02:24] LABS: Anion Gap 11.8 (5-19); Blood Urea Nitrogen 22 mg/dL (8-23); Carbon Dioxide 25 mmol/L (22-29); Chloride 106 mmol/L (98-107); Potassium 3.8 mmol/L (3.5-5.1); Sodium 139 mmol/L (136-145)
[2022-08-31 02:25] LABS: Calcium 8.7 mg/dL (8.5-10.5); Glucose 137 mg/dL (65-115); Osmolality Calculated 293 mOsm/kg (285-295)
[2022-08-31] MEDS: sennosides-docusate Tablet 2 TAB PO ×2 (07:59→17:01)
[2022-08-31] MEDS: cyanocobalamin 1,000 mcg/mL SDV 1000 MCG SUBCUT (07:59)
[2022-08-31] MEDS: aspirin 81 mg EC Tablet PO (07:59)
[2022-08-31] MEDS: atorvastatin 40 mg Tablet 80 MG PO (07:59)
[2022-08-31] MEDS: CELEcoxib 200 mg Capsule PO (07:59)
[2022-08-31] MEDS: cholecalciferol (vitamin D3) 1,000 unit Tablet 2000 UNIT PO (07:59)
[2022-08-31] MEDS: clopidogrel 75 mg Tablet PO (08:00)
[2022-08-31] MEDS: oxyCODONE 5 mg IR Tab/Cap PO ×3 (10:03→20:09)
--- NOTE | 2022-08-31 11:37 | P.PN_ITS ---
Subjective Subjective: Patient is seen in the room with his family. He is awaiting insurance approval for discharge to intermediate. The patient is quite weak from his prehip fracture dehydration and lack of eating. Medications: Reviewed: Yes Vitals/I&O/Wt Last Vital Signs Temp 98.1 F 08/31/22 08:00 Pulse 80 08/31/22 08:00 Resp 16 08/31/22 10:03 BP 134/75 08/31/22 08:00 Pulse Ox 96 08/31/22 08:00 O2 Del Method 08/31/22 08:00 O2 Flow Rate 10 08/27/22 10:45 08/30/22 08/31/22 08/31/22 22:59 06:59 14:59 Intake Total 1371.25 / 1851.25 600 / 2451.25 360 / 360 Output Total 500 / 500 450 / 950 Balance 871.25 / 1351.25 150 / 1501.25 360 / 360 Physical Exam Const: COMMON NORMALS: no acute distress, average body habitus, patient oriented x3 and alert GENERAL APPEARANCE: cooperative and comfortable ORIENTATION/CONSCIOUSNESS: Yes awake HENMT: COMMON NORMALS: normocephalic and atraumatic HEAD & SCALP: normocephalic and atraumatic Eye: GENERAL EYE: appearance normal, both eyes and all related structures Chest: COMMONS NORMALS: normal inspection of the chest Resp: COMMON NORMALS: normal respiratory effort EFFORT & INSPECTION: Yes able to speak in complete sentences and Yes symmetric chest movement Extremity: LEFT LOWER EXTREMITY: Yes hip joint (Dressing is dry and intact.) Left hip: Yes inspection (Minimal to no swelling.), Yes palpation (No specific tenderness.) and Yes neurovascular exam (No evidence of DVT.) Neuro: COMMON NORMALS: patient oriented x3 SENSORIUM/ORIENTATION: Yes alert Psych: COMMON NORMALS: mental status grossly normal APPEARANCE: Yes grossly normal ATTITUDE: Yes calm and Yes engaged ATTENTION/CONCENTRATION: Yes attention grossly intact Skin: COMMON NORMALS: no rashes or lesions noted GENERAL SKIN EXAM: no rashes or lesions noted Urinary Catheter Management: Rick: Cath Placed During This Visit: yes, but has since been removed by the nurse Reason for Continuing Indwelling Catheter: Acute Urinary Retention or Obstruction Urinary Catheter Date of Insertion: 08/28/22 Urinary Catheter Time of Insertion: 20:40 Date Urinary Catheter Removed: 08/28/22 Time Urinary Catheter Discontinued: 06:22 Data 08/31/22 01:35 08/31/22 01:35 A&P Assessment and plan (1) Closed intertrochanteric fracture of left femur: This 82-year-old gentleman had a fall at home after getting up from the toilet. He was found wedged between the wall and a dresser. He denies any loss of consciousness, but he does note increasing weakness over the past week. He states he just has not been hungry and has not been eating well and feels he may have been dehydrated. Imaging in the emergency department demonstrated a very comminuted intertrochanteric hip fracture with extension into the subtrochanteric area. He underwent successful open reduction internal fixation. Currently, he is working with physical therapy, and he continues to await placement to intermediate. He continues to complain of weakness which is limiting his ability to work with therapies. He is working with physical therapy, however, on a daily basis. Qualifiers: Encounter type: initial encounter Fracture alignment: displaced Qualified Code(s): S72.142A - Displaced intertrochanteric fracture of left femur, initial encounter for closed fracture (2) Subtrochanteric fracture of left femur: Subtrochanteric extension from the patient's comminuted intertrochanteric hip fracture is evident on both CT and plain film. Qualifiers: Encounter type: initial encounter Fracture type: closed Fracture ali gnment: displaced Qualified Code(s): S72.22XA - Displaced subtrochanteric fracture of left femur, initial encounter for closed fracture Attestations Medical Necessity Statement*: Per primary service. 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
--- NOTE | 2022-08-31 12:06 | PC.SOCIAL ---
IMM update Imm updated with patient at bedside. Copy of page 2 provided. Patient verbalized understanding. Copy in chart initialed, dated and timed.
--- NOTE | 2022-08-31 14:21 | PM.PN ---
Subjective Subjective: hb stable laying in bed NAEO Vitals/I&O/Wt Last Vital Signs Temp 97.9 F 08/31/22 12:00 Pulse 80 08/31/22 12:00 Resp 16 08/31/22 12:00 BP 112/68 08/31/22 12:00 Pulse Ox 97 08/31/22 12:00 O2 Del Method 08/31/22 08:00 O2 Flow Rate 10 08/27/22 10:45 08/30/22 08/31/22 08/31/22 22:59 06:59 14:59 Intake Total 1371.25 / 1851.25 600 / 2451.25 480 / 480 Output Total 500 / 500 450 / 950 Balance 871.25 / 1351.25 150 / 1501.25 480 / 480 Physical Exam Narrative: General: Alert oriented x3, patient seen laying in bed. Appearing comfortable. HEENT: Normocephalic, atraumatic, EOMI, breathing normally. Cardio: Regular rate rhythm, normal S1-S2, no murmurs Respiratory: clear to ausculation today GI: Abdomen soft, nontender, nondistended, bowel sounds + Behavior: Appropriate and cooperative Extremities: No edema b/l. Mild tenderness to palpation at surgical site. some ecchymoses present on forearm Urinary Catheter Management: Rick: Cath Placed During This Visit: yes, but has since been removed by the nurse Reason for Continuing Indwelling Catheter: Acute Urinary Retention or Obstruction Urinary Catheter Date of Insertion: 08/28/22 Urinary Catheter Time of Insertion: 20:40 Date Urinary Catheter Removed: 08/28/22 Time Urinary Catheter Discontinued: 06:22 Data 08/31/22 01:35 08/31/22 01:35 A&P Assessment and plan (1) Atherosclerosis of coronary artery of [place] heart without angina pectoris: (2) Benign essential hypertension with target blood pressure below 140/90: (3) Hyperlipidemia: Qualifiers: Hyperlipidemia type: unspecified Qualified Code(s): E78.5 - Hyperlipidemia, unspecified (4) CKD (chronic kidney disease): (5) Hip fracture: (6) Generalized weakness: Plan #Acute fracture left hip status postrepair #Postop blood loss anemia #S/p mechanical fall vs other etiology #Generalized weakness #Hx CAD s/p PCI FLACA to LAD #HTN #HLD #CKD, baseline 1.5-1.6 -Continue aspirin and Plavix. - Continue atorvastatin 40 - Hold tamsulosin - Monitor on telemetry - Continue trazodone -AUA negative for nitrites and leukocyte esterase. 1+ protein, 2+ blood present. -B12 level low. Started on subcutaneous B12 injections daily for 5 days. Thereafter transition to oral. - EKG reviewed, no ischemic changes - Echo recently done in february 2022: EF 55-60%, diastolic dysfunction present. -patient is status post 1 unit RBC. Hemoglobin stable 8.7. - stop IV fluids today ? Physical therapy occupational therapy. - Pt making progress with PT. he is partial nonweightbearing at this time. Able to get up with assistance Pending placement to senior care. DNR/DNI. DVT PPx: Heparin sub cu BID Family updated at bedside. 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
[2022-08-31] MEDS: tamsulosin 0.4 mg Capsule PO (20:08)
[2022-08-31] MEDS: trazodone 50 mg Tablet PO (20:09)
[2022-09-01] VITALS (11 sets, daily range): BP systolic 132–163; BP diastolic 59–78; PULSE 70–90; RESP 13–19; TEMP 36.4–37; O2SAT 91–97
[2022-09-01] MEDS: heparin 5,000 unit/mL INJ 1 mL 5000 UNIT SUBCUT ×3 (01:02→23:50)
[2022-09-01] MEDS: oxyCODONE 5 mg IR Tab/Cap PO ×4 (03:47→20:24)
[2022-09-01] MEDS: acetaminophen 500 mg Tablet 1000 MG PO ×3 (08:36→23:21)
[2022-09-01] MEDS: CELEcoxib 200 mg Capsule PO (08:36)
[2022-09-01] MEDS: aspirin 81 mg EC Tablet PO (08:36)
[2022-09-01] MEDS: sennosides-docusate Tablet 2 TAB PO ×2 (08:36→16:52)
[2022-09-01] MEDS: cholecalciferol (vitamin D3) 1,000 unit Tablet 2000 UNIT PO (08:36)
[2022-09-01] MEDS: atorvastatin 40 mg Tablet 80 MG PO (08:36)
[2022-09-01] MEDS: clopidogrel 75 mg Tablet PO (08:36)
[2022-09-01] MEDS: cyanocobalamin 1,000 mcg/mL SDV 1000 MCG SUBCUT (08:37)
--- NOTE | 2022-09-01 10:15 | P.DS_ITS ---
Discharge Providers Date of Admission: 08/26/22 12:18 Date of Discharge: August 31, 2022 Attending Provider at Admission: Eleonora Cortes MD Attending Provider at Discharge: Eleonora Cortes MD Primary Care Provider: Portia Larose MD Diagnoses at Discharge Discharge Diagnosis (1) Closed intertrochanteric fracture of left femur: Status: Acute Qualifiers: Encounter type: initial encounter Fracture alignment: displaced Qualified Code(s): S72.142A - Displaced intertrochanteric fracture of left femur, initial encounter for closed fracture (2) Subtrochanteric fracture of left femur: Status: Acute Qualifiers: Encounter type: initial encounter Fracture alignment: displaced Fracture type: closed Qualified Code(s): S72.22XA - Displaced subtrochanteric fracture of left femur, initial encounter for closed fracture Reason for Visit Reason for Visit: LEFT LEG PAIN S/P FALL Brief History: Siva Malik is a 82 year old male with past medical history of hypertension, CKD, hyperlipidemia, chronic opioid use, CAD status post PCI to LAD in the past, hyperlipidemia, diabetes presented to the hospital today due to a fall.? He says for the last few days he has been feeling weaker than usual and also has had a cough but not bringing up any sputum at this time.? He says due to the weakness he stumbled and fell while at home.? He says he is unsure how he went down. It was right after he got up from toilet and walked out of bathroom. Significant other found him wedged between dresser and the wall. He did hit his head against a piece of furniture but did not lose any consciousness.? Patient does not have any neck pain or shoulder pain at this time.? He does complain of some pain at left lower tibia-fibula and left hand elbow.? There is also a small laceration on dorsum of left hand and his elbow.? Some bruising present on anterior distal tibia as well.? Patient denies any nausea, vomiting, diarrhea, abdominal pain, chest pain, shortness of breath.? His main complaint is overall generalized weakness.? Denies any vertigo, did say he had some lightheadedness.? His last echo was in February 2022 which showed normal EF of 55 to 60% and diastolic d ysfunction.? Trace mitral regurg present. States recently had URI symptoms, loss of appetite. When checked for flu and covid at clinic yesterday they were negative. Denies history of arrythmias. ED course: Blood pressure 118/54, respiratory 14, pulse 80, temperature 98.1, pulse ox 96% on room air.? Chest x-ray shows no acute findings, elbow x-ray negative for bony abnormalities, hand x-ray negative for bony abnormalities, fibula and tibia no bony abnormalities, head CT has no evidence of acute intracranial hemorrhage mass or acute infarction, no acute skull fracture.? Chronic sinusitis present, chronic lacunar infarcts present.? Hip x-ray shows acute comminuted intertrochanteric fracture of left hip, left knee x-ray negative, CT hip also shows acute comminuted intertrochanteric fracture of left hip. Hospital Course Hospital Course Presenting for acute fracture of left hip status postrepair. He did have a me chanical fall at home. B12 level was found to be low and he was placed on B12 injections for 5 days. He will be set up on oral B12 at discharge. EF 55 to 60% and diastolic dysfunction present. EKG did not show any acute ischemic changes. Patient did have generalized weakness at admission. Which has resolved by this time. He is much more awake alert. Does have a history of CAD status post PCI to LAD. Baseline creatinine 1.5-1.6. During hospital stay he was given IV fluids. CAROL on most likely secondary to prerenal cause. Creatinine improved to 1.2. Patient worked with physical therapy and Occupational Therapy. Urinalysis negative for nitrates or leukocyte esterase. Patient appears well today. Ready to go to skilled nursing. Family has been visiting daily. All questions answered to patient's satisfaction. Denies chest pain, shortness of breath during hospital stay. I believe his generalized weakness was secondary to combination of dehydration and being on diuretics and tamsulosin at home. He will be discharged to skilled nursing in stable condition. Physical Exam Narrative: General: Alert oriented x3, patient seen laying in bed. Appearing comfortable. HEENT: Normocephalic, atraumatic, EOMI, breathing normally. Cardio: Regular rate rhythm, normal S1-S2, no murmurs Respiratory: clear to ausculation today GI: Abdomen soft, nontender, nondistended, bowel sounds + Behavior: Appropriate and cooperative Extremities: No edema b/l. Mild tenderness to palpation at surgical site. some ecchymoses present on forearm Urinary Catheter Management: Rick: Cath Placed During This Visit: yes, but has since been removed by the nurse Reason for Continuing Indwelling Catheter: Acute Urinary Retention or Obstruction Urinary Catheter Date of Insertion: 08/28/22 Urinary Catheter Time of Insertion: 20:40 Date Urinary Catheter Removed: 08/28/22 Time Urinary Catheter Discontinued: 06:22 Discharge Data Studies Completed and Pending Completed Studies During Hospitalization Category Date Time Status CT head wo con* 55444 Stat Cat Scan 08/26/22 08:[address] hip LT wo con* [id number] Stat Cat Scan 08/26/22 11:49 Completed XR chest 1V portable 01006 Stat Exams 08/26/22 08:43 Completed XR elbow LT min 3V* [id number] Stat Exams 08/26/22 08:49 Completed XR hand LT min 3V* [id number] Stat Exams 08/26/22 08:49 Completed XR hip LT 2-3V wo/w pel* [id number] Routine Exams 08/27/22 Completed XR hip LT 2-3V wo/w pel* [id number] Stat Exams 08/26/22 11:18 Completed XR knee LT 3V* [id number] Stat Exams 08/26/22 11:23 Completed XR tibia fibula LT 2V [id number] Stat Exams 08/26/22 08:49 Completed Pending at discharge Category Date Time Status C-arm Fluoroscopy 20210 Routine Exams 08/27/22 07:47 Taken SARS Covid-2 Antigen Routine Lab 09/01/22 06:00 Uncollected Radiology Impressions Chest X-Ray 08/26/22 08:43 IMPRESSION: No acute findings. Elbow X-Ray 08/26/22 08:49 IMPRESSION: Negative exam. No acute bony abnormalities. Hand X-Ray 08/26/22 08:49 IMPRESSION: No acute bony abnormalities. Tibia/Fibula X-Ray 08/26/22 08:49 IMPRESSION: Negative exam. No acute bony abnormalities. Head CT 08/26/22 08:51 IMPRESSION: No CT evidence of acute intracranial hemorrhage, mass or acute infarction. No acute skull fracture. Old fracture of the left lamina papyracea. Chronic sinusitis. ADDENDUM: 08/26/22 1002 Correction of findings in brain: No acute intracranial hemorrhage. No edema. There are hypodense areas in the bilateral periventricular white matter suggestive of chronic small vessel ischemic changes. The sulci are dilated in keeping with predominantly peripheral brain atrophy. There are stable small fluid density foci in bilateral basal ganglia suggestive of chronic lacunar infarctions. Knee X-Ray 08/26/22 11:23 IMPRESSION: No acute bony abnormalities. Hip CT 08/26/22 11:49 IMPRESSION: Acute comminuted intertrochanteric fracture left hip Hip/Pelvis X-Ray 08/27/22 00:00 IMPRESSION: 1. Satisfactory ORIF of an intertrochanteric fracture of the left hip. Laboratory Results WBC 4.5 10^3/uL (4.0-10.0) 08/31/22 01:35 RBC 3.58 10^6/uL (4.1-5.3) L 08/31/22 01:35 Hgb 9.5 g/dL (11.7-16.6) L 08/31/22 01:35 Hct 30.8 % (42.0-52.0) L 08/31/22 01:35 MCV 86.0 fl (80-94) 08/31/22 01:35 MCH 26.5 pg (28.0-34.0) L 08/31/22 01:35 MCHC 30.8 g/dL (30.0-36.0) 08/31/22 01:35 RDW 15.7 % (12.1-15.1) H 08/31/22 01:35 Plt Count 256 10^3/cmm (130-400) 08/31/22 01:35 MPV 9.5 fL (7.4-10.4) 08/31/22 01:35 Neut % (Auto) 72.1 % 08/31/22 01:35 Lymph % (Auto) 11.5 % 08/31/22 01:35 [place] % (Auto) 10.0 % 08/31/22 01:35 Eos % (Auto) 4.4 % 08/31/22 01:35 Baso % (Auto) 0.2 % 08/31/22 01:35 Neut # (Auto) 3.25 10^3/uL (1.8-7.7) 08/31/22 01:35 Lymph # (Auto) 0.5 10^3/uL (0.8-4.8) L 08/31/22 01:35 [place] # (Auto) 0.5 10^3/uL (0.2-0.9) 08/31/22 01:35 Eos # (Auto) 0.2 10^3/uL (0.0-0.8) 08/31/22 01:35 Baso # (Auto) 0.0 10^3/uL (0.0-0.1) 08/31/22 01:35 Nucleated RBC % (auto) 0 % 08/31/22 01:35 Nucleated RBCs # 0.0 /100WBC 08/31/22 01:35 PT 15.30 SECONDS (12.1-14.9) H 08/26/22 08:40 INR 1.18 (0.8-1.2) 08/26/22 08:40 APTT 32.2 SECONDS (23.9-36.7) 08/26/22 08:40 Sodium 139 mmol/L (136-145) 08/31/22 01:35 Potassium 3.8 mmol/L (3.5-5.1) 08/31/22 01:35 Chloride 106 mmol/L (98-107) 08/31/22 01:35 Carbon Dioxide 25 mmol/L (22-29) 08/31/22 01:35 Anion Gap 11.8 (5-19) 08/31/22 01:35 BUN 22 mg/dL (8-23) 08/31/22 01:35 Creatinine 1.2 mg/dL (0.7-1.2) 08/31/22 01:35 GFR Calculation Not Reportable 08/31/22 01:35 Glucose 137 mg/dL (65-115) H 08/31/22 01:35 POC Glucose 156 mg/dL (70-110) H 08/29/22 06:19 Calculated Osmolality 293 mOsm/kg (285-295) 08/31/22 01:35 Calcium 8.7 mg/dL (8.5-10.5) 08/31/22 01:35 Phosphorus 3.1 mg/dL (2.5-4.5) 08/26/22 08:40 Magnesium 1.6 mg/dL (1.7-2.3) L 08/27/22 03:37 Total Bilirubin 0.3 mg/dL (0.15-1.2) 08/28/22 04:09 AST 22 U/L (0-40) 08/28/22 04:09 ALT 10 U/L (0-41) 08/28/22 04:09 Alkaline Phosphatase 36 U/L (40-130) L 08/28/22 04:09 Total Protein 4.8 g/dL (6.6-8.7) L 08/28/22 04:09 Albumin 2.4 g/dL (3.5-5.2) L 08/28/22 04:09 Globulin 2.4 g/dL (1.3-4.6) 08/28/22 04:09 Vitamin B12 150 pg/mL (232-1245) L 08/26/22 08:40 Procalcitonin 0.09 ng/mL (0-0.5) 08/26/22 08:40 Blood Type O Negative 08/28/22 09:35 Rho(D) Type Negative 08/28/22 09:35 Antibody Screen Negative 08/28/22 09:35 Crossmatch See Detail 08/28/22 09:35 Vitals Last Vital Signs Temp 97.6 F 08/31/22 20:00 Pulse 74 08/31/22 20:00 Resp 16 08/31/22 20:09 BP 141/74 08/31/22 20:00 Pulse Ox 96 08/31/22 20:09 O2 Del Method 08/31/22 08:00 O2 Flow Rate 10 08/27/22 10:45 Discharge Plan Discharge Patient Disposition: Xfer SNF Condition: Stable Prescriptions: New Stool Softener-Laxative 8.6-50 mg Tablet 1 tab PO BID 5 Days Qty: 10 0RF aspirin 325 mg tablet 325 mg PO DAILY 27 Days Qty: 27 0RF oxycodone 5 mg Tablet 5 mg PO Q6H PRN (Reason: Moderate To Severe Pain) 5 Days Qty: 12 0RF Continued atorvastatin 40 mg tablet 80 mg PO DAILY Qty: 180 3RF clopidogrel 75 mg tablet 75 mg PO DAILY Qty: 90 3RF furosemide 20 mg tablet 20 mg PO DAILY Qty: 90 3RF trazodone 50 mg Tablet 50 mg PO BEDTIME PRN (Reason: Sleep) tamsulosin [Flomax] 0.4 mg Capsule 0.4 mg PO BEDTIME cinnamon bark [Cinnamon] 500 mg Capsule 1,000 mg PO BID cholecalciferol (vitamin D3) [Vitamin D3] 50 mcg (2,000 unit) Capsule 50 mcg PO DAILY Discontinued Stewart Low Dose Aspirin 81 mg tablet,delayed release (DR/EC) 81 mg PO DAILY Qty: 90 3RF Discharge Orders: Discharge Order (Routine); Ordered 09/01/22 Ordered By: Eleonora Cortes Referrals: Portia Larose MD [Primary Care Provider] - 4-7 days (Please follow with the skilled nursing provider. ) Racheal Grey MD [Physician] - 2 weeks (Due to the clinics being closed for the Holidays, we were unable to make your follow up appointment. Please call Sunday to make an appointment to be seen by Dr. Grey in two weeks. ) Discharge Diet: Cardiac Discharge Activity: Increase activity as tolerated, Use walker/crutches as instructed and As per PT/OT instructions Activity Restrictions/Additional Instructions: Please do a voiding trial at skilled nursing. Discharge Attestations Time Spent in Discharge Care*: greater than 30 min Status at Discharge: Cognitive status at discharge: cognitively intact , Behavioral status at discharge: cooperative and independent in ADL's , Quality Metrics Clinical Quality Measures [ No reported AMI, CVA or VTE this stay] Coding Level of Care Code Acute [facility] note Diagnoses Closed intertrochanteric fracture of left femur S72.142A Encounter type: initial encounter Fracture alignment: displaced Subtrochanteric fracture of left femur S72.22XA Encounter type: initial encounter Fracture alignment: displaced Fracture type: closed
--- NOTE | 2022-09-01 12:07 | PC.NURSE ---
Report called to KINJAL Garcia, at [facility].
[2022-09-01 12:11] LABS: SARS Covid-2 Antigen positive (Negative)
--- NOTE | 2022-09-01 15:55 | PC.OT ---
OT TX ATTEMPTED - PT HELD FOR TREATMENT ON THIS DAY DUE TO SCHEDULED D/C AND WEAKNESS SECONDARY TO COVID. PT DID NOT D/C DUE TO TESTING POSITIVE FOR COVID. WILL ATTEMPT AGAIN TOMORROW.
[2022-09-01] MEDS: tamsulosin 0.4 mg Capsule PO (20:24)
[2022-09-01] MEDS: trazodone 50 mg Tablet PO (20:24)
[2022-09-02] VITALS (8 sets, daily range): BP systolic 117–175; BP diastolic 64–84; PULSE 75–98; RESP 15–18; TEMP 36.4–36.8; O2SAT 92–96
[2022-09-02] MEDS: acetaminophen 500 mg Tablet 1000 MG PO ×3 (07:51→23:45)
[2022-09-02] MEDS: cholecalciferol (vitamin D3) 1,000 unit Tablet 2000 UNIT PO (07:51)
[2022-09-02] MEDS: clopidogrel 75 mg Tablet PO (07:52)
[2022-09-02] MEDS: CELEcoxib 200 mg Capsule PO (07:52)
[2022-09-02] MEDS: aspirin 81 mg EC Tablet PO (07:52)
[2022-09-02] MEDS: atorvastatin 40 mg Tablet 80 MG PO (07:52)
[2022-09-02] MEDS: oxyCODONE 5 mg IR Tab/Cap PO ×3 (07:52→21:12)
[2022-09-02] MEDS: sennosides-docusate Tablet 2 TAB PO ×2 (07:52→17:01)
--- NOTE | 2022-09-02 09:15 | PC.SOCIAL ---
IMM update IMM updated with patient. Verbalized an understanding. Copy Pg 2 provided. Initialled, dated, timed, and placed in chart.
[2022-09-02] MEDS: heparin 5,000 unit/mL INJ 1 mL 5000 UNIT SUBCUT ×2 (11:40→23:45)
--- NOTE | 2022-09-02 13:54 | PM.PN ---
Subjective Subjective: Seen this morning. No acute events overnight. Patient is COVID-positive. Vitals/I&O/Wt Last Vital Signs Temp 98.2 F 09/02/22 11:42 Pulse 98 09/02/22 11:42 Resp 18 09/02/22 11:42 BP 150/77 09/02/22 11:42 Pulse Ox 93 09/02/22 11:42 O2 Del Method 09/02/22 11:42 O2 Flow Rate 10 08/27/22 10:45 09/01/22 09/02/22 09/02/22 22:59 06:59 14:59 Intake Total 240 / 480 120 / 600 Output Total 75 / 75 375 / 450 75 / 75 Balance 165 / 405 -255 / 150 -75 / -75 Physical Exam Narrative: General: Alert oriented x3, patient seen laying in bed. Appearing comfortable. HEENT: Normocephalic, atraumatic, EOMI, breathing normally. Cardio: Regular rate rhythm, normal S1-S2, no murmurs Respiratory: clear to ausculation today when mild rhonchi at bases. GI: Abdomen soft, nontender, nondistended, bowel sounds + Behavior: Appropriate and cooperative Extremities: No edema b/l. Mild tenderness to palpation at surgical site. some ecchymoses present on forearm Urinary Catheter Management: Rick: Cath Placed During This Visit: yes, but has since been removed by the nurse Reason for Continuing Indwelling Catheter: Decision to DC Catheter Urinary Catheter Date of Insertion: 08/28/22 Urinary Catheter Time of Insertion: 20:40 Date Urinary Catheter Removed: 09/01/22 Time Urinary Catheter Discontinued: 15:00 Data 08/31/22 01:35 08/31/22 01:35 A&P Assessment and plan (1) Atherosclerosis of coronary artery of [place] heart without angina pectoris: (2) Benign essential hypertension with target blood pressure below 140/90: (3) Hyperlipidemia: Qualifiers: Hyperlipidemia type: unspecified Qualified Code(s): E78.5 - Hyperlipidemia, unspecified (4) CKD (chronic kidney disease): (5) Hip fracture: (6) Generalized weakness: Plan #Acute fracture left hip status postrepair #Postop blood loss anemia #S/p mechanical fall vs other etiology #Generalized weakness #Hx CAD s/p PCI FLACA to LAD #HTN #HLD #CKD, baseline 1.5-1.6 -Continue aspirin and Plavix. - Continue atorvastatin 40 - Hold tamsulosin - Monitor on telemetry - Continue trazodone -AUA negative for nitrites and leukocyte esterase. 1+ protein, 2+ blood present. -B12 level low. Started on subcutaneous B12 injections daily for 5 days. Thereafter transition to oral. - EKG reviewed, no ischemic changes - Echo recently done in february 2022: EF 55-60%, diastolic dysfunction present. -patient is status post 1 unit RBC. Hemoglobin stable 8.7. ? Physical therapy occupational therapy. - Pt making progress with PT. he is partial nonweightbearing at this time. Able to get up with assistance Was supposed to go to senior living yesterday however was COVID-positive therefore in the hospital Dexamethasone 6 daily Vitamin B12 1000 daily Continue to find placement. DNR/DNI. 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
[2022-09-02] MEDS: tamsulosin 0.4 mg Capsule PO (20:31)
--- NOTE | 2022-09-02 20:36 | PC.NURSE ---
Pt hasn't urinated since straight cath at approximately 1530. Bladder scan performed w/estimated volume of 215 ml at this time. Will notify oil and gas exploration technician physician.
--- NOTE | 2022-09-02 20:42 | PC.NURSE ---
NO received and noted for 1) place allan for urinary retention. Will place allan per orders.
--- NOTE | 2022-09-02 23:49 | PC.NURSE ---
Pt has a sporadic nonproductive cough. Daughter is at bedside and request medication for cough. NO received and noted for 1) Robitussin 15 ml q4h PRN. Will pull from omni and administer.
[2022-09-03] VITALS (7 sets, daily range): BP systolic 119–155; BP diastolic 57–81; PULSE 67–85; RESP 15–18; TEMP 36.4–36.9; O2SAT 94–97
[2022-09-03] MEDS: guaiFENesin 100 mg/5 mL UDC 10 mL 300 MG PO ×3 (00:04→20:10)
[2022-09-03] MEDS: acetaminophen 500 mg Tablet 1000 MG PO ×2 (09:43→15:07)
[2022-09-03] MEDS: atorvastatin 40 mg Tablet 80 MG PO (09:43)
[2022-09-03] MEDS: cholecalciferol (vitamin D3) 1,000 unit Tablet 2000 UNIT PO (09:44)
[2022-09-03] MEDS: dexamethasone 4 mg Tablet 6 MG PO (09:44)
[2022-09-03] MEDS: CELEcoxib 200 mg Capsule PO (09:45)
[2022-09-03] MEDS: aspirin 81 mg EC Tablet PO (09:45)
[2022-09-03] MEDS: sennosides-docusate Tablet 2 TAB PO ×2 (09:45→17:28)
[2022-09-03] MEDS: cyanocobalamin 1,000 mcg Tablet 1000 MCG PO (09:45)
[2022-09-03] MEDS: clopidogrel 75 mg Tablet PO (09:45)
--- NOTE | 2022-09-03 10:11 | P.PN_ITS ---
Subjective Subjective: Seen this morning. No acute events overnight. Patient is COVID- positive. Vitals/I&O/Wt Last Vital Signs Temp 97.7 F 09/03/22 08:00 Pulse 85 09/03/22 08:00 Resp 17 09/03/22 08:00 BP 155/81 09/03/22 08:00 Pulse Ox 95 09/03/22 08:00 O2 Del Method 09/03/22 08:00 O2 Flow Rate 10 08/27/22 10:45 09/02/22 09/03/22 09/03/22 22:59 06:59 14:59 Intake Total 600 / 840 Output Total 775 / 880 200 / 1080 Balance -175 / -40 -200 / -240 Physical Exam Narrative: General: Alert oriented x3, patient seen laying in bed. Appearing comfortable. HEENT: Normocephalic, atraumatic, EOMI, breathing normally. Cardio: Regular rate rhythm, normal S1-S2, no murmurs Respiratory: clear to ausculation today when mild rhonchi at bases. GI: Abdomen soft, nontender, nondistended, bowel sounds + Behavior: Appropriate and cooperative Extremities: No edema b/l. Urinary Catheter Management: Rick: Cath Placed During This Visit: yes, but has since been removed by the nurse Reason for Continuing Indwelling Catheter: Acute Urinary Retention or Obstruction Urinary Catheter Date of Insertion: 09/02/22 Urinary Catheter Time of Insertion: 20:53 Date Urinary Catheter Removed: 09/01/22 Time Urinary Catheter Discontinued: 15:00 Data 08/31/22 01:35 08/31/22 01:35 A&P Assessment and plan (1) Atherosclerosis of coronary artery of [place] heart without angina pectoris: (2) Benign essential hypertension with target blood pressure below 140/90: (3) Hyperlipidemia: Qualifiers: Hyperlipidemia type: unspecified Qualified Code(s): E78.5 - Hyperlipidemia, unspecified (4) CKD (chronic kidney disease): (5) Hip fracture: (6) Generalized weakness: Plan #Acute fracture left hip status postrepair #Postop blood loss anemia #S/p mechanical fall vs other etiology #Generalized weakness #Hx CAD s/p PCI FLACA to LAD #HTN #HLD #CKD, baseline 1.5-1.6 -Continue aspirin and Plavix. - Continue atorvastatin 40 - Hold tamsulosin - Monitor on telemetry - Continue trazodone -AUA negative for nitrites and leukocyte esterase. 1+ protein, 2+ blood present. -B12 level low. Started on subcutaneous B12 injections daily for 5 days. Thereafter transition to oral. - EKG reviewed, no ischemic changes - Echo recently done in february 2022: EF 55-60%, diastolic dysfunction present. -patient is status post 1 unit RBC. Hemoglobin stable 8.7. ? Physical therapy occupational therapy. - Pt making progress with PT. he is partial nonweightbearing at this time. Able to get up with assistance Was supposed to go to long term yesterday however was COVID-positive therefore in the hospital Dexamethasone 6 daily Vitamin B12 1000 daily Continue to find placement. DNR/DNI. DVT PPx: Heparin sub cu BID Attestations Medical Necessity Statement*: pending placement Coding Level of Care Code Acute Substation Operator Helper for [facility] Fwd Diagnoses Atherosclerosis of coronary artery of semin[place] heart without angina pectoris I25.10 Benign essential hypertension with target blood pressure below 140/90 I10 Hyperlipidemia E78.5 Hyperlipidemia type: unspecified CKD (chronic kidney disease) N18.9 Hip fracture S72.009A Generalized weakness R53.1
[2022-09-03] MEDS: heparin 5,000 unit/mL INJ 1 mL 5000 UNIT SUBCUT (12:17)
[2022-09-03] MEDS: tamsulosin 0.4 mg Capsule PO (20:10)
[2022-09-03] MEDS: oxyCODONE 5 mg IR Tab/Cap PO (20:13)
[2022-09-04] VITALS (10 sets, daily range): BP systolic 124–167; BP diastolic 65–87; PULSE 63–87; RESP 16–20; TEMP 36.3–36.9; O2SAT 94–98
[2022-09-04] MEDS: heparin 5,000 unit/mL INJ 1 mL 5000 UNIT SUBCUT ×3 (00:26→23:57)
[2022-09-04] MEDS: acetaminophen 500 mg Tablet 1000 MG PO ×4 (00:26→23:57)
--- NOTE | 2022-09-04 05:24 | PM.PN ---
Subjective Subjective: No overnight events Awake alert Patient is complaining of cold temperature in the room Afebrile, blood pressure stable, not requiring oxygen COVID-positive Awaiting placement Vitals/I&O/Wt Last Vital Signs Temp 98.4 F 09/04/22 04:00 Pulse 65 09/04/22 04:00 Resp 17 09/04/22 04:00 BP 144/79 09/04/22 04:00 Pulse Ox 98 09/04/22 04:00 O2 Del Method 09/03/22 08:00 O2 Flow Rate 10 08/27/22 10:45 09/03/22 09/03/22 09/04/22 14:59 22:59 06:59 Intake Total 360 / 360 720 / 1080 Output Total 300 / 300 350 / 650 Balance 360 / 360 420 / 780 -350 / 430 Physical Exam Narrative: Patient is doing well on room air Awake and alert To dermatology Nonfocal neuro exam No audible stridor or wheezing Abdomen soft Lower extremity no edema at the bedside Urinary Catheter Management: Rick: Cath Placed During This Visit: yes, but has since been removed by the nurse Reason for Continuing Indwelling Catheter: Acute Urinary Retention or Obstruction Urinary Catheter Date of Insertion: 09/02/22 Urinary Catheter Time of Insertion: 20:53 Date Urinary Catheter Removed: 09/01/22 Time Urinary Catheter Discontinued: 15:00 Data 08/31/22 01:35 08/31/22 01:35 A&P Assessment and plan (1) Subtrochanteric fracture of left femur: Qualifiers: Encounter type: initial encounter Fracture type: closed Fracture alignment: displaced Qualified Code(s): S72.22XA - Displaced subtrochanteric fracture of left femur, initial encounter for closed fracture (2) Generalized weakness: (3) COVID: Plan COVID-positive Not requiring oxygen Short course of Decadron Drug-eluting stent in place continue dual antiplatelet therapy Status post hip surgery Awaiting placement DNR/DNI Attestations Medical Necessity Statement*: Awaiting placement Time Spent in Patient Care: 20 Coding Level of Care Code Acute Utility Plant Operative for [facility] Fwd Diagnoses Subtrochanteric fracture of left femur S72.22XA Encounter type: initial encounter Fracture type: closed Fracture alignment: displaced Generalized weakness R53.1 COVID U07.1
[2022-09-04] MEDS: oxyCODONE 5 mg IR Tab/Cap PO ×3 (05:27→19:42)
[2022-09-04] MEDS: guaiFENesin 100 mg/5 mL UDC 10 mL 300 MG PO ×2 (05:27→21:03)
[2022-09-04] MEDS: dexamethasone 4 mg Tablet 6 MG PO (08:35)
[2022-09-04] MEDS: cyanocobalamin 1,000 mcg Tablet 1000 MCG PO (08:35)
[2022-09-04] MEDS: cholecalciferol (vitamin D3) 1,000 unit Tablet 2000 UNIT PO (08:36)
[2022-09-04] MEDS: atorvastatin 40 mg Tablet 80 MG PO (08:36)
[2022-09-04] MEDS: CELEcoxib 200 mg Capsule PO (08:37)
[2022-09-04] MEDS: clopidogrel 75 mg Tablet PO (08:37)
[2022-09-04] MEDS: sennosides-docusate Tablet 2 TAB PO ×2 (08:37→17:20)
[2022-09-04] MEDS: aspirin 81 mg EC Tablet PO (08:37)
--- NOTE | 2022-09-04 12:26 | PC.SOCIAL ---
IMM update Imm updated with patient at bedside. Copy of page 2 provided. Patient verbalized understanding. Copy in chart initialed, dated and timed.
[2022-09-04] MEDS: tamsulosin 0.4 mg Capsule PO (21:02)
[2022-09-05] VITALS (9 sets, daily range): BP systolic 129–152; BP diastolic 61–85; PULSE 68–84; RESP 16–18; TEMP 36.4–36.5; O2SAT 93–98
[2022-09-05] MEDS: guaiFENesin 100 mg/5 mL UDC 10 mL 300 MG PO ×2 (06:26→20:49)
[2022-09-05] MEDS: oxyCODONE 5 mg IR Tab/Cap PO ×4 (06:27→18:31)
[2022-09-05] MEDS: cholecalciferol (vitamin D3) 1,000 unit Tablet 2000 UNIT PO (10:15)
[2022-09-05] MEDS: dexamethasone 4 mg Tablet 6 MG PO (10:15)
[2022-09-05] MEDS: sennosides-docusate Tablet 2 TAB PO ×2 (10:15→18:31)
[2022-09-05] MEDS: CELEcoxib 200 mg Capsule PO (10:15)
[2022-09-05] MEDS: cyanocobalamin 1,000 mcg Tablet 1000 MCG PO (10:16)
[2022-09-05] MEDS: clopidogrel 75 mg Tablet PO (10:16)
[2022-09-05] MEDS: atorvastatin 40 mg Tablet 80 MG PO (10:16)
[2022-09-05] MEDS: acetaminophen 500 mg Tablet 1000 MG PO ×3 (10:16→23:52)
[2022-09-05] MEDS: aspirin 81 mg EC Tablet PO (10:17)
--- NOTE | 2022-09-05 12:07 | P.PN_ITS ---
Subjective Subjective: Patient is still complaining of lethargy fatigue myalgias Not quiring oxygen He was complaining of pain in his left leg Vitals/I&O/Wt Last Vital Signs Temp 97.6 F 09/05/22 12:00 Pulse 84 09/05/22 12:00 Resp 16 09/05/22 12:00 BP 130/84 09/05/22 12:00 Pulse Ox 98 09/05/22 12:00 O2 Del Method 09/05/22 12:00 O2 Flow Rate 10 08/27/22 10:45 09/04/22 09/05/22 09/05/22 22:59 06:59 14:59 Intake Total 120 / 480 240 / 720 120 / 120 Output Total 300 / 300 300 / 600 Balance -180 / 180 -60 / 120 120 / 120 Physical Exam Narrative: Awake and alert Laying in a recliner On room air No active chest discomfort Complaining of left leg pain Edema of legs noted Patient is awake and alert fatigued and lethargic Abdomen soft at the bedside Urinary Catheter Management: Rick: Cath Placed During This Visit: yes, but has since been removed by the nurse Reason for Continuing Indwelling Catheter: Acute Urinary Retention or Obstruction Urinary Catheter Date of Insertion: 09/02/22 Urinary Catheter Time of Insertion: 20:53 Date Urinary Catheter Removed: 09/01/22 Time Urinary Catheter Discontinued: 15:00 Data 08/31/22 01:35 08/31/22 01:35 A&P Assessment and plan (1) COVID: (2) Subtrochanteric fracture of left femur: Qualifiers: Encounter type: initial encounter Fracture type: closed Fracture alignment: displaced Qualified Code(s): S72.22XA - Displaced subtrochanteric fracture of left femur, initial encounter for closed fracture (3) Generalized weakness: (4) Closed intertrochanteric fracture of left femur: Qualifiers: Encounter type: initial encounter Fracture alignment: displaced Qualified Code(s): S72.142A - Displaced intertrochanteric fracture of left femur, initial encounter for closed fracture Plan Patient to attend daily physical therapy For his opioids I will continue oxycodone discontinue celecoxib Not requiring oxygen for COVID-19 continue Decadron Awaiting placement production control manager aware Attestations Medical Necessity Statement*: Continue medical management Time Spent in Patient Care: 10 minutes Coding Level of Care Code Acute Professor In Family Studies for Chg Fwd Diagnoses COVID U07.1 Subtrochanteric fracture of left femur S72.22XA Encounter type: initial encounter Fracture type: closed Fracture alignment: displaced Generalized weakness R53.1 Closed intertrochanteric fracture of left femur S72.142A Encounter type: initial encounter Fracture alignment: displaced
[2022-09-05] MEDS: heparin 5,000 unit/mL INJ 1 mL 5000 UNIT SUBCUT ×2 (13:02→23:52)
--- NOTE | 2022-09-05 16:38 | P.PN_ITS ---
Subjective Subjective: Since I last saw this patient, he has been tested positive for COVID. This [facility] jail originally planned for the end of last week. Plans are made for his hopeful discharge on of this week when enough time has passed from his initial diagnosis. From the sunitha dpoint of his hip, he is complaining of some pain, but he is doing well and will continue rehab. Medications: Reviewed: Yes Vitals/I&O/Wt Last Vital Signs Temp 97.6 F 09/05/22 15:52 Pulse 75 09/05/22 15:52 Resp 16 09/05/22 15:52 BP 134/73 09/05/22 15:52 Pulse Ox 97 09/05/22 15:52 O2 Del Method 09/05/22 15:52 O2 Flow Rate 10 08/27/22 10:45 09/05/22 09/05/22 09/05/22 06:59 14:59 22:59 Intake Total 240 / 720 240 / 240 Output Total 300 / 600 Balance -60 / 120 240 / 240 Physical Exam Const: COMMON NORMALS: no acute distress, average body habitus, patient oriented x3 and alert GENERAL APPEARANCE: cooperative and comfortable ORIENTATION/CONSCIOUSNESS: Yes awake HENMT: COMMON NORMALS: normocephalic and atraumatic HEAD & SCALP: normocephalic and atraumatic Eye: GENERAL EYE: appearance normal, both eyes and all related structures Chest: COMMONS NORMALS: normal inspection of the chest Resp: COMMON NORMALS: normal respiratory effort EFFORT & INSPECTION: Yes able to speak in complete sentences and Yes symmetric chest movement Extremity: LEFT LOWER EXTREMITY: Yes hip joint (Dressing is dry and intact. This will be changed.) Left hip: Yes inspection (No significant ecchymosis or swelling.), Yes palpation (Minimal to no tenderness.) and Yes neurovascular exam (No evidence of DVT.) Neuro: COMMON NORMALS: patient oriented x3 SENSORIUM/ORIENTATION: Yes alert Psych: COMMON NORMALS: mental status grossly normal APPEARANCE: Yes grossly normal ATTITUDE: Yes calm and Yes engaged ATTENTION/CONCENTRATION: Yes attention grossly intact Skin: COMMON NORMALS: no rashes or lesions noted GENERAL SKIN EXAM: no rashes or lesions noted Urinary Catheter Management: Rick: Cath Placed During This Visit: yes, but has since been removed by the nurse Reason for Continuing Indwelling Catheter: Acute Urinary Retention or Obstructi on Urinary Catheter Date of Insertion: 09/02/22 Urinary Catheter Time of Insertion: 20:53 Date Urinary Catheter Removed: 09/01/22 Time Urinary Catheter Discontinued: 15:00 Data 08/31/22 01:35 08/31/22 01:35 A&P Assessment and plan (1) Closed intertrochanteric fracture of left femur: This 82-year-old gentleman had a fall at home after getting up from the toilet. He was found wedged between the wall and a dresser. He denies any loss of consciousness, but he does note increasing weakness over the past week. He states he just has not been hungry and has not been eating well and feels he may have been dehydrated. Imaging in the emergency department demonstrated a very comminuted intertrochanteric hip fracture with extension into the subt rochanteric area. He underwent successful open reduction internal fixation. Currently, he is working with physical therapy, and he continues to await placement to jail. Patient diagnosed with COVID which delayed his transfer to jail. Plans are made initially for his discharge on 09/07 to a skilled facility as he will meet COVID criteria at that time. Qualifiers: Encounter type: initial encounter Fracture alignment: displaced Qualif ied Code(s): S72.142A - Displaced intertrochanteric fracture of left femur, initial encounter for closed fracture (2) Subtrochanteric fracture of left femur: Subtrochanteric extension from the patient's comminuted intertrochanteric hip fracture is evident on both CT and plain film. Qualifiers: Encounter type: initial encounter Fracture type: closed Fracture alignment: displaced Qualified Code(s): S72.22XA - Displaced subtrochanteric fracture of left femur, initial encounter for closed fracture Attestations Medical Necessity Statement*: Per primary service. Coding Level of Care Code Acute Manager Decision Support for [facility] Diagnoses Closed intertrochanteric fracture of left femur S72.142A Encounter type: initial encounter Fracture alignment: displaced Subtrochanteric fracture of left femur S72.22XA Encounter type: initial encounter Fracture type: closed Fracture alignment: displaced
[2022-09-05] MEDS: tamsulosin 0.4 mg Capsule PO (20:49)
[2022-09-06] VITALS (10 sets, daily range): BP systolic 117–150; BP diastolic 67–84; PULSE 65–78; RESP 16–18; TEMP 36.3–36.5; O2SAT 96–99
[2022-09-06] MEDS: acetaminophen 500 mg Tablet 1000 MG PO ×2 (08:57→15:19)
[2022-09-06] MEDS: cyanocobalamin 1,000 mcg Tablet 1000 MCG PO (08:57)
[2022-09-06] MEDS: atorvastatin 40 mg Tablet 80 MG PO (08:57)
[2022-09-06] MEDS: oxyCODONE 5 mg IR Tab/Cap PO ×3 (08:58→20:26)
[2022-09-06] MEDS: dexamethasone 4 mg Tablet 6 MG PO (08:59)
[2022-09-06] MEDS: aspirin 81 mg EC Tablet PO (08:59)
[2022-09-06] MEDS: clopidogrel 75 mg Tablet PO (08:59)
[2022-09-06] MEDS: sennosides-docusate Tablet 2 TAB PO ×2 (09:03→17:37)
[2022-09-06] MEDS: cholecalciferol (vitamin D3) 1,000 unit Tablet 2000 UNIT PO (09:03)
--- NOTE | 2022-09-06 11:58 | P.PN_ITS ---
Subjective Subjective: No overnight events patient is feeling comfortable Vitals/I&O/Wt Last Vital Signs Temp 97.5 F L 09/06/22 07:31 Pulse 78 09/06/22 07:31 Resp 16 09/06/22 08:58 BP 145/84 09/06/22 07:31 Pulse Ox 98 09/06/22 07:31 O2 Del Method 09/06/22 07:31 O2 Flow Rate 10 08/27/22 10:45 09/05/22 09/06/22 09/06/22 22:59 06:59 14:59 Intake Total 240 / 480 120 / 120 Output Total 500 / 500 200 / 700 Balance -500 / -260 40 / -220 120 / 120 Physical Exam Narrative: Patient is doing well on room air Bilateral lower extremity swelling No active pain 1, S2 Abdomen soft at the bedside No acute distress EOMI, PERRLA Urinary Catheter Management: Rick: Cath Placed During This Visit: yes, but has since been removed by the nurse Reason for Continuing Indwelling Catheter: Acute Urinary Retention or Obstruction Urinary Catheter Date of Insertion: 09/02/22 Urinary Catheter Time of Insertion: 20:53 Date Urinary Catheter Removed: 09/01/22 Time Urinary Catheter Discontinued: 15:00 Data 08/31/22 01:35 08/31/22 01:35 A&P Assessment and plan (1) COVID: (2) Subtrochanteric fracture of left femur: Qualifiers: Encounter type: initial encounter Fracture type: closed Fracture alignment: displaced Qualified Code(s): S72.22XA - Displaced subtrochanteric fracture of left femur, initial encounter for closed fracture (3) Closed intertrochanteric fracture of left femur: Qualifiers: Encounter type: initial encounter Fracture alignment: displaced Qualified Code(s): S72.142A - Displaced intertrochanteric fracture of left femur, initial encounter for closed fracture (4) Generalized weakness: Plan Patient is participating with PT Doing well on room air Plan to discharge him to retirement tomorrow DNR/DNI Decadron to be discontinued Will remove Rick catheter tomorrow as well before discharge DVT prophylaxis with heparin Attestations Medical Necessity Statement*: Discharge tomorrow Time Spent in Patient Care: 15 minutes Coding Level of Care Code Acute Avionic Technician for [facility] Diagnoses COVID U07.1 Subtrochanteric fracture of left femur S72.22XA Encounter type: initial encounter Fracture type: closed Fracture alignment: displaced Closed intertrochanteric fracture of left femur S72.142A Encounter type: initial encounter Fracture alignment: displaced Generalized weakness R53.1
--- NOTE | 2022-09-06 12:10 | PC.SOCIAL ---
IMM update IMM updated with patient. Verbalized an understanding. Initialled, dated, timed, and placed in chart.
[2022-09-06] MEDS: heparin 5,000 unit/mL INJ 1 mL 5000 UNIT SUBCUT (12:12)
--- NOTE | 2022-09-06 14:29 | P.MISC_ITS ---
Miscellaneous Note Purpose of Documentation: Pre discharge notation Note: Patient was seen and evaluated yesterday. He had no significant complaints with regard to his hip. Dressings have been changed. The wound is benign. There is no evidence of DVT. He is ready to be discharged once his COVID status allows his discharge to custodial.
[2022-09-06] MEDS: trazodone 50 mg Tablet PO (20:26)
[2022-09-06] MEDS: tamsulosin 0.4 mg Capsule PO (20:26)
[2022-09-07] MEDS: acetaminophen 500 mg Tablet 1000 MG PO ×2 (01:08→08:05)
[2022-09-07] MEDS: heparin 5,000 unit/mL INJ 1 mL 5000 UNIT SUBCUT (01:08)
[2022-09-07 03:45] VITALS: BP 151/73; PULSE 79; RESP 17; TEMP 36.3; O2SAT 98
[2022-09-07 07:36] VITALS: BP 144/82; PULSE 73; RESP 15; TEMP 36.4; O2SAT 99
[2022-09-07 08:04] VITALS: RESP 18
[2022-09-07] MEDS: oxyCODONE 5 mg IR Tab/Cap PO (08:04)
[2022-09-07] MEDS: clopidogrel 75 mg Tablet PO (08:05)
[2022-09-07] MEDS: cyanocobalamin 1,000 mcg Tablet 1000 MCG PO (08:05)
[2022-09-07] MEDS: atorvastatin 40 mg Tablet 80 MG PO (08:05)
[2022-09-07] MEDS: cholecalciferol (vitamin D3) 1,000 unit Tablet 2000 UNIT PO (08:05)
[2022-09-07] MEDS: aspirin 81 mg EC Tablet PO (08:05)
[2022-09-07] MEDS: sennosides-docusate Tablet 2 TAB PO (08:06)
--- NOTE | 2022-09-07 09:26 | P.DS_ITS ---
Discharge Providers Date of Admission: 08/26/22 12:18 Date of Discharge: September 07, 2022 Attending Provider at Admission: Eleonora Cortes MD Attending Provider at Discharge: Soumya Melara MD Primary Care Provider: Portia Larose MD Diagnoses at Discharge Discharge Diagnosis (1) COVID: Status: Acute (2) Subtrochanteric fracture of left femur: Status: Acute Qualifiers: Encounter type: initial encounter Fracture type: closed Fracture alignment: displaced Qualified Code(s): S72.22XA - Displaced subtrochanteric fracture of left femur, initial encounter for closed fracture (3) Closed intertrochanteric fracture of left femur: Status: Acute Qualifiers: Encounter type: initial encounter Fracture alignment: displaced Qualified Code(s): S72.142A - Displaced intertrochanteric fracture of left femur, initial encounter for closed fracture (4) Generalized weakness: Status: Acute Reason for Visit Reason for Visit: LEFT LEG PAIN S/P FALL Hospital Course Hospital Course 82-year-old male who presented with acute fracture of left hip status postrepair. He did have a mechanical fall at home. B12 level was found to be low and he was placed on B12 injections for 5 days. He will be set up on oral B12 at discharge. EF 55 to 60% and diastolic dysfunction present. EKG did not show any acute ischemic changes. Patient did have generalized weakness at admission. Which has resolved by this time. He is much more awake alert. Does have a history of CAD status post PCI to LAD. Baseline creatinine 1.5-1.6. During hospital stay he was given IV fluids. CAROL on most likely secondary to prerenal cause. Creatinine improved to 1.2. Patient worked with physical therapy and Occupational Therapy. Urinalysis negative for nitrates or leukocyte esterase. Patient appears well today. Ready to go to custodial. Family has been visiting daily. All questions answered to patient's satisfaction. Denies chest pain, shortness of breath during hospital stay. I believe his generalized weakness was secondary to combination of dehydration and being on diuretics and tamsulosin at home. He will be discharged to custodial in stable condition. His discharge was delayed because at the time of discharge she was diagnosed with COVID-19 however he never required oxygen, he never complained of chest pain or worsening of shortness of breath, on 09/07 he is going to [facility], he has finished 6 days of isolation, does not need isolation anymore, he remained afebrile, he will get therapeutic aspirin as DVT prophylaxis for now. Decadron regimen completed Physical Exam Narrative: Patient is doing well on room air Bilateral lower extremity swelling No active pain S1, S2 Abdomen soft at the bedside No acute distress EOMI, PERRLA Urinary Catheter Management: Rick: Cath Placed During This Visit: yes, but has since been removed by the nurse Reason for Continuing Indwelling Catheter: Perioperative Use in Selected Surgeries Urinary Catheter Date of Insertion: 09/02/22 Urinary Catheter Time of Insertion: 20:53 Date Urinary Catheter Removed: 09/01/22 Time Urinary Catheter Discontinued: 15:00 Discharge Data Studies Completed and Pending Completed Studies During Hospitalization Category Date Time Status CT head wo con* [id number] Stat Cat Scan 08/26/22 08:[address] hip LT wo con* [id number] Stat Cat Scan 08/26/22 11:49 Completed XR chest 1V portable [id number] Stat Exams 08/26/22 08:43 Completed XR elbow LT min 3V* [id number] Stat Exams 08/26/22 08:49 Completed XR hand LT min 3V* [id number] Stat Exams 08/26/22 08:49 Completed XR hip LT 2-3V wo/w pel* [id number] Routine Exams 08/27/22 Completed XR hip LT 2-3V wo/w pel* [id number] Stat Exams 08/26/22 11:18 Completed XR knee LT 3V* [id number] Stat Exams 08/26/22 11:23 Completed XR tibia fibula LT 2V [id number] Stat Exams 08/26/22 08:49 Completed Radiology Impressions Chest X-Ray 08/26/22 08:43 IMPRESSION: No acute findings. Elbow X-Ray 08/26/22 08:49 IMPRESSION: Negative exam. No acute bony abnormalities. Hand X-Ray 08/26/22 08:49 IMPRESSION: No acute bony abnormalities. Tibia/Fibula X-Ray 08/26/22 08:49 IMPRESSION: Negative exam. No acute bony abnormalities. Head CT 08/26/22 08:51 IMPRESSION: No CT evidence of acute intracranial hemorrhage, mass or acute infarction. No acute skull fracture. Old fracture of the left lamina papyracea. Chronic sinusitis. ADDENDUM: 08/26/22 1002 Correction of findings in brain: No acute intracranial hemorrhage. No edema. There are hypodense areas in the bilateral periventricular white matter suggestive of chronic small vessel ischemic changes. The sulci are dilated in keeping with predominantly peripheral brain atrophy. There are stable small fluid density foci in bilateral basal ganglia suggestive of chronic lacunar infarctions. Knee X-Ray 08/26/22 11:23 IMPRESSION: No acute bony abnormalities. Hip CT 08/26/22 11:49 IMPRESSION: Acute comminuted intertrochanteric fracture left hip Hip/Pelvis X-Ray 08/27/22 00:00 IMPRESSION: 1. Satisfactory ORIF of an intertrochanteric fracture of the left hip. Laboratory Results WBC 4.5 10^3/uL (4.0-10.0) 08/31/22 01:35 RBC 3.58 10^6/uL (4.1-5.3) L 08/31/22 01:35 Hgb 9.5 g/dL (11.7-16.6) L 08/31/22 01:35 Hct 30.8 % (42.0-52.0) L 08/31/22 01:35 MCV 86.0 fl (80-94) 08/31/22 01:35 MCH 26.5 pg (28.0-34.0) L 08/31/22 01:35 MCHC 30.8 g/dL (30.0-36.0) 08/31/22 01:35 RDW 15.7 % (12.1-15.1) H 08/31/22 01:35 Plt Count 256 10^3/cmm (130-400) 08/31/22 01:35 MPV 9.5 fL (7.4-10.4) 08/31/22 01:35 Neut % (Auto) 72.1 % 08/31/22 01:35 Lymph % (Auto) 11.5 % 08/31/22 01:35 Amelia % (Auto) 10.0 % 08/31/22 01:35 Eos % (Auto) 4.4 % 08/31/22 01:35 Baso % (Auto) 0.2 % 08/31/22 01:35 Neut # (Auto) 3.25 10^3/uL (1.8-7.7) 08/31/22 01:35 Lymph # (Auto) 0.5 10^3/uL (0.8-4.8) L 08/31/22 01:35 [place] # (Auto) 0.5 10^3/uL (0.2-0.9) 08/31/22 01:35 Eos # (Auto) 0.2 10^3/uL (0.0-0.8) 08/31/22 01:35 Baso # (Auto) 0.0 10^3/uL (0.0-0.1) 08/31/22 01:35 Nucleated RBC % (auto) 0 % 08/31/22 01:35 Nucleated RBCs # 0.0 /100WBC 08/31/22 01:35 PT 15.30 SECONDS (12.1-14.9) H 08/26/22 08:40 INR 1.18 (0.8-1.2) 08/26/22 08:40 APTT 32.2 SECONDS (23.9-36.7) 08/26/22 08:40 Sodium 139 mmol/L (136-145) 08/31/22 01:35 Potassium 3.8 mmol/L (3.5-5.1) 08/31/22 01:35 Chloride 106 mmol/L (98-107) 08/31/22 01:35 Carbon Dioxide 25 mmol/L (22-29) 08/31/22 01:35 Anion Gap 11.8 (5-19) 08/31/22 01:35 BUN 22 mg/dL (8-23) 08/31/22 01:35 Creatinine 1.2 mg/dL (0.7-1.2) 08/31/22 01:35 GFR Calculation Not Reportable 08/31/22 01:35 Glucose 137 mg/dL (65-115) H 08/31/22 01:35 POC Glucose 156 mg/dL (70-110) H 08/29/22 06:19 Calculated Osmolality 293 mOsm/kg (285-295) 08/31/22 01:35 Calcium 8.7 mg/dL (8.5-10.5) 08/31/22 01:35 Phosphorus 3.1 mg/dL (2.5-4.5) 08/26/22 08:40 Magnesium 1.6 mg/dL (1.7-2.3) L 08/27/22 03:37 Total Bilirubin 0.3 mg/dL (0.15-1.2) 08/28/22 04:09 AST 22 U/L (0-40) 08/28/22 04:09 ALT 10 U/L (0-41) 08/28/22 04:09 Alkaline Phosphatase 36 U/L (40-130) L 08/28/22 04:09 Total Protein 4.8 g/dL (6.6-8.7) L 08/28/22 04:09 Albumin 2.4 g/dL (3.5-5.2) L 08/28/22 04:09 Globulin 2.4 g/dL (1.3-4.6) 08/28/22 04:09 Vitamin B12 150 pg/mL (232-1245) L 08/26/22 08:40 Procalcitonin 0.09 ng/mL (0-0.5) 08/26/22 08:40 SARS-CoV-2 Ag (Rapid) positive (Negative) 09/01/22 11:20 Blood Type O Negative 08/28/22 09:35 Rho(D) Type Negative 08/28/22 09:35 Antibody Screen Negative 08/28/22 09:35 Crossmatch See Detail 08/28/22 09:35 Vitals Last Vital Signs Temp 97.5 F L 09/07/22 07:36 Pulse 73 09/07/22 07:36 Resp 18 09/07/22 08:04 BP 144/82 09/07/22 07:36 Pulse Ox 99 09/07/22 07:36 O2 Del Method 09/07/22 07:36 O2 Flow Rate 10 08/27/22 10:45 Discharge Plan Discharge Patient Disposition: Xfer SNF Condition: Stable Prescriptions: New Stool Softener-Laxative 8.6-50 mg Tablet 1 tab PO BID 5 Days Qty: 10 0RF aspirin 325 mg tablet 325 mg PO DAILY 27 Days Qty: 27 0RF oxycodone 5 mg Tablet 5 mg PO Q6H PRN (Reason: Moderate To Severe Pain) 5 Days Qty: 12 0RF Continued atorvastatin 40 mg tablet 80 mg PO DAILY Qty: 180 3RF clopidogrel 75 mg tablet 75 mg PO DAILY Qty: 90 3RF furosemide 20 mg tablet 20 mg PO DAILY Qty: 90 3RF trazodone 50 mg Tablet 50 mg PO BEDTIME PRN (Reason: Sleep) tamsulosin [Flomax] 0.4 mg Capsule 0.4 mg PO BEDTIME cinnamon bark [Cinnamon] 500 mg Capsule 1,000 mg PO BID cholecalciferol (vitamin D3) [Vitamin D3] 50 mcg (2,000 unit) Capsule 50 mcg PO DAILY Discontinued Stewart Low Dose Aspirin 81 mg tablet,delayed release (DR/EC) 81 mg PO DAILY Qty: 90 3RF Discharge Orders: Discharge Order (Routine); Ordered 09/07/22 Ordered By: Soumya Melara Referrals: Portia Larose MD [Primary Care Provider] - 4-7 days (Please follow with the custodial provider. ) Racheal Grey MD [Physician] - 2 weeks (Due to the clinics being closed for the Holidays, we were unable to make your follow up appointment. Please call Sunday to make an appointment to be seen by Dr. Grey in two weeks. ) Discharge Diet: Cardiac Discharge Activity: Increase activity as tolerated, Use walker/crutches as instructed and As per PT/OT instructions Patient Instructions: Oxycodone/Acetaminophen (By mouth), Aspirin (By mouth), Laxative, Stool Softeners (By mouth), Total Hip Replacement (GEN) Activity Restrictions/Additional Instructions: Please do a voiding trial at custodial. Discharge Attestations Time Spent in Discharge Care*: less than 30 min Status at Discharge: Cognitive status at discharge: cognitively intact , Behavioral status at discharge: cooperative and independent in ADL's , Quality Metrics Clinical Quality Measures [ No reported AMI, CVA or VTE this stay] Coding Level of Care Code Acute [facility] note Diagnoses COVID U07.1 Subtrochanteric fracture of left femur S72.22XA Encounter type: initial encounter Fracture type: closed Fracture alignment: displaced Closed intertrochanteric fracture of left femur S72.142A Encounter type: initial encounter Fracture alignment: displaced Generalized weakness R53.1
[2022-09-07 11:28] VITALS: BP 133/82; PULSE 70; RESP 15; TEMP 36.4; O2SAT 97
--- NOTE | 2022-09-07 12:15 | PC.NURSE ---
Report called to MAHENDRA Werner, at [facility].
== END 2022-09-07 13:47 | disposition skilled nursing facility (03) | DRG 480 ==
LOC: ER 15:01 → MEDSURG 16:09
PROVIDERS: Specialist; Student in an Organized Health Care Education/Training Program; Admitting Provider Internal Medicine; Emergency Provider Family Medicine; PCP Family Medicine; Visit Provider Internal Medicine
PROC: 0QH736Z Insertion of Intramedullary Internal Fixation Device into Left Upper Femur, Percutaneous Approach (ICD-10-PCS; CPT 27245; principal; 2022-08-27 08:00)
DX: S72.142A Displaced intertrochanteric fracture of left femur, initial encounter for closed fracture (principal); U07.1 COVID-19; D62 Acute posthemorrhagic anemia; I13.0 Hypertensive heart and chronic kidney disease with heart failure and stage 1 through stage 4 chronic kidney disease, or unspecified chronic kidney disease; I50.32 Chronic diastolic (congestive) heart failure; N17.9 Acute kidney failure, unspecified; W18.30XA Fall on same level, unspecified, initial encounter; E11.22 Type 2 diabetes mellitus with diabetic chronic kidney disease; N18.2 Chronic kidney disease, stage 2 (mild); E78.5 Hyperlipidemia, unspecified; Z79.891 Long term (current) use of opiate analgesic; I25.10 Atherosclerotic heart disease of native coronary artery without angina pectoris; Z95.5 Presence of coronary angioplasty implant and graft; J32.9 Chronic sinusitis, unspecified; Z86.73 Personal history of transient ischemic attack (TIA), and cerebral infarction without residual deficits; Z75.1 Person awaiting admission to adequate facility elsewhere; Z79.02 Long term (current) use of antithrombotics/antiplatelets; E53.8 Deficiency of other specified B group vitamins; Z66 Do not resuscitate; Z87.891 Personal history of nicotine dependence
CPT/HCPCS: 36415; 36416; 36430; 51702; 70450; 71045; 73080; 73130; 73502; 73562; 73590; 73700; 76000; 80048; 80053; 82607; 82962; 83735; 84100; 84145; 85025; 85610; 85730; 86850; 86900; 86920; 87426; 90471; 90714; 93005; 96360; 96361; 96372; 97110; 97161; 97167; 97530; 97535; 99285; C1713; C1776; J0131; J0330; J0690; J1644; J2270; J2370; J2405; J2704; J3010; J3420; J7030; J7040; J7050; J8540; P9040

== ENCOUNTER → 2022-09-14 13:51 | Outpatient (BNVA) | payer OTHER, SELFPAY | PROVIDERS: PCP Family Medicine; Visit Provider Nurse Practitioner Family | DX: S72.142A Displaced intertrochanteric fracture of left femur, initial encounter for closed fracture (principal); S72.22XA Displaced subtrochanteric fracture of left femur, initial encounter for closed fracture; X58.XXXA Exposure to other specified factors, initial encounter | CPT/HCPCS: 73502; 99024 ==

== ENCOUNTER → 2022-10-12 11:40 | Outpatient (BNVA) | payer OTHER, SELFPAY | PROVIDERS: PCP Family Medicine; Visit Provider Nurse Practitioner Family | DX: S72.22XA Displaced subtrochanteric fracture of left femur, initial encounter for closed fracture (principal); S72.142A Displaced intertrochanteric fracture of left femur, initial encounter for closed fracture; X58.XXXA Exposure to other specified factors, initial encounter | CPT/HCPCS: 73502; 99024 ==

== ENCOUNTER 2022-11-13 10:37 | Inpatient (IN) | payer OTHER, SELFPAY ==
[2022-11-13] VITALS (93 sets, daily range): BP systolic 113–166; BP diastolic 55–119; PULSE 53–155; RESP 10–40; TEMP 36.5–36.9; O2SAT 94–97; BMI 22.8
--- NOTE | 2022-11-13 10:43 | XRR_ITS ---
PROCEDURE INFORMATION: Exam: XR Chest Exam date and time: 11/13/2022 11:06 AM Age: 82 years old Clinical indication: Cough and dyspnea; Additional info: Dyspnea/cough TECHNIQUE: Imaging protocol: Radiologic exam of the chest. Views: 1 view. COMPARISON: CR (CHEST, ) 08/26/2022 8:54 AM FINDINGS: Lungs: Prominent interstitial markings again noted in the lungs without significant change from prior exam. Pleural spaces: No pneumothorax. No pleural effusion. Heart/Mediastinum: The cardiomediastinal silhouette is within normal limits. 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 Mild elevation of the left hemidiaphragm similar to prior exam. XR/XR chest 1V portable [id number] IMPRESSION: Prominent interstitial markings again noted in the lungs without significant change from prior exam.
--- NOTE | 2022-11-13 10:43 | ECG_ITS ---
[facility] Test Date: 2022-11-13 Pat Name: Siva Malik Department: Room: Gender: Male Entry Level Manufacturing Engineer: : [id number] Requested By: Emre Bird Order Number: [id number] Desi MD: Karel Torres M.D. Measurements Intervals [place] Rate: 137 P: 0 NC: 0 QRS: 11 QRSD: 62 T: 70 QT: 276 QTc: 417 Interpretive Statements SINUS TACHYCARIDA MODERATE ST DEPRESSION [0.05+ mV ST DEPRESSION] Compared to ECG 08/26/2022 09:07:43 ST (T wave) deviation now present Sinus rhythm no longer present Sinus arrhythmia no longer present First degree AV block no longer present Electronically Signed On 11-13-2022 11:18:24 FILM PRODUCER by Karel Torres M.D. [id number]
--- NOTE | 2022-11-13 11:04 | ED_ITS ---
HPI - Arrhythmia/Palpitations General: Chief Complaint: Arrhythmia/Palpitations Stated Complaint: TACHY FROM OR Time Seen by Provider: 11/13/22 10:37 Source: patient Mode of arrival: EMS History of Present Illness: 82-year-old male presents emergency room with rapid heart rate. He was seen at the OR clinic this morning for a foot ulcer noted to have a rapid heart rate and brought to the emergency room. He has no history of atrial fibrillation. He has not had any chest pain. He states he has chronic orthopnea and that has been unchanged recently. MD complaint: rapid heart beat Duration: constant Context: occurred during rest Associated symptoms: Deny anxiety, cough, diaphoresis, muscle cramps, nausea, paresthesias, pre-syncope, sense of impending doom, short of breath, syncope or vomiting Review of Systems Const: Denies: fever(s), chills or diaphoresis ENMT: Denies: throat pain, ear or mastoid pain, nasal discharge or nasal congestion Card: Reports: palpitations, edema and swelling of feet/ankles; Denies: chest pain, syncope or pre-syncope Resp: Denies: dyspnea, productive cough or non-productive cough GI: Denies: nausea or vomiting : Denies: flank pain, dysuria, urinary frequency or urinary urgency Musc: Denies: muscle cramps Skin/Breast: Denies: rash or pruritus Psych: Denies: anxiety PFSH ED PFSH: Medical History (Updated 11/14/22 @ 07:14 by Emre Skaggs DO) Anemia Atherosclerosis of coronary artery of [place] heart without angina pectoris B12 deficiency Benign essential hypertension with target blood pressure below 140/90 Benign prostate hyperplasia Beta-bertrand intolerance 3.6-second pause on 02/19/2021 Chronic blepharitis CKD (chronic kidney disease) COVID 08/2022 Depression Diabetes mellitus, type II microalbuminuria Diastolic dysfunction Diverticulosis GERD (gastroesophageal reflux disease) History of echocardiogram 02/2022 EF 55-60% History of Holter monitoring 02/2021 sinus rhythm with one 3.6 second pause noted. One episode of sinus bradycardia to 37 bpm. Taken off of beta blockade. Hyperlipidemia Polyp of colon Second degree AV block, Mobitz type I Squamous cell carcinoma of skin Surgical History (Updated 11/13/22 @ 16:32 by Rain Eden MD) H/O left wrist surgery History of cardiac catheterization 07/2020 90-95% LAD lesion, 20-30% circ lesion, 50% ostial RCS, declined CABG and underwent PCI to LAD Hx of cataract surgery Status post laparoscopic cholecystectomy (12/27/19) Status post open reduction and internal fixation (ORIF) of fracture (08/27/22) left intertrochanteric hip fracture, gamma nail, Dr Grey Family History Denies family history of CAD (coronary artery disease) Anesthesia complication Bleeding disorder Social History Smoking and tobacco status: former smoker Alcohol intake: never Physical Exam Const: GENERAL APPEARANCE: cooperative and comfortable ORIE NTATION/CONSCIOUSNESS: Yes awake, Yes oriented to person, Yes oriented to place and Yes oriented to time HENMT: COMMON NORMALS: normocephalic, atraumatic and hearing grossly normal bilaterally HEAD & SCALP: normocephalic and atraumatic Resp: COMMON NORMALS: normal respiratory effort, No retractions, No use of accessory muscles and clear to auscultation bilaterally AUSCULTATION: clear to auscultation bilaterally Cardio: COMMON NORMALS: No murmurs present (Cardio) RATE: tachycardic GI: COMMON NORMALS: Soft to palpation and No hepatosplenomegaly present AUSCULTATION: Yes normoactive bowel sounds PALPATION: Yes Soft to palpation, No Tenderness to palpation present (GI), No Guarding due to palpation present (GI) and Yes No hepatosplenomegaly present Extremity: GENERAL: Yes edema (2+ edema lower extremities) OTHER: Small dry wounds on the heels of both feet appear to be superficial. No evidence of any tunneling wounds. There is a violaceous area on the dorsum of the right foot in the area of her second and third distal metatarsals patient states that actually looks better there is no sign of abscess on palpation. Neuro: SENSORIUM/ORIENTATION: Yes oriented to person, Yes oriented to place and Yes oriented to time Skin: COMMON NORMALS: no rashes or lesions noted GENERAL SKIN EXAM: no rashes or lesions noted Course Vital Signs: Vital signs: Vital Signs Temperature 98.3 F 11/14/22 05:22 Pulse Rate 70 11/14/22 05:45 Respiratory Rate 18 11/14/22 05:22 Blood Pressure 120/50 11/14/22 05:22 Pulse Oximetry 95 11/14/22 05:22 Oxygen Delivery Me thod 11/14/22 05:22 MDM - Arrhythmia/Palpitations Medical Decision Making Patient in a sinus tachycardia at times he will heart rate will decrease on auscultation does not sound like he is in A-fib EKG read as SVT although I do not think he is in a true SVT rhythm he did seem to respond to fluids his lactic acid is 3.6 and his white count is elevated he started on antibiotics. Gave him 1000 L milliliters of fluid bolus which did seem to improve his heart rate some but with any activity he gets tachycardic again his oxygen sats are remaining in the mid 90s his blood pressure is stable. Cultures have been drawn. Discussed with Dr. Eden will admit for possible sepsis with his elevated lactic acid is already been started on antibiotics. Hold off on the remainder of the fluid balance I felt chest x-ray look like he may have a little basilar pneumonia. His initial troponin is 35 his BNP is slightly elevated at 4900. Old records reviewed in August 2022 patient had an interest trochanteric hip fracture for which she underwent ORIF. At the time of discharge she was found to have COVID- 19 however did not require oxygen he was discharged to the [facility] with isolation. Further review of his EKGs and monitoring it appears that his initial EKGs were likely atrial fibrillation he spontaneously converted and his heart rate went down into the 60s. While he was tachycardic neither his EKGs nor physical exam were completely indicative of atrial fibrillation initially thought he was just having a sinus arrhythmia with tachycardia. Discussed with the hospitalist who both agreed on this probably was atrial fibrillation. Will admit. Orders written. Medical Records I reviewed the patient's medical records. Lab Data I reviewed the patient's lab results. 11/13/22 11:00 11/13/22 11:00 Radiology Impressions Chest X-Ray 11/13/22 10:43 IMPRESSION: Prominent interstitial markings again noted in the lungs without significant change from prior exam. Laboratory Results WBC 12.7 10^3/uL (4.0-10.0) H 11/13/22 11:00 RBC 3.73 10^6/uL (4.1-5.3) L 11/13/22 11:00 Hgb 9.9 g/dL (11.7-16.6) L 11/13/22 11:00 Hct 33.3 % (42.0-52.0) L 11/13/22 11:00 MCV 89.3 fl (80-94) 11/13/22 11:00 MCH 26.5 pg (28.0-34.0) L 11/13/22 11:00 MCHC 29.7 g/dL (30.0-36.0) L 11/13/22 11:00 RDW 19.8 % (12.1-15.1) H 11/13/22 11:00 Plt Count 457 10^3/cmm (130-400) H 11/13/22 11:00 MPV 9.4 fL (7.4-10.4) 11/13/22 11:00 Neut % (Auto) 84.7 % 11/13/22 11:00 Lymph % (Auto) 5.6 % 11/13/22 11:00 [place] % (Auto) 4.4 % 11/13/22 11:00 Eos % (Auto) 4.4 % 11/13/22 11:00 Baso % (Auto) 0.4 % 11/13/22 11:00 Neut # (Auto) 10.75 10^3/uL (1.8-7.7) H 11/13/22 11:00 Lymph # (Auto) 0.7 10^3/uL (0.8-4.8) L 11/13/22 11:00 [place] # (Auto) 0.6 10^3/uL (0.2-0.9) 11/13/22 11:00 Eos # (Auto) 0.6 10^3/uL (0.0-0.8) 11/13/22 11:00 Baso # (Auto) 0.1 10^3/uL (0.0-0.1) 11/13/22 11:00 Nucleated RBC % (auto) 0 % 11/13/22 11:00 Nucleated RBCs # 0.0 /100WBC 11/13/22 11:00 PT 14.70 SECONDS (12.1-14.9) 11/13/22 11:00 INR 1.12 (0.8-1.2) 11/13/22 11:00 APTT 34.3 SECONDS (23.9-36.7) 11/13/22 11:00 Sodium 141 mmol/L (136-145) 11/13/22 11:00 Potassium 4.1 mmol/L (3.5-5.1) 11/13/22 11:00 Chloride 104 mmol/L (98-107) 11/13/22 11:00 Carbon Dioxide 23 mmol/L (22-29) 11/13/22 11:00 Anion Gap 18.1 (5-19) 11/13/22 11:00 BUN 21 mg/dL (8-23) 11/13/22 11:00 Creatinine 1.2 mg/dL (0.7-1.2) 11/13/22 11:00 GFR Calculation Not Reportable 11/13/22 11:00 Glucose 179 mg/dL (65-115) H 11/13/22 11:00 Calculated Osmolality 299 mOsm/kg (285-295) H 11/13/22 11:00 Lactic Acid 3.6 mmol/L (0.5-2.2) H 11/13/22 11:00 Lactic Acid (Sepsis) 1.7 mmol/L (0.5-2.2) 11/13/22 13:44 Calcium 9.4 mg/dL (8.5-10.5) 11/13/22 11:00 Magnesium 1.6 mg/dL (1.7-2.3) L 11/13/22 12:49 Iron 26 ug/dL (59-158) L 11/13/22 12:49 TIBC 171 mcg/dl 11/13/22 12:49 % Saturation 15.2 % (20-50) L 11/13/22 12:49 Unsat Iron Binding 145 ug/dL (112-347) 11/13/22 12:49 Total Bilirubin 0.4 mg/dL (0.15-1.2) 11/13/22 11:00 AST 11 U/L (0-40) 11/13/22 11:00 ALT 9 U/L (0-41) 11/13/22 11:00 Alkaline Phosphatase 65 U/L (40-130) 11/13/22 11:00 Troponin T Baseline 35 ng/L (0-15) H 11/13/22 11:00 Troponin T 120 Minute 31.83 ng/L (0-15) H 11/13/22 12:49 Delta Troponin T -3.17 ABS# (0-10) L 11/13/22 12:49 NT-Pro-B Natriuret Pep 4900 pg/mL (0-450) H 11/13/22 11:00 Total Protein 6.9 g/dL (6.6-8.7) 11/13/22 11:00 Albumin 3.4 g/dL (3.5-5.2) L 11/13/22 11:00 Globulin 3.5 g/dL (1.3-4.6) 11/13/22 11:00 Vitamin B12 224 pg/mL (232-1245) L 11/13/22 12:49 Procalcitonin 0.06 ng/mL (0-0.5) 11/13/22 12:49 TSH 4.28 uIU/mL (0.27-4.20) H 11/13/22 12:49 Urine Color Light yellow (Yellow) 11/13/22 11:00 Urine Appearance Clear (CLEAR) 11/13/22 11:00 Urine pH 6 (5-7) 11/13/22 11:00 Ur Specific [place] 1.010 (1.005-1.030) 11/13/22 11:00 Urine Protein Neg (Negative) 11/13/22 11:00 Urine Glucose (UA) Norm (Normal) 11/13/22 11:00 Urine Ketones Negative (Negative) 11/13/22 11:00 Urine Blood Neg (Negative) 11/13/22 11:00 Urine Nitrate Negative (Negative) 11/13/22 11:00 Urine Bilirubin Neg (Negative) 11/13/22 11:00 Urine Urobilinogen Norm mg/dL (Negative) 11/13/22 11:00 Ur Leukocyte Esterase Negative (Negative) 11/13/22 11:00 Discharge Plan Discharge Patient Disposition: Admitted As Inpatient Admit Provider: Rain Eden Clinical Impression: Atrial fibrillation, Diabetes mellitus, type II, CKD (chronic kidney disease), Diastolic dysfunction, Anemia, Pneumonia Condition: Stable Coding Level of Care Code ED Mixing And Dispensing Supervisor for Marla Stanley
[2022-11-13 11:10] LABS: Basophils # 0.1 10^3/uL (0.0-0.1); Basophils % 0.4 %; Eosinophils # 0.6 10^3/uL (0.0-0.8); Eosinophils % 4.4 %; Hematocrit 33.3 % (42.0-52.0); Hemoglobin 9.9 g/dL (11.7-16.6); Lymphocytes # 0.7 10^3/uL (0.8-4.8); Lymphocytes % 5.6 %; Mean Corpuscular HGB Conc 29.7 g/dL (30.0-36.0); Mean Corpuscular Hemoglobin 26.5 pg (28.0-34.0); Mean Corpuscular Volume 89.3 fl (80-94); Mean Platelet Volume 9.4 fL (7.4-10.4); Monocytes # 0.6 10^3/uL (0.2-0.9); Monocytes % 4.4 %; Neutrophils # 10.75 10^3/uL (1.8-7.7); Neutrophils % 84.7 %; Nucleated Red Blood Cells % 0 %; Platelet Count 457 10^3/cmm (130-400); Red Blood Count 3.73 10^6/uL (4.1-5.3); Red Cell Distribution Width 19.8 % (12.1-15.1); White Blood Count 12.7 10^3/uL (4.0-10.0)
[2022-11-13] MEDS: sodium chloride 0.9% 500 ML 999 ML IV (11:10)
[2022-11-13 11:27] LABS: Lactic Sepsis W/Reflex 3.6 mmol/L (0.5-2.2)
[2022-11-13 11:32] LABS: Troponin(5th) Baseline 35 ng/L (0-15)
[2022-11-13 11:39] LABS: Alanine Aminotransferase 9 U/L (0-41); Albumin Level 3.4 g/dL (3.5-5.2); Alkaline Phosphatase 65 U/L (40-130); Anion Gap 18.1 (5-19); Aspartate Amino Transferase 11 U/L (0-40); Blood Urea Nitrogen 21 mg/dL (8-23); Calcium 9.4 mg/dL (8.5-10.5); Carbon Dioxide 23 mmol/L (22-29); Chloride 104 mmol/L (98-107); Globulin 3.5 g/dL (1.3-4.6); Glucose 179 mg/dL (65-115); NT Pro B Type Natriuretic Pept 4900 pg/mL (0-450); Osmolality Calculated 299 mOsm/kg (285-295); Potassium 4.1 mmol/L (3.5-5.1); Sodium 141 mmol/L (136-145); Total Bilirubin 0.4 mg/dL (0.15-1.2); Total Protein 6.9 g/dL (6.6-8.7)
--- NOTE | 2022-11-13 11:58 | ECG_ITS ---
[facility] Test Date: 2022-11-13 Pat Name: Siva Malik Department: Room: Gender: Male Candy Attendant: : 1940 Requested By: Emre Bird Order Number: [id number] Desi MD: Karel Torres M.D. Measurements Intervals [place] Rate: 136 P: 0 TN: 0 QRS: 5 QRSD: 70 T: 92 QT: 278 QTc: 418 Interpretive Statements SUPRAVENTRICULAR TACHYCARDIA MODERATE ST DEPRESSION [0.05+ mV ST DEPRESSION] ABNORMAL QRS-T ANGLE [QRS-T AXIS DIFFERENCE > 60] Compared to ECG 11/13/2022 10:51:24 No significant changes Electronically Signed On 11-13-2022 14:27:27 MAGNETIC TAPE COMPOSER OPERATOR by Karel Torres M.D. [id number]
[2022-11-13] MEDS: piperacillin-tazobactam 3.375 GM in sodium chloride 0.9% (plus) 50 ML IV (12:02)
[2022-11-13] MEDS: sodium chloride 0.9% 2,231.67 ML 2231.67 ML IV (12:03)
[2022-11-13 12:55] LABS: Reflex Lactate Order REFLEX LACTIC ORDERD
[2022-11-13 12:57] LABS: Add Urine Microscopic? NO; Charge for UA Resulting for Rev
[2022-11-13 13:04] LABS: Bilirubin Urine Neg (Negative); Blood Urine Neg (Negative); Glucose Urine UA Norm (Normal); Ketones Urine Negative (Negative); Leukocyte Esterase Urine Negative (Negative); Nitrate Urine Negative (Negative); Protein Urine Neg (Negative); Urine Appearance Clear (CLEAR); Urine Color Light yellow (Yellow); Urobilinogen Urine Norm (Negative); pH Urine 6 (5-7)
--- NOTE | 2022-11-13 13:21 | PC.PHAR ---
pts daughter susan [phone] verified pts medications-
[2022-11-13 13:27] LABS: Troponin 5 2HR 31.83 ng/L (0-15)
[2022-11-13 13:30] LABS: Troponin 5 2HR Delta -3.17 ABS# (0-10)
[2022-11-13 14:08] LABS: Lactic Acid level (Lactate) 1.7 mmol/L (0.5-2.2)
--- NOTE | 2022-11-13 14:26 | PC.NURSE ---
PT HAS REDNESS ON SACRUM. PT FAMILY STATES THAT SHE HAS CREAM AT HOME THEY HAVE BEEN APPLYING. DR. SPICER NOTIFIED NO FURTHER ORDERS AT THIS TIME
--- NOTE | 2022-11-13 15:27 | PC.NURSE ---
PT HAS A SKIN TEAR ON HIS LEFT WRIST DR. SPICER WAS NOTIFIED ORDER TO PLACE TEGADERM PER [facility]
--- NOTE | 2022-11-13 16:10 | PM.HP ---
Providers/Chief Complaint Admitting Physician: Rain Eden MD Primary Care Provider: Portia Larose MD Chief Complaint: T[place] FROM [place] History of Present Illness Siva Malik is a 82 year old male who presented to the emergency room from the [place] clinic. He had presented there for follow-up of a sore on his right foot. He has an area that appeared about a week ago on the distal anterior portion of the foot above the third fourth and fifth toes. It was originally read. No open wound nor pain. No history of trauma. He has been on cephalexin for the past 7 days for this wound and was being seen for follow-up. While there he was noted to be tachycardic and twelve-lead EKG showed atrial fibrillation with rapid ventricular response at 126 bpm. Patient is not known to have a history of atrial fibrillation. He does have a history of coronary artery disease and underwent percutaneous coronary intervention of the LAD in July 2020. He was treated with beta-blockade and subsequently noted to have beta-bertrand intolerance with significant pauses and bradycardia. No other history of arrhythmias noted and available records here, beyond the indication of AV block. He has not followed with cardiology since Dr. Landon left. Patient himself denies any palpitations, chest pain or noting his heart rate to be high. He has had shortness of breath with exertion lately. He uses a walker at recent baseline. He had hip fracture with surgical repair in August 2022 and continues to recover from that. He has had swelling in his legs since his hip fracture. Does not feel like the swelling is any worse than it has been. Denies any calf pain. He spends time in a recliner with his legs elevated. He has been getting around with a walker okay other than the shortness of breath. Denies any cough. Has had a mild runny nose. No fevers. No sore throat or headache. Not had any nausea or vomiting. He has chronic difficulty with urination due to prostatic hypertrophy. No change in bowel function. He bruises quite easily and his skin is thin resulting in easy skin tears. He has had a difficult time since his hip fracture and has not pleased that he is in the hospital again. He is worried about his heart and his overall wellbeing. His daughter is staying with him and manages his medications. History is obtained from him predominantly. His best friend is at the bedside and his daughter was available by phone. He had some IV fluids in the emergency room with transient improvement in heart rate. White count was elevated at 12.7. Lactic acid was elevated at 3.6 initially and improved to 1.7. Chest x-ray clinically felt to demonstrate pneumonia. Initial troponin was 35. Twelve-lead EKG showed SVT at 136 bpm. Request was made for admission to hospitalist service. Review of Systems General: Reports: Other (ROS as per HPI or as otherwise noted here) Const: Reports: fatigue and change in sleep pattern (Not sleeping well, slept better when had oxycodone at bedtime) Card: Reports: dyspnea on exertion Resp: Denies: productive cough, non-productive cough, pain on inspiration or chest congestion Musc: Reports: extremity pain (Describes as a discomfort in his hip) Skin/Breast: Reports: dry skin Psych: Reports: depression (Since hip fracture) Medications/Allergies Home Medications Medication Instructions Recorded Confirmed Last Taken Type cinnamon bark 500 mg capsule 1,000 mg PO DAILY 12/27/19 11/13/22 07/19/20 History (Cinnamon) tamsulosin 0.4 mg capsule (Flomax) 0.4 mg PO QPM 12/27/19 10/12/22 07/19/20 History clopidogrel 75 mg tablet 75 mg PO DAILY #90 tabs 08/24/21 10/12/22 Unknown Rx acetaminophen 500 mg tablet 1,000 mg PO BEDTIME 11/13/22 11/13/22 Unknown History aspirin 81 mg tablet,delayed 81 mg PO QAM 11/13/22 11/13/22 Unknown History release atorvastatin 80 mg tablet (Lipitor) 80 mg PO DAILY 11/13/22 11/13/22 Unknown History cephalexin 500 mg capsule 500 mg PO QID 11/13/22 11/13/22 Unknown History cholecalciferol (vitamin D3) 25 25 mcg PO DAILY 11/13/22 11/13/22 Unknown History mcg (1,000 unit) tablet furosemide 20 mg tablet 20 mg PO QAM 11/13/22 Unknown History megestrol 20 mg tablet 20 mg PO QID 11/13/22 11/13/22 Unknown History metformin 1,000 mg tablet 500 mg PO BID 11/13/22 11/13/22 Unknown History omeprazole 40 mg capsule,delayed 40 mg PO QAM 11/13/22 11/13/22 Unknown History release potassium chloride 20 mEq 20 meq PO DAILY 11/13/22 Unknown History tablet,extended release(part/cryst) (Klor-Con M) sucralfate 1 gram tablet (Carafate) 1 g PO QID 11/13/22 Unknown History trazodone 100 mg tablet 100 mg PO BEDTIME 11/13/22 11/13/22 Unknown History zinc oxide 20 % topical ointment 1 applic topical TID 11/13/22 11/13/22 Unknown History Allergies Allergy/AdvReac Type Severity Reaction Status Date / Time No Known Allergies Allergy Verified 11/13/22 13:04 Additional Medication Information Patient is unsure of several medications. His daughter manages his medications for him. She is on the road presently and does not have access to medications. [facility] Plav[facility], Lasix and Flomax have but he may still have them at home. He does not think that he is taking Carafate anymore. Will clarify these specific medications with daughter as soon as we are able. PFSH Acute PFSH: Medical History (Updated 11/13/22 @ 18:15 by Rain Eden MD) Anemia Atherosclerosis of coronary artery of quechan heart without angina pectoris B12 deficiency Benign essential hypertension with target blood pressure below 140/90 Benign prostate hyperplasia Beta-bertrand intolerance 3.6-second pause on 02/19/2021 Chronic blepharitis CKD (chronic kidney disease) COVID 08/2022 Depression Diabetes mellitus, type II microalbuminuria Diastolic dysfunction Diverticulosis GERD (gastroesophageal reflux disease) History of echocardiogram 02/2022 EF 55-60% History of Holter monitoring 02/2021 sinus rhythm with one 3.6 second pause noted. One episode of sinus bradycardia to 37 bpm. Taken off of beta blockade. Hyperlipidemia Polyp of colon Second degree AV block, Mobitz type I Squamous cell carcinoma of skin Surgical History (Updated 11/13/22 @ 16:32 by Rain Eden MD) H/O left wrist surgery History of cardiac catheterization 07/2020 90-95% LAD lesion, 20-30% circ lesion, 50% ostial RCS, declined CABG and underwent PCI to LAD Hx of cataract surgery Status post laparoscopic cholecystectomy (12/27/19) Status post open reduction and internal fixation (ORIF) of fracture (08/27/22) left intertrochanteric hip fracture, gamma nail, Dr Grey Family History Denies family history of CAD (coronary artery disease) Anesthesia complication Bleeding disorder Social History Smoking and tobacco status: former smoker Alcohol intake: never Vitals/I&O/Wt Last Vital Signs Temp 98.2 F 11/13/22 10:38 Pulse 76 11/13/22 15:40 Resp 19 H 11/13/22 15:40 BP 146/84 11/13/22 15:40 Pulse Ox 96 11/13/22 15:25 O2 Del Method 11/13/22 11:40 11/13/22 11/13/22 11/13/22 06:59 14:59 22:59 Intake Total 500 / 500 Balance 500 / 500 Weight last 48 hrs Weight 74.389 kg Physical Exam Narrative: Patient is awake and alert. Able to provide history although unsure of details regarding medications. Tearful at times. Mild bitemporal wasting noted otherwise normocephalic. Pupils are equally reactive. Extraocular movements are intact. Nasopharynx is clear. Oropharynx is clear with dentures noted. Neck is supple. No JVD. Lungs are clear at the apices bilaterally. Bibasilar crackles are noted. No accessory muscle use. He has a tachycardic irregular rhythm. No murmurs are noted. Pulses are 2+ radially bilaterally. 2+ dorsalis pedis bilaterally. Abdomen is soft, nontender. Normal external genitalia. Slow urine stream. 2+ pitting edema bilaterally. Compression stockings were removed. No palpable cords or calf tenderness. Right foot is more swollen than left foot with approximately 7 cm diameter area of bruising and soft induration. No warmth noted. No fluctuance. There is what appears to be some flaking skin centrally but no open wound. Area was marked with some red wax pencil markings that were cleaned off by me (these outlined exactly the area of slight discoloration and induration described). Both heels are soft with intact skin that is mildly erythematous. Significant skin flaking noted all over like dandruff without clear areas of desquamation. Scattered ecchymoses on extremities. Skin tear covered with Tegaderm to left wrist. There is erythema that is nonblanching in the sacral area present on admission but no open sores. Speech is clear. Moves all extremities. Able to stand with assistance. Data 11/13/22 11:00 11/13/22 11:00 Other Labs: Radiology Impressions Chest X-Ray 11/13/22 10:43 IMPRESSION: Prominent interstitial markings again noted in the lungs without significant change from prior exam. Laboratory Results WBC 12.7 10^3/uL (4.0-10.0) H 11/13/22 11:00 RBC 3.73 10^6/uL (4.1-5.3) L 11/13/22 11:00 Hgb 9.9 g/dL (11.7-16.6) L 11/13/22 11:00 Hct 33.3 % (42.0-52.0) L 11/13/22 11:00 MCV 89.3 fl (80-94) 11/13/22 11:00 MCH 26.5 pg (28.0-34.0) L 11/13/22 11:00 MCHC 29.7 g/dL (30.0-36.0) L 11/13/22 11:00 RDW 19.8 % (12.1-15.1) H 11/13/22 11:00 Plt Count 457 10^3/cmm (130-400) H 11/13/22 11:00 MPV 9.4 fL (7.4-10.4) 11/13/22 11:00 Neut % (Auto) 84.7 % 11/13/22 11:00 Lymph % (Auto) 5.6 % 11/13/22 11:00 Tompkins % (Auto) 4.4 % 11/13/22 11:00 Eos % (Auto) 4.4 % 11/13/22 11:00 Baso % (Auto) 0.4 % 11/13/22 11:00 Neut # (Auto) 10.75 10^3/uL (1.8-7.7) H 11/13/22 11:00 Lymph # (Auto) 0.7 10^3/uL (0.8-4.8) L 11/13/22 11:00 Tompkins # (Auto) 0.6 10^3/uL (0.2-0.9) 11/13/22 11:00 Eos # (Auto) 0.6 10^3/uL (0.0-0.8) 11/13/22 11:00 Baso # (Auto) 0.1 10^3/uL (0.0-0.1) 11/13/22 11:00 Nucleated RBC % (auto) 0 % 11/13/22 11:00 Nucleated RBCs # 0.0 /100WBC 11/13/22 11:00 Sodium 141 mmol/L (136-145) 11/13/22 11:00 Potassium 4.1 mmol/L (3.5-5.1) 11/13/22 11:00 Chloride 104 mmol/L (98-107) 11/13/22 11:00 Carbon Dioxide 23 mmol/L (22-29) 11/13/22 11:00 Anion Gap 18.1 (5-19) 11/13/22 11:00 BUN 21 mg/dL (8-23) 11/13/22 11:00 Creatinine 1.2 mg/dL (0.7-1.2) 11/13/22 11:00 GFR Calculation Not Reportable 11/13/22 11:00 Glucose 179 mg/dL (65-115) H 11/13/22 11:00 Calculated Osmolality 299 mOsm/kg (285-295) H 11/13/22 11:00 Lactic Acid 3.6 mmol/L (0.5-2.2) H 11/13/22 11:00 Lactic Acid 1.7 mmol/L (0.5-2.2) 11/13/22 13:44 Calcium 9.4 mg/dL (8.5-10.5) 11/13/22 11:00 Total Bilirubin 0.4 mg/dL (0.15-1.2) 11/13/22 11:00 AST 11 U/L (0-40) 11/13/22 11:00 ALT 9 U/L (0-41) 11/13/22 11:00 Alkaline Phosphatase 65 U/L (40-130) 11/13/22 11:00 Troponin T Baseline 35 ng/L (0-15) H 11/13/22 11:00 Troponin T 120 Minute 31.83 ng/L (0-15) H 11/13/22 12:49 Delta Troponin T -3.17 ABS# (0-10) L 11/13/22 12:49 NT-Pro-B Natriuret Pep 4900 pg/mL (0-450) H 11/13/22 11:00 Total Protein 6.9 g/dL (6.6-8.7) 11/13/22 11:00 Albumin 3.4 g/dL (3.5-5.2) L 11/13/22 11:00 Globulin 3.5 g/dL (1.3-4.6) 11/13/22 11:00 Urine Color Light yellow (Yellow) 11/13/22 11:00 Urine Appearance Clear (CLEAR) 11/13/22 11:00 Urine pH 6 (5-7) 11/13/22 11:00 Ur Specific Kenna 1.010 (1.005-1.030) 11/13/22 11:00 Urine Protein Neg (Negative) 11/13/22 11:00 Urine Glucose (UA) Norm (Normal) 11/13/22 11:00 Urine Ketones Negative (Negative) 11/13/22 11:00 Urine Blood Neg (Negative) 11/13/22 11:00 Urine Nitrate Negative (Negative) 11/13/22 11:00 Urine Bilirubin Neg (Negative) 11/13/22 11:00 Urine Urobilinogen Norm mg/dL (Negative) 11/13/22 11:00 Ur Leukocyte Esterase Negative (Negative) 11/13/22 11:00 Micro: Microbiology 11/13/22 11:02 Blood Culture - Preliminary Blood SPECIMEN COLLECTED 11/13/22 11:00 Blood Culture - Preliminary Blood SPECIMEN COLLECTED A&P Assessment and plan (1) Atrial fibrillation: New onset, with rapid ventricular response, exact timing of onset unknown, patient fairly asymptomatic but has noticed dyspnea with exertion lately. He has a history of intolerance to beta-blockade presenting as significant pauses and bradycardia. (2) Diastolic dysfunction: Chronic, with mild acute exacerbation secondary to A-fib with RVR, presently with a BNP of 4900 and peripheral edema with only minimally decreased albumin level (3) Wound of right foot: On antibiotics for this prior to admission. No known trauma. Not open. (4) Anemia: Normocytic. Normal hemoglobin prior to hip fracture in August 2022. He was found to have some B12 deficiency during that hospital stay. Had not unexpected blood loss related to hip fracture and surgical repair. Current hemoglobin is stable from prior values and likely a combination of iron deficiency anemia from blood loss perioperatively and B12 deficiency based on available information. (5) Atherosclerosis of coronary artery of quechan heart without angina pectoris: Has had previous PCI to LAD. Initial troponin elevated at 35 with 2-hour delta of -3. EKGs with tachycardia and nonspecific changes, no ST elevation. No chest pain. (6) Benign essential hypertension with target blood pressure below 140/90: Currently stable blood pressures. (7) CKD (chronic kidney disease): Stage IIIa (8) Hyperlipidemia: On chronic statin therapy Qualifiers: Hyperlipidemia type: unspecified Qualified Code(s): E78.5 - Hyperlipidemia, unspecified (9) Diabetes mellitus, type II: On chronic metformin (10) Benign prostate hyperplasia: On chronic Flomax though need to clarify if has current prescription (11) GERD (gastroesophageal reflux disease): On chronic PPI (12) Depression: Has been started on trazodone for both depression and insomnia outpatient Plan Elevated lactic acid and white blood count present on admission which I suspect is related to A-fib with RVR at this point in time Chest x-ray with similar appearance to prior Stage I decubiti on the sacral area and bilateral heels present on admission Observation admission for now Will initiate diltiazem 30 mg p.o. every 6 hours monitoring response to treatment closely If begins to have more significant symptoms or indication of clinical worsening, will consider initiation of amiodarone Avoid beta-blockade given history of significant pauses and bradycardia previously documented Lovenox at prophylactic dosing currently, will evaluate need to initiate chronic anticoagulation depending on clinical course Onset of atrial fibrillation is unclear at this point in time Check TSH and magnesium level Lasix 40 mg IV x1 dose with supplemental potassium, monitor response to treatment Check procalcitonin Blood cultures have been collected Clinically do not feel patient has pneumonia or acute systemic infection at this point in time. He did receive a dose of Zosyn in the emergency room empirically. Will continue home cephalexin for foot wound to complete initial course Wound care to foot, sacral area and heels as needed Check B12 and TIBC, repeat CBC in the morning Check coagulation studies and Hemoccult given anemia and potential need for chronic anticoagulation Continue serial cardiac enzymes Keep on aspirin, statin Need to clarify if patient is taking Plavix and furosemide at home currently Monitor blood pressures with addition of diltiazem and dosing of IV Lasix Hold home metformin Sliding scale insulin currently for diabetes Will continue Flomax though need to confirm if he has it at home; monitor need for Rick catheter to facilitate urine output with IV diuresis PPI Continue home trazodone Continue Tylenol and as needed oxycodone for pain; patient indicates that he is no longer receiving prescription for oxycodone for pain and that when he had oxycodone he slept better. Differential does include possibility of withdrawal from narcotics but I am unsure when his prescription ran out. Monitor response to medications overall. Supportive care otherwise We will need to clarify home medications with daughter when able Anticipate discharge home with outpatient follow-up to primary care provider. He may require addition of anticoagulation if he maintains atrial fibrillation. If anticoagulation is initiated he will need close follow-up of H&H given anemia since his hip fracture. He also has external evidence of easy bruising and skin tears that will need to be monitored if anticoagulation is initiated. He may require addition of a rate controlling agent. Plans were discussed with patient and he was given an opportunity to ask questions. I also briefly spoke to his daughter on the phone to let her know that we were can to be keeping him to evaluate the arrhythmia further. Full code although patient would not want long-term mechanical ventilation by my discussion with him today Attestations Medical Necessity Statement*: Currently anticipate a stay less than two midnights in a patient presenting with new onset A-fib with RVR and likely associated acute on chronic diastolic CHF that was identified at primary care provider's office when vital signs were evaluated.. He himself was minimally symptomatic if at all. Plans are as noted above. and Moderate Time for a total of 65 minutes, includes reviewing past or interval history, examining/interviewing patient, placing orders and documenting encounter Diagnoses Atrial fibrillation I48.91 Diastolic dysfunction I51.89 Wound of right foot S91.301A Anemia D64.9 Atherosclerosis of coronary artery of quechan heart without angina pectoris I25.10 Benign essential hypertension with target blood pressure below 140/90 I10 CKD (chronic kidney disease) N18.9 Hyperlipidemia E78.5 Hyperlipidemia type: unspecified Diabetes mellitus, type II E11.9 Benign prostate hyperplasia N40.0 GERD (gastroesophageal reflux disease) K21.9 Depression F32.A
--- NOTE | 2022-11-13 16:43 | ECG_ITS ---
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 Measurements Intervals [place] Rate: 114 P: 212 OH: 170 QRS: 10 QRSD: 67 T: 68 QT: 306 QTc: 422 Interpretive Statements ATRIAL FIBRILLATION WITH RVR Electronically Signed On 11-13-2022 16:45:42 [employer] by Karel Torres M.D. [email or web address]
[2022-11-13 17:42] LABS: INR 1.12 (0.8-1.2)
[2022-11-13 17:43] LABS: Partial Thromboplastin Time 34.3 SECONDS (23.9-36.7)
[2022-11-13 17:57] LABS: Procalcitonin 0.06 ng/mL (0-0.5); Thyroid Stimulating Hormone 4.28 uIU/mL (0.27-4.20)
[2022-11-13] MEDS: enoxaparin 40 mg/0.4 mL Syringe SUBCUT (18:01)
[2022-11-13] MEDS: docusate sodium 100 mg Capsule PO (18:01)
[2022-11-13] MEDS: dilTIAZem 30 mg Tablet PO ×2 (18:01→23:12)
[2022-11-13 18:08] LABS: Magnesium 1.6 mg/dL (1.7-2.3)
--- NOTE | 2022-11-13 18:08 | PC.NURSE ---
Pt arrived to unit via wc from ER. Pt alert and oriented, able to make needs known. Has 3+ pitting edema to BLE. Stage I noted to sacrum in which his family has been treating with cream. Skin very fragile. Skin tear noted to left arm which occurred in ER with a tegaderm placed on it. Call light in reach.
[2022-11-13 18:10] LABS: Glucose Point of Care 153 mg/dL (70-110)
[2022-11-13] MEDS: potassium chloride ER 20 mEq Tablet PO (18:40)
[2022-11-13] MEDS: magnesium sulfate premix 2 GM/50 ML PIGGYBACK IV (18:40)
[2022-11-13] MEDS: FUROsemide 10 mg/mL SDV 4mL 40 MG IVP (18:40)
[2022-11-13 19:02] LABS: Troponin 5 6HR 34.09 ng/L (0-15)
[2022-11-13 19:04] LABS: Troponin 5 6HR Delta -0.91 ng/L (0-12)
[2022-11-13 19:49] LABS: Free T4 Free Thyroxine 1.16 ng/dL (0.82-1.77)
[2022-11-13 20:40] LABS: Glucose Point of Care 195 mg/dL (70-110)
[2022-11-13] MEDS: cephALEXin 500 mg Capsule PO (21:21)
[2022-11-13] MEDS: trazodone 100 mg Tablet PO (21:21)
[2022-11-13] MEDS: insulin lispro 100 unit/1 mL SUBCUT (21:22)
[2022-11-13 22:49] LABS: Iron 26 ug/dL (59-158); Vitamin B12 224 pg/mL (232-1245)
[2022-11-13 22:57] LABS: Percent Saturation 15.2 % (20-50); Total Iron Binding Capacity 171 mcg/dl; Unsaturated Iron Binding 145 ug/dL (112-347)
[2022-11-13] MEDS: oxyCODONE 5 mg IR Tab/Cap PO (23:12)
[2022-11-14] VITALS (10 sets, daily range): BP systolic 101–130; BP diastolic 50–72; PULSE 66–90; RESP 17–23; TEMP 36.6–36.8; O2SAT 93–96
[2022-11-14 04:50] LABS: Basophils % 0.5 %; Eosinophils # 0.5 10^3/uL (0.0-0.8); Eosinophils % 5.5 %; Hematocrit 26.5 % (42.0-52.0); Hemoglobin 7.9 g/dL (11.7-16.6); Lymphocytes # 0.8 10^3/uL (0.8-4.8); Lymphocytes % 9.6 %; Mean Corpuscular HGB Conc 29.8 g/dL (30.0-36.0); Mean Corpuscular Hemoglobin 26.5 pg (28.0-34.0); Mean Corpuscular Volume 88.9 fl (80-94); Mean Platelet Volume 9.6 fL (7.4-10.4); Monocytes # 0.5 10^3/uL (0.2-0.9); Monocytes % 6.2 %; Neutrophils % 77.9 %; Nucleated Red Blood Cells % 0 %; Platelet Count 335 10^3/cmm (130-400); Red Blood Count 2.98 10^6/uL (4.1-5.3); Red Cell Distribution Width 19.6 % (12.1-15.1); White Blood Count 8.7 10^3/uL (4.0-10.0)
[2022-11-14 05:12] LABS: Blood Urea Nitrogen 18 mg/dL (8-23); Calcium 8.7 mg/dL (8.5-10.5); Carbon Dioxide 24 mmol/L (22-29); Chloride 106 mmol/L (98-107); Glucose 105 mg/dL (65-115); Osmolality Calculated 292 mOsm/kg (285-295); Phosphorus 3.7 mg/dL (2.5-4.5); Sodium 140 mmol/L (136-145)
[2022-11-14] MEDS: dilTIAZem 30 mg Tablet PO ×4 (05:25→23:13)
[2022-11-14] MEDS: aspirin 81 mg EC Tablet PO (05:25)
[2022-11-14 05:45] LABS: Glucose Point of Care 103 mg/dL (70-110)
[2022-11-14] MEDS: pantoprazole DR 40 mg Tablet PO ×2 (08:34→17:20)
[2022-11-14] MEDS: atorvastatin 40 mg Tablet 80 MG PO (08:34)
[2022-11-14] MEDS: docusate sodium 100 mg Capsule PO ×2 (08:34→17:20)
[2022-11-14] MEDS: magnesium oxide 400 mg tablet PO ×2 (08:34→17:20)
[2022-11-14] MEDS: tamsulosin 0.4 mg Capsule PO (08:35)
[2022-11-14] MEDS: cephALEXin 500 mg Capsule PO ×4 (08:35→21:44)
--- NOTE | 2022-11-14 10:11 | PC.CHAP ---
Pastoral Care Encounter/Spiritual Assessment Type of Contact [] Declined executive pilot visit [] Patient/Family/Request visit [] Outpatient visit [] Follow-up visit [] Physician referral [] Code/Alert [x] Routine visit [] Staff referral [] Actively dying [] Patient sleeping [] Family support [] [] Out of room [] Palliative care [] [] Receiving care in room [] Pre-surgical visit [] Trauma [] Long length of stay [] ICU visit [] Other: Relational/Emotional Strength [x] Patient feels connected with others/family/visitors/staff [] Distress [] Loneliness/isolation [] Abandonment Spirituality of Patient [x] Person of Ursula [] Attends Anabaptism of their Ursula [x] Believes in Prayer [] Reads Bible or Gnosticist materials [] There are Spiritual issues to be addressed Web Development Consultant Interventions [x] Prayer [x] Active listening [] Non-anxious presence [x] Spiritual/emotional support [] Crisis/trauma care [] Spiritual counseling [] Bereavement support [] Provided bereavement packet [] Provided Bible/devotional materials [] Provided toy/stuffed animal, coloring book to patient or family member [] Provided Communion [] Anointing/[place] [] Salvation [x] Completed spiritual assessment [] Other: Impact on Illness or Injury [] Angry [] Fearful [] Anxious [] Often cries [] Exhaustion [] Unable to work [] Unable to attend caodaism [] Unable to walk/stand [] Unable to read [] Unable to drive [] Unable to eat/drink [] Unable to sleep [] Unable to be with family [] Patient intubated [] Other: Summary Time spent with patient 5 min
[2022-11-14] MEDS: insulin lispro 100 unit/1 mL SUBCUT ×3 (12:00→21:45)
--- NOTE | 2022-11-14 12:08 | USCV_ITS ---
Siva Malik Age: 82 Gender: M : 1940 Exam Date: 11/14/2022 14:28 Ordering Phys: Ankit Brown MD Technologist: CT Exam Location: [facility] – [place] Indication: afib chf BP: 138 / 75 HR: 73 Rhythm: Atrial fibrillation Technical Quality: Adequate MEASUREMENTS (Male / Female) Normal Values 2D ECHO LV Diastolic Diameter PLAX 3.5 cm 4.2 - 5.9 / 3.9 - 5.3 cm LV Systolic Diameter PLAX 2.0 cm IVS Diastolic Thickness 1.2 cm 0.6 - 1.0 / 0.6 - 0.9 cm IVS Systolic Thickness 1.2 cm LVPW Diastolic Thickness 1.1 cm 0.6 - 1.0 / 0.6 - 0.9 cm LVPW Systolic Thickness 1.4 cm LVOT Diameter 2.1 cm LV Ejection Fraction 2D Teich 74.2 % LV Ejection Fraction MOD 2C 68.0 % LV Ejection Fraction 2C AL 67.5 % LA Diameter 4.1 cm Aorta at Sinotubular Diameter 2.0 cm M-MODE Aortic Annulus Diameter 3.2 cm LA Ao Ratio MM 1.4 MV E Point Septal Separation 1.0 cm DOPPLER AV Peak Velocity 169.0 cm/s LVOT Peak Velocity 79.0 cm/s AV Area Cont Eq vti 1.9 cm squared AV Area Cont Eq pk 1.6 cm squared MV Area PHT 5.0 cm squared Mitral E to A Ratio 5.0 MV E' Velocity 76.5 cm/s Mitral E to MV E' Ratio 10.8 Mitral E to LV E' Lateral Ratio 10.2 Mitral E to LV E' Septal Ratio 11.4 TR Peak Velocity 289.3 cm/s TR Peak Gradient 33.5 mmHg TV Peak E Velocity 110.0 cm/s Right Atrial Pressure 3.0 mmHg Pulmonary Artery Systolic Pressu 36.5 mmHg RV Acceleration Time 0.1 s FINDINGS Left Ventricle Normal left ventricular size, systolic function and wall thickness, with no regional wall motion abnormalities. Rhythm precludes evaluation of diastolic function. Left ventricular ejection fraction is estimated at 65 %. Right Ventricle Normal right ventricular size and systolic function. Normal right ventricular systolic pressure. Right Atrium The right atrium is normal in size. Left Atrium The left atrium is normal in size. Mitral Valve Structurally normal mitral valve without significant stenosis or prolapse. There is no mitral regurgitation. Aortic Valve Structurally normal trileaflet aortic valve. Mild aortic valve calcification. Mild aortic valve stenosis, mean gradient 5.8 mmHg, JOSEP 1.9 cm squared. No aortic valve regurgitation. Tricuspid Valve Structurally normal tricuspid valve. Trace tricuspid valve regurgitation. Pulmonic Valve Pulmonic valve not well visualized. Pericardium Normal pericardium without effusion. Aorta Normal ascending aorta dimension. IVC Inferior vena cava not visualized. CONCLUSIONS Normal left ventricular size, systolic function and wall thickness, with no regional wall motion abnormalities. Rhythm precludes evaluation of diastolic function. Left ventricular ejection fraction is estimated at 65 %. Structurally normal trileaflet aortic valve. Mild aortic valve calcification. Mild aortic valve stenosis, mean gradient 5.8 mmHg, JOSEP 1.9 cm squared. No aortic valve regurgitation. The previous echo was performed 8 months ago. The only new finding is the mild aortic stenosis. Dr. Elijah Walton MD (Electronically Signed) Final Date: 14 November 2022 17:53 S
[2022-11-14] MEDS: magnesium hydroxide 30 mL UDC PO (12:41)
[2022-11-14] MEDS: cyanocobalamin 1,000 mcg/mL SDV 1000 MCG IM (12:42)
[2022-11-14] MEDS: FUROsemide 10 mg/mL SDV 4mL 40 MG IVP (12:42)
[2022-11-14] MEDS: sucralfate 1 gm Tablet PO ×3 (12:42→21:44)
[2022-11-14] MEDS: iron sucrose 200 MG in sodium chloride 0.9% (100 ml) 100 ML 220 MG IV (12:42)
[2022-11-14 13:42] LABS: Chol HDL Ratio 3.93 mg/dL (1.0-5.00); Cholesterol 106 mg/dL (0-200); HDL Cholesterol 27 mg/dL (60-100); LDL Cholesterol Calculated 60 mg/dL (50-129); Triglycerides 95 mg/dL (0-150); VLDL Cholestrol Calculation 19 mg/dL (0-30)
--- NOTE | 2022-11-14 13:58 | PM.PN ---
Subjective Subjective: Hospital course, labs appreciated. On examination seen sitting up in bed with daughter at bedside having his food. Patient states he is feeling a lot better. As per daughter patient has been having difficulty in breathing on minimal exertion and lying down which has been getting worse for last few months. He is also complaining of swelling in his lower limbs. Denies any melena or hematemesis but complains of extensive constipation. Does not remember when was his last bowel movement. Does complain of occasional blood per rectum. Does not report remember any history of hemorrhoids. Vitals/I&O/Wt Last Vital Signs Temp 98.3 F 11/14/22 05:22 Pulse 70 11/14/22 12:00 Resp 17 11/14/22 12:00 BP 101/57 11/14/22 12:00 Pulse Ox 93 11/14/22 12:00 O2 Del Method 11/14/22 12:00 11/13/22 11/14/22 11/14/22 22:59 06:59 14:59 Intake Total 2431.67 / 2931.67 710 / 710 Output Total 1000 / 1000 350 / 1350 200 / 200 Balance 1431.67 / 1931.67 -350 / 1581.67 510 / 510 Weight last 48 hrs Weight 68.765 kg Weight 74.389 kg Physical Exam Narrative: General: No acute distress, AO x3, chronically sick appearing, pallor present HEENT: PERRLA, pupils bilaterally equal and reactive Chest: Bilateral normal vesicular breath sounds all over lung parker, fine crackles present bilaterally in lower zone CVS: S1-S2 irregularly irregular, soft pansystolic murmur present at apex, no tachycardia, no gallops, no rubs Abdomen: Soft, nontender, no organomegaly, bowel sounds present, morbidly obese Neuro: No focal deficits, no facial deformity, AO x3, power 5/5 in all limbs Lower limbs: Bilateral 1+ pitting edema present up to knee Data 11/14/22 04:39 11/14/22 04:39 Micro: Microbiology 11/13/22 11:02 Blood Culture - Preliminary Blood NEGATIVE TO DATE 11/13/22 11:00 Blood Culture - Preliminary Blood NEGATIVE TO DATE A&P Assessment and plan (1) Atrial fibrillation: New onset. Rate controlled. Continue with Cardizem at 30 mg every [address] Vas score : 6. Patient would benefit with full dose anticoagulation. Patient is agreeable after discussing in detail regarding potential risk versus benefits. For now we will hold off given worsening of anemia while GI bleed is ruled out. Check echocardiogram. (2) Diastolic dysfunction: Acute on chronic exacerbation. Check echocardiogram as above. IV Lasix 40 mg daily. Monitor renal functions and potassium level. Strict input output charting. Fluid restriction up to 1500 cc. (3) Anemia: Acute on chronic. Baseline hemoglobin seems to be around 9. 7.9 today. Start on IV iron supplementation. Appreciate vitamin B12 levels. Start on IM cyanocobalamin one-time followed by oral daily. Stool for occult blood. Aggressive bowel regimen with milk of magnesia and senna Colace daily. Continue with home dose of Carafate. Protonix 40 mg twice daily. (4) Wound of right foot: On antibiotics for this prior to admission. No known trauma. Not open. Continue current antibiotics to finish a 7-day course. (5) Atherosclerosis of coronary artery of [place] heart without angina pectoris: Post PCI to LAD in 2020. Denies any active chest pain. (6) Benign essential hypertension with target blood pressure below 140/90: Goal blood pressure less than 140/90 mmHg. Does not seem to be on any antihypertensive at home. Starting new Cardizem. Will monitor. (7) CKD (chronic kidney disease): Baseline creatinine seems to be running from 1.4-1.7. Creatinine slightly better today. Most likely secondary to fluid overload. Monitor BMP daily. Medical decompression done for nephrotoxic drugs. (8) Hyperlipidemia: On chronic statin therapy Qualifiers: Hyperlipidemia type: unspecified Qualified Code(s): E78.5 - Hyperlipidemia, unspecified (9) Diabetes mellitus, type II: Holding OHA's. Most likely will not discharge on metformin given CKD. Insulin sliding scale low-dose protocol before meals and at bedtime. (10) Benign prostate hyperplasia: On chronic Flomax though need to clarify if has current prescription (11) GERD (gastroesophageal reflux disease): On chronic PPI (12) Depression: Has been started on trazodone for both depression and insomnia outpatient Plan Full code. Protonix for PUD prophylaxis Lovenox for DVT prophylaxis. Attestations Medical Necessity Statement*: Siva Malik is being changed to inpatient status as stay will now exceed 2 midnights. Ongoing hospital care is necessary for management of acute on chronic heart failure in setting of new onset atrial fibrillation, CAD, worsening of anemia while GI bleed is ruled out given need for anticoagulation going forward in setting of atrial fibrillation. Diagnoses Atrial fibrillation I48.91 Diastolic dysfunction I51.89 Anemia D64.9 Wound of right foot S91.301A Atherosclerosis of coronary artery of [place] heart without angina pectoris I25.10 Benign essential hypertension with target blood pressure below 140/90 I10 CKD (chronic kidney disease) N18.9 Hyperlipidemia E78.5 Hyperlipidemia type: unspecified Diabetes mellitus, type II E11.9 Benign prostate hyperplasia N40.0 GERD (gastroesophageal reflux disease) K21.9 Depression F32.A
[2022-11-14 14:26] LABS: Estmated Average Glucose 108; Hemoglobin A1C 5.4 % (4.0-6.0)
[2022-11-14] MEDS: enoxaparin 40 mg/0.4 mL Syringe SUBCUT (17:19)
[2022-11-14] MEDS: sennosides-docusate Tablet 1 TAB PO (17:20)
[2022-11-14 17:41] LABS: Glucose Point of Care 181 mg/dL (70-110)
[2022-11-14 21:42] LABS: Glucose Point of Care 162 mg/dL (70-110)
[2022-11-14] MEDS: trazodone 100 mg Tablet PO (21:45)
[2022-11-15] VITALS (57 sets, daily range): BP systolic 112–143; BP diastolic 55–76; PULSE 59–101; RESP 1–29; TEMP 36.6–37.1; O2SAT 92–98
[2022-11-15] MEDS: acetaminophen 325 mg Tablet 650 MG PO ×3 (04:21→21:38)
[2022-11-15] MEDS: aspirin 81 mg EC Tablet PO (04:21)
[2022-11-15] MEDS: dilTIAZem 30 mg Tablet PO ×3 (04:21→16:11)
[2022-11-15 04:43] LABS: Basophils # 0.1 10^3/uL (0.0-0.1); Basophils % 0.6 %; Eosinophils # 0.4 10^3/uL (0.0-0.8); Eosinophils % 4.3 %; Hematocrit 26.6 % (42.0-52.0); Hemoglobin 8.1 g/dL (11.7-16.6); Lymphocytes # 0.8 10^3/uL (0.8-4.8); Lymphocytes % 9.6 %; Mean Corpuscular HGB Conc 30.5 g/dL (30.0-36.0); Mean Corpuscular Hemoglobin 26.9 pg (28.0-34.0); Mean Corpuscular Volume 88.4 fl (80-94); Monocytes # 0.6 10^3/uL (0.2-0.9); Monocytes % 6.5 %; Neutrophils % 78.4 %; Nucleated Red Blood Cells % 0 %; Platelet Count 368 10^3/cmm (130-400); Red Blood Count 3.01 10^6/uL (4.1-5.3); Red Cell Distribution Width 19.4 % (12.1-15.1); White Blood Count 8.4 10^3/uL (4.0-10.0)
[2022-11-15 05:03] LABS: Alanine Aminotransferase 6 U/L (0-41); Albumin Level 2.5 g/dL (3.5-5.2); Alkaline Phosphatase 44 U/L (40-130); Aspartate Amino Transferase 11 U/L (0-40); Blood Urea Nitrogen 19 mg/dL (8-23); Calcium 8.6 mg/dL (8.5-10.5); Carbon Dioxide 23 mmol/L (22-29); Chloride 105 mmol/L (98-107); Globulin 2.9 g/dL (1.3-4.6); Glucose 123 mg/dL (65-115); Osmolality Calculated 292 mOsm/kg (285-295); Sodium 139 mmol/L (136-145); Total Bilirubin 0.4 mg/dL (0.15-1.2); Total Protein 5.4 g/dL (6.6-8.7)
[2022-11-15 05:05] LABS: Anion Gap 14.9 (5-19); Potassium 3.9 mmol/L (3.5-5.1)
[2022-11-15 06:27] LABS: Glucose Point of Care 115 mg/dL (70-110)
[2022-11-15] MEDS: magnesium oxide 400 mg tablet PO ×2 (09:03→16:11)
[2022-11-15] MEDS: cephALEXin 500 mg Capsule PO ×4 (09:03→21:21)
[2022-11-15] MEDS: cyanocobalamin 1,000 mcg Tablet 500 MCG PO (09:04)
[2022-11-15] MEDS: atorvastatin 40 mg Tablet 80 MG PO (09:04)
[2022-11-15] MEDS: tamsulosin 0.4 mg Capsule PO (09:04)
[2022-11-15] MEDS: docusate sodium 100 mg Capsule PO ×2 (09:04→16:11)
[2022-11-15] MEDS: sennosides-docusate Tablet 1 TAB PO ×2 (09:04→16:12)
[2022-11-15] MEDS: pantoprazole DR 40 mg Tablet PO ×2 (09:05→16:11)
[2022-11-15] MEDS: sucralfate 1 gm Tablet PO ×4 (09:05→21:21)
[2022-11-15 11:16] LABS: Glucose Point of Care 239 mg/dL (70-110)
--- NOTE | 2022-11-15 12:35 | PM.PN ---
Subjective Subjective: No acute events overnight. Patient denies any nausea, pain, headache. On examination resting comfortably in bed at 20 degrees head of bed elevation. Heart rate maintained in mid 60s. Patient states this is the first time after long time he is laying down this flat to sleep. Usually at home he sleeps in a recliner. Denies any nausea vomiting, headache, dizziness. States breathing is better. At 2 L urine output in last 24 hours with net negative of 1200 cc. Vitals/I&O/Wt Last Vital Signs Temp 97.9 F 11/15/22 07:47 Pulse 86 11/15/22 12:00 Resp 21 H 11/15/22 12:00 BP 143/56 11/15/22 12:00 Pulse Ox 95 11/15/22 12:00 O2 Del Method 11/15/22 12:00 11/14/22 11/15/22 11/15/22 22:59 06:59 14:59 Intake Total 420 / 1130 30 / 1160 360 / 360 Output Total 1875 / 2075 200 / 200 Balance -1455 / -945 30 / -915 160 / 160 Weight last 48 hrs Weight 70.896 kg Weight 68.765 kg Physical Exam Narrative: General: No acute distress, AO x3, chronically sick appearing, pallor present HEENT: PERRLA, pupils bilaterally equal and reactive Chest: Bilateral normal vesicular breath sounds all over lung parker, fine crackles present bilaterally in lower zone CVS: S1-S2 irregularly irregular, soft pansystolic murmur present at apex, no tachycardia, no gallops, no rubs Abdomen: Soft, nontender, no organomegaly, bowel sounds present, morbidly obese Neuro: No focal deficits, no facial deformity, AO x3, power 5/5 in all limbs Lower limbs: Bilateral 1+ pitting edema present up to knee Data 11/15/22 04:12 11/15/22 04:12 Micro: Microbiology 11/13/22 11:02 Blood Culture - Preliminary Blood NEGATIVE TO DATE 11/13/22 11:00 Blood Culture - Preliminary Blood NEGATIVE TO DATE A&P Assessment and plan (1) Atrial fibrillation: New onset. Rate controlled. Continue with Cardizem at 30 mg every [address] Vas score : 6. Patient would benefit with full dose anticoagulation. Patient is agreeable after discussing in detail regarding potential risk versus benefits. For now we will hold off given worsening of anemia while GI bleed is ruled out. Repeat echocardiogram shows stable EF of 65% with mild aortic stenosis. Aortic stenosis is new. No regional wall motion abnormality noted. Diastole could not be checked given patient being in atrial fibrillation. (2) Diastolic dysfunction: Acute on chronic exacerbation of congestive heart failure. Continue with IV Lasix 40 mg daily. Monitor renal functions and potassium level. Strict input output charting. Fluid restriction up to 1500 cc. (3) Anemia: Acute on chronic. Baseline hemoglobin seems to be around 9. Hemoglobin stable. Continue with IV iron supplementation and vitamin B12 oral supplementation. Stool for occult blood. Aggressive bowel regimen with milk of magnesia and senna Colace daily. Continue with home dose of Carafate. Protonix 40 mg twice daily. (4) Wound of right foot: On antibiotics for this prior to admission. No known trauma. Not open. Continue current antibiotics to finish a 7-day course. 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 Denies any active chest pain. (6) Benign essential hypertension with target blood pressure below 140/90: Goal blood pressure less than 140/90 mmHg. Does not seem to be on any antihypertensive at home. Starting new Cardizem. Will monitor. (7) CKD (chronic kidney disease): Baseline creatinine seems to be running from 1.4-1.7. Creatinine slightly better today. Most likely secondary to fluid overload. Monitor BMP daily. Medical decompression done for nephrotoxic drugs. (8) Hyperlipidemia: On chronic statin therapy Qualifiers: Hyperlipidemia type: unspecified Qualified Code(s): E78.5 - Hyperlipidemia, unspecified (9) Diabetes mellitus, type II: Holding OHA's. Most likely will not discharge on metformin given CKD. Insulin sliding scale low-dose protocol before meals and at bedtime. (10) Benign prostate hyperplasia: On chronic Flomax though need to clarify if has current prescription (11) GERD (gastroesophageal reflux disease): On chronic PPI (12) Depression: Has been started on trazodone for both depression and insomnia outpatient Plan Full code. Protonix for PUD prophylaxis Lovenox for DVT prophylaxis. Attestations Medical Necessity Statement*: Requires further hospitalization for management of diastolic heart failure in a patient with new onset atrial fibrillation with rapid regular response, acute on chronic anemia while GI bleed is ruled out in setting of possible new anticoagulation for stroke prevention Diagnoses Atrial fibrillation I48.91 Diastolic dysfunction I51.89 Anemia D64.9 Wound of right foot S91.301A Atherosclerosis of coronary artery of [place] heart without angina pectoris I25.10 Benign essential hypertension with target blood pressure below 140/90 I10 CKD (chronic kidney disease) N18.9 Hyperlipidemia E78.5 Hyperlipidemia type: unspecified Diabetes mellitus, type II E11.9 Benign prostate hyperplasia N40.0 GERD (gastroesophageal reflux disease) K21.9 Depression F32.A
--- NOTE | 2022-11-15 12:39 | PC.NURSE ---
tylenol given at this time per patient request for 810 pain in feet bilateral
[2022-11-15] MEDS: FUROsemide 10 mg/mL SDV 4mL 40 MG IVP (12:46)
[2022-11-15] MEDS: insulin lispro 100 unit/1 mL SUBCUT ×2 (12:47→21:21)
--- NOTE | 2022-11-15 16:08 | PC.NURSE ---
pt up to [facility] commode, had lrg BM.
[2022-11-15] MEDS: iron sucrose 200 MG in sodium chloride 0.9% (100 ml) 100 ML 220 MG IV (16:09)
[2022-11-15] MEDS: enoxaparin 40 mg/0.4 mL Syringe SUBCUT (16:22)
[2022-11-15 17:21] LABS: Glucose Point of Care 110 mg/dL (70-110)
[2022-11-15 17:21] LABS: Glucose Point of Care 120 mg/dL (70-110)
[2022-11-15 21:13] LABS: Glucose Point of Care 192 mg/dL (70-110)
[2022-11-15] MEDS: trazodone 100 mg Tablet PO (21:21)
[2022-11-16] VITALS (9 sets, daily range): BP systolic 109–133; BP diastolic 55–70; PULSE 58–80; RESP 14–22; TEMP 36.6–36.7; O2SAT 92–97
[2022-11-16] MEDS: dilTIAZem 30 mg Tablet PO ×3 (05:40→11:06)
[2022-11-16] MEDS: aspirin 81 mg EC Tablet PO (05:40)
[2022-11-16 06:41] LABS: Glucose Point of Care 116 mg/dL (70-110)
[2022-11-16] MEDS: docusate sodium 100 mg Capsule PO (08:40)
[2022-11-16] MEDS: pantoprazole DR 40 mg Tablet PO (08:40)
[2022-11-16] MEDS: cephALEXin 500 mg Capsule PO ×2 (08:40→13:08)
[2022-11-16] MEDS: magnesium oxide 400 mg tablet PO (08:40)
[2022-11-16] MEDS: atorvastatin 40 mg Tablet 80 MG PO (08:40)
[2022-11-16] MEDS: cyanocobalamin 1,000 mcg Tablet 500 MCG PO (08:40)
[2022-11-16] MEDS: sennosides-docusate Tablet 1 TAB PO (08:40)
[2022-11-16] MEDS: tamsulosin 0.4 mg Capsule PO (08:40)
[2022-11-16] MEDS: sucralfate 1 gm Tablet PO ×2 (08:40→12:11)
[2022-11-16] MEDS: magnesium hydroxide 30 mL UDC PO (08:41)
--- NOTE | 2022-11-16 09:49 | PC.NURSE ---
upt to chair pt is weak, desat to 89% on room air upon walking to a recliner.
--- NOTE | 2022-11-16 11:30 | PM.DCS ---
Discharge Providers Date of Admission: 11/14/22 13:47 Date of Discharge: November 16, 2022 Attending Provider at Admission: Rain Eden MD Attending Provider at Discharge: Ankit Brown MD Primary Care Provider: Portia Larose MD Diagnoses at Discharge Discharge Diagnosis (1) Atrial fibrillation: Status: Acute (2) Diastolic dysfunction: Status: Chronic (3) Anemia: Status: Chronic (4) Wound of right foot: Status: Acute (5) Atherosclerosis of coronary artery of [place] heart without angina pectoris: Status: Chronic (6) Benign essential hypertension with target blood pressure below 140/90: Status: Chronic (7) CKD (chronic kidney disease): Status: Chronic (8) Hyperlipidemia: Status: Chronic Qualifiers: Hyperlipidemia type: unspecified Qualified Code(s): E78.5 - Hyperlipidemia, unspecified (9) Diabetes mellitus, type II: Status: Chronic Permanent problem details: microalbuminuria (10) Benign prostate hyperplasia: Status: Chronic (11) GERD (gastroesophageal reflux disease): Status: Chronic (12) Depression: Status: Acute (13) Physical deconditioning: Status: Acute (14) Beta-bertrand intolerance: Status: Chronic Permanent problem details: 3.6-second pause on 02/19/2021 Reason for Visit Reason for Visit: [facility] [place] Brief History: History as per HPI: Siva Malik is a 82 year old male who presented to the emergency room from the [place] [facility].? He had presented there for follow-up of a sore on his right foot.? He has an area that appeared about a week ago on the distal anterior portion of the foot above the third fourth and fifth toes.? It was originally read.? No open wound nor pain.? No history of trauma.? He has been on cephalexin for the past 7 days for this wound and was being seen for follow-up.? While there he was noted to be tachycardic and twelve-lead EKG showed atrial fibrillation with rapid ventricular response at 126 bpm.? Patient is not known to have a history of atrial fibrillation.? He does have a history of coronary artery disease and underwent percutaneous coronary intervention of the LAD in July 2020.? He was treated with beta-blockade and subsequently noted to have beta-bertrand intolerance with significant pauses and bradycardia.? No other history of arrhythmias noted and available records here, beyond the indication of AV block.? He has not followed with cardiology since Dr. Landon left.? Patient himself denies any palpitations, chest pain or noting his heart rate to be high.? He has had shortness of breath with exertion lately.? He uses a walker at recent baseline.? He had hip fracture with surgical repair in August 2022 and continues to recover from that.? He has had swelling in his legs since his hip fracture.? Does not feel like the swelling is any worse than it has been.? Denies any calf pain.? He spends time in a recliner with his legs elevated.? He has been getting around with a walker okay other than the shortness of breath.? Denies any cough.? Has had a mild runny nose.? No fevers.? No sore throat or headache.? Not had any nausea or vomiting.? He has chronic difficulty with urination due to prostatic hypertrophy.? No change in bowel function.? He bruises quite easily and his skin is thin resulting in easy skin tears.? He has had a difficult time since his hip fracture and has not pleased that he is in the hospital again.? He is worried about his heart and his overall wellbeing.? His daughter is staying with him and manages his medications.? History is obtained from him predominantly.? His best friend is at the bedside and his daughter was available by phone.? He had some IV fluids in the emergency room with transient improvement in heart rate.? White count was elevated at 12.7.? Lactic acid was elevated at 3.6 initially and improved to 1.7.? Chest x-ray clinically felt to demonstrate pneumonia.? Initial troponin was 35.? Twelve-lead EKG showed SVT at 136 bpm.? Request was made for admission to hospitalist service. Hospital Course Hospital Course Patient was admitted to the hospital further evaluation and management of new onset atrial fibrillation with rapid ventricular response along with congestive heart failure. He was treated with oral Cardizem which was uptitrated to heart rate of less than 100. He started on IV diuresis. Patient responded well to the treatment and his heart rate has been well controlled and as per patient he has been able to sleep more reclined in the bed recently since changing of his medications. Patient was also found to have chronic anemia which is consistent with iron deficiency. Vitamin B12 levels were found to be on the lower side. Stool for occult blood during hospitalization has been pending but his hemoglobin has remained stable. Further discussions were done regarding anticoagulation for stroke prevention given new diagnosis of atrial fibrillation. Patient and family verbalized understanding and agreeable for anticoagulation. Otherwise his hospitalization was unremarkable. He has been discharged in hemodynamically stable condition on oral Cardizem 120 mg daily, Lasix dose has been increased to 40 mg oral daily at started on Eliquis 2.5 mg twice daily. He is advised not to take Plavix anymore. Patient is chronically physically deconditioned. He is advised to continue his physical therapy with home health. He is also advised to repeat CBC and CMP in 2 weeks after uptitrating dose of Lasix at putting him on Eliquis. He is to follow-up with his primary care provider within next 2 weeks. Physical Exam Narrative: General: No acute distress, AO x3, chronically sick appearing, pallor present HEENT: PERRLA, pupils bilaterally equal and reactive Chest: Bilateral normal vesicular breath sounds all over lung parker, fine crackles present bilaterally in lower zone CVS: S1-S2 irregularly irregular, soft pansystolic murmur present at apex, no tachycardia, no gallops, no rubs Abdomen: Soft, nontender, no organomegaly, bowel sounds present, morbidly obese Neuro: No focal deficits, no facial deformity, AO x3, power 5/5 in all limbs Lower limbs: Bilateral 1+ pitting edema present up to knee Discharge Data Studies Completed and Pending Completed Studies During Hospitalization Category Date Time Status XR chest 1V portable 03000 Stat Exams 11/13/22 10:43 Completed CV. echo complete* [id number] Routine Ultrasound 11/14/22 12:08 Completed Pending at discharge Category Date Time Status Blood Culture Stat Lab 11/13/22 11:02 Results Radiology Impressions Chest X-Ray 11/13/22 10:43 IMPRESSION: Prominent interstitial markings again noted in the lungs without significant change from prior exam. Echocardiogram: CONCLUSIONS ?Normal left ventricular size, systolic function and wall ?thickness, with no regional wall motion abnormalities. Rhythm ?precludes evaluation of diastolic function. Left ventricular ?ejection fraction is estimated at 65 %. ?Structurally normal trileaflet aortic valve. Mild aortic valve ?calcification. Mild aortic valve stenosis, mean gradient 5.8 ?mmHg, JOSEP 1.9 cm squared. No aortic valve regurgitation. ?The previous echo was performed 8 months ago.? The only new ?finding is the mild aortic stenosis. ?Dr. Elijah Walton MD ?(Electronically Signed) ?Final Date:? ? ? 14 November 2022 ? 17:53 Laboratory Results WBC 8.4 10^3/uL (4.0-10.0) 11/15/22 04:12 RBC 3.01 10^6/uL (4.1-5.3) L 11/15/22 04:12 Hgb 8.1 g/dL (11.7-16.6) L 11/15/22 04:12 Hct 26.6 % (42.0-52.0) L 11/15/22 04:12 MCV 88.4 fl (80-94) 11/15/22 04:12 MCH 26.9 pg (28.0-34.0) L 11/15/22 04:12 MCHC 30.5 g/dL (30.0-36.0) 11/15/22 04:12 RDW 19.4 % (12.1-15.1) H 11/15/22 04:12 Plt Count 368 10^3/cmm (130-400) 11/15/22 04:12 MPV 10.0 fL (7.4-10.4) 11/15/22 04:12 Neut % (Auto) 78.4 % 11/15/22 04:12 Lymph % (Auto) 9.6 % 11/15/22 04:12 [place] % (Auto) 6.5 % 11/15/22 04:12 Eos % (Auto) 4.3 % 11/15/22 04:12 Baso % (Auto) 0.6 % 11/15/22 04:12 Neut # (Auto) 6.60 10^3/uL (1.8-7.7) 11/15/22 04:12 Lymph # (Auto) 0.8 10^3/uL (0.8-4.8) 11/15/22 04:12 [place] # (Auto) 0.6 10^3/uL (0.2-0.9) 11/15/22 04:12 Eos # (Auto) 0.4 10^3/uL (0.0-0.8) 11/15/22 04:12 Baso # (Auto) 0.1 10^3/uL (0.0-0.1) 11/15/22 04:12 Nucleated RBC % (auto) 0 % 11/15/22 04:12 Nucleated RBCs # 0.0 /100WBC 11/15/22 04:12 PT 14.70 SECONDS (12.1-14.9) 11/13/22 11:00 INR 1.12 (0.8-1.2) 11/13/22 11:00 APTT 34.3 SECONDS (23.9-36.7) 11/13/22 11:00 Sodium 139 mmol/L (136-145) 11/15/22 04:12 Potassium 3.9 mmol/L (3.5-5.1) 11/15/22 04:12 Chloride 105 mmol/L (98-107) 11/15/22 04:12 Carbon Dioxide 23 mmol/L (22-29) 11/15/22 04:12 Anion Gap 14.9 (5-19) 11/15/22 04:12 BUN 19 mg/dL (8-23) 11/15/22 04:12 Creatinine 1.2 mg/dL (0.7-1.2) 11/15/22 04:12 GFR Calculation Not Reportable 11/15/22 04:12 Glucose 123 mg/dL (65-115) H 11/15/22 04:12 POC Glucose 116 mg/dL (70-110) H 11/16/22 06:21 Estimat Average Glucose 108 11/14/22 12:20 Hemoglobin A1c 5.4 % (4.0-6.0) 11/14/22 12:20 Calculated Osmolality 292 mOsm/kg (285-295) 11/15/22 04:12 Lactic Acid 3.6 mmol/L (0.5-2.2) H 11/13/22 11:00 Lactic Acid (Sepsis) 1.7 mmol/L (0.5-2.2) 11/13/22 13:44 Calcium 8.6 mg/dL (8.5-10.5) 11/15/22 04:12 Phosphorus 3.7 mg/dL (2.5-4.5) 11/14/22 04:39 Magnesium 2.0 mg/dL (1.7-2.3) 11/14/22 04:39 Iron 26 ug/dL (59-158) L 11/13/22 12:49 TIBC 171 mcg/dl 11/13/22 12:49 % Saturation 15.2 % (20-50) L 11/13/22 12:49 Unsat Iron Binding 145 ug/dL (112-347) 11/13/22 12:49 Total Bilirubin 0.4 mg/dL (0.15-1.2) 11/15/22 04:12 AST 11 U/L (0-40) 11/15/22 04:12 ALT 6 U/L (0-41) 11/15/22 04:12 Alkaline Phosphatase 44 U/L (40-130) 11/15/22 04:12 Troponin T Baseline 35 ng/L (0-15) H 11/13/22 11:00 Troponin T 120 Minute 31.83 ng/L (0-15) H 11/13/22 12:49 Delta Troponin T -3.17 ABS# (0-10) L 11/13/22 12:49 Troponin T Hi Sens 6Hr 34.09 ng/L (0-15) H 11/13/22 18:35 Troponin T Hi Sens 6Hr Delta -0.91 ng/L (0-12) L 11/13/22 18:35 NT-Pro-B Natriuret Pep 4900 pg/mL (0-450) H 11/13/22 11:00 Total Protein 5.4 g/dL (6.6-8.7) L 11/15/22 04:12 Albumin 2.5 g/dL (3.5-5.2) L 11/15/22 04:12 Globulin 2.9 g/dL (1.3-4.6) 11/15/22 04:12 Triglycerides 95 mg/dL (0-150) 11/14/22 12:20 Cholesterol 106 mg/dL (0-200) 11/14/22 12:20 LDL Cholesterol, Calc 60 mg/dL (50-129) 11/14/22 12:20 Total VLDL Cholesterol 19 mg/dL (0-30) 11/14/22 12:20 HDL Cholesterol 27 mg/dL (60-100) L 11/14/22 12:20 Cholesterol/HDL Ratio 3.93 mg/dL (1.0-5.00) 11/14/22 12:20 Vitamin B12 224 pg/mL (232-1245) L 11/13/22 12:49 Procalcitonin 0.06 ng/mL (0-0.5) 11/13/22 12:49 TSH 4.28 uIU/mL (0.27-4.20) H 11/13/22 12:49 Free T4 1.16 ng/dL (0.82-1.77) 11/13/22 18:35 Urine Color Light yellow (Yellow) 11/13/22 11:00 Urine Appearance Clear (CLEAR) 11/13/22 11:00 Urine pH 6 (5-7) 11/13/22 11:00 Ur Specific [place] 1.010 (1.005-1.030) 11/13/22 11:00 Urine Protein Neg (Negative) 11/13/22 11:00 Urine Glucose (UA) Norm (Normal) 11/13/22 11:00 Urine Ketones Negative (Negative) 11/13/22 11:00 Urine Blood Neg (Negative) 11/13/22 11:00 Urine Nitrate Negative (Negative) 11/13/22 11:00 Urine Bilirubin Neg (Negative) 11/13/22 11:00 Urine Urobilinogen Norm mg/dL (Negative) 11/13/22 11:00 Ur Leukocyte Esterase Negative (Negative) 11/13/22 11:00 Vitals Last Vital Signs Temp 98.0 F 11/16/22 08:00 Pulse 80 11/16/22 08:00 Resp 22 H 11/16/22 08:00 BP 124/70 11/16/22 08:00 Pulse Ox 94 11/16/22 08:00 O2 Del Method 11/16/22 08:00 Discharge Plan Discharge Patient Disposition: Home Health Service Condition: Stable Prescriptions: New ferrous fumarate 324 mg (106 mg iron) tablet 324 mg PO DAILY Qty: 30 0RF sennosides-docusate sodium [Colace 2-In-1] 8.6-50 mg tablet 1 tab-cap PO BID Qty: 60 0RF cyanocobalamin (vitamin B-12) [Vitamin B-12] 1,000 mcg Tablet 500 mcg PO DAILY Qty: 30 0RF Eliquis 2.5 mg tablet 2.5 mg PO BID Qty: 60 0RF diltiazem HCl [Cardizem CD] 120 mg capsule,extended release 24hr 120 mg PO DAILY Qty: 30 0RF Continued tamsulosin [Flomax] 0.4 mg Capsule 0.4 mg PO QPM cinnamon bark [Cinnamon] 500 mg Capsule 1,000 mg PO DAILY Lipitor 80 mg Tablet 80 mg PO DAILY sucralfate [Carafate] 1 gram Tablet 1 g PO QID cephalexin 500 mg capsule 500 mg PO QID omeprazole 40 mg capsule,delayed release(DR/EC) 40 mg PO QAM Aspir-81 81 mg Tablet,Delayed Release (Dr/Ec) 81 mg PO QAM Tylenol Ex Str Rapid Release 500 mg Tablet 1,000 mg PO BEDTIME potassium chloride [Klor-Con M20] 20 mEq tablet,ER particles/crystals 20 meq PO DAILY trazodone 100 mg Tablet 100 mg PO BEDTIME metformin 1,000 mg Tablet 500 mg PO BID Megace 20 mg Tablet 20 mg PO QID cholecalciferol (vitamin D3) 25 mcg (1,000 unit) Tablet 25 mcg PO DAILY zinc oxide 20 % Ointment 1 applic TOPICAL TID Changed furosemide 20 mg tablet 40 mg PO QAM Qty: 60 0RF Discontinued clopidogrel 75 mg tablet 75 mg PO DAILY Qty: 90 3RF Discharge Orders: Discharge Order (Routine); Ordered 11/16/22 Ordered By: Ankit Brown Referrals: Portia Larose MD [Primary Care Provider] - 1 week Discharge Diet: Cardiac Discharge Activity: Resume usual activity and Increase activity as tolerated Patient Instructions: Anemia, Diltiazem (By mouth), Cyanocobalamin (By injection), Ascorbic Acid/Cyanocobalamin/Ferrous Fumarate (By mouth), Apixaban (By mouth) (Eliquis), Heart Failure (DC), Chronic Kidney Disease (DC), Hyperlipidemia (DC), Opioid Safety Activity Restrictions/Additional Instructions: Resume home health with physical therapy on discharge. Cardizem is the new medication which you will be taking daily for you heart rate control along with Eliquis 2.5 mg twice daily which is the blood thinner. Please recheck CBC and CMP next 1 week. Do not take Plavix anymore. Take vitamin B12 and iron supplements as prescribed daily. Discharge Attestations Time Spent in Discharge Care*: greater than 30 min Specific Discharge Activities: educating patient, educating and/or supporting family/caregiver, discussing with pcp/other providers, discussing with upper caser/social workers/dc planners, documenting/other paperwork and evaluating patient/reviewing data Status at Discharge: Cognitive status at discharge: cognitively intact, Behavioral status at discharge: cooperative and independent in ADL's, Functional status at discharge: uses cane/walker, Overall status at discharge: patient is back to baseline Quality Metrics Clinical Quality Measures [ No reported AMI, CVA or VTE this stay] Coding Level of Care Code 37399 Total time (in minutes) for Discharge: 50 Diagnoses Atrial fibrillation I48.91 Diastolic dysfunction I51.89 Anemia D64.9 Wound of right foot S91.301A Atherosclerosis of coronary artery of [place] heart without angina pectoris I25.10 Benign essential hypertension with target blood pressure below 140/90 I10 CKD (chronic kidney disease) N18.9 Hyperlipidemia E78.5 Hyperlipidemia type: unspecified Diabetes mellitus, type II E11.9 Benign prostate hyperplasia N40.0 GERD (gastroesophageal reflux disease) K21.9 Depression F32.A Physical deconditioning R53.81 Beta-bertrand intolerance Z78.9
[2022-11-16] MEDS: FUROsemide 10 mg/mL SDV 4mL 40 MG IVP (12:11)
[2022-11-16 12:18] LABS: Glucose Point of Care 145 mg/dL (70-110)
[2022-11-16] MEDS: insulin lispro 100 unit/1 mL SUBCUT (12:47)
== END 2022-11-16 13:30 | disposition home health service (06) | DRG 308 ==
LOC: ER 11:06 → CSU 17:34
PROVIDERS: Admitting Provider Hospitalist; Emergency Provider Family Medicine; PCP Family Medicine; Visit Provider Student in an Organized Health Care Education/Training Program
DX: I48.91 Unspecified atrial fibrillation (principal); I50.33 Acute on chronic diastolic (congestive) heart failure; I13.0 Hypertensive heart and chronic kidney disease with heart failure and stage 1 through stage 4 chronic kidney disease, or unspecified chronic kidney disease; I25.10 Atherosclerotic heart disease of native coronary artery without angina pectoris; Z95.5 Presence of coronary angioplasty implant and graft; N40.1 Benign prostatic hyperplasia with lower urinary tract symptoms; E11.22 Type 2 diabetes mellitus with diabetic chronic kidney disease; D50.9 Iron deficiency anemia, unspecified; Z79.82 Long term (current) use of aspirin; Z79.84 Long term (current) use of oral hypoglycemic drugs; Z86.16 Personal history of COVID-19; F32.A Depression, unspecified; K21.9 Gastro-esophageal reflux disease without esophagitis; E78.5 Hyperlipidemia, unspecified; Z85.828 Personal history of other malignant neoplasm of skin; Z87.891 Personal history of nicotine dependence; G47.00 Insomnia, unspecified; D63.1 Anemia in chronic kidney disease; N18.31 Chronic kidney disease, stage 3a; S91.301D Unspecified open wound, right foot, subsequent encounter; X58.XXXD Exposure to other specified factors, subsequent encounter
CPT/HCPCS: 36415; 36416; 71045; 80048; 80053; 80061; 81003; 82274; 82607; 82962; 83036; 83540; 83550; 83605; 83735; 83880; 84100; 84145; 84439; 84443; 84484; 85025; 85610; 85730; 87040; 93005; 93306; 94760; 96365; 96372; 96376; 99285; G0378; J1650; J1756; J1815; J1940; J2543; J3420; J3475; J7030; J7040

== ENCOUNTER 2022-12-05 15:56 | Emergency (ER) | payer OTHER, SELFPAY ==
[2022-12-05 16:07] VITALS: BP 164/81; PULSE 86; RESP 16; TEMP 36.7; O2SAT 98; BMI 21.4
--- NOTE | 2022-12-05 16:26 | XRR_ITS ---
PROCEDURE INFORMATION: Exam: XR Chest Exam date and time: 12/05/2022 4:53 PM Age: 82 years old Clinical indication: Shortness of breath; Additional info: SOB TECHNIQUE: Imaging protocol: Radiologic exam of the chest. Views: 1 view. COMPARISON: CR XR chest 1V portable [id number] 11/13/2022 11:06 AM FINDINGS: Lungs: Unremarkable. No consolidation. Low lung volumes seen Pleural spaces: Unremarkable. No pleural effusion. No pneumothorax. Heart/Mediastinum: Unremarkable. No cardiomegaly. Bones/joints: There is a sclerotic density proximal right humerus 15 mm x 29 mm. 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 Review of prior examination showed this finding was present and stable in appearance XR/XR chest 1V portable [id number] IMPRESSION: 1. Low lung volumes seen. 2. Otherwise negative for acute abnormalities
[2022-12-05 17:42] LABS: Basophils # 0.1 10^3/uL (0.0-0.1); Basophils % 0.4 %; Eosinophils # 0.7 10^3/uL (0.0-0.8); Eosinophils % 5.7 %; Hematocrit 34.1 % (42.0-52.0); Lymphocytes # 0.8 10^3/uL (0.8-4.8); Lymphocytes % 7.1 %; Mean Corpuscular HGB Conc 29.3 g/dL (30.0-36.0); Mean Corpuscular Hemoglobin 26.2 pg (28.0-34.0); Mean Corpuscular Volume 89.5 fl (80-94); Mean Platelet Volume 9.5 fL (7.4-10.4); Monocytes # 0.6 10^3/uL (0.2-0.9); Monocytes % 4.8 %; Neutrophils # 9.67 10^3/uL (1.8-7.7); Neutrophils % 81.7 %; Nucleated Red Blood Cells % 0 %; Platelet Count 379 10^3/cmm (130-400); Red Blood Count 3.81 10^6/uL (4.1-5.3); Red Cell Distribution Width 18.4 % (12.1-15.1); White Blood Count 11.8 10^3/uL (4.0-10.0)
[2022-12-05 18:23] LABS: Troponin(5th) Baseline 38 ng/L (0-15)
[2022-12-05 18:30] LABS: Alanine Aminotransferase 7 U/L (0-41); Albumin Level 3.8 g/dL (3.5-5.2); Alkaline Phosphatase 55 U/L (40-130); Anion Gap 17.5 (5-19); Aspartate Amino Transferase 11 U/L (0-40); Blood Urea Nitrogen 22 mg/dL (8-23); Calcium 9.4 mg/dL (8.5-10.5); Carbon Dioxide 22 mmol/L (22-29); Chloride 108 mmol/L (98-107); Globulin 3.2 g/dL (1.3-4.6); Glucose 118 mg/dL (65-115); NT Pro B Type Natriuretic Pept 3453 pg/mL (0-450); Osmolality Calculated 300 mOsm/kg (285-295); Potassium 4.5 mmol/L (3.5-5.1); Sodium 143 mmol/L (136-145); Total Bilirubin 0.4 mg/dL (0.15-1.2)
[2022-12-05 19:43] VITALS: BP 155/73; PULSE 101; TEMP 36.8; O2SAT 97
[2022-12-05 19:47] LABS: Troponin 5 2HR 32.86 ng/L (0-15)
--- NOTE | 2022-12-05 19:48 | ED_ITS ---
HPI - Extremity Problem General: Chief complaint: Extremity Problem,Nontraumatic Stated complaint: Swelling in Feet, and congestion Time Seen by Provider: 12/05/22 19:43 Source: patient Mode of arrival: ambulatory Limitations: no limitations History of Present Illness: 82-year-old male has a history of congestive heart failure he is on Lasix 40 mg daily family states that he has been out of his prescription over the last 5 days. He states he has had some increased swelling in his legs along with a 10 pound weight gain over the last week. He is well- appearing here no distress pulse ox 98% he denies any shortness of breath he denies any pain anywhere denies any fevers. Associated symptoms: Deny chest pain, fever(s) or rash Review of Systems Const: Denies: fever(s), chills, body aches or change in appetite Eyes: Denies: blurry vision or eye discomfort ENMT: Denies: throat pain or dental pain Card: Denies: chest pain Resp: Denies: dyspnea GI: Denies: abdominal pain, nausea, vomiting or diarrhea : Denies: dysuria Musc: Reports: extremity swelling Skin/Breast: Denies: rash Neuro: Denies: headache(s) Psych: Denies: depression Eduin/Lymph: Denies: easy bruising All/Imm: Denies: urticaria PFSH ED PFSH: Medical History Anemia Atherosclerosis of coronary artery of [place] heart without angina pectoris B12 deficiency Benign essential hypertension with target blood pressure below 140/90 Benign prostate hyperplasia Beta-bertrand intolerance 3.6-second pause on 02/19/2021 Chronic blepharitis CKD (chronic kidney disease) COVID 08/2022 Depression Diabetes mellitus, type II microalbuminuria Diastolic dysfunction Diverticulosis GERD (gastroesophageal reflux disease) History of echocardiogram 02/2022 EF 55-60% History of Holter monitoring 02/2021 sinus rhythm with one 3.6 second pause noted. One episode of sinus bradycardia to 37 bpm. Taken off of beta blockade. Hyperlipidemia Polyp of colon Second degree AV block, Mobitz type I Squamous cell carcinoma of skin Surgical History H/O left wrist surgery History of cardiac catheterization 07/2020 90-95% LAD lesion, 20-30% circ lesion, 50% ostial RCS, declined CABG and underwent PCI to LAD Hx of cataract surgery Status post laparoscopic cholecystectomy (12/27/19) Status post open reduction and internal fixation (ORIF) of fracture (08/27/22) left intertrochanteric hip fracture, gamma nail, Dr Grey Family History Denies family history of CAD (coronary artery disease) Anesthesia complication Bleeding disorder Social History Smoking and tobacco status: former smoker Alcohol intake: never Physical Exam Const: COMMON NORMALS: no acute distress, patient oriented x3 and healthy appearing HENMT: COMMON NORMALS: normocephalic and atraumatic HEAD & SCALP: normoce phalic and atraumatic Eye: COMMON NORMALS: Equal, round and reactive pupils present and EOMs intact bilaterally PUPIL: Yes Equal, round and reactive pupils present Neck/C-Spine: COMMON NORMALS: full ROM and supple Chest: COMMONS NORMALS: normal inspection of the chest and normal palpation of entire chest wall Resp: COMMON NORMALS: normal respiratory effort, No retractions, No use of accessory muscles and clear to auscultation bilaterally AUSCULTATION: clear to auscultation bilaterally Cardio: COMMON NORMALS: regular rate, regular rhythm and No murmurs present (Cardio) RATE: regular rate RHYTHM: regular rhythm GI: COMMON NORMALS: Normal to inspection, nondistended, normoactive bowel sounds present, Soft to palpation, non-tender and no masses PALPATION: Yes Soft to palpation Extremity: COMMON NORMALS: full ROM NARRATIVE EXTREMITY EXAM: 2+ edema to lower extremity Neuro: COMMON NORMALS: patient oriented x3, moves all extremities and no focal motor deficits Psych: COMMON NORMALS: mental status grossly normal, Normal thought process present and cooperative THOUGHT PROCESS: Normal thought process present Skin: COMMON NORMALS: no rashes or lesions noted and no wounds GENERAL SKIN EXAM: no rashes or lesions noted Course Vital Signs: Vital signs: Vital Signs Temperature 98.1 F 12/05/22 16:07 Pulse Rate 86 12/05/22 16:07 Respiratory Rate 16 12/05/22 16:07 Blood Pressure 164/81 12/05/22 16:07 Pulse Oximetry 98 12/05/22 16:07 Oxygen Delivery Me thod 12/05/22 16:07 MDM - Extremity (Nontraumatic) Medical Decision Making Patient presents for some edema to his lower extremities he has no dyspnea no pulmonary edema I did give him a dose of Lasix here we will refill his Lasix for home he is to follow-up with PCP and return if worsening. Lab Data 12/05/22 17:25 12/05/22 17:25 Radiology Impressions Chest X-Ray 12/05/22 16:26 IMPRESSION: 1. Low lung volumes seen. 2. Otherwise negative for acute abnormalities Laboratory Results WBC 11.8 10^3/uL (4.0-10.0) H 12/05/22 17:25 RBC 3.81 10^6/uL (4.1-5.3) L 12/05/22 17:25 Hgb 10.0 g/dL (11.7-16.6) L 12/05/22 17:25 Hct 34.1 % (42.0-52.0) L 12/05/22 17:25 MCV 89.5 fl (80-94) 12/05/22 17:25 MCH 26.2 pg (28.0-34.0) L 12/05/22 17:25 MCHC 29.3 g/dL (30.0-36.0) L 12/05/22 17:25 RDW 18.4 % (12.1-15.1) H 12/05/22 17:25 Plt Count 379 10^3/cmm (130-400) 12/05/22 17:25 MPV 9.5 fL (7.4-10.4) 12/05/22 17:25 Neut % (Auto) 81.7 % 12/05/22 17:25 Lymph % (Auto) 7.1 % 12/05/22 17:25 [place] % (Auto) 4.8 % 12/05/22 17:25 Eos % (Auto) 5.7 % 12/05/22 17:25 Baso % (Auto) 0.4 % 12/05/22 17:25 Neut # (Auto) 9.67 10^3/uL (1.8-7.7) H 12/05/22 17:25 Lymph # (Auto) 0.8 10^3/uL (0.8-4.8) 12/05/22 17:25 [place] # (Auto) 0.6 10^3/uL (0.2-0.9) 12/05/22 17:25 Eos # (Auto) 0.7 10^3/uL (0.0-0.8) 12/05/22 17:25 Baso # (Auto) 0.1 10^3/uL (0.0-0.1) 12/05/22 17:25 Nucleated RBC % (auto) 0 % 12/05/22 17:25 Nucleated RBCs # 0.0 /100WBC 12/05/22 17:25 Sodium 143 mmol/L (136-145) 12/05/22 17:25 Potassium 4.5 mmol/L (3.5-5.1) 12/05/22 17:25 Chloride 108 mmol/L (98-107) H 12/05/22 17:25 Carbon Dioxide 22 mmol/L (22-29) 12/05/22 17:25 Anion Gap 17.5 (5-19) 12/05/22 17:25 BUN 22 mg/dL (8-23) 12/05/22 17:25 Creatinine 1.2 mg/dL (0.7-1.2) 12/05/22 17:25 GFR Calculation Not Reportable 12/05/22 17:25 Glucose 118 mg/dL (65-115) H 12/05/22 17:25 Calculated Osmolality 300 mOsm/kg (285-295) H 12/05/22 17:25 Calcium 9.4 mg/dL (8.5-10.5) 12/05/22 17:25 Total Bilirubin 0.4 mg/dL (0.15-1.2) 12/05/22 17:25 AST 11 U/L (0-40) 12/05/22 17:25 ALT 7 U/L (0-41) 12/05/22 17:25 Alkaline Phosphatase 55 U/L (40-130) 12/05/22 17:25 Troponin T Baseline 38 ng/L (0-15) H 12/05/22 17:25 Troponin T 120 Minute 32.86 ng/L (0-15) H 12/05/22 19:12 Delta Troponin T -5.14 ABS# (0-10) L 12/05/22 19:12 NT-Pro-B Natriuret Pep 3453 pg/mL (0-450) H 12/05/22 17:25 Total Protein 7.0 g/dL (6.6-8.7) 12/05/22 17:25 Albumin 3.8 g/dL (3.5-5.2) 12/05/22 17:25 Globulin 3.2 g/dL (1.3-4.6) 12/05/22 17:25 Discharge Plan Discharge Patient Disposition: Home Clinical Impression: Lower extremity edema Condition: Stable Prescriptions: Continued furosemide 20 mg tablet 40 mg PO QAM Qty: 60 0RF No Action tamsulosin [Flomax] 0.4 mg Capsule 0.4 mg PO QPM cinnamon bark [Cinnamon] 500 mg Capsule 1,000 mg PO DAILY Lipitor 80 mg Tablet 80 mg PO DAILY sucralfate [Carafate] 1 gram Tablet 1 g PO QID cephalexin 500 mg capsule 500 mg PO QID omeprazole 40 mg capsule,delayed release(DR/EC) 40 mg PO QAM aspirin 81 mg Tablet,Delayed Release (Dr/Ec) 81 mg PO QAM acetaminophen 500 mg Tablet 1,000 mg PO BEDTIME potassium chloride [Klor-Con M20] 20 mEq tablet,ER particles/crystals 20 meq PO DAILY trazodone 100 mg Tablet 100 mg PO BEDTIME metformin 1,000 mg Tablet 500 mg PO BID megestrol 20 mg Tablet 20 mg PO QID cholecalciferol (vitamin D3) 25 mcg (1,000 unit) Tablet 25 mcg PO DAILY zinc oxide 20 % Ointment 1 applic TOPICAL TID Vitamin B-12 1,000 mcg Tablet 500 mcg PO DAILY Qty: 30 0RF Cardizem CD 120 mg capsule,extended release 24hr 120 mg PO DAILY Qty: 30 0RF Eliquis 2.5 mg tablet 2.5 mg PO BID Qty: 60 0RF ferrous fumarate 324 mg (106 mg iron) tablet 324 mg PO DAILY Qty: 30 0RF Colace 2-In-1 8.6-50 mg tablet 1 tab-cap PO BID Qty: 60 0RF Discharge Orders: Discharge ED (Routine); Ordered 12/05/22 Ordered By: Osman Dickinson Referrals: Portia Larose MD [Primary Care Provider] - 1-3 days Discharge Diet: Advance as tolerated Discharge Activity: Resume usual activity Patient Instructions: Edema (ED) Coding Level of Care Code ED Production Superintendent [employer] for Marla Stanley
[2022-12-05 19:52] LABS: Troponin 5 2HR Delta -5.14 ABS# (0-10)
--- NOTE | 2022-12-05 19:54 | ECG_ITS ---
[facility] Test Date: 2022-12-05 Pat Name: Siva Malik Department: Room: Gender: Male Chief Lifestyle Officer: : 1940 Requested By: Evelyne Georges Order Number: [id number] Desi MD: Fer Mayers M.D. Measurements Intervals [place] Rate: 96 P: 0 MA: 0 QRS: -4 QRSD: 80 T: 60 QT: 373 QTc: 474 Interpretive Statements ATRIAL FIBRILLATION WITH ABERRANT CONDUCTION OR VENTRICULAR PREMATURE COMPLEXES ABNORMAL RHYTHM ECG Compared to ECG 11/13/2022 15:23:32 Ventricular premature complex(es) now present Aberrant conduction of supraventricular beat(s) now present Electronically Signed On 12-06-2022 0:55:53 CDT by Fer Mayers M.D. [email or web address]/OM/[id number]
[2022-12-05] MEDS: FUROsemide 10 mg/mL SDV 10mL 60 MG IV (20:18)
[2022-12-05 20:25] VITALS: BP 142/98; PULSE 96; RESP 22; O2SAT 98
== END 2022-12-05 20:34 | disposition home or self-care (01) ==
PROVIDERS: Physician Assistant; Emergency Provider Emergency Medicine; PCP Family Medicine
DX: R60.0 Localized edema (principal); Z79.01 Long term (current) use of anticoagulants; Z79.82 Long term (current) use of aspirin; Z79.84 Long term (current) use of oral hypoglycemic drugs; Z87.891 Personal history of nicotine dependence; I25.10 Atherosclerotic heart disease of native coronary artery without angina pectoris; I12.9 Hypertensive chronic kidney disease with stage 1 through stage 4 chronic kidney disease, or unspecified chronic kidney disease; E11.22 Type 2 diabetes mellitus with diabetic chronic kidney disease; N18.9 Chronic kidney disease, unspecified; E78.5 Hyperlipidemia, unspecified
CPT/HCPCS: 36415; 71045; 80053; 83880; 84484; 85025; 93005; 96374; 99285; J1940

== ENCOUNTER 2022-12-31 19:50 | Observation (INO) | payer OTHER, SELFPAY ==
[2022-12-31 19:56] VITALS: BP 142/56; PULSE 84; RESP 16; TEMP 36.4; O2SAT 98
--- NOTE | 2022-12-31 20:25 | XRR_ITS ---
PROCEDURE INFORMATION: Exam: XR Chest Exam date and time: 12/31/2022 8:30 PM Age: 82 years old Clinical indication: Shortness of breath and other: Weakness; Additional info: SOB weakness TECHNIQUE: Imaging protocol: Radiologic exam of the chest. Views: 1 view. COMPARISON: CR XR chest 1V portable [id number] 12/05/2022 4:53 PM FINDINGS: Lungs: Emphysematous changes. Pleural spaces: Unremarkable. No pleural effusion. No pneumothorax. Heart/Mediastinum: Unremarkable. No cardiomegaly. Bones/joints: Right humeral head/neck is stable sclerotic bony lesion may reflect a stable bone infarct or perhaps an enchondroma unchanged compared to prior exam. XR/XR chest 1V portable [id number] IMPRESSION: Emphysematous changes, negative for infiltrate.
--- NOTE | 2022-12-31 20:25 | CTR_ITS ---
PROCEDURE INFORMATION: Exam: CT Head Without Contrast Exam date and time: 12/31/2022 9:09 PM Age: 82 years old Clinical indication: Other: Generalized weakness TECHNIQUE: Imaging protocol: Computed tomography of the head without contrast. Radiation optimization: All CT scans at this facility use at least one of these dose optimization techniques: automated exposure control; mA and/or kV adjustment per patient size (includes targeted exams where dose is matched to clinical indication); or iterative reconstruction. REPORTING DATA: Count of CT and Cardiac NM exams in prior 12 months: This patient has received 3 known CTs and 0 known cardiac nuclear medicine studies in the 12 months prior to the current study. COMPARISON: CT head wo con* [id number] 08/26/2022 9:20 AM RADIATION DOSE METRICS: Total DLP (mGy-cm): 1116.56 FINDINGS: Brain: Moderate diffuse white matter disease likely reflecting chronic microvascular ischemic changes. Cerebral ventricles: No ventriculomegaly. Paranasal sinuses: Paranasal sinus opacifications. Mastoid air cells: Visualized mastoid air cells are well aerated. Bones/joints: Unremarkable. No acute fracture. Soft tissues: Unremarkable. CT/CT head wo con* [id number] IMPRESSION: 1. Negative for intracranial hemorrhage or mass effect. 2. Paranasal sinus opacifications. 3. Moderate diffuse white matter disease likely reflecting chronic microvascular ischemic changes.
--- NOTE | 2022-12-31 20:29 | ED_ITS ---
HPI - Weakness General: Chief complaint: Weakness Stated complaint: weakness Time Seen by Provider: 12/31/22 20:07 Source: patient History of Present Illness: 82-year-old male gentleman with a history of atrial fibrillation and diabetes. He believes he has a stent in his heart as well. He presents with increasing generalized weakness over the past couple of days. No fever, no chills. He can take a few steps with a walker now, but that is about it. He denies cough, vomiting or diarrhea. No headache. His stool has been black. He has been taking an iron supplementation for anemia. Complaint: generalized weakness Onset (ago): day(s) (2) Duration: constant Location: generalized Migration: none Severity: moderate Relieving factors: none Exacerbating factors: exertion Associated symptoms: Reports melena, decreased appetite, easy bruising and short of breath; Denies chest pain, chills, confusion, dysuria, fever(s), headache(s) or vomiting Review of Systems Const: Denies: fever(s) or chills Eyes: Denies: change in vision Card: Denies: chest pain Resp: Reports: dyspnea; Denies: productive cough or non-productive cough GI: Reports: melena; Denies: abdominal pain or vomiting : Denies: dysuria Neuro: Denies: headache(s) or confusion Eduin/Lymph: Reports: easy bruising PFSH ED PFSH: Medical History Anemia Atherosclerosis of coronary artery of [place] heart without angina pectoris B12 deficiency Benign essential hypertension with target blood pressure below 140/90 Benign prostate hyperplasia Beta-bertrand intolerance 3.6-second pause on 02/19/2021 Chronic blepharitis CKD (chronic kidney disease) COVID 08/2022 Depression Diabetes mellitus, type II microalbuminuria Diastolic dysfunction Diverticulosis GERD (gastroesophageal reflux disease) History of echocardiogram 02/2022 EF 55-60% History of Holter monitoring 02/2021 sinus rhythm with one 3.6 second pause noted. One episode of sinus bradycardia to 37 bpm. Taken off of beta blockade. Hyperlipidemia Polyp of colon Second degree AV block, Mobitz type I Squamous cell carcinoma of skin Surgical History H/O left wrist surgery History of cardiac catheterization 07/2020 90-95% LAD lesion, 20-30% circ lesion, 50% ostial RCS, declined CABG and underwent PCI to LAD Hx of cataract surgery Status post laparoscopic cholecystectomy (12/27/19) Status post open reduction and internal fixation (ORIF) of fracture (08/27/22) left intertrochanteric hip fracture, gamma nail, Dr Grey Family History Denies family history of CAD (coronary artery disease) Anesthesia complication Bleeding disorder Social History Smoking and tobacco status: former smoker Alcohol intake: never Physical Exam Const: COMMON NORMALS: alert GENERAL APPEARANCE: cooperative, ill appearing (Mildly) and frail appearing NUTRITIONAL APPEARANCE: thin HENMT: COMMON NORMALS: normocephalic, atraumatic and Normal external nose present HEAD & SCALP: normocephalic and atraumatic FACE & SINUS: normal facial exam and face symmetric NOSE: Normal external nose present Eye: COMMON NORMALS: Equal, round and reactive pupils present and EOMs intact bilaterally PUPIL: Yes Equal, round and reactive pupils present Neck/C-Spine: GENERAL: Yes trachea midline Chest: CHEST: Yes Symmetrical chest wall rise Resp: COMMON NORMALS: normal respiratory effort, No retractions, No use of accessory muscles and clear to auscultation bilaterally AUSCULTATION: clear to auscultation bilaterally Cardio: COMMON NORMALS: regular rate and regular rhythm RATE: regular rate RHYTHM: regular rhythm GI: COMMON NORMALS: Normal to inspection, nondistended, normoactive bowel sounds present Extremity: COMMON NORMALS: no pedal edema Neuro: RUBÉN COMA SCALE: document GCS findings [place] coma scale eye opening: Spontaneous [place] coma scale verbal response: Orientated [place] coma scale motor response: Obey commands [place] coma scale total score: 15 SENSORIUM/ORIENTATION: Yes alert CRANIAL NERVES: Yes CN normal except as noted COORDINATION/BALANCE: [id number] test normal and obcz-oz-cqlg test normal SPEECH: speech normal SENSORY EXAM: Yes extremities (intact) MOTOR EXAM: Pronator motor function not present and Normal motor muscle tone present throughout COORDINATION: ypmmsz-nl-wxen test normal and krsb-zs-hfke test normal Psych: COMMON NORMALS: speech normal SPEECH: Yes normal speech Skin: NARRATIVE SKIN EXAM: Scattered ecchymosis to forearms consistent with anticoagulation Course Vital Signs: Vital signs: Vital Signs Temperature 97.0 F L 01/01/23 02:25 Pulse Rate 76 01/01/23 02:25 Respiratory Rate 18 01/01/23 02:25 Blood Pressure 116/66 01/01/23 02:25 Pulse Oximetry 98 01/01/23 02:25 Oxygen Delivery Me thod Room Air 01/01/23 02:03 MDM - Weakness Medical Decision Making 82-year-old gentleman with generalized weakness. He presents with weakness and inability to walk. Not much other symptoms as above. His vitals have been stable. However, laboratory findings show white blood cell count of 18, h emoglobin of 7, and a lactic acid of 9. BUN and creatinine are significantly elevated. Bicarbonate level is 13. He has an anion gap consistent with lactic acidosis. Chest x-ray was negative for acute problem. Head CT was negative for acute change. Renal function precluded contrast administration, but noncontrast CT is negative for acute inflammatory process in the abdomen or pelvis. Constip ation is present. Lactate improved after fluid bolusing at 3 hours. Troponin did not elevated 2 hours. Interestingly, his CRP is only 4.2. He did have a distended bladder on CT scanning postvoid. Rick catheter was placed, with significant output of urine which may be part of the patient's problem. He will be admitted for lactic acidosis, acute kidney injury, dehydration etc. Hospitalist is aware and has seen the patient in the ER. Lab Data 12/31/22 20:14 01/01/23 01:43 Radiology Impressions Chest X-Ray 12/31/22 20:25 IMPRESSION: Emphysematous changes, negative for infiltrate. Head CT 12/31/22 20:25 IMPRESSION: 1. Negative for intracranial hemorrhage or mass effect. 2. Paranasal sinus opacifications. 3. Moderate diffuse white matter disease likely reflecting chronic microvascular ischemic changes. Abdomen/Pelvis CT 12/31/22 21:43 IMPRESSION: 1. Negative for focal acute inflammatory process in the abdomen or pelvis. 2. Coronary artery atherosclerotic calcifications. 3. Emphysematous changes. 4. Cholecystectomy. 5. Constipation. 6. Small bilateral fat containing inguinal hernias without bowel or inflammation. 7. Left femur surgical hardware. 8. L1 vertebral body chronic compression fracture, negative for retropulsion of bony fragments. Chest CT 01/01/23 00:01 IMPRESSION: 1. Mild emphysema. 2. Mild-moderate interstitial lung disease. 3. No acute consolidation. Laboratory Results WBC 18.2 10^3/uL (4.0-10.0) H 12/31/22 20:14 RBC 2.66 10^6/uL (4.1-5.3) L 12/31/22 20:14 Hgb 7.1 g/dL (11.7-16.6) L 12/31/22 20:14 Hct 23.7 % (42.0-52.0) L 12/31/22 20:14 MCV 89.1 fl (80-94) 12/31/22 20:14 MCH 26.7 pg (28.0-34.0) L 12/31/22 20:14 MCHC 30.0 g/dL (30.0-36.0) 12/31/22 20:14 RDW 17.7 % (12.1-15.1) H 12/31/22 20:14 Plt Count 448 10^3/cmm (130-400) H 12/31/22 20:14 MPV 9.7 fL (7.4-10.4) 12/31/22 20:14 Neut % (Auto) 88.4 % 12/31/22 20:14 Lymph % (Auto) 5.6 % 12/31/22 20:14 [place] % (Auto) 3.3 % 12/31/22 20:14 Eos % (Auto) 0.8 % 12/31/22 20:14 Baso % (Auto) 0.3 % 12/31/22 20:14 Neut # (Auto) 16.11 10^3/uL (1.8-7.7) H 12/31/22 20:14 Lymph # (Auto) 1.0 10^3/uL (0.8-4.8) 12/31/22 20:14 [place] # (Auto) 0.6 10^3/uL (0.2-0.9) 12/31/22 20:14 Eos # (Auto) 0.1 10^3/uL (0.0-0.8) 12/31/22 20:14 Baso # (Auto) 0.1 10^3/uL (0.0-0.1) 12/31/22 20:14 Nucleated RBC % (auto) 0.1 % 12/31/22 20:14 Nucleated RBCs # 0.0 /100WBC 12/31/22 20:14 ESR 3 mm/hr (0-10) 12/31/22 20:14 PT 21.50 SECONDS (12.1-14.9) H 12/31/22 20:14 INR 1.79 (0.8-1.2) H 12/31/22 20:14 APTT 28.7 SECONDS (23.9-36.7) 12/31/22 20:14 Specimen Type Arterial 12/31/22 20:59 Sample Site Radial, left 12/31/22 20:59 ABG pH 7.37 (7.35-7.45) 12/31/22 20:59 ABG pCO2 21.8 mmHg (35-45) L 12/31/22 20:59 ABG pO2 92.0 mmHg (80.0-100.0) 12/31/22 20:59 ABG HCO3 12.7 mmol/L (22-26) L 12/31/22 20:59 ABG Base Excess -11.4 mmol/L (-2.0-2.0) L 12/31/22 20:59 Bharat Test Pos 12/31/22 20:59 Hematocrit 21.7 % (42-52) L 12/31/22 20:59 O2 Delivery Device Room air 12/31/22 20:59 Turner Machine ID ellpe 12/31/22 20:59 Sodium 136 mmol/L (136-145) 12/31/22 20:14 Potassium 4.4 mmol/L (3.5-5.1) 12/31/22 20:14 Chloride 98 mmol/L (98-107) 12/31/22 20:14 Carbon Dioxide 12 mmol/L (22-29) L 12/31/22 20:14 Anion Gap 30.4 (5-19) H 12/31/22 20:14 BUN 67 mg/dL (8-23) H 12/31/22 20:14 Creatinine 1.8 mg/dL (0.7-1.2) H 12/31/22 20:14 GFR Calculation Not Reportable 12/31/22 20:14 Glucose 201 mg/dL (65-115) H 12/31/22 20:14 Calculated Osmolality 307 mOsm/kg (285-295) H 12/31/22 20:14 Lactate 7.7 mmol/L (0.5-2.2) H* 12/31/22 23:36 Calcium 9.5 mg/dL (8.5-10.5) 12/31/22 20:14 Total Bilirubin 0.3 mg/dL (0.15-1.2) 12/31/22 20:14 AST 10 U/L (0-40) 12/31/22 20:14 ALT 8 U/L (0-41) 12/31/22 20:14 Alkaline Phosphatase 41 U/L (40-130) 12/31/22 20:14 Creatine Kinase 28 U/L (39-308) L 12/31/22 20:14 Troponin T Baseline 40 ng/L (0-15) H 12/31/22 20:14 Troponin T 120 Minute 32.01 ng/L (0-15) H 12/31/22 22:29 Delta Troponin T -7.99 ABS# (0-10) L 12/31/22 22:29 C-Reactive Protein 4.2 mg/L (0.0-4.9) 12/31/22 20:14 NT-Pro-B Natriuret Pep 1985 pg/mL (0-450) H 12/31/22 20:14 Total Protein 5.9 g/dL (6.6-8.7) L 12/31/22 20:14 Albumin 3.7 g/dL (3.5-5.2) 12/31/22 20:14 Globulin 2.2 g/dL (1.3-4.6) 12/31/22 20:14 Procalcitonin 0.17 ng/mL (0-0.5) 12/31/22 22:29 TSH 2.40 uIU/mL (0.27-4.20) 12/31/22 22:29 Urine Color Yellow (Yellow) 12/31/22 22:24 Urine Appearance Clear (CLEAR) 12/31/22 22:24 Urine pH 5 (5-7) 12/31/22 22:24 Ur Specific [place] 1.020 (1.005-1.030) 12/31/22 22:24 Urine Protein Neg (Negative) 04/23/23 22:24 Urine Glucose (UA) Norm (Normal) 12/31/22 22:24 Urine Ketones 1+ (Negative) H 12/31/22 22:24 Urine Blood Neg (Negative) 12/31/22 22:24 Urine Nitrate Negative (Negative) 12/31/22 22:24 Urine Bilirubin Neg (Negative) 12/31/22 22:24 Urine Urobilinogen Norm mg/dL (Negative) 12/31/22 22:24 Ur Leukocyte Esterase Negative (Negative) 12/31/22 22:24 Serum Ketones Negative (Negative) 12/31/22 22:25 SARS-CoV-2 Ag (Rapid) negative (Negative) 12/31/22 20:43 Blood Type O Negative 12/31/22 21:00 Rho(D) Type Negative 12/31/22 21:00 Antibody Screen Negative 12/31/22 21:00 Crossmatch See Detail 12/31/22 21:00 Discharge Plan Discharge Patient Disposition: Admitted As Inpatient Admit Provider: Edgar Gibbons Clinical Impression: Lactic acidosis, Atrial fibrillation, CAROL (acute kidney injury), Acute urinary retention Condition: Fair Coding Level of Care Code ED Manager Fine for Marla Stanley
[2022-12-31 20:33] LABS: Basophils # 0.1 10^3/uL (0.0-0.1); Basophils % 0.3 %; Eosinophils # 0.1 10^3/uL (0.0-0.8); Eosinophils % 0.8 %; Hematocrit 23.7 % (42.0-52.0); Hemoglobin 7.1 g/dL (11.7-16.6); Lymphocytes % 5.6 %; Mean Corpuscular Hemoglobin 26.7 pg (28.0-34.0); Mean Corpuscular Volume 89.1 fl (80-94); Mean Platelet Volume 9.7 fL (7.4-10.4); Monocytes # 0.6 10^3/uL (0.2-0.9); Monocytes % 3.3 %; Neutrophils # 16.11 10^3/uL (1.8-7.7); Neutrophils % 88.4 %; Nucleated Red Blood Cells % 0.1 %; Platelet Count 448 10^3/cmm (130-400); Red Blood Count 2.66 10^6/uL (4.1-5.3); Red Cell Distribution Width 17.7 % (12.1-15.1); White Blood Count 18.2 10^3/uL (4.0-10.0)
[2022-12-31 20:39] LABS: INR 1.79 (0.8-1.2); Partial Thromboplastin Time 28.7 SECONDS (23.9-36.7)
[2022-12-31] MEDS: sodium chloride 0.9% 1,000 ML 999 ML IV ×2 (20:39→21:40)
[2022-12-31 20:48] LABS: Troponin(5th) Baseline 40 ng/L (0-15)
--- NOTE | 2022-12-31 20:49 | ECG_ITS ---
[facility] Test Date: 2022-12-31 Pat Name: Siva Malik Department: Room: Gender: Male Deck Mate: : 1940 Requested By: Quentin Coley Order Number: [id number] Desi MD: Elijah Walton M.D. Measurements Intervals [place] Rate: 78 P: 0 MS: 0 QRS: 35 QRSD: 82 T: 56 QT: 306 QTc: 350 Interpretive Statements ATRIAL FIBRILLATION NONSPECIFIC ST & T-WAVE ABNORMALITY ABNORMAL RHYTHM ECG Compared to ECG 12/05/2022 19:54:08 T-wave abnormality now present Ventricular premature complex(es) no longer present Aberrant conduction of supraventricular beat(s) no longer present Electronically Signed On 01-01-2023 14:27:31 CDT by Elijah Walton M.D. [id number]
[2022-12-31 20:53] LABS: Lactate (Lactic Acid level) 9.2 mmol/L (0.5-2.2)
[2022-12-31 20:55] LABS: Alanine Aminotransferase 8 U/L (0-41); Albumin Level 3.7 g/dL (3.5-5.2); Alkaline Phosphatase 41 U/L (40-130); C Reactive Protein 4.2 mg/L (0.0-4.9); Chloride 98 mmol/L (98-107); Potassium 4.4 mmol/L (3.5-5.1); Sodium 136 mmol/L (136-145)
[2022-12-31 21:01] LABS: SARS Covid-2 Antigen negative (Negative)
[2022-12-31 21:10] LABS: Anion Gap 30.4 (5-19); Aspartate Amino Transferase 10 U/L (0-40); Blood Urea Nitrogen 67 mg/dL (8-23); Calcium 9.5 mg/dL (8.5-10.5); Carbon Dioxide 12 mmol/L (22-29); Globulin 2.2 g/dL (1.3-4.6); Glucose 201 mg/dL (65-115); Osmolality Calculated 307 mOsm/kg (285-295); Total Bilirubin 0.3 mg/dL (0.15-1.2); Total Protein 5.9 g/dL (6.6-8.7)
[2022-12-31 21:11] LABS: Creatine Phosphokinase 28 U/L (39-308)
[2022-12-31 21:12] LABS: NT Pro B Type Natriuretic Pept 1985 pg/mL (0-450)
[2022-12-31 21:21] LABS: ABG PCO2 21.8 mmHg (35-45); ABG PH Result 7.37 (7.35-7.45); Arterial Blood Gas Hematocrit 21.7 % (42-52); Base Excess ABG -11.4 mmol/L (-2.0-2.0); Blood Gas Allen Test Pos; Blood Gas Sample Site Radial, left; Blood Gas Sample Type Arterial; HCO3 ABG 12.7 mmol/L (22-26); Oxygen Device ROOM AIR
--- NOTE | 2022-12-31 21:34 | PC.NURSE ---
REPORT GIVEN TO WOJCIECH RN ASSUMED CARE.
[2022-12-31 21:43] VITALS: BP 154/81; PULSE 89; RESP 16; O2SAT 99
--- NOTE | 2022-12-31 21:43 | CTR_ITS ---
PROCEDURE INFORMATION: Exam: CT Abdomen And Pelvis Without Contrast Exam date and time: 12/31/2022 10:31 PM Age: 82 years old Clinical indication: Other: Sepsis; Prior surgery; Surgery type: Kath; Additional info: Abd discomfort, sepsis TECHNIQUE: Imaging protocol: Computed tomography of the abdomen and pelvis without contrast. Radiation optimization: All CT scans at this facility use at least one of these dose optimization techniques: automated exposure control; mA and/or kV adjustment per patient size (includes targeted exams where dose is matched to clinical indication); or iterative reconstruction. REPORTING DATA: Count of CT and Cardiac NM exams in prior 12 months: This patient has received 3 known CTs and 0 known cardiac nuclear medicine studies in the 12 months prior to the current study. COMPARISON: CT abdomen pelvis wo con [id number] 04/06/2022 6:47 PM RADIATION DOSE METRICS: Total DLP (mGy-cm): 544.84 FINDINGS: Lungs: Emphysematous changes. Coronary arteries: Coronary artery atherosclerotic calcifications. Liver: Normal. No mass. Gallbladder and bile ducts: Cholecystectomy. Pancreas: Normal. No ductal dilation. Spleen: Normal. No splenomegaly. Adrenal glands: Normal. No mass. Kidneys and ureters: Normal. No hydronephrosis. Stomach and bowel: Constipation. Appendix: No evidence of appendicitis. Intraperitoneal space: Unremarkable. No free air. No significant fluid collection. Vasculature: Unremarkable. No abdominal aortic aneurysm. Lymph nodes: Unremarkable. No enlarged lymph nodes. Urinary bladder: Unremarkable as visualized. Reproductive: Unremarkable as visualized. Bones/joints: Left femur surgical hardware. L1 vertebral body chronic compression fracture, negative for retropulsion of bony fragments. Soft tissues: Small bilateral fat containing inguinal hernias without bowel or inflammation. CT/CT abdomen pelvis wo con [id number] IMPRESSION: 1. Negative for focal acute inflammatory process in the abdomen or pelvis. 2. Coronary artery atherosclerotic calcifications. 3. Emphysematous changes. 4. Cholecystectomy. 5. Constipation. 6. Small bilateral fat containing inguinal hernias without bowel or inflammation. 7. Left femur surgical hardware. 8. L1 vertebral body chronic compression fracture, negative for retropulsion of bony fragments.
[2022-12-31] MEDS: piperacillin-tazobactam 3.375 GM in sodium chloride 0.9% (plus) 50 ML IV (22:22)
--- NOTE | 2022-12-31 22:26 | ECG_ITS ---
[facility] Test Date: 2022-12-31 Pat Name: Siva Malik Department: Room: Gender: Male Para Educator: : 1940 Requested By: Quentin Coley Order Number: [id number] Desi MD: Elijah Walton M.D. Measurements Intervals [place] Rate: 87 P: 0 [place]: 0 QRS: 22 QRSD: 69 T: 34 QT: 389 QTc: 468 Interpretive Statements ATRIAL FIBRILLATION NONSPECIFIC ST & T-WAVE ABNORMALITY ABNORMAL RHYTHM ECG Compared to ECG 12/31/2022 20:49:57 No significant changes Electronically Signed On 01-01-2023 14:32:50 CDT by Elijah Walton M.D. [id number]
[2022-12-31 22:36] LABS: Add Urine Microscopic? NO; Charge for UA Resulting for Rev
[2022-12-31 22:46] LABS: Bilirubin Urine Neg (Negative); Blood Urine Neg (Negative); Glucose Urine UA Norm (Normal); Ketones Urine 1+ (Negative); Leukocyte Esterase Urine Negative (Negative); Nitrate Urine Negative (Negative); Protein Urine Neg (Negative); Urine Appearance Clear (CLEAR); Urine Color Yellow (Yellow); Urobilinogen Urine Norm (Negative); pH Urine 5 (5-7)
[2022-12-31 22:51] LABS: Troponin 5 2HR 32.01 ng/L (0-15); Troponin 5 2HR Delta -7.99 ABS# (0-10)
[2022-12-31 23:17] VITALS: BP 113/61; PULSE 78; O2SAT 99
[2023-01-01] VITALS (23 sets, daily range): BP systolic 101–146; BP diastolic 45–76; PULSE 58–93; RESP 14–22; TEMP -13.4–36.7; O2SAT 92–99; BMI 20.7
--- NOTE | 2023-01-01 00:01 | USCV_ITS ---
Siva Malik Age: 82 Gender: M : 1940 Exam Date: 01/01/2023 00:33 Ordering Phys: Edgar Gibbons MD Technologist: VILMA [place] [facility] [place]: SHORTNESS OF BREATH BP: 134 / 63 HR: 96 Rhythm: Atrial fibrillation Technical Quality: Poor MEASUREMENTS (Male / Female) Normal Values 2D ECHO LVOT Diameter 2.0 cm LV Ejection Fraction MOD 2C 59.3 % LV Ejection Fraction 2C AL 58.5 % LA Diameter 3.4 cm LA Width 2.9 cm LA Height 4.5 cm RA Width 2.7 cm RA Height 4.6 cm Aorta at Sinotubular Diameter 1.9 cm M-MODE Aortic Annulus Diameter 2.9 cm LA Ao Ratio MM 1.2 MV E Point Septal Separation 0.3 cm DOPPLER Right Atrial Pressure 8.0 mmHg FINDINGS Left Ventricle Normal left ventricular size, systolic function and wall thickness, with no regional wall motion abnormalities. Rhythm precludes evaluation of diastolic function. Left ventricular ejection fraction is estimated at 60 %. Right Ventricle Normal right ventricular size and systolic function. Right Atrium The right atrium is normal in size. Left Atrium The left atrium is normal in size. Mitral Valve Mitral valve not well visualized. Aortic Valve Aortic valve not well visualized. Tricuspid Valve Tricuspid valve not well visualized. Pulmonic Valve Pulmonic valve not well visualized. Pericardium Normal pericardium without effusion. Aorta Normal ascending aorta dimension. IVC Inferior vena cava not visualized. CONCLUSIONS Normal left ventricular size, systolic function and wall thickness, with no regional wall motion abnormalities. Rhythm precludes evaluation of diastolic function. Left ventricular ejection fraction is estimated at 60 %. The previous echo was done only 1 month ago. Today's study is poor enough in quality that the aortic valve cannot be interrogated. Otherwise, there has been no change. Dr. Elijah Walton MD (Electronically Signed) Final Date: 01 January 2023 08:32 S
--- NOTE | 2023-01-01 00:01 | USCV_ITS ---
Siva Malik Age: 82 Gender: M : 1940 Exam Date: 01/01/2023 00:20 Ordering Phys: Edgar Gibbons MD Technologist: VILMA [place] [facility] [place]ication: BLE SWELLING HISTORY: Lower extremity swelling. PROCEDURES: Venous duplex imaging was performed in bilateral lower extremities. The following venous structures were evaluated: common femoral vein, profunda vein, proximal portion of the greater saphenous vein, superficial femoral vein, and the popliteal vein. In addition, the posterior tibial and peroneal trunk were evaluated. Serial compression, augmentation maneuvers, and spectral Doppler flow evaluation were performed. FINDINGS: No evidence of DVT seen in any vessel visualized at this time. CONCLUSIONS No evidence of right lower extremity DVT. No evidence of left lower extremity DVT. José Luis Levy MD (Electronically Signed) Final Date: 01 January 2023 14:54 S
--- NOTE | 2023-01-01 00:01 | CTR_ITS ---
PROCEDURE INFORMATION: Exam: CT Chest Without Contrast; Diagnostic Exam date and time: 01/01/2023 1:12 AM Age: 82 years old Clinical indication: Shortness of breath; Additional info: SOB TECHNIQUE: Imaging protocol: Diagnostic computed tomography of the chest without contrast. Radiation optimization: All CT scans at this facility use at least one of these dose optimization techniques: automated exposure control; mA and/or kV adjustment per patient size (includes targeted exams where dose is matched to clinical indication); or iterative reconstruction. REPORTING DATA: Count of CT and Cardiac NM exams in prior 12 months: This patient has received 5 known CTs and 0 known cardiac nuclear medicine studies in the 12 months prior to the current study. COMPARISON: CR (CHEST, ) 12/31/2022 8:30 PM RADIATION DOSE METRICS: Total DLP (mGy-cm): 290.86 FINDINGS: Lungs: Mild-moderate interstitial lung disease. No acute consolidation. Pleural spaces: Unremarkable. No pneumothorax. No pleural effusion. Heart: Unremarkable. No cardiomegaly. No pericardial effusion. Coronary arteries: Severe coronary artery calcifications. Lymph nodes: Calcified lymph nodes are present, secondary to prior granulomatous disease. Vasculature: There is moderate atherosclerotic disease. Gallbladder and bile ducts: There has been a cholecystectomy. Bones/joints: Unremarkable. No acute fracture. Soft tissues: Unremarkable. Other findings: Mild emphysema. CT/CT chest wo con [id number] IMPRESSION: 1. Mild emphysema. 2. Mild-moderate interstitial lung disease. 3. No acute consolidation.
--- NOTE | 2023-01-01 00:01 | PM.HP ---
Providers/Chief Complaint Primary Care Provider: Portia Larose MD Chief Complaint: weakness History of Present Illness Siva Malik is a 82 year old male with a past medical history of anemia, CKD, CAD, BPH, depression, type 2 diabetes mellitus, diastolic dysfunction who presents [facility] due to complaints of fatigue, malaise. Patient tells for the last few days he has been feeling fatigue, malaise, poor appetite, feeling weak, trouble with ambulation, no recent falls, recent injuries, no fevers, chills, no chest pain, no shortness of breath, no headache, blurry vision, no neck pain, no new rashes, no dysuria, no hematuria, no flank pain, no abdominal pain, no diarrhea, no blood or black stools Review of Systems Const: Reports: fatigue and malaise; Denies: fever(s) or night sweats Eyes: Denies: change in vision Card: Denies: chest pain Resp: Denies: dyspnea GI: Denies: abdominal pain, nausea, vomiting, hematemesis, coffee ground emesis, hematochezia or melena : Denies: flank pain, difficulty urinating or dysuria Musc: Denies: neck pain, back pain or joint pain Skin/Breast: Denies: rash Neuro: Denies: headache(s) Endo: Denies: polyuria Medications/Allergies Home Medications Medication Instructions Recorded Confirmed Last Taken Type cinnamon bark 500 mg capsule 1,000 mg PO DAILY 12/27/19 11/17/22 07/19/20 History (Cinnamon) tamsulosin 0.4 mg capsule (Flomax) 0.4 mg PO QPM 12/27/19 11/17/22 07/19/20 History acetaminophen 500 mg tablet 1,000 mg PO BEDTIME 11/13/22 11/17/22 Unknown History aspirin 81 mg tablet,delayed 81 mg PO QAM 11/13/22 11/17/22 Unknown History release atorvastatin 80 mg tablet (Lipitor) 80 mg PO DAILY 11/13/22 11/17/22 Unknown History cephalexin 500 mg capsule 500 mg PO QID 11/13/22 11/17/22 Unknown History cholecalciferol (vitamin D3) 25 25 mcg PO DAILY 11/13/22 11/17/22 Unknown History mcg (1,000 unit) tablet megestrol 20 mg tablet 20 mg PO QID 11/13/22 11/17/22 Unknown History metformin 1,000 mg tablet 500 mg PO BID 11/13/22 11/17/22 Unknown History omeprazole 40 mg capsule,delayed 40 mg PO QAM 11/13/22 11/17/22 Unknown History release potassium chloride 20 mEq 20 meq PO DAILY 11/13/22 11/17/22 Unknown History tablet,extended release(part/cryst) (Klor-Con M) sucralfate 1 gram tablet (Carafate) 1 g PO QID 11/13/22 11/17/22 Unknown History trazodone 100 mg tablet 100 mg PO BEDTIME 11/13/22 11/17/22 Unknown History zinc oxide 20 % topical ointment 1 applic topical TID 11/13/22 11/17/22 Unknown History apixaban 2.5 mg tablet (Eliquis) 2.5 mg PO BID #60 tabs 11/16/22 11/17/22 Unknown Rx cyanocobalamin (vitamin B-12) 500 mcg PO DAILY #30 tabs 11/16/22 11/17/22 Unknown Rx 1,000 mcg tablet (Vitamin B-12) diltiazem HCl 120 mg 120 mg PO DAILY #30 caps 11/16/22 11/17/22 Unknown Rx capsule,extended release 24 hr (Cardizem CD) ferrous fumarate 324 mg (106 mg 324 mg PO DAILY #30 tabs 11/16/22 11/17/22 Unknown Rx iron) tablet sennosides 8.6 mg-docusate sodium 1 tab-cap PO BID #60 tabs 11/16/22 11/17/22 Unknown Rx 50 mg tablet (Colace 2-In-1) furosemide 20 mg tablet 40 mg PO QAM #60 tabs 12/05/22 Unknown Rx Allergies Allergy/AdvReac Type Severity Reaction Status Date / Time No Known Allergies Allergy Verified 12/31/22 19:56 PFSH Acute PFSH: Medical History Anemia Atherosclerosis of coronary artery of [place] heart without angina pectoris B12 deficiency Benign essential hypertension with target blood pressure below 140/90 Benign prostate hyperplasia Beta-bertrand intolerance 3.6-second pause on 02/19/2021 Chronic blepharitis CKD (chronic kidney disease) COVID 08/2022 Depression Diabetes mellitus, type II microalbuminuria Diastolic dysfunction Diverticulosis GERD (gastroesophageal reflux disease) History of echocardiogram 02/2022 EF 55-60% History of Holter monitoring 02/2021 sinus rhythm with one 3.6 second pause noted. One episode of sinus bradycardia to 37 bpm. Taken off of beta blockade. Hyperlipidemia Polyp of colon Second degree AV block, Mobitz type I Squamous cell carcinoma of skin Surgical History H/O left wrist surgery History of cardiac catheterization 07/2020 90-95% LAD lesion, 20-30% circ lesion, 50% ostial RCS, declined CABG and underwent PCI to LAD Hx of cataract surgery Status post laparoscopic cholecystectomy (12/27/19) Status post open reduction and internal fixation (ORIF) of fracture (08/27/22) left intertrochanteric hip fracture, gamma nail, Dr Grey Family History Denies family history of CAD (coronary artery disease) Anesthesia complication Bleeding disorder Social History Smoking and tobacco status: former smoker Alcohol intake: never Vitals/I&O/Wt Last Vital Signs Temp 97.5 F L 12/31/22 19:56 Pulse 78 12/31/22 23:17 Resp 16 12/31/22 21:43 BP 113/61 12/31/22 23:17 Pulse Ox 99 12/31/22 23:17 O2 Del Method Room Air 12/31/22 19:56 12/31/22 12/31/22 01/01/23 14:59 22:59 06:59 Intake Total 2049 Balance 2049 Weight last 48 hrs Weight 65.317 kg Physical Exam Const: COMMON NORMALS: no acute distress and patient oriented x3 HENMT: COMMON NORMALS: normocephalic Eye: COMMON NORMALS: Equal, round and reactive pupils present and EOMs intact bilaterally Neck/C-Spine: COMMON NORMALS: full ROM and no lymphadenopathy Lymph: LYMPHATIC: no lymphadenopathy noted Resp: COMMON NORMALS: normal respiratory effort, No retractions, No use of accessory muscles and clear to auscultation bilaterally AUSCULTATION: clear to auscultation bilaterally Cardio: COMMON NORMALS: regular rate, regular rhythm, S1 normal heart sound present and S2 normal heart sound present RATE: regular rate RHYTHM: regular rhythm HEART SOUNDS: S1 normal heart sound present and S2 normal heart sound present GI: COMMON NORMALS: Normal to inspection, nondistended, normoactive bowel sounds present, Soft to palpation and non-tender Extremity: COMMON NORMALS: no pedal edema Neuro: COMMON NORMALS: patient oriented x3, CN's II-XII intact bilaterally, moves all extremities and no focal motor deficits Psych: COMMON NORMALS: mental status grossly normal Data 12/31/22 20:14 12/31/22 20:14 Micro: Microbiology 12/31/22 20:56 Blood Culture - Preliminary Blood SPECIMEN COLLECTED 12/31/22 21:00 Blood Culture - Preliminary Blood SPECIMEN COLLECTED A&P Assessment and plan (1) CKD (chronic kidney disease): (2) Diabetes mellitus, type II: (3) Benign prostate hyperplasia: (4) GERD (gastroesophageal reflux disease): (5) Diastolic dysfunction: (6) Anemia: (7) Atrial fibrillation: (8) Lactic acidosis: (9) Acute kidney injury superimposed on chronic kidney disease: (10) Leukocytosis: Plan Acute anemia -Protonix, Carafate -Hold aspirin, hold Eliquis -Iron studies -Hemoccult stool -Transfuse 1 unit PRBCs Leukocytosis -Etiology unclear -UA unremarkable for UTI, chest x-ray no focal pneumonia, CT abdomen pelvis no acute process -CRP, Pro-Duncan, ESR Acute kidney injury, IV fluids Metabolic acidosis, likely secondary dehydration IV fluids Lactic acidosis, 9, potentially related to metformin, dehydration, anemia -Cardiac echo, venous ultrasound -CT of the chest Type 2 diabetes mellitus low-dose sliding scale NSTEMI, serial EKGs serial troponins telemetry monitoring, cardiac echo Full code SCDs for DVT prophylaxis Attestations Medical Necessity Statement*: Patient requires hospitalization, inpatient, greater than 2 midnights, CAROL, anemia, NSTEMI, dehydration, leukocytosis, Coding Level of Care Code Acute Code for [facility] Fwd Diagnoses CKD (chronic kidney disease) N18.9 Diabetes mellitus, type II E11.9 Benign prostate hyperplasia N40.0 GERD (gastroesophageal reflux disease) K21.9 Diastolic dysfunction I51.89 Anemia D64.9 Atrial fibrillation I48.91 Lactic acidosis E87.20 Acute kidney injury superimposed on chronic kidney disease N17.9; N18.9 Leukocytosis D72.829
[2023-01-01] MEDS: fentaNYL 50 mcg/mL INJ 2mL IVP (00:05)
[2023-01-01] MEDS: lidocaine 2% Urojet 20 mL TOPICAL (00:10)
[2023-01-01 00:15] LABS: Ketone (Acetest) Serum Negative (Negative)
[2023-01-01 00:15] LABS: Erythrocyte Sedimentation Rate 3 mm/hr (0-10)
[2023-01-01 00:16] LABS: Lactate (Lactic Acid level) 7.7 mmol/L (0.5-2.2)
[2023-01-01 02:15] LABS: Troponin 5 6HR 34.75 ng/L (0-15)
[2023-01-01 02:17] LABS: Alanine Aminotransferase 8 U/L (0-41); Albumin Level 3.1 g/dL (3.5-5.2); Alkaline Phosphatase 35 U/L (40-130); Anion Gap 25.1 (5-19); Aspartate Amino Transferase 10 U/L (0-40); Blood Urea Nitrogen 63 mg/dL (8-23); Calcium 8.7 mg/dL (8.5-10.5); Carbon Dioxide 13 mmol/L (22-29); Chloride 102 mmol/L (98-107); Globulin 2.5 g/dL (1.3-4.6); Glucose 161 mg/dL (65-115); Osmolality Calculated 303 mOsm/kg (285-295); Potassium 4.1 mmol/L (3.5-5.1); Sodium 136 mmol/L (136-145); Total Bilirubin 0.3 mg/dL (0.15-1.2); Total Protein 5.6 g/dL (6.6-8.7)
[2023-01-01 02:30] LABS: NT Pro B Type Natriuretic Pept 1482 pg/mL (0-450); Procalcitonin 0.17 ng/mL (0-0.5)
[2023-01-01 02:30] LABS: Troponin 5 6HR Delta -5.25 ng/L (0-12)
[2023-01-01 02:32] LABS: Lactate (Lactic Acid level) 7.1 mmol/L (0.5-2.2)
[2023-01-01 02:33] LABS: Estmated Average Glucose 126
[2023-01-01 02:41] LABS: Creatine Phosphokinase 20 U/L (39-308); Ferritin 147 ng/mL (30-400); Iron 61 ug/dL (59-158); Magnesium 1.4 mg/dL (1.7-2.3); Percent Saturation 38.1 % (20-50); Phosphorus 3.3 mg/dL (2.5-4.5); Total Iron Binding Capacity 160 mcg/dl; Unsaturated Iron Binding 99 ug/dL (112-347)
--- NOTE | 2023-01-01 02:52 | ECG_ITS ---
[facility] Test Date: 2023-01-01 Pat Name: Siva Malik Department: Room: 255 Gender: Male Perinatology Physician: : [id number] Requested By: Quentin Coley Order Number: [id number] Desi MD: Elijah Walton M.D. Measurements Intervals [place] Rate: 81 P: 0 PA: 0 QRS: 18 QRSD: 72 T: 110 QT: 388 QTc: 452 Interpretive Statements ATRIAL FIBRILLATION NONSPECIFIC T-WAVE ABNORMALITY Compared to ECG 12/31/2022 23:21:44 No significant changes Electronically Signed On 01-01-2023 14:33:22 CDT by Elijah Walton M.D. [email or web address]
[2023-01-01] MEDS: acetaminophen 325 mg Tablet 650 MG PO ×3 (03:24→23:01)
[2023-01-01] MEDS: sodium chloride 0.9% 1,000 ML 100 ML IV (05:50)
[2023-01-01] MEDS: magnesium sulfate premix 2 GM/50 ML PIGGYBACK IV (05:50)
[2023-01-01] MEDS: pantoprazole 40 mg SDV IVP ×2 (06:05→17:37)
[2023-01-01 06:44] LABS: Glucose Point of Care 134 mg/dL (70-110)
[2023-01-01 07:14] LABS: Basophils # 0.1 10^3/uL (0.0-0.1); Basophils % 0.4 %; Eosinophils # 0.1 10^3/uL (0.0-0.8); Eosinophils % 0.8 %; Hematocrit 21.8 % (42.0-52.0); Hemoglobin 6.6 g/dL (11.7-16.6); Lymphocytes % 7.4 %; Mean Corpuscular HGB Conc 30.3 g/dL (30.0-36.0); Mean Corpuscular Hemoglobin 27.5 pg (28.0-34.0); Mean Corpuscular Volume 90.8 fl (80-94); Mean Platelet Volume 9.7 fL (7.4-10.4); Monocytes # 0.7 10^3/uL (0.2-0.9); Monocytes % 5.2 %; Neutrophils # 11.86 10^3/uL (1.8-7.7); Neutrophils % 84.7 %; Nucleated Red Blood Cells % 0.2 %; Platelet Count 310 10^3/cmm (130-400); Red Cell Distribution Width 17.1 % (12.1-15.1)
[2023-01-01 07:26] LABS: Lactate (Lactic Acid level) 3.9 mmol/L (0.5-2.2)
[2023-01-01 09:19] LABS: Lactate (Lactic Acid level) 2.5 mmol/L (0.5-2.2)
[2023-01-01 09:44] LABS: Hematocrit 22.8 % (42.0-52.0)
[2023-01-01] MEDS: sucralfate 1 gm Tablet PO ×4 (09:44→20:47)
[2023-01-01] MEDS: atorvastatin 40 mg Tablet 80 MG PO (09:44)
[2023-01-01 11:05] LABS: Glucose Point of Care 207 mg/dL (70-110)
[2023-01-01] MEDS: insulin lispro 100 unit/1 mL SUBCUT (12:41)
--- NOTE | 2023-01-01 16:05 | P.PN_ITS ---
Subjective Subjective: Patient was seen and examined this morning he was complaining of generalized weakness, denied any abdominal pain, nausea vomiting, was complaining of 1 episode of black tarry stool, prior to admission. So far has received 2 units PRBC, H&H is being monitored, FOBT from last admission is positive, surgery has been consulted for possible EGD and colonoscopy. Medications: Medication Review Details: Generic Name Dose Route Start Last Admin Trade Name Freq PRN Reason Stop Dose Admin Acetaminophen 650 mg 01/01/23 01:20 01/01/23 09:44 Acetaminophen 32 5 Mg Tablet PO 650 mg Q6H PRN Administration Mild/Mod Pain Or Temp >/= 101 Atorvastatin Calci um 80 mg 01/01/23 09:00 01/01/23 09:44 Atorvastatin 40 Mg Tablet PO 80 mg DAILY MEGHAN Administration Insulin Human Lisp ro 0 unit 01/01/23 08:00 01/01/23 12:41 Insulin Lispro 1 00 Unit/1 Ml SUBCUT 4 unit TIDWM MEGHAN Administration Protocol Pantoprazole Sodiu m 40 mg 01/01/23 01:20 01/01/23 06:05 Pantoprazole 40 Mg Sdv IVP 40 mg Q12H MEGHAN Administration Sucralfate 1 gm 01/01/23 09:00 01/01/23 12:41 Sucralfate 1 Gm Tablet PO 1 gm QID MEGHAN Administration Vitals/I&O/Wt Last Vital Signs Temp 98.1 F 01/01/23 15:46 Pulse 81 01/01/23 15:46 Resp 15 01/01/23 15:46 BP 109/54 01/01/23 15:46 Pulse Ox 99 01/01/23 15:46 O2 Del Method Room Air 01/01/23 15:46 01/01/23 01/01/23 01/01/23 06:59 14:59 22:59 Intake Total 2400 / 2400 1230 / 1230 Output Total 600 / 600 Balance 1800 / 1800 1230 / 1230 Weight last 48 hrs Weight 67.273 kg Weight 65.317 kg Physical Exam Narrative: NAD HENMT: COMMON NORMALS: normocephalic and atraumatic HEAD & SCALP: normocephalic and atraumatic Resp: COMMON NORMALS: clear to auscultation bilaterally AUSCULTATION: clear to auscultation bilaterally Cardio: COMMON NORMALS: regular rate, regular rhythm, S1 normal heart sound present, S2 normal heart sound present, No gallops present (Cardio), No murmurs present (Cardio), No rub (Cardio) and Peripheral pulses 2+ throughout RATE: regular rate RHYTHM: regular rhythm HEART SOUNDS: S1 normal heart sound present and S2 normal heart sound present PERIPHERAL PULSES: Peripheral pulses 2+ throughout GI: COMMON NORMALS: Normal to inspection, nondistended, normoactive bowel sounds present, Soft to palpation, non-tender, No hepatosplenomegaly present and no masses AUSCULTATION: Yes normoactive bowel sounds PALPATION: Yes Soft to palpation and Yes No hepatosplenomegaly present RECTAL EXAM: Yes deferred Extremity: COMMON NORMALS: no clubbing, cyanosis or edema and no pedal edema Urinary Catheter Management: Rick: Cath Placed During This Visit: yes Reason for Continuing Indwelling Catheter: Acute Urinary Retention or Obstruction Urinary Catheter Date of Insertion: 01/01/23 Urinary Catheter Time of Insertion: 00:15 Data 01/01/23 09:25 01/01/23 01:43 Micro: Microbiology 12/31/22 20:56 Blood Culture - Preliminary Blood SPECIMEN COLLECTED 12/31/22 21:00 Blood Culture - Preliminary Blood SPECIMEN COLLECTED A&P Assessment and plan (1) CKD (chronic kidney disease): (2) Diabetes mellitus, type II: (3) Benign prostate hyperplasia: (4) GERD (gastroesophageal reflux disease): (5) Diastolic dysfunction: (6) Anemia: (7) Atrial fibrillation: (8) Lactic acidosis: (9) Acute kidney injury superimposed on chronic kidney disease: (10) Leukocytosis: Plan 82-year-old male with past medical history of chronic anemia CKD stage III sima nary artery disease, was on aspirin and Plavix, diabetes, heart failure with preserved ejection fraction, recently diagnosed A-fib, on Eliquis on home, came in today with chief complaint of, worsening fatigue malaise poor appetite generalized weakness, was found to be anemic, with admission hemoglobin of 6.7, lower than what his baseline hemoglobin is.Currently he is being managed for. Assessment: Acute anemia: Anemia panel: Serum iron of 62,TIBC:160 , Percent saturation:38 Serum ferritin:147 Serum B12:224 Serum folic acid, TSH : 2.40. FOBT is positive from last admission. CT abdomen and pelvis: No acute abdominal pelvic pathology CT chest without contrast: Mild emphysema, mild to moderate ILD Lower extremity Doppler negative for DVT Currently aspirin and Eliquis on hold S/p 2 units PRBC transfusion Monitor H&H Continue Protonix and Carafate Surgery has been consulted for EGD and colonoscopy Patient is on oral iron since last admission. CAROL on CKD: Admission serum creatinine is 1.8 Baseline serum creatinine appears to be 1.2-1.4 Monitor BMP Was on gentle IV hydration has been discontinued Monitor intake output charting Avoid nephrotoxic's Leukocytosis -Etiology unclear -UA unremarkable for UTI, chest x-ray no focal pneumonia, CT abdomen pelvis no acute process Procalcitonin is normal Metabolic acidosis, likely secondary dehydration IV fluids Lactic acidosis, 9, potentially related to metformin, dehydration, anemia -Cardiac echo, venous ultrasound -CT of the chest Type 2 diabetes mellitus low-dose sliding scale NSTEMI, serial EKGs serial troponins telemetry monitoring, cardiac echo Full code SCDs for DVT prophylaxis Attestations Medical Necessity Statement*: Needs to be in hospital for management of anemia. Coding Level of Care Code 68681 Diagnoses CKD (chronic kidney disease) N18.9 Diabetes mellitus, type II E11.9 Benign prostate hyperplasia N40.0 GERD (gastroesophageal reflux disease) K21.9 Diastolic dysfunction I51.89 Anemia D64.9 Atrial fibrillation I48.91 Lactic acidosis E87.20 Acute kidney injury superimposed on chronic kidney disease N17.9; N18.9 Leukocytosis D72.829
[2023-01-01 16:23] LABS: Hematocrit 24.6 % (42.0-52.0); Hemoglobin 7.5 g/dL (11.7-16.6)
[2023-01-01 17:03] LABS: Glucose Point of Care 154 mg/dL (70-110)
[2023-01-01] MEDS: tamsulosin 0.4 mg Capsule PO (17:37)
[2023-01-01] MEDS: bisacodyl 5 mg Tablet 20 MG PO (18:38)
[2023-01-01] MEDS: peg /e-lyte soln 4,000 mL Btl 4000 ML PO (18:38)
[2023-01-01] MEDS: trazodone 100 mg Tablet PO (20:47)
[2023-01-01 21:25] LABS: Glucose Point of Care 165 mg/dL (70-110)
--- NOTE | 2023-01-01 22:16 | PC.NURSE ---
Pt has been educated by this nurse multiple times since 1900 on the importance of finishing all of his bowel prep prior to the procedure. The pt stated it taste awful and I can not finish all of that This nurse is encouraging pt to drink as much as possible despite the taste. has been notified.
[2023-01-02] VITALS (10 sets, daily range): BP systolic 91–137; BP diastolic 48–75; PULSE 66–127; RESP 16–20; TEMP 36.3–36.9; O2SAT 96–100
[2023-01-02 05:07] LABS: Basophils # 0.1 10^3/uL (0.0-0.1); Basophils % 0.3 %; Eosinophils # 0.2 10^3/uL (0.0-0.8); Eosinophils % 1.7 %; Hematocrit 24.5 % (42.0-52.0); Hemoglobin 7.7 g/dL (11.7-16.6); Lymphocytes # 0.6 10^3/uL (0.8-4.8); Lymphocytes % 4.4 %; Mean Corpuscular HGB Conc 31.4 g/dL (30.0-36.0); Mean Corpuscular Hemoglobin 27.5 pg (28.0-34.0); Mean Corpuscular Volume 87.5 fl (80-94); Mean Platelet Volume 9.8 fL (7.4-10.4); Monocytes # 0.7 10^3/uL (0.2-0.9); Monocytes % 4.8 %; Neutrophils # 12.62 10^3/uL (1.8-7.7); Neutrophils % 87.5 %; Nucleated Red Blood Cells % 0.2 %; Platelet Count 315 10^3/cmm (130-400); Red Cell Distribution Width 17.4 % (12.1-15.1); White Blood Count 14.4 10^3/uL (4.0-10.0)
[2023-01-02 05:26] LABS: Alanine Aminotransferase 9 U/L (0-41); Albumin Level 3.1 g/dL (3.5-5.2); Alkaline Phosphatase 36 U/L (40-130); Anion Gap 15.1 (5-19); Aspartate Amino Transferase 13 U/L (0-40); Blood Urea Nitrogen 47 mg/dL (8-23); Calcium 8.5 mg/dL (8.5-10.5); Carbon Dioxide 20 mmol/L (22-29); Chloride 109 mmol/L (98-107); Globulin 2.3 g/dL (1.3-4.6); Glucose 158 mg/dL (65-115); Osmolality Calculated 308 mOsm/kg (285-295); Potassium 3.1 mmol/L (3.5-5.1); Sodium 141 mmol/L (136-145); Total Bilirubin 0.4 mg/dL (0.15-1.2); Total Protein 5.4 g/dL (6.6-8.7)
[2023-01-02] MEDS: pantoprazole 40 mg SDV IVP ×2 (05:33→17:27)
[2023-01-02 05:42] LABS: Folate Level 5.3 ng/mL (4.5-32.2)
[2023-01-02 06:40] LABS: Glucose Point of Care 170 mg/dL (70-110)
[2023-01-02] MEDS: cyanocobalamin 1,000 mcg Tablet 1000 MCG PO (08:53)
[2023-01-02] MEDS: sucralfate 1 gm Tablet PO (08:53)
[2023-01-02] MEDS: atorvastatin 40 mg Tablet 80 MG PO (08:53)
--- NOTE | 2023-01-02 10:11 | PC.CHAP ---
Pastoral Care Encounter/Spiritual Assessment Type of Contact [] Declined transit bus operator visit [] Patient/Family/Request visit [] Outpatient visit [] Follow-up visit [] Physician referral [] Code/Alert [x] Routine visit [] Staff referral [] Actively dying [] Patient sleeping [] Family support [] [] Out of room [] Palliative care [] [] Receiving care in room [] Pre-surgical visit [] Trauma [] Long length of stay [] ICU visit [] Other: Relational/Emotional Strength [x] Patient feels connected with others/family/visitors/staff [] Distress [] Loneliness/isolation [] Abandonment Spirituality of Patient [x] Person of Ursula [] Attends Religious of their Ursula [x] Believes in Prayer [] Reads Bible or Episcopal materials [] There are Spiritual issues to be addressed Superintendent General Interventions [x] Prayer [x] Active listening [] Non-anxious presence [] Spiritual/emotional support [] Crisis/trauma care [] Spiritual counseling [] Bereavement support [] Provided bereavement packet [] Provided Bible/devotional materials [] Provided toy/stuffed animal, coloring book to patient or family member [] Provided Communion [] Anointing/[place] [] Salvation [x] Completed spiritual assessment [] Other: Impact on Illness or Injury [] Angry [] Fearful [] Anxious [] Often cries [] Exhaustion [] Unable to work [] Unable to attend temple [] Unable to walk/stand [] Unable to read [] Unable to drive [] Unable to eat/drink [] Unable to sleep [] Unable to be with family [] Patient intubated [] Other: Summary Time spent with patient 5 min
[2023-01-02 11:15] LABS: Glucose Point of Care 152 mg/dL (70-110)
[2023-01-02] MEDS: sodium chloride 0.9% 1,000 ML 30 ML IV (11:52)
--- NOTE | 2023-01-02 12:01 | PM.CONSULT ---
Providers/Reason For Consult Consulting Physician/Specialty*: Dr. Turner Limon, DO/General surgery Reason for Consult*: Melena and anemia Attending Physician: Alessio Garcia MD Primary Care Provider: Portia Larose MD History of Present Illness History of Present Illness Siva Malik is a 82 year old male who takes Eliquis for A-fib, who presented to the hospital with progressive fatigue and weakness. He reports that he has been having loose black stools for the last at least 2 weeks. He denies any abdominal pain. Denies any nausea or vomiting. He reports that he could not drink the GoLytely last night because it caused nausea and vomiting. Review of Systems General: Reports: 10 or more systems reviewed and unremarkable except in HPI and below Medications/Allergies Home Medications Medication Instructions Recorded Confirmed Last Taken Type cinnamon bark 500 mg capsule 1,000 mg PO DAILY 12/27/19 01/01/23 12/31/22 09:00 History (Cinnamon) tamsulosin 0.4 mg capsule (Flomax) 0.4 mg PO QPM 12/27/19 01/01/23 12/31/22 18:00 History acetaminophen 500 mg tablet 1,000 mg PO BEDTIME 11/13/22 01/01/23 12/30/22 22:00 History aspirin 81 mg tablet,delayed 81 mg PO QAM 11/13/22 01/01/23 12/31/22 09:00 History release cholecalciferol (vitamin D3) 25 25 mcg PO DAILY 11/13/22 01/01/23 12/31/22 09:00 History mcg (1,000 unit) tablet metformin 1,000 mg tablet 500 mg PO BID 11/13/22 01/01/23 12/31/22 18:00 History omeprazole 40 mg capsule,delayed 40 mg PO QAM 11/13/22 01/01/23 12/31/22 09:00 History release potassium chloride 20 mEq 20 meq PO DAILY 11/13/22 01/01/23 12/31/22 09:00 History tablet,extended release(part/cryst) (Klor-Con M) trazodone 100 mg tablet 150 mg PO BEDTIME 11/13/22 01/01/23 12/31/22 22:00 History zinc oxide 20 % topical ointment 1 applic topical TID SKIN 11/13/22 01/01/23 Unknown History PROTECTION apixaban 2.5 mg tablet (Eliquis) 2.5 mg PO BID #60 tabs 11/16/22 01/01/23 12/31/22 09:00 Rx atorvastatin 80 mg tablet 80 mg PO DAILY 01/01/23 01/01/23 12/31/22 09:00 History clopidogrel 75 mg tablet 75 mg PO DAILY 01/01/23 01/01/23 12/31/22 09:00 History cyanocobalamin (vitamin B-12) 1,000 mcg PO DAILY 01/01/23 01/01/23 12/31/22 09:00 History 1,000 mcg tablet diltiazem HCl 180 mg capsule,24 180 mg PO DAILY 01/01/23 01/01/23 12/31/22 09:00 History hr,extended release ferrous sulfate 325 mg (65 mg 325 mg PO DAILY 01/01/23 01/01/23 12/31/22 09:00 History iron) tablet furosemide 20 mg tablet 20 mg PO DAILY FLUID RETENTION 01/01/23 01/01/23 12/31/22 09:00 History megestrol 20 mg tablet 20 mg PO QID CACHEXIA 01/01/23 01/01/23 12/31/22 18:30 History melatonin 5 mg capsule 5 mg PO BEDTIME 01/01/23 01/01/23 12/30/22 22:00 History sennosides 8.6 mg-docusate sodium 1 tab PO BID PRN Constipation 01/01/23 01/01/23 12/24/22 History 50 mg tablet Allergies Allergy/AdvReac Type Severity Reaction Status Date / Time No Known Allergies Allergy Verified 12/31/22 19:56 Current Medications Generic Name Dose Route Start Last Admin Trade Name Freq PRN Reason Stop Dose Admin Acetaminophen 650 mg 01/01/23 01:20 01/01/23 23:01 Acetaminophen 325 Mg Tablet PO 650 mg Q6H PRN Administration Mild/Mod Pain Or Temp >/= 101 Atorvastatin Calcium 80 mg 01/01/23 09:00 01/02/23 08:53 Atorvastatin 40 Mg Tablet PO 80 mg DAILY MEGHAN Administration Cyanocobalamin 1,000 mcg 01/02/23 09:00 01/02/23 08:53 Cyanocobalamin 1,000 Mcg Tablet PO 1,000 mcg DAILY MEGHAN Administration Sodium Chloride 1,000 mls @ 30 mls/hr 01/02/23 11:45 01/02/23 11:52 Sodium Chloride 0.9% IV 01/03/23 11:44 30 mls/hr .Q24H MEGHAN Administration Insulin Human Lispro 0 unit 01/01/23 08:00 01/02/23 08:51 Insulin Lispro 100 Unit/1 Ml SUBCUT Not Given TIDWM MEGHAN Protocol Pantoprazole Sodium 40 mg 01/01/23 01:20 01/02/23 05:33 Pantoprazole 40 Mg Sdv IVP 40 mg Q12H MEGHAN Administration Sucralfate 1 gm 01/01/23 09:00 01/02/23 08:53 Sucralfate 1 Gm Tablet PO 1 gm QID MEGHAN Administration Tamsulosin HCl 0.4 mg 01/01/23 18:00 01/01/23 17:37 Tamsulosin 0.4 Mg Capsule PO 0.4 mg QPM MEGHAN Administration Trazodone HCl 100 mg 01/01/23 21:00 01/01/23 20:47 Trazodone 100 Mg Tablet PO 100 mg BEDTIME MEGHAN Administration PFSH Acute PFSH: Medical History Anemia Atherosclerosis of coronary artery of [place] heart without angina pectoris B12 deficiency Benign essential hypertension with target blood pressure below 140/90 Benign prostate hyperplasia Beta-bertrand intolerance 3.6-second pause on 02/19/2021 Chronic blepharitis CKD (chronic kidney disease) COVID 08/2022 Depression Diabetes mellitus, type II microalbuminuria Diastolic dysfunction Diverticulosis GERD (gastroesophageal reflux disease) History of echocardiogram 02/2022 EF 55-60% History of Holter monitoring 02/2021 sinus rhythm with one 3.6 second pause noted. One episode of sinus bradycardia to 37 bpm. Taken off of beta blockade. Hyperlipidemia Polyp of colon Second degree AV block, Mobitz type I Squamous cell carcinoma of skin Surgical History H/O left wrist surgery History of cardiac catheterization 07/2020 90-95% LAD lesion, 20-30% circ lesion, 50% ostial RCS, declined CABG and underwent PCI to LAD Hx of cataract surgery Status post laparoscopic cholecystectomy (12/27/19) Status post open reduction and internal fixation (ORIF) of fracture (08/27/22) left intertrochanteric hip fracture, gamma nail, Dr Grey Family History Denies family history of CAD (coronary artery disease) Anesthesia complication Bleeding disorder Social History Smoking and tobacco status: former smoker Alcohol intake: never Vitals/I&O/Wt Last Vital Signs Temp 98.3 F 01/02/23 11:34 Pulse 127 H 01/02/23 11:34 Resp 20 H 01/02/23 11:34 BP 127/75 01/02/23 11:34 Pulse Ox 99 01/02/23 11:34 O2 Del Method Room Air 01/02/23 11:34 01/01/23 01/02/23 01/02/23 22:59 06:59 14:59 Intake Total 240 / 1470 Output Total 950 / 950 600 / 1550 Balance -710 / 520 -600 / -80 Weight last 48 hrs Weight 148 lb 5 oz Weight 144 lb Physical Exam Narrative: General : Patient is well developed , no acute distress, oriented x3 Head : Normal cephalic, a-traumatic. Ears : Pinnae and external canal are normal. Hearing is normal. Eyes : PERRLA, Sclera and injection are normal. No conjunctival discharge. Nose : Mucous membranes are without erythema. Throat : buccal mucosa is normal, gums are without significant recession or hypertrophy. Lungs : Equal chest rise bilaterally, no use of accessory muscles, trachea is midline. Cor : Rate and rhythm are normal. Abdomen : Soft, ND, NT, no g/r/m Extremities : No edema, no cyanosis or clubbing, [place]alis pedis pulses are present bilaterally, non-tender to palpation of calves. Upper extremities are normal bilaterally. Back : non-tender to palpation, no CVA tenderness. Neuro : CN II - XII intact, Upper and lower extremities have equal and full strength Urinary Catheter Management: Rick: Cath Placed During This Visit: yes Reason for Continuing Indwelling Catheter: Other Urinary Catheter Date of Insertion: 01/01/23 Urinary Catheter Time of Insertion: 00:15 Data 01/02/23 05:01 01/02/23 05:01 Micro: Microbiology 01/01/23 20:40 Occult Blood (FIT) - Final Stool Routine Collection 12/31/22 20:56 Blood Culture - Preliminary Blood NEGATIVE TO DATE 12/31/22 21:00 Blood Culture - Preliminary Blood NEGATIVE TO DATE A&P Assessment and plan (1) Melena: (2) Acute blood loss anemia: Plan Protonix IV twice daily Carafate twice daily EGD The risks and benefits of the procedure, including bleeding, infection, intestinal perforation requiring surgery, missed lesion were explained to the patient. The patient is understanding of the risks and wishes to proceed. Coding Level of Care Code Acute Code for [facility] Fwd Diagnoses Melena K92.1 Acute blood loss anemia D62
--- NOTE | 2023-01-02 12:37 | P.ANESASSM_ITS ---
Pre-Anesthetic Assessment Height/Weight: Height 1.8 m Weight 67.273 kg Temp Pulse Resp BP Pulse Ox O2 Del Method 98.3 F 127 H 20 H 127/75 99 Room Air 01/02/23 11:34 01/02/23 11:34 01/02/23 11:34 01/02/23 11:34 01/02/23 11:34 01/02/23 11:34 Preop Diagnosis: Anemia Operation Date: 01/02/23 12:00 Proposed Procedures p EGD(Not Applicable) - Turner Limon, DO Was Beta Anna taken within 24 hours: N/A Was Clonidine taken within 24 hours: N/A Last intake: Intake Last Liquid Date 01/01/23 Last Liquid Time 23:00 Last Solid Date 01/01/23 Last Solid Time 23:00 Exam alert, oriented x 3, clear to auscultation bilaterally and regular rate & rhythm Airway Submandibular: within normal limits Cervical ROM: within normal limits Mallampati: Class II Dentition: full History/ROS No significant history except as noted and No significant complaints CV/HEM Atrial Fibrillation, Anemia and Coronary Artery Disease Chronic Renal Insufficiency Hepatic None reported GI Gastroesophageal Reflux Disease Metabolic Diabetes Mellitus and Hyperlipidemia [facility] Rheumatoid Arthritis Neuropsych Depression Anesthetic Plan ASA status: 3 Anesthesia: Anesthesia Evaluation and MAC Risk of > 500 ml blood loss (7ml/kg in children): No Medications/Allergies Home Medications Medication Instructions Recorded Confirmed Last Taken Type cinnamon bark 500 mg capsule 1,000 mg PO DAILY 12/27/19 01/01/23 12/31/22 09:00 History (Cinnamon) tamsulosin 0.4 mg capsule (Flomax) 0.4 mg PO QPM 12/27/19 01/01/23 12/31/22 18:00 History acetaminophen 500 mg tablet 1,000 mg PO BEDTIME 11/13/22 01/01/23 12/30/22 22:00 History aspirin 81 mg tablet,delayed 81 mg PO QAM 11/13/22 01/01/23 12/31/22 09:00 History release cholecalciferol (vitamin D3) 25 25 mcg PO DAILY 11/13/22 01/01/23 12/31/22 09:00 History mcg (1,000 unit) tablet metformin 1,000 mg tablet 500 mg PO BID 11/13/22 01/01/23 12/31/22 18:00 History omeprazole 40 mg capsule,delayed 40 mg PO QAM 11/13/22 01/01/23 12/31/22 09:00 History release potassium chloride 20 mEq 20 meq PO DAILY 11/13/22 01/01/23 12/31/22 09:00 History tablet,extended release(part/cryst) (Klor-Con M) trazodone 100 mg tablet 150 mg PO BEDTIME 11/13/22 01/01/23 12/31/22 22:00 History zinc oxide 20 % topical ointment 1 applic topical TID SKIN 11/13/22 01/01/23 Unknown History PROTECTION apixaban 2.5 mg tablet (Eliquis) 2.5 mg PO BID #60 tabs 11/16/22 01/01/23 12/31/22 09:00 Rx atorvastatin 80 mg tablet 80 mg PO DAILY 01/01/23 01/01/23 12/31/22 09:00 History clopidogrel 75 mg tablet 75 mg PO DAILY 01/01/23 01/01/23 12/31/22 09:00 History cyanocobalamin (vitamin B-12) 1,000 mcg PO DAILY 01/01/23 01/01/23 12/31/22 09:00 History 1,000 mcg tablet diltiazem HCl 180 mg capsule,24 180 mg PO DAILY 01/01/23 01/01/23 12/31/22 09:00 History hr,extended release ferrous sulfate 325 mg (65 mg 325 mg PO DAILY 01/01/23 01/01/23 12/31/22 09:00 History iron) tablet furosemide 20 mg tablet 20 mg PO DAILY FLUID RETENTION 01/01/23 01/01/23 12/31/22 09:00 History megestrol 20 mg tablet 20 mg PO QID CACHEXIA 01/01/23 01/01/23 12/31/22 18:30 History melatonin 5 mg capsule 5 mg PO BEDTIME 01/01/23 01/01/23 12/30/22 22:00 History sennosides 8.6 mg-docusate sodium 1 tab PO BID PRN Constipation 01/01/23 01/01/23 12/24/22 History 50 mg tablet Allergies Allergy/AdvReac Type Severity Reaction Status Date / Time No Known Allergies Allergy Verified 12/31/22 19:56 Current Medications Generic Name Dose Route Start Last Admin Trade Name Freq PRN Reason Stop Dose Admin Acetaminophen 650 mg 01/01/23 01:20 01/01/23 23:01 Acetaminophen 325 Mg Tablet PO 650 mg Q6H PRN Administration Mild/Mod Pain Or Temp >/= 101 Atorvastatin Calcium 80 mg 01/01/23 09:00 01/02/23 08:53 Atorvastatin 40 Mg Tablet PO 80 mg DAILY MEGHAN Administration Cyanocobalamin 1,000 mcg 01/02/23 09:00 01/02/23 08:53 Cyanocobalamin 1,000 Mcg Tablet PO 1,000 mcg DAILY MEGHAN Administration Sodium Chloride 1,000 mls @ 30 mls/hr 01/02/23 11:45 01/02/23 11:52 Sodium Chloride 0.9% IV 01/03/23 11:44 30 mls/hr .Q24H MEGHAN Administration Insulin Human Lispro 0 unit 01/01/23 08:00 01/02/23 08:51 Insulin Lispro 100 Unit/1 Ml SUBCUT Not Given TIDWM REPLACED BY [facility] Protocol Pantoprazole Sodium 40 mg 01/01/23 01:20 01/02/23 05:33 Pantoprazole 40 Mg Sdv IVP 40 mg Q12H MEGHAN Administration Sucralfate 1 gm 01/01/23 09:00 01/02/23 08:53 Sucralfate 1 Gm Tablet PO 1 gm QID MEGHAN Administration Tamsulosin HCl 0.4 mg 01/01/23 18:00 01/01/23 17:37 Tamsulosin 0.4 Mg Capsule PO 0.4 mg QPM MEGHAN Administration Trazodone HCl 100 mg 01/01/23 21:00 01/01/23 20:47 Trazodone 100 Mg Tablet PO 100 mg BEDTIME MEGHAN Administration Additional Medication Information Generic Name Dose Route Start Last Admin Trade Name Freq PRN Reason Stop Dose Admin Acetaminophen 650 mg 01/01/23 01:20 01/01/23 09:44 Acetaminophen 325 Mg Tablet PO 650 mg Q6H PRN Administration Mild/Mod Pain Or Temp >/= 101 Atorvastatin Calcium 80 mg 01/01/23 09:00 01/01/23 09:44 Atorvastatin 40 Mg Tablet PO 80 mg DAILY MEGHAN Administration Insulin Human Lispro 0 unit 01/01/23 08:00 01/01/23 12:41 Insulin Lispro 100 Unit/1 Ml SUBCUT 4 unit TIDWM MEGHAN Administration Protocol Pantoprazole Sodium 40 mg 01/01/23 01:20 01/01/23 06:05 Pantoprazole 40 Mg Sdv IVP 40 mg Q12H MEGHAN Administration Sucralfate 1 gm 01/01/23 09:00 01/01/23 12:41 Sucralfate 1 Gm Tablet PO 1 gm QID MEGHAN Administration PFSH Anesthesia Medical History Anemia Atherosclerosis of coronary artery of [place] heart without angina pectoris B12 deficiency Benign essential hypertension with target blood pressure below 140/90 Benign prostate hyperplasia Beta-anna intolerance 3.6-second pause on 02/19/2021 Chronic blepharitis CKD (chronic kidney disease) COVID 08/2022 Depression Diabetes mellitus, type II microalbuminuria Diastolic dysfunction Diverticulosis GERD (gastroesophageal reflux disease) History of echocardiogram 02/2022 EF 55-60% History of Holter monitoring 02/2021 sinus rhythm with one 3.6 second pause noted. One episode of sinus bradycardia to 37 bpm. Taken off of beta blockade. Hyperlipidemia Polyp of colon Second degree AV block, Mobitz type I Squamous cell carcinoma of skin Surgical History H/O left wrist surgery History of cardiac catheterization 07/2020 90-95% LAD lesion, 20-30% circ lesion, 50% ostial RCS, declined CABG and underwent PCI to LAD Hx of cataract surgery Status post laparoscopic cholecystectomy (12/27/19) Status post open reduction and internal fixation (ORIF) of fracture (08/27/22) left intertrochanteric hip fracture, gamma nail, Dr Grey Family History Denies family history of CAD (coronary artery disease) Anesthesia complication Bleeding disorder Social History Smoking and tobacco status: former smoker Alcohol intake: never Data Anesthesia 01/02/23 05:01 01/02/23 05:01 Short CBC 12/31/22 01/01/23 01/01/23 Range/Units 20:14 06:56 09:25 WBC 18.2 H 14.0 H (4.0-10.0) 10^3/uL Hgb 7.1 L 6.6 L 7.0 L (11.7-16.6) g/dL Hct 23.7 L 21.8 L 22.8 L (42.0-52.0) % MCV 89.1 90.8 (80-94) fl Plt Count 448 H 310 D (130-400) 10^3/cmm Neut % (Auto) 88.4 84.7 % Neut # (Auto) 16.11 H 11.86 H (1.8-7.7) 10^3/uL 01/01/23 01/02/23 Range/Units 16:07 05:01 WBC 14.4 H (4.0-10.0) 10^3/uL Hgb 7.5 L 7.7 L (11.7-16.6) g/dL Hct 24.6 L 24.5 L (42.0-52.0) % MCV 87.5 (80-94) fl Plt Count 315 (130-400) 10^3/cmm Neut % (Auto) 87.5 % Neut # (Auto) 12.62 H (1.8-7.7) 10^3/uL BMP 12/31/22 01/01/23 01/02/23 20:14 01:43 05:01 Sodium 136 136 141 Potassium 4.4 4.1 3.1 L Chloride 98 102 109 H Carbon Dioxide 12 L 13 L 20 L BUN 67 H 63 H 47 H Creatinine 1.8 H 1.7 H 1.3 H Glucose 201 H 161 H 158 H Calcium 9.5 8.7 8.5 Cardiac Enzymes 12/31/22 12/31/22 12/31/22 Range/Units 20:14 20:14 22:29 Creatine Kinase 28 L (39-308) U/L Troponin T Baseline 40 H (0-15) ng/L Troponin T 120 Minute 32.01 H (0-15) ng/L Delta Troponin T -7.99 L (0-10) ABS# Troponin T Hi Sens 6Hr (0-15) ng/L Troponin T Hi Sens 6Hr Delta (0-12) ng/L NT-Pro-B Natriuret Pep 1985 H (0-450) pg/mL 12/31/22 01/01/23 Range/Units 22:29 01:43 Creatine Kinase 20 L (39-308) U/L Troponin T Baseline (0-15) ng/L Troponin T 120 Minute (0-15) ng/L Delta Troponin T (0-10) ABS# Troponin T Hi Sens 6Hr 34.75 H (0-15) ng/L Troponin T Hi Sens 6Hr Delta -5.25 L (0-12) ng/L NT-Pro-B Natriuret Pep 1482 H (0-450) pg/mL Liver Function 12/31/22 01/01/23 01/02/23 Range/Units 20:14 01:43 05:01 Total Bilirubin 0.3 0.3 0.4 (0.15-1.2) mg/dL AST 10 10 13 (0-40) U/L ALT 8 8 9 (0-41) U/L Alkaline Phosphatase 41 35 L 36 L (40-130) U/L Albumin 3.7 3.1 L 3.1 L (3.5-5.2) g/dL Urine 12/31/22 Range/Units 22:24 Urine Color Yellow (Yellow) Urine Appearance Clear (CLEAR) Urine pH 5 (5-7) Ur Specific [place] 1.020 (1.005-1.030) Urine Protein Neg (Negative) Urine Glucose (UA) Norm (Normal) Urine Ketones 1+ H (Negative) Urine Nitrate Negative (Negative) Urine Bilirubin Neg (Negative) Ur Leukocyte Esterase Negative (Negative) Blood Bank 12/31/22 21:00 Blood Type O Negative Rho(D) Type Negative Antibody Screen Negative COVID Results 12/31/22 20:43 SARS-CoV-2 Ag (Rapid) negative Coags 12/31/22 12/31/22 12/31/22 20:14 20:14 20:14 ESR 3 PT 21.50 H INR 1.79 H APTT 28.7 C-Reactive Protein 4.2 01/01/23 01:43 ESR PT 22.50 H INR 1.90 H APTT C-Reactive Protein ABG 12/31/22 20:59 Specimen Type Arterial Sample Site Radial, left ABG pH 7.37 ABG pCO2 21.8 L ABG pO2 92.0 ABG HCO3 12.7 L ABG Base Excess -11.4 L O2 Delivery Device Room air Microbiology 01/01/23 20:40 Occult Blood (FIT) - Final Stool Routine Collection 12/31/22 20:56 Blood Culture - Preliminary Blood NEGATIVE TO DATE 12/31/22 21:00 Blood Culture - Preliminary Blood NEGATIVE TO DATE Cardiac Studies: Echocardiogram 11/14/22 Echocardiogram Limited Views 01/01/23 Echocardiogram Ultrasound 07/20/20 Cardiac Event Monitor 02/16/21
[2023-01-02] MEDS: lactulose oral liq 20 gm/30 mL UDC 30 GM PO ×2 (13:34→19:06)
--- NOTE | 2023-01-02 14:26 | ANE.PACU2 ---
Inpatient post-anesthesia follow up: Airway intact: Yes Vital signs: Temperature 98.4 F Pulse Rate 121 Respiratory Rate 16 Blood Pressure 129/71 Pulse Oximetry 100 Oxygen Delivery Me thod Room Air Oxygen Flow Rate 3 Fraction of Inspir ed Oxygen Hydration adequate: Yes Nausea and vomiting: No Pain level: 2 Mental status: Baseline
[2023-01-02] MEDS: acetaminophen 325 mg Tablet 650 MG PO (15:14)
--- NOTE | 2023-01-02 17:09 | PM.PN ---
Subjective Subjective: Patient was seen and examined this morning denies any abdominal pain nausea vomiting, chest pain has mild shortness of breath.S/P EGD today,colonoscopy has been kept for tomorrow due to poor bowel prep preparation. H&H is stable after 2 units PRBC transfusion. Medications: Medication Review Details: Generic Name Dose Route Start Last Admin Trade Name Darellq PRN Reason Stop Dose Admin Acetaminophen 650 mg 01/01/23 01:20 01/02/23 15:14 Acetaminophen 32 5 Mg Tablet PO 650 mg Q6H PRN Administration Mild/Mod Pain Or Temp >/= 101 Atorvastatin Calci um 80 mg 01/01/23 09:00 01/02/23 08:53 Atorvastatin 40 Mg Tablet PO 80 mg DAILY MEGHAN Administration Cyanocobalamin 1,000 mcg 01/02/23 09:00 01/02/23 08:53 Cyanocobalamin 1 ,000 Mcg Tablet PO 1,000 mcg DAILY MEGHAN Administration Insulin Human Lisp ro 0 unit 01/01/23 08:00 01/02/23 08:51 Insulin Lispro 1 00 Unit/1 Ml SUBCUT Not Given TIDWM MEGHAN Protocol Lactulose 30 gm 01/02/23 13:30 01/02/23 13:34 Lactulose Oral L iq 20 Gm/30 Ml Udc PO 30 gm Q6H MEGHAN Administration Pantoprazole Sodiu m 40 mg 01/01/23 01:20 01/02/23 05:33 Pantoprazole 40 Mg Sdv IVP 40 mg Q12H MEGHAN Administration Tamsulosin HCl 0.4 mg 01/01/23 18:00 01/01/23 17:37 Tamsulosin 0.4 M g Capsule PO 0.4 mg QPM MEGHAN Administration Trazodone HCl 100 mg 01/01/23 21:00 01/01/23 20:47 Trazodone 100 Mg Tablet PO 100 mg BEDTIME MEGHAN Administration Vitals/I&O/Wt Last Vital Signs Temp 97.6 F 01/02/23 15:38 Pulse 66 01/02/23 15:38 Resp 16 01/02/23 15:38 BP 129/68 01/02/23 15:38 Pulse Ox 96 01/02/23 15:38 O2 Del Method Room Air 01/02/23 12:48 O2 Flow Rate 3 01/02/23 12:33 01/02/23 01/02/2323 06:59 14:59 22:59 Intake Total 600 / 600 Output Total 600 / 1550 Balance -600 / -80 600 / 600 Weight last 48 hrs Weight 67.273 kg Weight 65.317 kg Physical Exam Narrative: NADER HENMT: COMMON NORMALS: normocephalic and atraumatic HEAD & SCALP: normocephalic and atraumatic Resp: COMMON NORMALS: clear to auscultation bilaterally AUSCULTATION: clear to auscultation bilaterally Cardio: COMMON NORMALS: regular rate, regular rhythm, S1 normal heart sound present, S2 normal heart sound present, No gallops present (Cardio), No murmurs present (Cardio), No rub (Cardio) and Peripheral pulses 2+ throughout RATE: regular rate RHYTHM: regular rhythm HEART SOUNDS: S1 normal heart sound present and S2 normal heart sound present PERIPHERAL PULSES: Peripheral pulses 2+ throughout GI: COMMON NORMALS: Normal to inspection, nondistended, normoactive bowel sounds present, Soft to palpation, non-tender, No hepatosplenomegaly present and no masses AUSCULTATION: Yes normoactive bowel sounds PALPATION: Yes Soft to palpation and Yes No hepatosplenomegaly present RECTAL EXAM: Yes deferred Extremity: COMMON NORMALS: no clubbing, cyanosis or edema and no pedal edema Urinary Catheter Management: Rick: Cath Placed During This Visit: yes Reason for Continuing Indwelling Catheter: Other Urinary Catheter Date of Insertion: 01/01/23 Urinary Catheter Time of Insertion: 00:15 Data 01/02/23 05:01 01/02/23 05:01 Micro: Microbiology 01/01/23 20:40 Occult Blood (FIT) - Final Stool Routine Collection 12/31/22 20:56 Blood Culture - Preliminary Blood NEGATIVE TO DATE 12/31/22 21:00 Blood Culture - Preliminary Blood NEGATIVE TO DATE A&P Assessment and plan (1) CKD (chronic kidney disease): (2) Diabetes mellitus, type II: (3) Benign prostate hyperplasia: (4) GERD (gastroesophageal reflux disease): (5) Diastolic dysfunction: (6) Anemia: (7) Atrial fibrillation: (8) Lactic acidosis: (9) Acute kidney injury superimposed on chronic kidney disease: (10) Leukocytosis: Plan 82-year-old male with past medical history of chronic anemia CKD stage III coronary artery disease, was on aspirin and Plavix, diabetes, heart failure with preserved ejection fraction, recently diagnosed A-fib, on Eliquis on home, came in today with chief complaint of, worsening fatigue malaise poor appetite generalized weakness, was found to be anemic, with admission hemoglobin of 6.7, lower than what his baseline hemoglobin is.Currently he is being managed for. Assessment: Acute anemia: Anemia panel: Serum iron of 62,TIBC:160 , Percent saturation:38 Serum ferritin:147 Serum B12:224 Serum folic acid, TSH : 2.40. FOBT is positive from last admission. CT abdomen and pelvis: No acute abdominal pelvic pathology CT chest without contrast: Mild emphysema, mild to moderate ILD Lower extremity Doppler negative for DVT Currently aspirin and Eliquis on hold S/p 2 units PRBC transfusion Monitor H&H Continue Protonix and Carafate S/P:EGD : Which showed gastritis Colonoscopy : Patient is on oral iron since last admission. CAROL on CKD: Admission serum creatinine is 1.8 Baseline serum creatinine appears to be 1.2-1.4 Monitor BMP Was on gentle IV hydration has been discontinued Monitor intake output charting Avoid nephrotoxic's Leukocytosis -Etiology unclear -UA unremarkable for UTI, chest x-ray no focal pneumonia, CT abdomen pelvis no acute process Procalcitonin is normal Metabolic acidosis, likely secondary dehydration IV fluids Lactic acidosis, 9, potentially related to metformin, dehydration, anemia -Cardiac echo, venous ultrasound -CT of the chest Type 2 diabetes mellitus low-dose sliding scale NSTEMI, serial EKGs serial troponins telemetry monitoring, cardiac echo Full code SCDs for DVT prophylaxis Attestations Medical Necessity Statement*: Needs to be in hospital for management of symptomatic anemia. Need for monitoring H&H need for transfusion need for EGD colonoscopy Coding Level of Care Code 28210 Diagnoses CKD (chronic kidney disease) N18.9 Diabetes mellitus, type II E11.9 Benign prostate hyperplasia N40.0 GERD (gastroesophageal reflux disease) K21.9 Diastolic dysfunction I51.89 Anemia D64.9 Atrial fibrillation I48.91 Lactic acidosis E87.20 Acute kidney injury superimposed on chronic kidney disease N17.9; N18.9 Leukocytosis D72.829
[2023-01-02 17:20] LABS: Glucose Point of Care 161 mg/dL (70-110)
[2023-01-02] MEDS: insulin lispro 100 unit/1 mL SUBCUT (17:27)
[2023-01-02] MEDS: tamsulosin 0.4 mg Capsule PO (17:28)
[2023-01-02] MEDS: oxyCODONE-APAP 5-325 mg Tablet 1 TAB PO (17:28)
[2023-01-02] MEDS: lidocaine 1% 5 ML in potassium chloride premix 100 ML 26.25 ML IV (19:40)
[2023-01-02 21:32] LABS: Glucose Point of Care 162 mg/dL (70-110)
[2023-01-02] MEDS: trazodone 100 mg Tablet PO (21:39)
[2023-01-03] VITALS (17 sets, daily range): BP systolic 98–156; BP diastolic 49–84; PULSE 70–126; RESP 14–20; TEMP 36.1–36.8; O2SAT 95–99
[2023-01-03] MEDS: lactulose oral liq 20 gm/30 mL UDC 30 GM PO ×2 (00:46→06:39)
[2023-01-03] MEDS: oxyCODONE-APAP 5-325 mg Tablet 1 TAB PO ×2 (00:46→17:39)
[2023-01-03 06:23] LABS: Glucose Point of Care 141 mg/dL (70-110)
[2023-01-03] MEDS: pantoprazole 40 mg SDV IVP ×2 (06:40→18:36)
[2023-01-03 07:17] LABS: Basophils % 0.4 %; Eosinophils # 0.3 10^3/uL (0.0-0.8); Eosinophils % 2.8 %; Hematocrit 25.4 % (42.0-52.0); Hemoglobin 7.6 g/dL (11.7-16.6); Lymphocytes # 0.9 10^3/uL (0.8-4.8); Lymphocytes % 9.9 %; Mean Corpuscular HGB Conc 29.9 g/dL (30.0-36.0); Mean Corpuscular Hemoglobin 27.1 pg (28.0-34.0); Mean Corpuscular Volume 90.7 fl (80-94); Mean Platelet Volume 9.6 fL (7.4-10.4); Monocytes # 0.5 10^3/uL (0.2-0.9); Neutrophils # 7.18 10^3/uL (1.8-7.7); Neutrophils % 79.9 %; Nucleated Red Blood Cells % 0 %; Platelet Count 326 10^3/cmm (130-400)
[2023-01-03 07:48] LABS: Alanine Aminotransferase 16 U/L (0-41); Albumin Level 3.1 g/dL (3.5-5.2); Alkaline Phosphatase 34 U/L (40-130); Anion Gap 12.8 (5-19); Aspartate Amino Transferase 19 U/L (0-40); Blood Urea Nitrogen 23 mg/dL (8-23); Calcium 8.6 mg/dL (8.5-10.5); Carbon Dioxide 19 mmol/L (22-29); Chloride 116 mmol/L (98-107); Globulin 2.3 g/dL (1.3-4.6); Glucose 127 mg/dL (65-115); Osmolality Calculated 303 mOsm/kg (285-295); Potassium 3.8 mmol/L (3.5-5.1); Sodium 144 mmol/L (136-145); Total Bilirubin 0.3 mg/dL (0.15-1.2); Total Protein 5.4 g/dL (6.6-8.7)
[2023-01-03] MEDS: sodium chloride 0.9% 1,000 ML 30 ML IV (11:15)
--- NOTE | 2023-01-03 11:35 | P.ANESUD_ITS ---
Pre-Anesthetic Update Pre-Anesthetic Assessment: Date of Surgery/Procedure: 01/03/23 Preop Yaquelin gnosis: Anemia Proposed Procedure: Operation Date: 01/02/23 12:00 Proposed Procedures p EGD(Not Applicable) - Turner Limon DO Operation Date: 01/03/23 12:00 Proposed Procedures p Colonoscopy(Not Applicable) - Turner Limon DO Changes from Pre-Anesthetic Assessment: no changes from EGD preoperative assessment yesterday. Last Intake: Intake Last Liquid Date 01/03/23 Last Liquid Time 06:30 Last Solid Date 01/01/23 Last Solid Time 23:00 Labs Last 48hrs: Short CBC 01/01/23 01/02/23 01/03/23 Range/Units 16:07 05:01 06:31 WBC 14.4 H 9.0 (4.0-10.0) 10^3/ uL Hgb 7.5 L 7.7 L 7.6 L (11.7-16.6) g/dL Hct 24.6 L 24.5 L 25.4 L (42.0-52.0) % MCV 87.5 90.7 (80-94) fl Plt Count 315 326 (130-400) 10^3/c mm Neut % (Auto) 87.5 79.9 % Neut # (Auto) 12.62 H 7.18 (1.8-7.7) 10^3/u L BMP 01/02/23 01/03/23 05:01 06:31 Sodium 141 144 Potassium 3.1 L 3.8 Chloride 109 H 116 H Carbon Dioxide 20 L 19 L BUN 47 H 23 Creatinine 1.3 H 1.0 Glucose 158 H 127 H Calcium 8.5 8.6 Liver Function 01/02/23 01/03/23 Range/Units 05:01 06:31 Total Bilirubin 0.4 0.3 (0.15-1.2) mg/dL AST 13 19 (0-40) U/L ALT 9 16 (0-41) U/L Alkaline Phosphata se 36 L 34 L (40-130) U/L Albumin 3.1 L 3.1 L (3.5-5.2) g/dL Vitals: Temperature 97.3 F L 01/03/23 11:11 Temperature Source Oral 01/02/23 15:38 Pulse Rate 126 H 01/03/23 11:11 Pulse Rhythm Regular 04/26/23 08:00 Pulse Strength 3+ Normal 01/03/23 08:00 Respiratory Rate 14 01/03/23 11:11 Respiratory Effort Spontaneous, Non- Labored 01/03/23 08:00 Respiratory Depth Normal 01/03/23 08:00 Respiratory Patter n Normal 01/03/23 08:00 Blood Pressure 156/82 01/03/23 11:11 Blood Pressure Alexandra n 106 01/03/23 11:11 Blood Pressure Pos ition Semi Fowlers 01/02/23 04:00 Pulse Oximetry 98 01/03/23 11:11 Oxygen Delivery Me thod Room Air 01/03/23 11:11 Oxygen Flow Rate 3 01/02/23 19:49 Sepsis Recent Feve r Within 48 Hours No 12/31/22 19:56 Cardiac Studies: Echocardiogram 11/14/22 Echocardiogram Limited Views 01/01/23 Echocardiogram Ultrasound 07/20/20 Cardiac Event Monitor 02/16/21
--- NOTE | 2023-01-03 12:56 | P.PN_ITS ---
Vitals/I&O/Wt Last Vital Signs Temp 97.3 F L 01/03/23 11:11 Pulse 126 H 01/03/23 11:11 Resp 14 01/03/23 11:11 BP 156/82 01/03/23 11:11 Pulse Ox 98 01/03/23 11:11 O2 Del Method Room Air 01/03/23 11:11 O2 Flow Rate 3 01/02/23 19:49 01/02/23 01/03/23 01/03/23 22:59 06:59 14:59 Intake Total 990 / 1590 105 / 1695 Output Total 800 / 800 Balance 190 / 790 105 / 895 Physical Exam Urinary Catheter Management: Rick: Cath Placed During This Visit: yes Reason for Continuing Indwelling Catheter: Other Urinary Catheter Date of Insertion: 01/01/23 Urinary Catheter Time of Insertion: 00:15 Data 01/03/23 06:31 01/03/23 06:31 A&P Assessment and plan (1) Melena: (2) Acute blood loss anemia: Plan Colonoscopy The risks and benefits of the procedure, including bleeding, infection, intestinal perforation requiring surgery, missed lesion were explained to the patient. The patient is understanding of the risks and wishes to proceed. Attestations Medical Necessity Statement*: Per primary Coding Level of Care Code Acute Code for [facility] Fwd Diagnoses Melena K92.1 Acute blood loss anemia D62
--- NOTE | 2023-01-03 13:15 | PC.NURSE ---
1310- While positioning patient for colonoscopy, pt obtained a skin tear to his left forearm when anesthesia was getting arm out from under him to get to IV. Site cleaned with alcohol by Dr Limon and Dermabond applied.
--- NOTE | 2023-01-03 15:06 | ANE.PACU2 ---
Inpatient post-anesthesia follow up: Airway intact: Yes Vital signs: Temperature 97 F Pulse Rate 103 Respiratory Rate 16 Blood Pressure 108/78 Pulse Oximetry 99 Oxygen Delivery Me thod Room Air Oxygen Flow Rate 3 Fraction of Inspir ed Oxygen Hydration adequate: Yes Nausea and vomiting: No Pain level: 2 Mental status: Baseline
[2023-01-03 16:35] LABS: Glucose Point of Care 204 mg/dL (70-110)
[2023-01-03] MEDS: insulin lispro 100 unit/1 mL SUBCUT (17:39)
[2023-01-03] MEDS: tamsulosin 0.4 mg Capsule PO (17:40)
--- NOTE | 2023-01-03 19:27 | PM.PN ---
Subjective Subjective: Patient was seen and examined this morning due for colonscopy today. Medications: Medication Review Details: Generic Name Dose Route Start Last Admin Trade Name Freq PRN Reason Stop Dose Admin Acetaminophen 650 mg 01/01/23 01:20 01/02/23 15:14 Acetaminophen 32 5 Mg Tablet PO 650 mg Q6H PRN Administration Mild/Mod Pain Or Temp >/= 101 Atorvastatin Calci um 80 mg 01/01/23 09:00 01/03/23 07:47 Atorvastatin 40 Mg Tablet PO Not Given DAILY MEGHAN Cyanocobalamin 1,000 mcg 01/02/23 09:00 01/03/23 07:47 Cyanocobalamin 1 ,000 Mcg Tablet PO Not Given DAILY MEGHAN Insulin Human Lisp ro 0 unit 01/01/23 08:00 01/03/23 17:39 Insulin Lispro 1 00 Unit/1 Ml SUBCUT 4 unit TIDWM MEGHAN Administration Protocol Oxycodone/Acetamin ophen 1 tab 01/02/23 16:45 01/03/23 17:39 Oxycodone-Apap 5 -325 Mg Tablet PO 1 tab Q6H PRN Administration MODERATE PAIN Pantoprazole Sodiu m 40 mg 01/01/23 01:20 01/03/23 18:36 Pantoprazole 40 Mg Sdv IVP 40 mg Q12H MEGHAN Administration Tamsulosin HCl 0.4 mg 01/01/23 18:00 01/03/23 17:40 Tamsulosin 0.4 M g Capsule PO 0.4 mg QPM MEGHAN Administration Trazodone HCl 100 mg 01/01/23 21:00 01/02/23 21:39 Trazodone 100 Mg Tablet PO 100 mg BEDTIME MEGHAN Administration Vitals/I&O/Wt Last Vital Signs Temp 97.9 F 01/03/23 19:07 Pulse 87 01/03/23 19:07 Resp 20 H 01/03/23 19:07 BP 147/84 01/03/23 19:07 Pulse Ox 98 01/03/23 19:07 O2 Del Method Room Air 01/03/23 19:07 O2 Flow Rate 3 01/02/23 19:49 01/03/23 01/03/23 01/03/23 06:59 14:59 22:59 Intake Total 105 / 1695 300 / 300 240 / 540 Balance 105 / 895 300 / 300 240 / 540 Physical Exam Narrative: NADER HENMT: COMMON NORMALS: normocephalic and atraumatic HEAD & SCALP: normocephalic and atraumatic Resp: COMMON NORMALS: clear to auscultation bilaterally AUSCULTATION: clear to auscultation bilaterally Cardio: COMMON NORMALS: regular rate, regular rhythm, S1 normal heart sound present, S2 normal heart sound present, No gallops present (Cardio), No murmurs present (Cardio), No rub (Cardio) and Peripheral pulses 2+ throughout RATE: regular rate RHYTHM: regular rhythm HEART SOUNDS: S1 normal heart sound present and S2 normal heart sound present PERIPHERAL PULSES: Peripheral pulses 2+ throughout GI: COMMON NORMALS: Normal to inspection, nondistended, normoactive bowel sounds present, Soft to palpation, non-tender, No hepatosplenomegaly present and no masses AUSCULTATION: Yes normoactive bowel sounds PALPATION: Yes Soft to palpation and Yes No hepatosplenomegaly present RECTAL EXAM: Yes deferred Extremity: COMMON NORMALS: no clubbing, cyanosis or edema and no pedal edema Urinary Catheter Management: Rick: Cath Placed During This Visit: yes, but has since been removed by the nurse Reason for Continuing Indwelling Catheter: Other Urinary Catheter Date of Insertion: 01/01/23 Urinary Catheter Time of Insertion: 00:15 Date Urinary Catheter Removed: 01/03/23 Time Urinary Catheter Discontinued: 16:00 Data 01/04/23 05:36 01/04/23 05:36 A&P Assessment and plan (1) Anemia: (2) CKD (chronic kidney disease): (3) Diabetes mellitus, type II: (4) Benign prostate hyperplasia: (5) GERD (gastroesophageal reflux disease): (6) Diastolic dysfunction: (7) Atrial fibrillation: (8) Lactic acidosis: (9) Acute kidney injury superimposed on chronic kidney disease: (10) Leukocytosis: Plan 82-year-old male with past medical history of chronic anemia CKD stage III coronary artery disease, was on aspirin and Plavix, diabetes, heart failure with preserved ejection fraction, recently diagnosed A-fib, on Eliquis on home, came in today with chief complaint of, worsening fatigue malaise poor appetite generalized weakness, was found to be anemic, with admission hemoglobin of 6.7, lower than what his baseline hemoglobin is.Currently he is being managed for. Assessment: Acute anemia: Anemia panel: Serum iron of 62,TIBC:160 , Percent saturation:38 Serum ferritin:147 Serum B12:224 Serum folic acid, TSH : 2.40. FOBT is positive from last admission. CT abdomen and pelvis: No acute abdominal pelvic pathology CT chest without contrast: Mild emphysema, mild to moderate ILD Lower extremity Doppler negative for DVT Currently aspirin and Eliquis on hold S/p 2 units PRBC transfusion Monitor H&H Continue Protonix and Carafate S/P:EGD : Which showed gastritis Colonoscopy : Patient is on oral iron since last admission. CAROL on CKD: Admission serum creatinine is 1.8 Baseline serum creatinine appears to be 1.2-1.4 Monitor BMP Was on gentle IV hydration has been discontinued Monitor intake output charting Avoid nephrotoxic's Leukocytosis -Etiology unclear -UA unremarkable for UTI, chest x-ray no focal pneumonia, CT abdomen pelvis no acute process Procalcitonin is normal Metabolic acidosis, likely secondary dehydration IV fluids Lactic acidosis, 9, potentially related to metformin, dehydration, anemia -Cardiac echo, venous ultrasound -CT of the chest Type 2 diabetes mellitus low-dose sliding scale NSTEMI, serial EKGs serial troponins telemetry monitoring, cardiac echo Full code SCDs for DVT prophylaxis Attestations Medical Necessity Statement*: in hospital for anemia need for transfusion Coding Level of Care Code Acute Code for Chg Fwd Diagnoses Anemia D64.9 CKD (chronic kidney disease) N18.9 Diabetes mellitus, type II E11.9 Benign prostate hyperplasia N40.0 GERD (gastroesophageal reflux disease) K21.9 Diastolic dysfunction I51.89 Atrial fibrillation I48.91 Lactic acidosis E87.20 Acute kidney injury superimposed on chronic kidney disease N17.9; N18.9 Leukocytosis D72.829
--- NOTE | 2023-01-03 19:39 | PC.NURSE ---
Per Dr. Garcia, Lasix to be given after blood transfusion.
[2023-01-03] MEDS: trazodone 100 mg Tablet PO (19:55)
[2023-01-03 20:37] LABS: Glucose Point of Care 140 mg/dL (70-110)
[2023-01-03] MEDS: sodium chloride 0.9% 100 mL Bag 50 ML IV (20:53)
[2023-01-03] MEDS: FUROsemide 10 mg/mL SDV 2mL 20 MG IVP (23:24)
--- NOTE | 2023-01-04 01:05 | PC.NURSE ---
Patient had 150 ml in urinal this shift and dribbled small amount of urine in bed. Patient states he was hurting that he really needed to pee. Patient attempt to pee in urinal again and could not void. Bladder scan showed [address] Cortes notified. Ordered to place allan..
[2023-01-04 05:05] VITALS: BP 126/73; PULSE 66; RESP 18; TEMP 36.8; O2SAT 95
[2023-01-04 05:08] VITALS: RESP 16
[2023-01-04] MEDS: pantoprazole 40 mg SDV IVP (05:08)
[2023-01-04] MEDS: oxyCODONE-APAP 5-325 mg Tablet 1 TAB PO (05:08)
[2023-01-04 05:56] VITALS: PULSE 84
[2023-01-04 06:05] LABS: Basophils % 0.3 %; Eosinophils # 0.3 10^3/uL (0.0-0.8); Eosinophils % 3.1 %; Hematocrit 27.4 % (42.0-52.0); Hemoglobin 8.6 g/dL (11.7-16.6); Lymphocytes % 9.8 %; Mean Corpuscular HGB Conc 31.4 g/dL (30.0-36.0); Mean Corpuscular Hemoglobin 27.4 pg (28.0-34.0); Mean Corpuscular Volume 87.3 fl (80-94); Mean Platelet Volume 9.3 fL (7.4-10.4); Monocytes # 0.6 10^3/uL (0.2-0.9); Monocytes % 5.9 %; Neutrophils # 8.44 10^3/uL (1.8-7.7); Neutrophils % 80.1 %; Nucleated Red Blood Cells % 0 %; Platelet Count 351 10^3/cmm (130-400); Red Blood Count 3.14 10^6/uL (4.1-5.3); Red Cell Distribution Width 17.7 % (12.1-15.1); White Blood Count 10.5 10^3/uL (4.0-10.0)
[2023-01-04 06:22] LABS: Anion Gap 13.3 (5-19); Blood Urea Nitrogen 16 mg/dL (8-23); Calcium 8.5 mg/dL (8.5-10.5); Carbon Dioxide 21 mmol/L (22-29); Chloride 107 mmol/L (98-107); Glucose 105 mg/dL (65-115); Osmolality Calculated 288 mOsm/kg (285-295); Potassium 3.3 mmol/L (3.5-5.1); Sodium 138 mmol/L (136-145)
[2023-01-04 06:42] LABS: Glucose Point of Care 115 mg/dL (70-110)
[2023-01-04 08:00] VITALS: BP 119/68; PULSE 113; RESP 17; TEMP 36.7; O2SAT 98
[2023-01-04] MEDS: cyanocobalamin 1,000 mcg Tablet 1000 MCG PO (08:22)
[2023-01-04] MEDS: atorvastatin 40 mg Tablet 80 MG PO (08:22)
[2023-01-04] MEDS: potassium chloride ER 20 mEq Tablet PO (09:20)
--- NOTE | 2023-01-04 09:33 | P.DS_ITS ---
Discharge Providers Date of Admission: 01/01/23 00:17 Date of Discharge: January 04, 2023 Attending Provider at Admission: Alessio Garcia MD Attending Provider at Discharge: Alessio Garcia MD Primary Care Provider: Portia Larose MD Diagnoses at Discharge Discharge Diagnosis (1) Anemia: Status: Chronic (2) CKD (chronic kidney disease): Status: Chronic (3) Diabetes mellitus, type II: Status: Chronic Permanent problem details: microalbuminuria (4) Benign prostate hyperplasia: Status: Chronic (5) GERD (gastroesophageal reflux disease): Status: Chronic (6) Diastolic dysfunction: Status: Chronic (7) Atrial fibrillation: Status: Acute (8) Lactic acidosis: Status: Acute (9) Acute kidney injury superimposed on chronic kidney disease: Status: Inactive Permanent problem details: (10) Leukocytosis: Status: Acute Reason for Visit Reason for Visit: weakness Hospital Course Hospital Course 82-year-old male with past medical history of chronic anemia CKD stage III coronary artery disease, was on aspirin and Plavix, diabetes, heart failure with preserved ejection fraction, recently diagnosed A-fib, on Eliquis on home, came in today with chief complaint of, worsening fatigue malaise poor appetite generalized weakness, was found to be anemic, with admission hemoglobin of 6.7, lower than what his baseline hemoglobin patient was admitted for the management of symptomatic anemia:Anemia panel: Serum iron of 62,TIBC:160 , Percent saturation:38 Serum ferritin:147,Serum B12:224? Serum folic acid, TSH : 2.40.FOBT is positive from last admission.CT abdomen and pelvis: No acute abdominal pelvic pathology,CT chest without contrast: Mild emphysema, mild to moderate ILD,Lower extremity Doppler negative for DVT. During the hospital stay patient required 3 unit PRBC transfusion, he was kept on Protonix and Carafate, underwent EGD and colonoscopy: EGD showed: Mild gastritis, colonoscopy showed diverticulosis. Given the fact that patient is requiring blood transfusion for GI bleed possibly slow GI bleed, it was decided to keep Eliquis on hold for some time, monitor repeat CBC in a week follow-up with PCP, depending upon current's condition, decision regarding initiating Eliquis can be taken at that time. During the hospital stay patient was also managed for CAROL on CKD, likely prerenal was on gentle IV hydration, responded well, at the time of discharge s jordy creatinine was 1.1, Leukocytosis: Possibly secondary to dehydration-UA unremarkable for UTI, chest x-ray no focal pneumonia, CT abdomen pelvis no acute process,Procalcitonin is normal.Patient was not on any antibiotics during the hospital stay. WBC was monitored.Metabolic acidosis, likely secondary dehydration IV fluids,Lactic acidosis, potentially related to metformin, dehydration, anemia, resolved.Patient was also retaining urine during the hospital He failed voiding trial, Rick catheter was reinserted, will follow urology as outpatient, has been continued on Flomax.Overall patient responded well to above medical management and is being discharged home in stable condition, he will follow PCP as outpatient. Physical Exam Narrative: NAD HENMT: COMMON NORMALS: normocephalic and atraumatic HEAD & SCALP: normocephalic and atraumatic Resp: COMMON NORMALS: clear to auscultation bilaterally AUSCULTATION: clear to auscultation bilaterally Cardio: COMMON NORMALS: regular rate, regular rhythm, S1 normal heart sound present, S2 normal heart sound present, No gallops present (Cardio), No murmurs present (Cardio), No rub (Cardio) and Peripheral pulses 2+ throughout RATE: regular rate RHYTHM: regular rhythm HEART SOUNDS: S1 normal heart sound present and S2 normal heart sound present PERIPHERAL PULSES: Peripheral pulses 2+ throughout GI: COMMON NORMALS: Normal to inspection, nondistended, normoactive bowel sounds present, Soft to palpation, non-tender, No hepatosplenomegaly present and no masses AUSCULTATION: Yes normoactive bowel sounds PALPATION: Yes Soft to palpation and Yes No hepatosplenomegaly present RECTAL EXAM: Yes deferred Extremity: COMMON NORMALS: no clubbing, cyanosis or edema and no pedal edema Urinary Catheter Management: Rick: Cath Placed During This Visit: yes, but has since been removed by the nurse Reason for Continuing Indwelling Catheter: Acute Urinary Retention or Obstruction Urinary Catheter Date of Insertion: 01/04/23 Urinary Catheter Time of Insertion: 01:09 Date Urinary Catheter Removed: 01/03/23 Time Urinary Catheter Discontinued: 16:00 Discharge Data Studies Completed and Pending Completed Studies During Hospitalization Category Date Time Status CT abdomen pelvis wo con [id number] Stat Cat Scan 12/31/22 21:[address] chest wo con [id number] Stat Cat Scan 01/01/23 00:[address] head wo con* [id number] Stat Cat Scan 12/31/22 20:25 Completed XR chest 1V portable [id number] Stat Exams 12/31/22 20:25 Completed Pathology: Surgical [PTH] Routine Pth 01/02/23 12:28 [place] [id number] Stat Ultrasound 01/01/23 00:01 Completed CV. echo limited [id number] Stat Ultrasound 01/01/23 00:01 Completed Pending at discharge Category Date Time Status Blood Culture Stat Lab 12/31/22 20:56 Results Radiology Impressions Chest X-Ray 12/31/22 20:25 IMPRESSION: Emphysematous changes, negative for infiltrate. Head CT 12/31/22 20:25 IMPRESSION: 1. Negative for intracranial hemorrhage or mass effect. 2. Paranasal sinus opacifications. 3. Moderate diffuse white matter disease likely reflecting chronic microvascular ischemic changes. Abdomen/Pelvis CT 12/31/22 21:43 IMPRESSION: 1. Negative for focal acute inflammatory process in the abdomen or pelvis. 2. Coronary artery atherosclerotic calcifications. 3. Emphysematous changes. 4. Cholecystectomy. 5. Constipation. 6. Small bilateral fat containing inguinal hernias without bowel or inflammation. 7. Left femur surgical hardware. 8. L1 vertebral body chronic compression fracture, negative for retropulsion of bony fragments. Chest CT 01/01/23 00:01 IMPRESSION: 1. Mild emphysema. 2. Mild-moderate interstitial lung disease. 3. No acute consolidation. Laboratory Results WBC 10.5 10^3/uL (4.0-10.0) H 01/04/23 05:36 RBC 3.14 10^6/uL (4.1-5.3) L 01/04/23 05:36 Hgb 8.6 g/dL (11.7-16.6) L 01/04/23 05:36 Hct 27.4 % (42.0-52.0) L 01/04/23 05:36 MCV 87.3 fl (80-94) 01/04/23 05:36 MCH 27.4 pg (28.0-34.0) L 01/04/23 05:36 MCHC 31.4 g/dL (30.0-36.0) D 01/04/23 05:36 RDW 17.7 % (12.1-15.1) H 01/04/23 05:36 Plt Count 351 10^3/cmm (130-400) 01/04/23 05:36 MPV 9.3 fL (7.4-10.4) 01/04/23 05:36 Neut % (Auto) 80.1 % 01/04/23 05:36 Lymph % (Auto) 9.8 % 01/04/23 05:36 [place] % (Auto) 5.9 % 01/04/23 05:36 Eos % (Auto) 3.1 % 01/04/23 05:36 Baso % (Auto) 0.3 % 01/04/23 05:36 Neut # (Auto) 8.44 10^3/uL (1.8-7.7) H 01/04/23 05:36 Lymph # (Auto) 1.0 10^3/uL (0.8-4.8) 01/04/23 05:36 [place] # (Auto) 0.6 10^3/uL (0.2-0.9) 01/04/23 05:36 Eos # (Auto) 0.3 10^3/uL (0.0-0.8) 01/04/23 05:36 Baso # (Auto) 0.0 10^3/uL (0.0-0.1) 01/04/23 05:36 Nucleated RBC % (auto) 0 % 01/04/23 05:36 Nucleated RBCs # 0.0 /100WBC 01/04/23 05:36 ESR 3 mm/hr (0-10) 12/31/22 20:14 PT 22.50 SECONDS (12.1-14.9) H 01/01/23 01:43 INR 1.90 (0.8-1.2) H 01/01/23 01:43 APTT 28.7 SECONDS (23.9-36.7) 12/31/22 20:14 Specimen Type Arterial 12/31/22 20:59 Sample Site Radial, left 12/31/22 20:59 ABG pH 7.37 (7.35-7.45) 12/31/22 20:59 ABG pCO2 21.8 mmHg (35-45) L 12/31/22 20:59 ABG pO2 92.0 mmHg (80.0-100.0) 12/31/22 20:59 ABG HCO3 12.7 mmol/L (22-26) L 12/31/22 20:59 ABG Base Excess -11.4 mmol/L (-2.0-2.0) L 12/31/22 20:59 Bharat Test Pos 12/31/22 20:59 Hematocrit 21.7 % (42-52) L 12/31/22 20:59 O2 Delivery Device Room air 12/31/22 20:59 [employer] Vehicle [employer] ID [email or web address] 12/31/22 20:59 Sodium 138 mmol/L (136-145) 01/04/23 05:36 Potassium 3.3 mmol/L (3.5-5.1) L 01/04/23 05:36 Chloride 107 mmol/L (98-107) 01/04/23 05:36 Carbon Dioxide 21 mmol/L (22-29) L 01/04/23 05:36 Anion Gap 13.3 (5-19) 01/04/23 05:36 BUN 16 mg/dL (8-23) 01/04/23 05:36 Creatinine 1.1 mg/dL (0.7-1.2) 01/04/23 05:36 GFR Calculation Not Reportable 01/04/23 05:36 Glucose 105 mg/dL (65-115) 01/04/23 05:36 POC Glucose 115 mg/dL (70-110) H 01/04/23 06:34 Estimat Average Glucose 126 01/01/23 01:43 Hemoglobin A1c 6.0 % (4.0-6.0) 01/01/23 01:43 Calculated Osmolality 288 mOsm/kg (285-295) 01/04/23 05:36 Lactate 2.0 mmol/L (0.5-2.2) 01/01/23 16:07 Calcium 8.5 mg/dL (8.5-10.5) 01/04/23 05:36 Phosphorus 3.3 mg/dL (2.5-4.5) 12/31/22 22:29 Magnesium 1.4 mg/dL (1.7-2.3) L 12/31/22 22:29 Iron Cancelled 01/01/23 01:43 TIBC 160 mcg/dl 12/31/22 22:29 % Saturation 38.1 % (20-50) 12/31/22 22:29 Unsat Iron Binding 99 ug/dL (112-347) L 12/31/22 22:29 Ferritin 147 ng/mL (30-400) 12/31/22 22:29 Total Bilirubin 0.3 mg/dL (0.15-1.2) 01/03/23 06:31 AST 19 U/L (0-40) 01/03/23 06:31 ALT 16 U/L (0-41) 01/03/23 06:31 Alkaline Phosphatase 34 U/L (40-130) L 01/03/23 06:31 Creatine Kinase 20 U/L (39-308) L 12/31/22 22:29 Troponin T Baseline 40 ng/L (0-15) H 12/31/22 20:14 Troponin T 120 Minute 32.01 ng/L (0-15) H 12/31/22 22:29 Delta Troponin T -7.99 ABS# (0-10) L 12/31/22 22:29 Troponin T Hi Sens 6Hr 34.75 ng/L (0-15) H 01/01/23 01:43 Troponin T Hi Sens 6Hr Delta -5.25 ng/L (0-12) L 01/01/23 01:43 C-Reactive Protein 4.2 mg/L (0.0-4.9) 12/31/22 20:14 NT-Pro-B Natriuret Pep 1482 pg/mL (0-450) H 12/31/22 22:29 Total Protein 5.4 g/dL (6.6-8.7) L 01/03/23 06:31 Albumin 3.1 g/dL (3.5-5.2) L 01/03/23 06:31 Globulin 2.3 g/dL (1.3-4.6) 01/03/23 06:31 Folate 5.3 ng/mL (4.5-32.2) 01/02/23 05:01 Procalcitonin 0.17 ng/mL (0-0.5) 12/31/22 22:29 TSH 2.40 uIU/mL (0.27-4.20) 12/31/22 22:29 Urine Color Yellow (Yellow) 12/31/22 22:24 Urine Appearance Clear (CLEAR) 12/31/22 22:24 Urine pH 5 (5-7) 12/31/22 22:24 Ur Specific [place] 1.020 (1.005-1.030) 12/31/22 22:24 Urine Protein Neg (Negative) 12/31/22 22:24 Urine Glucose (UA) Norm (Normal) 12/31/22 22:24 Urine Ketones 1+ (Negative) H 12/31/22 22:24 Urine Blood Neg (Negative) 12/31/22 22:24 Urine Nitrate Negative (Negative) 12/31/22 22:24 Urine Bilirubin Neg (Negative) 12/31/22 22:24 Urine Urobilinogen Norm mg/dL (Negative) 12/31/22 22:24 Ur Leukocyte Esterase Negative (Negative) 12/31/22 22:24 Serum Ketones Negative (Negative) 12/31/22 22:25 SARS-CoV-2 Ag (Rapid) negative (Negative) 12/31/22 20:43 Blood Type O Negative 12/31/22 21:00 Rho(D) Type Negative 12/31/22 21:00 Antibody Screen Negative 12/31/22 21:00 Crossmatch See Detail 12/31/22 21:00 Vitals Last Vital Signs Temp 98.1 F 01/04/23 08:00 Pulse 113 H 01/04/23 08:00 Resp 17 01/04/23 08:00 BP 119/68 01/04/23 08:00 Pulse Ox 98 01/04/23 08:00 O2 Del Method Room Air 01/04/23 05:05 O2 Flow Rate 3 01/02/23 19:49 Discharge Plan Discharge Patient Disposition: Home Condition: Stable Prescriptions: Continued tamsulosin [Flomax] 0.4 mg Capsule 0.4 mg PO QPM cinnamon bark [Cinnamon] 500 mg Capsule 1,000 mg PO DAILY omeprazole 40 mg capsule,delayed release(DR/EC) 40 mg PO QAM aspirin 81 mg Tablet,Delayed Release (Dr/Ec) 81 mg PO QAM acetaminophen 500 mg Tablet 1,000 mg PO BEDTIME potassium chloride [Klor-Con M20] 20 mEq tablet,ER particles/crystals 20 meq PO DAILY trazodone 100 mg Tablet 150 mg PO BEDTIME metformin 1,000 mg Tablet 500 mg PO BID cholecalciferol (vitamin D3) 25 mcg (1,000 unit) Tablet 25 mcg PO DAILY zinc oxide 20 % Ointment 1 applic TOPICAL TID atorvastatin 80 mg Tablet 80 mg PO DAILY diltiazem HCl 180 mg Capsule,Extended Release 24 Hr 180 mg PO DAILY cyanocobalamin (vitamin B-12) 1,000 mcg Tablet 1,000 mcg PO DAILY clopidogrel 75 mg Tablet 75 mg PO DAILY ferrous sulfate 325 mg (65 mg iron) Tablet 325 mg PO DAILY furosemide 20 mg Tablet 20 mg PO DAILY megestrol 20 mg Tablet 20 mg PO QID melatonin 5 mg Capsule 5 mg PO BEDTIME sennosides-docusate sodium 8.6-50 mg Tablet 1 tab PO BID PRN (Reason: Constipation) Held Eliquis 2.5 mg tablet 2.5 mg PO BID Qty: 60 0RF Hold Instructions: Resume on 01/23/23. will follow with pcp with repeat cbc at that point in time decision regarding starting or not can be taken. Discharge Orders: Discharge Order (Routine); Ordered 01/04/23 Ordered By: Alessio Garcia Other Ambulatory Orders: Complete Blood Count w/Auto (Routine) Timeframe: 1 Week Location: Determined by Patient Ordered By: Alessio Garcia Referrals: Portia Larose MD [Primary Care Provider] - 1 week (The [facility] was faxed for appointment information. If yoou haven't heard from them by Sunday please call and speak with them about your follow up. ) Wang Justice MD [Physician] - 01/15/23 3:00 pm Patient Instructions: Anemia, Rick Catheter Care, Acute Kidney Injury (DC), Urinary Leg Bag (GEN), GI Discharge Instructions, Opioid Safety Discharge Attestations Time Spent in Discharge Care*: less than 30 min Status at Discharge: Cognitive status at discharge: cognitively intact , Behavioral status at discharge: cooperative and independent in ADL's , Quality Metrics Clinical Quality Measures [ No reported AMI, CVA or VTE this stay] Coding Level of Care Code Acute Code for Chg Fwd Diagnoses Anemia D64.9 CKD (chronic kidney disease) N18.9 Diabetes mellitus, type II E11.9 Benign prostate hyperplasia N40.0 GERD (gastroesophageal reflux disease) K21.9 Diastolic dysfunction I51.89 Atrial fibrillation I48.91 Lactic acidosis E87.20 Acute kidney injury superimposed on chronic kidney disease N17.9; N18.9 Leukocytosis D72.829
--- NOTE | 2023-01-04 10:02 | PC.NURSE ---
1000 - DC orders for home with homehealth in computer. Notified Dr. Garcia of failed voiding trial and replacement of allan. Dr. Garcia orders follow-up with urology and continue to DC. Notified Neha, secretary to the vice president.
--- NOTE | 2023-01-04 11:36 | PC.NURSE ---
1130 - IVs removed. Paperwork completed for DC. Daughter called to pick-up pt. Educated on catheter care for discharge.
[2023-01-04 12:00] VITALS: BP 116/69; PULSE 89; RESP 16; TEMP 36.9; O2SAT 98
[2023-01-04 13:20] VITALS: BP 116/69; PULSE 89; RESP 16; TEMP 36.9; O2SAT 98
[2023-01-04 14:26] LABS: Glucose Point of Care 158 mg/dL (70-110)
== END 2023-01-04 13:22 | disposition home or self-care (01) ==
LOC: ER 21:02 → MEDSURG 01-01 00:24
PROVIDERS: Family Medicine; Surgery; Admitting Provider Internal Medicine; Emergency Provider Emergency Medicine; PCP Family Medicine; Visit Provider Internal Medicine
PROC: 0DJ08ZZ Inspection of Upper Intestinal Tract, Via Natural or Artificial Opening Endoscopic (ICD-10-PCS; CPT 43235; principal; 2023-01-02 12:00)
PROC: 0DJD8ZZ Inspection of Lower Intestinal Tract, Via Natural or Artificial Opening Endoscopic (ICD-10-PCS; CPT 45378; principal; 2023-01-03 12:00)
DX: K92.1 Melena (principal); D50.9 Iron deficiency anemia, unspecified; K31.9 Disease of stomach and duodenum, unspecified; K29.70 Gastritis, unspecified, without bleeding; K57.30 Diverticulosis of large intestine without perforation or abscess without bleeding; D62 Acute posthemorrhagic anemia; I12.9 Hypertensive chronic kidney disease with stage 1 through stage 4 chronic kidney disease, or unspecified chronic kidney disease; N18.30 Chronic kidney disease, stage 3 unspecified; E11.22 Type 2 diabetes mellitus with diabetic chronic kidney disease; I25.10 Atherosclerotic heart disease of native coronary artery without angina pectoris; E78.5 Hyperlipidemia, unspecified; I48.91 Unspecified atrial fibrillation; N17.9 Acute kidney failure, unspecified; R33.9 Retention of urine, unspecified; E87.20 Acidosis, unspecified; D72.829 Elevated white blood cell count, unspecified; K21.9 Gastro-esophageal reflux disease without esophagitis; N40.0 Benign prostatic hyperplasia without lower urinary tract symptoms; M06.9 Rheumatoid arthritis, unspecified; Z79.01 Long term (current) use of anticoagulants; Z79.84 Long term (current) use of oral hypoglycemic drugs; Z79.899 Other long term (current) drug therapy; Z79.82 Long term (current) use of aspirin; Z79.4 Long term (current) use of insulin; Z79.02 Long term (current) use of antithrombotics/antiplatelets; Z86.16 Personal history of COVID-19; Z87.891 Personal history of nicotine dependence
CPT/HCPCS: 36415; 36416; 36430; 36600; 43239; 45378; 51702; 51798; 70450; 71045; 71250; 74176; 80048; 80053; 81003; 82009; 82274; 82550; 82728; 82746; 82803; 82962; 83036; 83540; 83550; 83605; 83735; 83880; 84100; 84145; 84443; 84484; 85014; 85018; 85025; 85610; 85651; 85730; 86140; 86850; 86900; 86920; 87040; 87426; 88305; 93005; 93308; 93970; 94664; 96361; 96365; 96367; 96372; 96375; 99285; C9113; G0378; J1815; J1940; J2543; J2704; J3010; J3475; J3480; J7030; P9016

== ENCOUNTER → 2023-01-15 09:58 | Outpatient (BNVA) | payer OTHER, SELFPAY | PROVIDERS: PCP Family Medicine; Visit Provider Urology | DX: R33.8 Other retention of urine (principal) | CPT/HCPCS: 99203 ==

== ENCOUNTER → 2023-02-14 14:47 | Outpatient (BNVA) | payer OTHER, SELFPAY | PROVIDERS: PCP Family Medicine; Visit Provider Urology | DX: N40.1 Benign prostatic hyperplasia with lower urinary tract symptoms (principal); N13.8 Other obstructive and reflux uropathy; R33.8 Other retention of urine; R82.71 Bacteriuria | CPT/HCPCS: 52000; 99213 ==

== ENCOUNTER → 2023-02-22 13:07 | Outpatient (BNVA) | payer OTHER, SELFPAY | PROVIDERS: PCP Family Medicine; Visit Provider Internal Medicine | DX: I25.10 Atherosclerotic heart disease of native coronary artery without angina pectoris (principal); I48.91 Unspecified atrial fibrillation; Z79.01 Long term (current) use of anticoagulants; Z87.891 Personal history of nicotine dependence; I12.9 Hypertensive chronic kidney disease with stage 1 through stage 4 chronic kidney disease, or unspecified chronic kidney disease; E11.22 Type 2 diabetes mellitus with diabetic chronic kidney disease; N18.9 Chronic kidney disease, unspecified; Z79.84 Long term (current) use of oral hypoglycemic drugs | CPT/HCPCS: 99214 ==

== ENCOUNTER → 2023-03-07 11:12 | Outpatient (BNVA) | payer OTHER, SELFPAY | PROVIDERS: PCP Family Medicine; Visit Provider Urology | DX: N40.1 Benign prostatic hyperplasia with lower urinary tract symptoms (principal); N13.8 Other obstructive and reflux uropathy; R82.71 Bacteriuria; Z79.2 Long term (current) use of antibiotics; Z90.49 Acquired absence of other specified parts of digestive tract | CPT/HCPCS: 51741; 51798; 81003; 99213 ==

== ENCOUNTER 2023-06-01 11:16 | Observation (INO) | payer OTHER, SELFPAY ==
[2023-06-01] VITALS (8 sets, daily range): BP systolic 122–152; BP diastolic 57–74; PULSE 71–110; RESP 13–22; TEMP 36.3–36.6; O2SAT 98–100; BMI 19.5
--- NOTE | 2023-06-01 11:28 | ED_ITS ---
HPI - Abdominal Pain General: Chief Complaint: Nausea/Vomiting/Diarrhea Stated Complaint: general weakness/dehydration Time Seen by Provider: 06/01/23 11:18 History of Present Illness: 82-year-old male presents to the emergency department with diarrhea for 1 week. He states that his daughter, Rossana Lemus, lives with him and also has it. He says that she is admitted to the hospital for it. I actually treated her a couple days ago and she ended up testing positive for Salmonella UTI. It was presumed therefore that she had Salmonella gastroenteritis. Patient has been having diarrhea multiple times per day. He usually relies on help from Rossana but she is in the hospital. Neighbors checked on him and he was weak and they felt he needed to come to the hospital. He normally ambulates with a walker. His diarrhea is at times coming so fast that he stools on himself. He denies any abdominal pain, vomiting, fever. Associated Symptoms: Denies chills, dysuria, fever(s), nausea, syncope and vomiting Review of Systems General: Reports: 10 or more systems reviewed and unremarkable except in HPI and below Const: Denies: fever(s), chills or body aches Eyes: Denies: change in vision Card: Denies: chest pain, edema or syncope Resp: Denies: dyspnea or productive cough GI: Denies: abdominal pain, nausea or vomiting : Denies: flank pain, dysuria or urinary frequency Musc: Denies: neck pain, back pain, extremity pain or extremity swelling Skin/Breast: Denies: rash or erythema Neuro: Denies: headache(s), numbness in extremities or lack of coordination PFSH ED PFSH: Medical History Anemia Atherosclerosis of coronary artery of [place] heart without angina pectoris B12 deficiency Benign essential hypertension with target blood pressure below 140/90 Benign prostate hyperplasia Beta-bertrand intolerance 3.6-second pause on 02/19/2021 BPH loc w urin obs/LUTS Chronic blepharitis CKD (chronic kidney disease) COVID 08/2022 Depression Diabetes mellitus, type II microalbuminuria Diastolic dysfunction Diverticulosis GERD (gastroesophageal reflux disease) History of echocardiogram 02/2022 EF 55-60% History of Holter monitoring 02/2021 sinus rhythm with one 3.6 second pause noted. One episode of sinus bradycardia to 37 bpm. Taken off of beta blockade. Hyperlipidemia Polyp of colon Second degree AV block, Mobitz type I Squamous cell carcinoma of skin Surgical History H/O left wrist surgery History of cardiac catheterization 07/2020 90-95% LAD lesion, 20-30% circ lesion, 50% ostial RCS, declined CABG and underwent PCI to LAD Hx of cataract surgery Status post laparoscopic cholecystectomy (12/27/19) Status post open reduction and internal fixation (ORIF) of fracture (08/27/22) left intertrochanteric hip fracture, gamma nail, Dr Grey Family History Mother , AT AGE 83 Pneumonia Father , AT AGE 30 Kidney disease Denies family history of CAD (coronary artery disease) Anesthesia complication Bleeding disorder Social History Smoking and tobacco status: former smoker Alcohol intake: never Marital status: / Current occupational status: retired Physical Exam Narrative: EXAM NARRATIVE: This is an elderly appearing male who is deconditioned. He has the staining of some diarrhea on his socks. He has bilateral lower extremity edema which is pitting. He has generalized weakness without any focality. He is alert and oriented. He has hyperactive bowel sounds but his abdomen is soft, nontender, nondistended. He has an even and unlabored respirations. He is clear to auscultation bilaterally. His heart rate is elevated and sounds irregular intermittently. His skin turgor is decreased but there is no rashes or wounds. He does have senile skin changes. Overall he has appearance of fatigue and weakness but not toxicity. Const: COMMON NORMALS: no limitations and alert EXAM LIMITATIONS: no altered mental status HENMT: COMMON NORMALS: normocephalic, atraumatic and external ears normal HEAD & SCALP: normocephalic and atraumatic EXTERNAL EAR: Yes external ears normal MOUTH: no muffled voice Eye: COMMON NORMALS: conjunctivae normal and no scleral icterus CONJ UNCTIVA: Yes conjunctivae normal Neck/C-Spine: GENERAL: Yes normal visual inspection and Yes trachea midline Resp: COMMON NORMALS: normal respiratory effort, No use of accessory muscles and clear to auscultation bilaterally AUSCULTATION: clear to auscultation bilaterally GI: COMMON NORMALS: Soft to palpation and non-tender PALPATION: Yes Soft to palpation and No Guarding due to palpation present (GI) Extremity: COMMON NORMALS: normal to inspection Neuro: COMMON NORMALS: moves all extremities, no focal motor deficits and no sensory deficits noted SENSORIUM/ORIENTATION: Yes alert SPEECH: speech normal Psych: COMMON NORMALS: mental status grossly normal, Normal thought process present, cooperative, normal affect and speech normal SPEECH: Yes normal speech THOUGHT PROCESS: Normal thought process present Skin: COMMON NORMALS: no rashes or lesions noted and no jaundice GENERAL SKIN EXAM: no rashes or lesions noted Course Vital Signs: Vital signs: Vital Signs Temperature 97.8 F 06/01/23 11:25 Pulse Rate 110 H 06/01/23 11:41 Respiratory Rate 17 06/01/23 11:41 Blood Pressure 145/74 06/01/23 11:41 Pulse Oximetry 100 06/01/23 11:41 Oxygen Delivery Me thod Room Air 06/01/23 11:41 MDM - Abdominal Pain Medical Decision Making 82-year-old male with diarrhea multiple times a day for 1 week. He is currently living alone as his daughter is hospitalized with the same illness. She had diarrhea and ultimately ended up with a UTI that cultured positive for Salmonella. It is assumed that he therefore also has Salmonella gastroenteritis. His abdomen is soft and nontender but he has hyperactive bowel sounds. I am going to check his electrolytes, hydrate him, and determine whether he needs to be admitted. I Mary Jo start him on ciprofloxacin 500 mg p.o. twice daily for Salmonella gastroenteritis since it has been 1 week and he is decompensating. EKG afib, rate 83, atc wnl, axis wnl, qrs narrow Update 1220 White blood cell count 10.7, patient is actually hemoconcentrated compared to his baseline, serum osmolality calculated slightly elevated, BUN and creatinine slightly elevated, mild CAROL. Lactic bumped. Low magnesium--will replace Discussed with hospitalist, Dr Brown for obs admission. He recommended rocephin over ciprofloxacin. Pt admitted for treatment to observations status. Lab Data 06/01/23 11:35 06/01/23 11:35 Labs/Radiology: Laboratory Results WBC 10.69 10^3/uL (3.29-11.43) 06/01/23 11:35 RBC 3.78 10^6/uL (3.85-5.65) L 06/01/23 11:35 Hgb 10.30 g/dL (11.27-16.99) L 06/01/23 11:35 Hct 33.8 % (37-53) L 06/01/23 11:35 MCV 89.4 fl (82-101) 06/01/23 11:35 MCH 27.2 pg (27-33) 06/01/23 11:35 MCHC 30.5 g/dL (30-55) 06/01/23 11:35 RDW 16.2 % (12.1-15.1) H 06/01/23 11:35 Plt Count 361 10^3/cmm (157-399) 06/01/23 11:35 MPV 9.2 fL (7.4-10.4) 06/01/23 11:35 Neut % (Auto) 86.1 % 06/01/23 11:35 Lymph % (Auto) 5.2 % 06/01/23 11:35 [place] % (Auto) 7.0 % 06/01/23 11:35 Eos % (Auto) 0.8 % 06/01/23 11:35 Baso % (Auto) 0.3 % 06/01/23 11:35 Neut # (Auto) 9.20 10^3/uL (1.8-7.7) H 06/01/23 11:35 Lymph # (Auto) 0.6 10^3/uL (0.8-4.8) L 06/01/23 11:35 [place] # (Auto) 0.8 10^3/uL (0.2-0.9) 06/01/23 11:35 Eos # (Auto) 0.1 10^3/uL (0.0-0.8) 06/01/23 11:35 Baso # (Auto) 0.0 10^3/uL (0.0-0.1) 06/01/23 11:35 Nucleated RBC % (auto) 0 % 06/01/23 11:35 Nucleated RBCs # 0.0 /100WBC 06/01/23 11:35 Sodium 139 mmol/L (136-145) 06/01/23 11:35 Potassium 3.7 mmol/L (3.5-5.1) 06/01/23 11:35 Chloride 106 mmol/L (98-107) 06/01/23 11:35 Carbon Dioxide 21 mmol/L (22-29) L 06/01/23 11:35 Anion Gap 15.7 (5-19) 06/01/23 11:35 BUN 25 mg/dL (8-23) H 06/01/23 11:35 Creatinine 1.5 mg/dL (0.7-1.2) H 06/01/23 11:35 GFR Calculation Not Reportable 06/01/23 11:35 Glucose 180 mg/dL (65-115) H 06/01/23 11:35 Calculated Osmolality 297 mOsm/kg (285-295) H 06/01/23 11:35 Lactic Acid 2.8 mmol/L (0.5-2.2) H 06/01/23 11:35 Calcium 9.2 mg/dL (8.5-10.5) 06/01/23 11:35 Magnesium 1.2 mg/dL (1.7-2.3) L 06/01/23 11:35 Total Bilirubin 0.4 mg/dL (0.15-1.2) 06/01/23 11:35 AST 10 U/L (0-40) 06/01/23 11:35 ALT 6 U/L (0-41) 06/01/23 11:35 Alkaline Phosphatase 46 U/L (40-130) 06/01/23 11:35 Total Protein 7.0 g/dL (6.6-8.7) 06/01/23 11:35 Albumin 3.4 g/dL (3.5-5.2) L 06/01/23 11:35 Globulin 3.6 g/dL (1.3-4.6) 06/01/23 11:35 No radiology studies performed this visit Discharge Plan Discharge Patient Disposition: Placed in Observation Clinical Impression: Gastroenteritis, Salmonella, Dehydration, Hypomagnesemia, CAROL (acute kidney injury), Generalized muscle weakness Coding Level of Care Code ED Data Analytics Developer for Marla Stanley
--- NOTE | 2023-06-01 11:37 | ECG_ITS ---
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 Measurements Intervals [place] Rate: 83 P: 0 WI: 0 QRS: 13 QRSD: 76 T: 55 QT: 301 QTc: 355 Interpretive Statements ATRIAL FIBRILLATION NONSPECIFIC T-WAVE ABNORMALITY ABNORMAL RHYTHM ECG Compared to ECG 01/01/2023 02:52:59 No significant changes Electronically Signed On 06-01-2023 19:07:06 CDT by Fer Mayers M.D. [id number]
[2023-06-01] MEDS: diphenoxylate/atropine Tablet 1 TAB PO (11:38)
[2023-06-01] MEDS: ciprofloxacin 500 mg Tablet PO (11:39)
[2023-06-01 11:43] LABS: Basophils % 0.3 %; Eosinophils # 0.1 10^3/uL (0.0-0.8); Eosinophils % 0.8 %; Hematocrit 33.8 % (37-53); Lymphocytes # 0.6 10^3/uL (0.8-4.8); Lymphocytes % 5.2 %; Mean Corpuscular HGB Conc 30.5 g/dL (30-55); Mean Corpuscular Hemoglobin 27.2 pg (27-33); Mean Corpuscular Volume 89.4 fl (82-101); Mean Platelet Volume 9.2 fL (7.4-10.4); Monocytes # 0.8 10^3/uL (0.2-0.9); Neutrophils % 86.1 %; Nucleated Red Blood Cells % 0 %; Platelet Count 361 10^3/cmm (157-399); Red Blood Count 3.78 10^6/uL (3.85-5.65); Red Cell Distribution Width 16.2 % (12.1-15.1); White Blood Count 10.69 10^3/uL (3.29-11.43)
[2023-06-01 12:16] LABS: Alanine Aminotransferase 6 U/L (0-41); Albumin Level 3.4 g/dL (3.5-5.2); Alkaline Phosphatase 46 U/L (40-130); Anion Gap 15.7 (5-19); Aspartate Amino Transferase 10 U/L (0-40); Blood Urea Nitrogen 25 mg/dL (8-23); Calcium 9.2 mg/dL (8.5-10.5); Carbon Dioxide 21 mmol/L (22-29); Chloride 106 mmol/L (98-107); Globulin 3.6 g/dL (1.3-4.6); Glucose 180 mg/dL (65-115); Lactic Sepsis W/Reflex 2.8 mmol/L (0.5-2.2); Magnesium 1.2 mg/dL (1.7-2.3); Osmolality Calculated 297 mOsm/kg (285-295); Potassium 3.7 mmol/L (3.5-5.1); Sodium 139 mmol/L (136-145); Total Bilirubin 0.4 mg/dL (0.15-1.2)
--- NOTE | 2023-06-01 12:31 | PC.PHAR ---
Addendum entered by Danitza Kemp 06/01/23 13:33: medications entered are from the med list vineet from [facility] faxed over-previous med list had eliquis 2.5mg bid-it was not on med list from [facility] ext shows last filled 11/16/22 14d/s-previous entered med list had methenamine 1g bid not on med list from [facility] ext shows last filled 02/14/23 14d/s-[facility] Original Note: [facility] [phone] sets up the pts meds pt also [facility] the [facility]-waiting for faxes
--- NOTE | 2023-06-01 12:56 | PM.HP ---
Providers/Chief Complaint Admitting Physician: Ankit Brown MD Primary Care Provider: Portia Larose MD Chief Complaint: general weakness/dehydration History of Present Illness Siva Malik is a 82 year old male with a past medical history of anemia, CKD, CAD, BPH, depression, type 2 diabetes mellitus, diastolic dysfunction, atrial fibrillation who started on Eliquis. But was recently admitted in December 2022 acute blood loss anemia requiring 3 unit of blood transfusion presumably secondary slow GI bleed. Presents to the ER today because of increased generalized weakness for last 1 week. As per patient he has been having diarrhea with 3-4 soft to watery bowel movements with mild abdominal discomfort for last 7 days. Patient's daughter is also being admitted to the hospital has been treated for Salmonella enteritis. Patient was not able to take care of himself hence the neighbor/caregiver brought the patient to the ER. In the ER patient has been given 2 L of IV fluid bolus and IV ceftriaxone. Review of Systems General: Reports: 10 or more systems reviewed and unremarkable except in HPI and below Const: Denies: fever(s), chills, body aches, change in appetite, change in weight, malaise, night sweats, diaphoresis, change in sleep pattern, daytime sleepiness or snoring Eyes: Denies: change in vision, blurry vision, photophobia, eye discomfort or eye discharge ENMT: Denies: throat pain, enlarged tonsils, hoarseness, mouth pain, oral sores, dry mouth, tinnitus, nasal congestion or post nasal drip Card: Denies: chest pain, palpitations, irregular heart rhythm, edema, swelling of feet/ankles, lightheadedness, syncope, pre-syncope, dyspnea on exertion, orthopnea, leg pain with exertion or acrocyanosis Resp: Denies: dyspnea, productive cough, non-productive cough, wheezing, stridor, pain on inspiration, change in phlegm color, hemoptysis or chest congestion GI: Denies: abdominal pain, nausea, vomiting, hematemesis, coffee ground emesis, dysphagia, heartburn, diarrhea, constipation, bloating, GI cramping, change in bowel habits, pain on defecation, hematochezia or melena : Denies: flank pain, difficulty urinating, dysuria, urinary frequency, urinary urgency, urinary hesitancy, urinary dribbling, difficulty starting urination, change in urine stream, nocturia or hematuria Musc: Denies: neck pain, back pain, extremity pain, joint pain, joint swelling, joint redness, joint stiffness or limited range of motion Neuro: Denies: headache(s), numbness in extremities, weakness in extremities, sensory changes, lack of coordination, difficulty walking, frequent falls, dizziness, vertigo, confusion, Slurred speech present, difficulty communicating thoughts or seizure-like activity Psych: Denies: anxiety, depression, mood swings, panic attacks, hopelessness or irritability Endo: Denies: polyuria, polydipsia, tired all the time, cold intolerance, excessive sweating, flushing or heat intolerance Eduin/Lymph: Denies: easy bruising or easy bleeding All/Imm: Denies: tongue swelling, facial swelling or acute wheezing Medications/Allergies Home Medications Medication Instructions Recorded Confirmed Last Taken Type cinnamon bark 500 mg capsule 2,000 mg PO DAILY 12/27/19 06/01/23 12/31/22 09:00 History (Cinnamon) tamsulosin 0.4 mg capsule (Flomax) 0.4 mg PO QPM 12/27/19 06/01/23 12/31/22 18:00 History acetaminophen 500 mg tablet 1,000 mg PO Q6H PRN Pain 11/13/22 06/01/23 12/30/22 22:00 History cholecalciferol (vitamin D3) 25 25 mcg PO DAILY 11/13/22 06/01/23 12/31/22 09:00 History mcg (1,000 unit) tablet metformin 1,000 mg tablet 500 mg PO BID 11/13/22 06/01/23 12/31/22 18:00 History omeprazole 40 mg capsule,delayed 40 mg PO QAM 11/13/22 06/01/23 12/31/22 09:00 History release potassium chloride 20 mEq 20 meq PO DAILY 11/13/22 06/01/23 12/31/22 09:00 History tablet,extended release(part/cryst) (Klor-Con M) trazodone 100 mg tablet 150 mg PO BEDTIME 11/13/22 06/01/23 12/31/22 22:00 History zinc oxide 20 % topical ointment 1 applic topical TID PRN skin 11/13/22 06/01/23 Unknown History protection atorvastatin 80 mg tablet 80 mg PO DAILY 01/01/23 06/01/23 12/31/22 09:00 History clopidogrel 75 mg tablet 75 mg PO DAILY 01/01/23 06/01/23 12/31/22 09:00 History cyanocobalamin (vitamin B-12) 1,000 mcg PO DAILY 01/01/23 06/01/23 12/31/22 09:00 History 1,000 mcg tablet diltiazem HCl 180 mg capsule,24 180 mg PO DAILY 01/01/23 06/01/23 12/31/22 09:00 History hr,extended release ferrous sulfate 325 mg (65 mg 325 mg PO DAILY 01/01/23 06/01/23 12/31/22 09:00 History iron) tablet furosemide 20 mg tablet 20 mg PO DAILY FLUID RETENTION 01/01/23 06/01/23 12/31/22 09:00 History megestrol 20 mg tablet 20 mg PO QID CACHEXIA 01/01/23 06/01/23 12/31/22 18:30 History melatonin 5 mg capsule 5 mg PO BEDTIME 01/01/23 06/01/23 12/30/22 22:00 History sennosides 8.6 mg-docusate sodium 1 tab PO BID PRN Constipation 01/01/23 06/01/23 12/24/22 History 50 mg tablet clotrimazole 1 % topical cream 1 applic topical BID PRN unknown 01/15/23 06/01/23 Unknown History (Athlete's Foot (clotrimazole)) Allergies Allergy/AdvReac Type Severity Reaction Status Date / Time No Known Allergies Allergy Verified 06/01/23 11:29 PFSH Acute PFSH: Medical History (Updated 06/01/23 @ 15:42 by Ankit Brown MD) Anemia Atherosclerosis of coronary artery of [place] heart without angina pectoris B12 deficiency Benign essential hypertension with target blood pressure below 140/90 Benign prostate hyperplasia Beta-bertrand intolerance 3.6-second pause on 02/19/2021 BPH loc w urin obs/LUTS Chronic blepharitis CKD (chronic kidney disease) COVID 08/2022 Depression Diabetes mellitus, type II microalbuminuria Diastolic dysfunction Diverticulosis GERD (gastroesophageal reflux disease) History of echocardiogram 02/2022 EF 55-60% History of Holter monitoring 02/2021 sinus rhythm with one 3.6 second pause noted. One episode of sinus bradycardia to 37 bpm. Taken off of beta blockade. Hyperlipidemia Polyp of colon Second degree AV block, Mobitz type I Squamous cell carcinoma of skin Surgical History H/O left wrist surgery History of cardiac catheterization 07/2020 90-95% LAD lesion, 20-30% circ lesion, 50% ostial RCS, declined CABG and underwent PCI to LAD Hx of cataract surgery Status post laparoscopic cholecystectomy (12/27/19) Status post open reduction and internal fixation (ORIF) of fracture (08/27/22) left intertrochanteric hip fracture, gamma nail, Dr Grey Family History Mother , AT AGE 83 Pneumonia Father , AT AGE 30 Kidney disease Denies family history of CAD (coronary artery disease) Anesthesia complication Bleeding disorder Social History Smoking and tobacco status: former smoker Alcohol intake: never Marital status: / Current occupational status: retired Vitals/I&O/Wt Last Vital Signs Temp 97.8 F 06/01/23 11:25 Pulse 110 H 06/01/23 11:41 Resp 17 06/01/23 11:41 BP 145/74 06/01/23 11:41 Pulse Ox 100 06/01/23 11:41 O2 Del Method Room Air 06/01/23 11:41 Weight last 48 hrs Weight 63.503 kg Physical Exam Narrative: General: No acute distress, AO x3, dehydrated, chronically sick appearing HEENT: PERRLA, pupils bilaterally equal and reactive Chest: Bilateral bronchial breath sounds all over lung parker with occasional rhonchi CVS: S1-S2 irregularly irregular, no murmurs, no tachycardia, no gallops, no rubs Abdomen: Soft, nontender, no organomegaly, bowel sounds present Neuro: No focal deficits, no facial deformity, AO x3, power 5/5 in all limbs Data 06/01/23 11:35 06/01/23 11:35 A&P Assessment and plan (1) Gastroenteritis, Salmonella: (2) Dehydration: (3) CAROL (acute kidney injury): (4) Atrial fibrillation: (5) UTI (urinary tract infection): (6) Hypomagnesemia: (7) Lactic acidosis: (8) Diastolic dysfunction: (9) Diabetes mellitus, type II: (10) Atherosclerosis of coronary artery of [place] heart without angina pectoris: (11) Benign essential hypertension with target blood pressure below 140/90: (12) Physical deconditioning: Plan 82-year-old gentleman chronically sick gentleman with past medical history of CAD, physical deconditioning, failure to thrive, hypertension presents to the ER with multiple episodes of diarrhea with daughter possibly being treated for Salmonella gastroenteritis. Generalized weakness/physical deconditioning/dehydration: Most likely in setting of multiple episodes of diarrhea for over 7 days. Diarrhea: High likelihood of secondary to Salmonella. Patient's caregiver/daughter is currently admitted and is being treated for Salmonella enteritis. Check stool studies. Hold off on Lomotil or Imodium. For now start on IV ceftriaxone 1 g daily. Check MRSA swab, urine culture, procalcitonin. IV fluids with normal saline at 75 cc/h. Patient has history of diastolic dysfunction so will monitor for fluid overload. Atrial fibrillation: Currently rate controlled. Continue with home dose of Cardizem. Patient was on Eliquis 2.5 mg twice daily which was recently withheld in December for possibility of GI bleed anemia. Will confirm with daughter before restarting medication. Last echocardiogram from December 2022 showed EF of 60% with possibility of vascular dysfunction. Acute kidney injury: Most likely in setting of dehydration. Continue to monitor. Hypomagnesemia: Repleted 2 g in ER. Monitor daily. Continue other chronic medications including Plavix, iron, megestrol. CODE STATUS: Discussed in detail with the patient. He does not want any kind of chest compressions or mechanical ventilations. DNR/DNI. Cardiac diet Eliquis for now will suffice as DVT prophylaxis Protonix for PUD prophylaxis. Attestations Medical Necessity Statement*: Admission for more than 2 midnights for management of diarrhea most likely Salmonella enteritis, generalized weakness, physical deconditioning in setting of dehydration and acute kidney injury Diagnoses Gastroenteritis, Salmonella A02.0 Dehydration E86.0 CAROL (acute kidney injury) N17.9 Atrial fibrillation I48.91 UTI (urinary tract infection) N39.0 Hypomagnesemia E83.42 Lactic acidosis E87.20 Diastolic dysfunction I51.89 Diabetes mellitus, type II E11.9 Atherosclerosis of coronary artery of [place] heart without angina pectoris I25.10 Benign essential hypertension with target blood pressure below 140/90 I10 Physical deconditioning R53.81
[2023-06-01] MEDS: magnesium sulfate premix 2 GM/50 ML PIGGYBACK IV (13:17)
[2023-06-01] MEDS: sodium chloride 0.9% 1,000 ML 999 ML IV ×2 (13:20→13:38)
[2023-06-01 13:26] LABS: Reflex Lactate Order REFLEX LACTIC ORDERD
[2023-06-01 14:25] LABS: Urine Color Yellow (Yellow)
[2023-06-01 14:26] LABS: Add Urine Culture? Yes; Add Urine Microscopic? YES; Bacteria Urine 4+ /hpf; Bilirubin Urine Neg (Negative); Blood Urine 2+ (Negative); Glucose Urine UA Norm (Normal); Ketones Urine Negative (Negative); Leukocyte Esterase Urine 2+ (Negative); Nitrate Urine Positive (Negative); Protein Urine Neg (Negative); RBC Urine 0-4 /hpf (0-2); Specific Gravity, Urine 1.015 (1.005-1.030); Squamous Epithelial Cell Urine 0-4 /hpf (0-5); Urine Appearance Cloudy (CLEAR); Urobilinogen Urine Norm (Negative); WBC Urine TOO NUMEROUS TO CNT /hpf (0-5); pH Urine 5 (5-7)
[2023-06-01 14:53] LABS: Lactic Acid level (Lactate) 2.9 mmol/L (0.5-2.2)
[2023-06-01 15:39] LABS: Iron 28 ug/dL (59-158); Total Iron Binding Capacity 174 mcg/dl; Unsaturated Iron Binding 146 ug/dL (112-347)
[2023-06-01 15:54] LABS: Procalcitonin 0.12 ng/mL (0-0.5); Vitamin B12 1519 pg/mL (232-1245)
[2023-06-01] MEDS: sodium chloride 0.9% 1,000 ML 75 ML IV (15:55)
[2023-06-01] MEDS: cefTRIAXone 1,000 MG in sodium chloride 0.9% (plus) 50 ML 100 MG IV (15:56)
[2023-06-01] MEDS: dilTIAZem ER (24HR) 180 mg Capsule PO (15:56)
[2023-06-01] MEDS: acetaminophen 325 mg Tablet 650 MG PO ×2 (15:56→21:26)
[2023-06-01] MEDS: tamsulosin 0.4 mg Capsule PO (16:38)
[2023-06-01] MEDS: apixaban 5 mg Tablet 2.5 MG PO (16:38)
[2023-06-01] MEDS: trazodone 100 mg Tablet 150 MG PO (20:43)
[2023-06-01] MEDS: morphine 4 mg/mL SDV 1 mL 2 MG IVP (23:34)
[2023-06-02] VITALS (9 sets, daily range): BP systolic 120–162; BP diastolic 57–76; PULSE 71–101; RESP 14–19; TEMP 36.3–36.8; O2SAT 94–97
--- NOTE | 2023-06-02 00:55 | PC.NURSE ---
pt complaining of right heel pain, pain medication has been administered as ordered. Both feet have been inspected and bilateral pulses are palpable. Pt can wiggle toes and has normal feeling present in both feet along with the present pain. Cap refill is noted to be < 3seconds. The pts feet were wrapped in a warm blanket and floated off of the bed with a pillow by this nurse. Pt stated that already feels some better.
[2023-06-02] MEDS: sodium chloride 0.9% 1,000 ML 75 ML IV ×2 (05:09→20:46)
[2023-06-02] MEDS: pantoprazole DR 40 mg Tablet PO (05:09)
[2023-06-02 05:12] LABS: Basophils % 0.3 %; Eosinophils # 0.1 10^3/uL (0.0-0.8); Eosinophils % 0.9 %; Lymphocytes # 0.5 10^3/uL (0.8-4.8); Lymphocytes % 5.5 %; Mean Corpuscular Hemoglobin 27.6 pg (27-33); Mean Platelet Volume 9.6 fL (7.4-10.4); Monocytes # 0.8 10^3/uL (0.2-0.9); Monocytes % 8.5 %; Neutrophils # 8.12 10^3/uL (1.8-7.7); Neutrophils % 84.3 %; Nucleated Red Blood Cells % 0 %; Platelet Count 321 10^3/cmm (157-399); Red Blood Count 3.26 10^6/uL (3.85-5.65); Red Cell Distribution Width 16.3 % (12.1-15.1); White Blood Count 9.64 10^3/uL (3.29-11.43)
[2023-06-02 05:36] LABS: Alanine Aminotransferase < 5 U/L (0-41); Albumin Level 2.8 g/dL (3.5-5.2); Alkaline Phosphatase 40 U/L (40-130); Anion Gap 12.8 (5-19); Aspartate Amino Transferase 8 U/L (0-40); Blood Urea Nitrogen 19 mg/dL (8-23); Calcium 7.9 mg/dL (8.5-10.5); Carbon Dioxide 20 mmol/L (22-29); Chloride 105 mmol/L (98-107); Glucose 124 mg/dL (65-115); Osmolality Calculated 284 mOsm/kg (285-295); Phosphorus 2.2 mg/dL (2.5-4.5); Sodium 135 mmol/L (136-145); Total Bilirubin 0.4 mg/dL (0.15-1.2); Total Protein 5.8 g/dL (6.6-8.7)
[2023-06-02 05:39] LABS: Potassium 2.8 mmol/L (3.5-5.1)
[2023-06-02 05:45] LABS: Magnesium 1.4 mg/dL (1.7-2.3)
[2023-06-02 05:52] LABS: Folate Level 5.7 ng/mL (4.5-32.2)
[2023-06-02] MEDS: potassium chloride ER 20 mEq Tablet 40 MEQ PO (05:56)
[2023-06-02] MEDS: acetaminophen 325 mg Tablet 650 MG PO (07:17)
[2023-06-02] MEDS: ferrous sulfate EC 325 mg Tablet PO (08:28)
[2023-06-02] MEDS: atorvastatin 40 mg Tablet 80 MG PO (08:28)
[2023-06-02] MEDS: clopidogrel 75 mg Tablet PO (08:28)
[2023-06-02] MEDS: apixaban 5 mg Tablet 2.5 MG PO ×2 (08:28→17:52)
[2023-06-02] MEDS: potassium chloride ER 20 mEq Tablet PO (08:28)
[2023-06-02] MEDS: dilTIAZem ER (24HR) 180 mg Capsule PO (08:28)
[2023-06-02] MEDS: magnesium sulfate premix 2 GM/50 ML PIGGYBACK IV (10:54)
[2023-06-02] MEDS: potassium phosphate (mEq K) 40 MEQ in sodium chloride 0.9% (100 ml) 100 ML 27.27 MEQ IV (13:00)
[2023-06-02] MEDS: HYDROcodone-acetaminophen 5-325 mg Tablet 1 TAB PO ×2 (14:47→21:37)
--- NOTE | 2023-06-02 15:43 | PM.PN ---
Subjective Subjective: No acute vents overnight. Patient has remained hemodynamically stable and afebrile. Morning seen having his lunch. States he is feeling a lot better but still weak. Denies any further diarrhea. States at baseline he usually walks around the house with a walker. As per daughter who is the primary caregiver patient does not walk much and only walks to the bathroom with a walker. Blood was appreciated for a stable CBC, CMP showing potassium down to 2.8, creatinine improving to 1.3 Vitals/I&O/Wt Last Vital Signs Temp 97.5 F L 06/02/23 12:06 Pulse 79 06/02/23 12:06 Resp 16 06/02/23 12:06 BP 126/57 06/02/23 12:06 Pulse Ox 96 06/02/23 12:06 O2 Del Method Room Air 06/02/23 12:06 06/02/23 06/02/23 06/02/23 06:59 14:59 22:59 Intake Total 992.5 / 2632.2 360 / 360 Output Total 100 / 100 400 / 400 Balance 892.5 / 2532.2 -40 / -40 Weight last 48 hrs Weight 63.503 kg Physical Exam Narrative: General: No acute distress, AO x3, dehydrated, chronically sick appearing HEENT: PERRLA, pupils bilaterally equal and reactive Chest: Bilateral bronchial breath sounds all over lung parker with occasional rhonchi CVS: S1-S2 irregularly irregular, no murmurs, no tachycardia, no gallops, no rubs Abdomen: Soft, nontender, no organomegaly, bowel sounds present Neuro: No focal deficits, no facial deformity, AO x3, power 5/5 in all limbs Data 06/02/23 04:20 06/02/23 04:20 Micro: Microbiology 06/01/23 14:32 Blood Culture - Preliminary Blood NEGATIVE TO DATE 06/01/23 14:28 Blood Culture - Preliminary Blood NEGATIVE TO DATE 06/01/23 13:03 Urine Culture - Preliminary Urine,Clean Catch Gram Negative Rods 06/01/23 09:55 Stool Lactoferrin - Final Stool Occult Blood (FIT) - Final A&P Assessment and plan (1) Gastroenteritis, Salmonella: (2) Dehydration: (3) CAROL (acute kidney injury): (4) Atrial fibrillation: (5) UTI (urinary tract infection): (6) Hypomagnesemia: (7) Lactic acidosis: (8) Diastolic dysfunction: (9) Diabetes mellitus, type II: (10) Atherosclerosis of coronary artery of [place] heart without angina pectoris: (11) Benign essential hypertension with target blood pressure below 140/90: (12) Physical deconditioning: (13) Hypokalemia: (14) Hypophosphatemia: Plan 82-year-old gentleman chronically sick gentleman with past medical history of CAD, physical deconditioning, failure to thrive, hypertension presents to the ER with multiple episodes of diarrhea with daughter possibly being treated for Salmonella gastroenteritis. Generalized weakness/physical deconditioning/dehydration: Most likely in setting of multiple episodes of diarrhea for over 7 days. Diarrhea: High likelihood of secondary to Salmonella. Patient's caregiver/daughter is currently admitted and is being treated for Salmonella enteritis. Pending stool studies. Hold off on Lomotil or Imodium. Continue with empiric IV ceftriaxone 1 g daily. Urine culture growing gram-negative rods, procalcitonin normal. MRSA swab pending. Continue with IV fluids with normal saline at 75 cc/h. Patient has history of diastolic dysfunction so will monitor for fluid overload. Atrial fibrillation: Currently rate controlled. Continue with home dose of Cardizem. Patient was on Eliquis 2.5 mg twice daily which was recently withheld in December for possibility of GI bleed anemia. Confirm with patient and the family. Continues to take Eliquis. Continue for now and monitor hemoglobin. Last echocardiogram from December 2022 showed EF of 60% with possibility of vascular dysfunction. Acute kidney injury: Baseline creatinine seems to be 1.2-1.3. Creatinine back to baseline. Most likely in setting of dehydration. Continue to monitor. Hypomagnesemia: Replete 2 g of IV magnesium. Hypokalemia: Continue with oral 20 mg of oral potassium daily. Replete 40 mg of potassium phosphate. We will also take care of hypophosphatemia. Repeat BMP and phosphate levels in the evening. Continue other chronic medications including Plavix, iron, megestrol. CODE STATUS: Discussed in detail with the patient. He does not want any kind of chest compressions or mechanical ventilations. DNR/DNI. Cardiac diet Eliquis for now will suffice as DVT prophylaxis Protonix for PUD prophylaxis. PT evaluation. Attestations Medical Necessity Statement*: Requires further hospitalization for management of dehydration due to CAROL, multiple electrolyte abnormality including hypokalemia secondary to dehydration with high possibility of Salmonella enteritis given recent sick contact Diagnoses Gastroenteritis, Salmonella A02.0 Dehydration E86.0 CAROL (acute kidney injury) N17.9 Atrial fibrillation I48.91 UTI (urinary tract infection) N39.0 Hypomagnesemia E83.42 Lactic acidosis E87.20 Diastolic dysfunction I51.89 Diabetes mellitus, type II E11.9 Atherosclerosis of coronary artery of [place] heart without angina pectoris I25.10 Benign essential hypertension with target blood pressure below 140/90 I10 Physical deconditioning R53.81 Hypokalemia E87.6 Hypophosphatemia E83.39
--- NOTE | 2023-06-02 16:14 | PC.PT ---
Attempted PT eval but pt declined stating he continues to have abdominal pain and significant diarrhea. Nurse stated hecontinues to have significant pain with turning in bed, nurse requested hold PT today and attempt Eval tomorrow.
[2023-06-02] MEDS: tamsulosin 0.4 mg Capsule PO (17:52)
[2023-06-02] MEDS: cefTRIAXone 1,000 MG in sodium chloride 0.9% (plus) 50 ML 100 MG IV (17:53)
[2023-06-02 18:39] LABS: Magnesium 2.2 mg/dL (1.7-2.3); Phosphorus 3.7 mg/dL (2.5-4.5); Potassium 4.9 mmol/L (3.5-5.1)
[2023-06-02] MEDS: magnesium oxide 400 mg tablet PO (18:39)
[2023-06-02] MEDS: trazodone 100 mg Tablet 150 MG PO (20:44)
[2023-06-03] VITALS (8 sets, daily range): BP systolic 133–192; BP diastolic 64–82; PULSE 81–118; RESP 16–23; TEMP 36.3–37.6; O2SAT 92–98
--- NOTE | 2023-06-03 03:50 | ECG_ITS ---
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 Measurements Intervals [place] Rate: 127 P: 0 FL: 0 QRS: -9 QRSD: 72 T: 70 QT: 336 QTc: 489 Interpretive Statements ATRIAL FIBRILLATION WITH RAPID VENTRICULAR RESPONSE WITH ABERRANT CONDUCTION OR VENTRICULAR PREMATURE COMPLEXES SEPTAL MYOCARDIAL INFARCTION , PROBABLY OLD [40+ ms Q WAVE IN V1/V2] Compared to ECG 06/01/2023 11:37:48 Ventricular premature complex(es) now present Aberrant conduction of supraventricular beat(s) now present Myocardial infarct finding now present T-wave abnormality no longer present Electronically Signed On 06-03-2023 14:51:50 CDT by Karel Torres M.D. [id number]
[2023-06-03] MEDS: dilTIAZem ER (24HR) 180 mg Capsule PO (04:21)
[2023-06-03] MEDS: HYDROcodone-acetaminophen 5-325 mg Tablet 1 TAB PO (05:01)
[2023-06-03] MEDS: pantoprazole DR 40 mg Tablet PO (05:02)
--- NOTE | 2023-06-03 08:35 | ECG_ITS ---
[facility] Test Date: 2023-06-03 Pat Name: Siva Malik Department: Room: 256 Gender: Male Pl[employer] Composites Inspector: : 1940 Requested By: Ankit Brown Order Number: [id number] Desi MD: Karel Torres M.D. Measurements Intervals [place] Rate: 111 P: 0 DC: 0 QRS: 0 QRSD: 73 T: 74 QT: 283 QTc: 385 Interpretive Statements ATRIAL FIBRILLATION WITH RAPID VENTRICULAR RESPONSE MINIMAL ST DEPRESSION [0.025+ mV ST DEPRESSION] Compared to ECG 06/03/2023 03:57:00 ST (T wave) deviation now present Ventricular premature complex(es) no longer present Aberrant conduction of supraventricular beat(s) no longer present Myocardial infarct finding no longer present Electronically Signed On 06-03-2023 14:51:43 CDT by Karel Torres M.D. [id number]
[2023-06-03] MEDS: potassium chloride ER 20 mEq Tablet PO (08:38)
[2023-06-03] MEDS: magnesium oxide 400 mg tablet PO ×2 (08:38→17:42)
[2023-06-03] MEDS: ferrous sulfate EC 325 mg Tablet PO (08:38)
[2023-06-03] MEDS: apixaban 5 mg Tablet 2.5 MG PO ×2 (08:38→17:42)
[2023-06-03] MEDS: atorvastatin 40 mg Tablet 80 MG PO (08:39)
[2023-06-03] MEDS: clopidogrel 75 mg Tablet PO (08:39)
[2023-06-03] MEDS: FUROsemide 10 mg/mL SDV 4mL 40 MG IVP (09:06)
[2023-06-03 09:51] LABS: Basophils % 0.2 %; Eosinophils # 0.1 10^3/uL (0.0-0.8); Eosinophils % 0.7 %; Lymphocytes # 0.5 10^3/uL (0.8-4.8); Lymphocytes % 3.9 %; Mean Corpuscular HGB Conc 30.9 g/dL (30-55); Mean Corpuscular Hemoglobin 27.4 pg (27-33); Mean Corpuscular Volume 88.7 fl (82-101); Mean Platelet Volume 9.2 fL (7.4-10.4); Monocytes # 0.9 10^3/uL (0.2-0.9); Monocytes % 6.5 %; Neutrophils % 87.6 %; Nucleated Red Blood Cells % 0 %; Platelet Count 361 10^3/cmm (157-399); Red Blood Count 3.72 10^6/uL (3.85-5.65); Red Cell Distribution Width 16.5 % (12.1-15.1); White Blood Count 13.59 10^3/uL (3.29-11.43)
[2023-06-03 10:15] LABS: Alanine Aminotransferase < 5 U/L (0-41); Alkaline Phosphatase 45 U/L (40-130); Anion Gap 13.9 (5-19); Aspartate Amino Transferase 9 U/L (0-40); Blood Urea Nitrogen 15 mg/dL (8-23); Calcium 8.4 mg/dL (8.5-10.5); Carbon Dioxide 19 mmol/L (22-29); Chloride 107 mmol/L (98-107); Globulin 3.3 g/dL (1.3-4.6); Glucose 175 mg/dL (65-115); Magnesium 1.8 mg/dL (1.7-2.3); Osmolality Calculated 287 mOsm/kg (285-295); Phosphorus 2.6 mg/dL (2.5-4.5); Potassium 3.9 mmol/L (3.5-5.1); Sodium 136 mmol/L (136-145); Total Bilirubin 0.4 mg/dL (0.15-1.2); Total Protein 6.3 g/dL (6.6-8.7)
--- NOTE | 2023-06-03 14:06 | P.PN_ITS ---
Subjective Subjective: Today early in the morning patient went into A-fib with RVR with heart rate going up to 140s, systolic blood pressure elevated to 190 with mild difficulty in breathing requiring 2 L of oxygen supplementation. Fluid was stopped and patient was given IV Lasix 40 mg after which his A-fib settled and oxygenation also improved. When seen in the morning patient states he is feeling a lot better than he was earlier in the morning though still looks mildly tachypneic. Patient denies any chest pain, nausea, vomiting. States diarrhea has more and so resolved. Blood work today appreciated for mild leukocytosis up to 13.5, stable hemoglobin up to 10.2, CMP showing resolution of CAROL, resolution of hyponatremia, hypokalemia, persistent mild metabolic acidosis. Vitals/I&O/Wt Last Vital Signs Temp 97.7 F 06/03/23 12:00 Pulse 91 06/03/23 12:00 Resp 18 06/03/23 12:00 BP 152/81 06/03/23 12:00 Pulse Ox 98 06/03/23 12:00 O2 Del Method Nasal Cannula 06/03/23 12:00 O2 Flow Rate 2 06/03/23 09:14 06/02/23 06/03/23 06/03/23 22:59 06:59 14:59 Intake Total 1448.5106 / 1808.5106 542.5 / 2351.0106 240 / 240 Output Total 350 / 750 200 / 950 300 / 300 Balance 1098.5106 / 1058.5106 342.5 / 1401.0106 -60 / -60 Physical Exam Narrative: General: No acute distress, AO x3, dehydrated, chronically sick appearing HEENT: PERRLA, pupils bilaterally equal and reactive Chest: Bilateral bronchial breath sounds all over lung park[place] with occasional rhonchi CVS: S1-S2 irregularly irregular, no murmurs, no tachycardia, no gallops, no rubs Abdomen: Soft, nontender, no organomegaly, bowel sounds present Neuro: No focal deficits, no facial deformity, AO x3, power 5/5 in all limbs Data 06/03/23 09:40 06/03/23 09:40 Micro: Microbiology 06/01/23 13:03 Urine Culture - Final Urine,Clean Catch Escherichia coli 06/01/23 14:32 Blood Culture - Preliminary Blood NEGATIVE TO DATE 06/01/23 14:28 Blood Culture - Preliminary Blood NEGATIVE TO DATE 06/01/23 09:55 Stool Lactoferrin - Final Stool Occult Blood (FIT) - Final A&P Assessment and plan (1) Gastroenteritis, Salmonella: (2) Dehydration: (3) CAROL (acute kidney injury): (4) Atrial fibrillation: (5) UTI (urinary tract infection): (6) Hypomagnesemia: (7) Lactic acidosis: (8) Diastolic dysfunction: (9) Diabetes mellitus, type II: (10) Atherosclerosis of coronary artery of [place] heart without angina pectoris: (11) Benign essential hypertension with target blood pressure below 140/90: (12) Physical deconditioning: (13) Hypokalemia: (14) Hypophosphatemia: Plan 82-year-old gentleman chronically sick gentleman with past medical history of CAD, physical deconditioning, failure to thrive, hypertension presents to the ER with multiple episodes of diarrhea with daughter possibly being treated for Salmonella gastroenteritis. Generalized weakness/physical deconditioning/dehydration: Most likely in setting of multiple episodes of diarrhea for over 7 days. Diarrhea: High likelihood of secondary to Salmonella. Patient's ca regiver/daughter is currently admitted and is being treated for Salmonella enteritis. Pending stool studies. Hold off on Lomotil or Imodium. Continue with empiric IV ceftriaxone 1 g daily. Urine culture growing E. coli, sensitive to ceftriaxone. Patient euvolemic to mildly hypervolemic today. Hold off on any further IV fluids. Atrial fibrillation: Rapid ventricular response today most likely in setting of hypervolemia. Back to rate controlled after receiving IV Lasix and diuresing. Continue with home dose of Cardizem. Patient was on Eliquis 2.5 mg twice daily which was recently withheld in December for possibility of GI bleed anemia. Confirm with patient and the family. Continues to take Eliquis. Continue for now and monitor hemoglobin. Last echocardiogram from December 2022 showed EF of 60% with possibility of vascular dysfunction. Diastolic congestive heart failure: Most likely in setting of overhydration as patient required IV fluid on admission for CAROL and electrolyte abnormalities. IV fluids withheld. IV Lasix 40 mg one-time. Will dose Lasix as per fluid status on a daily basis. Patient at home takes 20 mg of oral Lasix. Acute kidney injury: Baseline creatinine seems to be 1.2-1.3. Creatinine down to 1.2. Which is actually better than the baseline. Received Lasix. Monitor BMP daily for now. Continue to monitor. Hypomagnesemia: Resolved. Hypokalemia: Hypokalemia and hypophosphatemia has resolved. Patient receiving Lasix so we will give 40 mg of oral potassium additionally. Continue other chronic medications including Plavix, iron, megestrol. CODE STATUS: Discussed in detail with the patient. He does not want any kind of chest compressions or mechanical ventilations. DNR/DNI. Cardiac diet Eliquis for now will suffice as DVT prophylaxis Protonix for PUD prophylaxis. PT evaluation. Discharge plan: Discussed in detail with patient's daughter. She would want patient to come back home. Patient already has home health. Plan to discharge home with home health once patient is medically stable within next 48 hours Attestations Medical Necessity Statement*: Requires further hospitalization for management of dehydration and electrode abnormality in setting of acute diarrhea, A-fib with RVR in setting of overhydration now requiring IV Lasix and further fluid status optimization Diagnoses Gastroenteritis, Salmonella A02.0 Dehydration E86.0 CAROL (acute kidney injury) N17.9 Atrial fibrillation I48.91 UTI (urinary tract infection) N39.0 Hypomagnesemia E83.42 Lactic acidosis E87.20 Diastolic dysfunction I51.89 Diabetes mellitus, type II E11.9 Atherosclerosis of coronary artery of [place] heart without angina pectoris I25.10 Benign essential hypertension with target blood pressure below 140/90 I10 Physical deconditioning R53.81 Hypokalemia E87.6 Hypophosphatemia E83.39
[2023-06-03] MEDS: tamsulosin 0.4 mg Capsule PO (17:42)
[2023-06-03] MEDS: cefTRIAXone 1,000 MG in sodium chloride 0.9% (plus) 50 ML 100 MG IV (17:42)
[2023-06-03] MEDS: trazodone 100 mg Tablet 150 MG PO (21:56)
[2023-06-04] VITALS (9 sets, daily range): BP systolic 119–144; BP diastolic 65–69; PULSE 72–100; RESP 16–20; TEMP 36.7–37.2; O2SAT 93–94
[2023-06-04] MEDS: HYDROcodone-acetaminophen 5-325 mg Tablet 1 TAB PO ×2 (06:03→17:51)
[2023-06-04] MEDS: pantoprazole DR 40 mg Tablet PO (06:04)
[2023-06-04 06:25] LABS: Magnesium 1.8 mg/dL (1.7-2.3)
[2023-06-04] MEDS: potassium chloride ER 20 mEq Tablet PO (08:41)
[2023-06-04] MEDS: ferrous sulfate EC 325 mg Tablet PO (08:41)
[2023-06-04] MEDS: magnesium oxide 400 mg tablet PO ×2 (08:41→17:50)
[2023-06-04] MEDS: clopidogrel 75 mg Tablet PO (08:42)
[2023-06-04] MEDS: atorvastatin 40 mg Tablet 80 MG PO (08:42)
[2023-06-04] MEDS: apixaban 5 mg Tablet 2.5 MG PO ×2 (08:42→17:50)
[2023-06-04] MEDS: dilTIAZem ER (24HR) 180 mg Capsule PO (08:42)
--- NOTE | 2023-06-04 10:29 | PM.PN ---
Subjective Subjective: Patient reports he feels very weak. He states he has not gotten out of bed since hospitalization. I was informed by RN that patient has refused therapy. I discussed with him in front of nurse Armando Mendoza that patient must attempt therapy when they arrive. Patient feels too weak to be discharged home yet and describes 2 bouts of diarrhea already today. I only see 1 documented thus far. Vitals/I&O/Wt Last Vital Signs Temp 98.1 F 06/04/23 07:36 Pulse 90 06/04/23 07:36 Resp 16 06/04/23 07:36 BP 119/67 06/04/23 07:36 Pulse Ox 93 06/04/23 07:36 O2 Del Method Room Air 06/04/23 07:36 O2 Flow Rate 2 06/03/23 09:14 06/03/23 06/04/23 06/04/23 22:59 06:59 14:59 Intake Total 530 / 1250 240 / 240 Output Total 750 / 1250 125 / 1375 Balance -220 / 0 -125 / -125 240 / 240 Weight last 48 hrs Weight 70.352 kg Physical Exam Narrative: Frail elderly gentleman seen lying in bed. He appears weak and distraught but in no acute distress. Neurologic: Patient is alert and oriented to person place time and situation patient is nonfocal. Heart: Regular S1-S2 without murmurs clicks gallops or rubs Lungs: Clear to auscultation without wheezes rales or rhonchi Abdomen: Soft mild diffuse tenderness normal active bowel sounds Extremities no clubbing cyanosis or edema Data 06/03/23 09:40 06/03/23 09:40 Other Labs: No labs today except for magnesium of 1.8 Micro: Microbiology 06/01/23 13:03 Urine Culture - Final Urine,Clean Catch Escherichia coli A&P Assessment and plan (1) Gastroenteritis, Salmonella: Diarrhea: High likelihood of secondary to Salmonella. Patient's caregiver/daughter is currently admitted and is being treated for Salmonella enteritis. Pending stool studies. Hold off on Lomotil or Imodium. Continue with empiric IV ceftriaxone 1 g daily. (2) Dehydration: (3) CAROL (acute kidney injury): (4) Atrial fibrillation: (5) UTI (urinary tract infection): Urine culture growing E. coli, sensitive to ceftriaxone. Patient euvolemic to mildly hypervolemic today. Hold off on any further IV fluids. (6) Hypomagnesemia: Replaced and normal at 1.8 today (7) Lactic acidosis: Resolving (8) Diastolic dysfunction: (9) Diabetes mellitus, type II: (10) Atherosclerosis of coronary artery of [place] heart without angina pectoris: (11) Benign essential hypertension with target blood pressure below 140/90: (12) Physical deconditioning: Generalized weakness/physical deconditioning/dehydration: Most likely in setting of multiple episodes of diarrhea for over 7 days. (13) Hypokalemia: Hypokalemia: Hypokalemia and hypophosphatemia has resolved. Patient receiving Lasix so we will give 40 mg of oral potassium additionally. (14) Hypophosphatemia: See above Plan 82-year-old gentleman chronically sick gentleman with past medical history of CAD, physical deconditioning, failure to thrive, hypertension presents to the ER with multiple episodes of diarrhea with daughter being treated for Salmonella gastroenteritis over the weekend 06/01. Dx not listed above: Atrial fibrillation: Rapid ventricular response today most likely in setting of hypervolemia. Back to rate controlled after receiving IV Lasix and diuresing. Continue with home dose of Cardizem. Patient was on Eliquis 2.5 mg twice daily which was recently withheld in December for possibility of GI bleed anemia. Confirm with patient and the family. Continues to take Eliquis. Continue for now and monitor hemoglobin. Last echocardiogram from December 2022 showed EF of 60% with possibility of vascular dysfunction. Diastolic congestive heart failure: Most likely in setting of overhydration as patient required IV fluid on admission for CAROL and electrolyte abnormalities. IV fluids withheld. IV Lasix 40 mg one-time. Will dose Lasix as per fluid status on a daily basis. Patient at home takes 20 mg of oral Lasix. Acute kidney injury: Baseline creatinine seems to be 1.2-1.3. Currently at baseline Received Lasix dose at 1 point. Monitor BMP daily for now. Continue other chronic medications including Plavix, iron, megestrol. CODE STATUS: DNR/DNI. Cardiac diet DVT prophylaxis: On chronic Eliquis PUD prophylaxis: None needed but patient already on omeprazole 40 mg every morning at home Therapies to evaluate. Patient has home health care already. Patient has refused out of bed with therapy and as above I explained to patient that he has to try today. Discharge plan: Per previous physician the daughter would want patient to come back home. Patient already has home health. Plan to discharge home with home health once patient is medically stable within next 48 hours Attestations Medical Necessity Statement*: Requires further hospitalization for management of dehydration and electrode abnormality in setting of acute diarrhea, A-fib with RVR in setting of overhydration now requiring IV Lasix and further fluid status optimization Coding Level of Care Code Acute Code for Chg Fwd Diagnoses Gastroenteritis, Salmonella A02.0 Dehydration E86.0 CAROL (acute kidney injury) N17.9 Atrial fibrillation I48.91 UTI (urinary tract infection) N39.0 Hypomagnesemia E83.42 Lactic acidosis E87.20 Diastolic dysfunction I51.89 Diabetes mellitus, type II E11.9 Atherosclerosis of coronary artery of [place] heart without angina pectoris I25.10 Benign essential hypertension with target blood pressure below 140/90 I10 Physical deconditioning R53.81 Hypokalemia E87.6 Hypophosphatemia E83.39
[2023-06-04] MEDS: ciprofloxacin 400 MG/200 ML PREMIX 200 MG IV ×2 (11:23→21:54)
--- NOTE | 2023-06-04 11:48 | PC.SOCIAL ---
IMM Update pg 2 of IMM updated and reviewed w/ patient copy provided. Copy in chart dated, and initialed.
[2023-06-04] MEDS: tamsulosin 0.4 mg Capsule PO (17:50)
[2023-06-04] MEDS: morphine 4 mg/mL SDV 1 mL 2 MG IVP (19:35)
[2023-06-04] MEDS: trazodone 100 mg Tablet 150 MG PO (21:54)
[2023-06-05] VITALS (10 sets, daily range): BP systolic 136–162; BP diastolic 65–76; PULSE 64–100; RESP 16–18; TEMP 36.4–36.8; O2SAT 94–96
[2023-06-05] MEDS: pantoprazole DR 40 mg Tablet PO (05:45)
[2023-06-05 05:47] LABS: Basophils % 0.2 %; Eosinophils # 0.1 10^3/uL (0.0-0.8); Eosinophils % 1.4 %; Hematocrit 27.9 % (37-53); Lymphocytes # 0.7 10^3/uL (0.8-4.8); Mean Corpuscular HGB Conc 31.2 g/dL (30-55); Mean Corpuscular Hemoglobin 26.9 pg (27-33); Mean Corpuscular Volume 86.1 fl (82-101); Mean Platelet Volume 9.8 fL (7.4-10.4); Monocytes # 0.7 10^3/uL (0.2-0.9); Monocytes % 7.7 %; Neutrophils # 7.67 10^3/uL (1.8-7.7); Neutrophils % 82.6 %; Nucleated Red Blood Cells % 0 %; Platelet Count 345 10^3/cmm (157-399); Red Blood Count 3.24 10^6/uL (3.85-5.65); Red Cell Distribution Width 16.6 % (12.1-15.1); White Blood Count 9.28 10^3/uL (3.29-11.43)
[2023-06-05 06:06] LABS: Anion Gap 15.1 (5-19); Blood Urea Nitrogen 22 mg/dL (8-23); Calcium 8.6 mg/dL (8.5-10.5); Carbon Dioxide 21 mmol/L (22-29); Chloride 107 mmol/L (98-107); Glucose 136 mg/dL (65-115); Osmolality Calculated 293 mOsm/kg (285-295); Potassium 4.1 mmol/L (3.5-5.1); Sodium 139 mmol/L (136-145)
[2023-06-05] MEDS: dilTIAZem ER (24HR) 180 mg Capsule PO (08:16)
[2023-06-05] MEDS: potassium chloride ER 20 mEq Tablet PO (08:16)
[2023-06-05] MEDS: magnesium oxide 400 mg tablet PO ×2 (08:16→17:26)
[2023-06-05] MEDS: ferrous sulfate EC 325 mg Tablet PO (08:16)
[2023-06-05] MEDS: clopidogrel 75 mg Tablet PO (08:16)
[2023-06-05] MEDS: apixaban 5 mg Tablet 2.5 MG PO ×2 (08:17→17:25)
[2023-06-05] MEDS: atorvastatin 40 mg Tablet 80 MG PO (08:18)
[2023-06-05] MEDS: ciprofloxacin 400 MG/200 ML PREMIX 200 MG IV (10:12)
--- NOTE | 2023-06-05 16:30 | PM.PN ---
Subjective Subjective: 06/04/2023: had not gotten out of bed since hospitalization. PT worked with patient. 06/05/2023: Patient was seen out of bed to chair after working with physical therapy. Patient had no new complaints today states no abdominal pain or abdominal symptoms. Ports he has had further bouts of diarrhea Vitals/I&O/Wt Last Vital Signs Temp 98.0 F 06/05/23 12:00 Pulse 94 06/05/23 14:00 Resp 17 06/05/23 12:00 BP 138/67 06/05/23 12:00 Pulse Ox 96 06/05/23 12:00 O2 Del Method Room Air 06/05/23 12:00 O2 Flow Rate 2 06/03/23 09:14 06/05/23 06/05/23 06/05/23 06:59 14:59 22:59 Intake Total 200 / 1480 680 / 680 Balance 200 / 1180 680 / 680 Weight last 48 hrs Weight 71.532 kg Weight 70.352 kg Physical Exam Narrative: Frail elderly gentleman seen lying back in a cardiac chair. He has improved color in his face and appears less weak. Neurologic: Patient is alert and oriented to person place time and situation patient is nonfocal. Heart: Regular S1-S2 without murmurs clicks gallops or rubs Lungs: Clear to auscultation without wheezes rales or rhonchi Abdomen: Soft, no tenderness normal active bowel sounds Extremities no clubbing cyanosis or edema Data 06/05/23 04:36 06/05/23 04:36 A&P Assessment and plan (1) Gastroenteritis, Salmonella: Diarrhea: High likelihood of secondary to Salmonella. Patient's caregiver/daughter was also treated for Salmonella enteritis and discharged on 06/03/2023. C. difficile is negative. Do not see any other stool study results. Pending stool studies. Hold off on Lomotil or Imodium. Patient changed to IV Cipro after review of up-to-date (2) Dehydration: Resolved (3) CAROL (acute kidney injury): Resolved (4) Atrial fibrillation: Takes Eliquis and Cardizem (5) UTI (urinary tract infection): Urine culture growing E. coli, sensitive to ceftriaxone and Cipro. Currently on Cipro. (6) Hypomagnesemia: Status post replacement and now normal. (7) Lactic acidosis: Resolving (8) Diastolic dysfunction: Most likely in setting of overhydration as patient required IV fluid on admission for CAROL and electrolyte abnormalities. Currently compensated. (9) Diabetes mellitus, type II: (10) Atherosclerosis of coronary artery of [place] heart without angina pectoris: (11) Benign essential hypertension with target blood pressure below 140/90: (12) Physical deconditioning: Generalized weakness/physical deconditioning/dehydration: Most likely in setting of multiple episodes of diarrhea for over 7 days. Will require SNF level of care upon discharge (13) Hypokalemia: Hypokalemia: Hypokalemia and hypophosphatemia has resolved. (14) Hypophosphatemia: See above Plan 82-year-old gentleman chronically sick gentleman with past medical history of CAD, physical deconditioning, failure to thrive, hypertension presents to the ER with multiple episodes of diarrhea with daughter being treated for Salmonella gastroenteritis over the weekend 06/01. Continue other chronic medications including Plavix, iron, megestrol. CODE STATUS: DNR/DNI. Cardiac diet DVT prophylaxis: On chronic Eliquis PUD prophylaxis: None needed but patient already on omeprazole 40 mg every morning at home Discharge plan: Did discuss with daughter the patient's deconditioning. She is agreeable to SNF placement. Will discuss with patient Attestations Medical Necessity Statement*: Requires further hospitalization for management of dehydration and electrode abnormality in setting of acute diarrhea, A-fib with RVR in setting of overhydration now requiring IV Lasix and further fluid status optimization Coding Level of Care Code Acute Code for Chg Fwd Diagnoses Gastroenteritis, Salmonella A02.0 Dehydration E86.0 CAROL (acute kidney injury) N17.9 Atrial fibrillation I48.91 UTI (urinary tract infection) N39.0 Hypomagnesemia E83.42 Lactic acidosis E87.20 Diastolic dysfunction I51.89 Diabetes mellitus, type II E11.9 Atherosclerosis of coronary artery of [place] heart without angina pectoris I25.10 Benign essential hypertension with target blood pressure below 140/90 I10 Physical deconditioning R53.81 Hypokalemia E87.6 Hypophosphatemia E83.39
[2023-06-05] MEDS: tamsulosin 0.4 mg Capsule PO (17:25)
[2023-06-05] MEDS: HYDROcodone-acetaminophen 5-325 mg Tablet 1 TAB PO (17:26)
[2023-06-05] MEDS: morphine 4 mg/mL SDV 1 mL 2 MG IVP (20:12)
[2023-06-05] MEDS: trazodone 100 mg Tablet 150 MG PO (20:23)
[2023-06-05] MEDS: ciprofloxacin 500 mg Tablet PO (20:23)
[2023-06-06] VITALS (12 sets, daily range): BP systolic 130–146; BP diastolic 60–74; PULSE 60–95; RESP 16–19; TEMP 36.5–36.9; O2SAT 94–98
[2023-06-06] MEDS: HYDROcodone-acetaminophen 5-325 mg Tablet 1 TAB PO ×2 (00:06→09:30)
[2023-06-06] MEDS: morphine 4 mg/mL SDV 1 mL 2 MG IVP (01:49)
[2023-06-06 05:47] LABS: Basophils % 0.3 %; Eosinophils # 0.2 10^3/uL (0.0-0.8); Eosinophils % 1.9 %; Hematocrit 26.2 % (37-53); Lymphocytes # 0.6 10^3/uL (0.8-4.8); Lymphocytes % 6.9 %; Mean Corpuscular HGB Conc 31.3 g/dL (30-55); Mean Corpuscular Hemoglobin 27.1 pg (27-33); Mean Corpuscular Volume 86.5 fl (82-101); Mean Platelet Volume 9.1 fL (7.4-10.4); Monocytes # 0.7 10^3/uL (0.2-0.9); Monocytes % 7.6 %; Neutrophils % 82.2 %; Nucleated Red Blood Cells % 0 %; Platelet Count 323 10^3/cmm (157-399); Red Blood Count 3.03 10^6/uL (3.85-5.65); Red Cell Distribution Width 16.6 % (12.1-15.1); White Blood Count 9.12 10^3/uL (3.29-11.43)
[2023-06-06 06:04] LABS: Anion Gap 14.1 (5-19); Blood Urea Nitrogen 20 mg/dL (8-23); Calcium 8.6 mg/dL (8.5-10.5); Carbon Dioxide 22 mmol/L (22-29); Chloride 107 mmol/L (98-107); Glucose 129 mg/dL (65-115); Osmolality Calculated 292 mOsm/kg (285-295); Potassium 4.1 mmol/L (3.5-5.1); Sodium 139 mmol/L (136-145)
[2023-06-06] MEDS: pantoprazole DR 40 mg Tablet PO (06:06)
[2023-06-06] MEDS: dilTIAZem ER (24HR) 180 mg Capsule PO (08:38)
[2023-06-06] MEDS: magnesium oxide 400 mg tablet PO ×2 (08:38→17:58)
[2023-06-06] MEDS: potassium chloride ER 20 mEq Tablet PO (08:38)
[2023-06-06] MEDS: atorvastatin 40 mg Tablet 80 MG PO (08:39)
[2023-06-06] MEDS: ferrous sulfate EC 325 mg Tablet PO (08:39)
[2023-06-06] MEDS: apixaban 5 mg Tablet 2.5 MG PO ×2 (08:40→17:58)
[2023-06-06] MEDS: clopidogrel 75 mg Tablet PO (08:40)
[2023-06-06] MEDS: ciprofloxacin 500 mg Tablet PO ×2 (10:10→20:14)
--- NOTE | 2023-06-06 10:45 | PM.PN ---
Subjective Subjective: Siva Malik is a 82 year old male with a past medical history of anemia, CKD, CAD, BPH, depression, type 2 diabetes mellitus, diastolic dysfunction, atrial fibrillation who started on Eliquis.? But was recently admitted in December 2022 acute blood loss anemia requiring 3 unit of blood transfusion presumably secondary slow GI bleed.? Presents to the ER today because of increased generalized weakness for last 1 week.? As per patient he has been having diarrhea with 3-4 soft to watery bowel movements with mild abdominal discomfort for last 7 days.? Patient's daughter is also being admitted to the hospital has been treated for Salmonella enteritis.? Patient was not able to take care of himself hence the neighbor/caregiver brought the patient to the ER. 06/01/2023: placed on rocephin for empiric salmonella and UTI 06/02/2023: Multiple BMs. Potassium low at 2.8 which was supplemented. Also magnesium and phosphorus were low and supplemented. Creatinine improving. 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 Difficulty breathing requiring 2 L of oxygen. Fluid was stopped and patient was given IV Lasix. He quickly improved. And his was improving 06/04/2023: had not gotten out of bed since hospitalization. PT worked with patient. Review of up-to-date literature recommends fluoroquinolone for Salmonella this would also cover his E. coli urinary tract infection. 06/05/2023: Patient was seen out of bed to chair after working with physical therapy. In IDT rounds today I was informed that the patient stays in his recliner all day and sleeps there. He takes a few steps to urinate or have a bowel movement. When I asked the patient why such limited movement and movement he says he aches all over. I also asked if he was satisfied while he was living. He reports replied no . When asked what would make him happy or he replied that I would like to move around more . We discussed pain management decreasing the swelling in his legs and going to [facility] facility. He was agreeable. Vitals/I&O/Wt Last Vital Signs Temp 97.7 F 06/06/23 10:35 Pulse 88 06/06/23 10:35 Resp 16 06/06/23 10:35 BP 134/68 06/06/23 10:35 Pulse Ox 95 06/06/23 10:35 O2 Del Method Room Air 06/06/23 10:35 O2 Flow Rate 2 06/03/23 09:14 06/05/23 06/06/23 06/06/23 22:59 06:59 14:59 Intake Total 540 / 1220 120 / 1340 240 / 240 Balance 540 / 1220 120 / 1340 240 / 240 Weight last 48 hrs Weight 70.817 kg Weight 68.691 kg Physical Exam Narrative: Frail elderly gentleman seen in bed today. His color remains improved. Neurologic: Patient is alert and oriented to person place time and situation patient is nonfocal. Heart: Irregular. S1-S2 without murmurs clicks gallops or rubs Lungs: Clear to auscultation without wheezes rales or rhonchi Abdomen: Soft, no tenderness normal active bowel sounds Extremities pedal edema present today. Socks removed and significant indentation found at sock [place]. Data 06/06/23 05:37 06/06/23 05:37 A&P Assessment and plan (1) Gastroenteritis, Salmonella: Diarrhea: High likelihood of secondary to Salmonella. Patient's caregiver/daughter was also treated for Salmonella enteritis and discharged on 06/03/2023. C. difficile is negative. Other stool studies are not reported yet. Hold off on Lomotil or Imodium. Continue oral Cipro 3-4 more days. (2) Generalized pain: Further discussion with the patient today reveals that patient suffers from generalized pain. He is currently complaining of his feet hurting. Side with his life due to this overall pain and weakness. We discussed options for pain management which she is agreeable to. We will start on a medium dose of Celebrex 100 mg twice daily. He will be started on a antidepressant as I foot feels that he is depressed and antidepressants can also help generalized pain. While perhaps Lexapro was not considered the best adjuvent pain management it is the quickest acting. I will also start Lasix 20 mg that he takes at home for the pedal edema. (3) Atrial fibrillation: Takes Eliquis and Cardizem (4) UTI (urinary tract infection): Urine culture growing E. coli, sensitive to ceftriaxone and Cipro. Currently on Cipro. (5) Diastolic dysfunction: Was decompensated in the setting of atrial fib with RVR now currently compensated (6) Physical deconditioning: Generalized weakness/physical deconditioning. Patient complains of this at baseline and obviously worse after current illness. Recommend SNF level of care upon discharge. Plan 82-year-old gentleman chronically sick gentleman with past medical history of CAD, physical deconditioning, failure to thrive, hypertension presents to the ER with multiple episodes of diarrhea with daughter being treated for Salmonella gastroenteritis over the weekend 06/01. Continue other chronic medications including Plavix, iron, megestrol. CODE STATUS: DNR/DNI. Cardiac diet DVT prophylaxis: On chronic Eliquis PUD prophylaxis: None needed but patient already on omeprazole 40 mg every morning at home Discharge plan: Did discuss with daughter the patient's deconditioning. She is agreeable to SNF placement. Will discuss with patient Attestations Medical Necessity Statement*: Requires further hospitalization for management of acute diarrhea, pain control and overall weakness. Waiting on insurance for authorization for SNF. Coding Level of Care Code Acute Code for [facility] Diagnoses Gastroenteritis, Salmonella A02.0 Generalized pain R52 Atrial fibrillation I48.91 UTI (urinary tract infection) N39.0 Diastolic dysfunction I51.89 Physical deconditioning R53.81
[2023-06-06] MEDS: FUROsemide 20 mg Tablet PO (11:20)
[2023-06-06] MEDS: escitalopram 10 mg Tablet PO (11:20)
--- NOTE | 2023-06-06 11:46 | PC.SOCIAL ---
IMM Update pg 2 of IMM updated and reviewed w/ patient. Copy provided and copy in chart dated and initialed.
[2023-06-06] MEDS: tamsulosin 0.4 mg Capsule PO (17:58)
[2023-06-06] MEDS: TRAMadol 50 mg Tablet PO (17:58)
[2023-06-06] MEDS: CELEcoxib 100 mg Capsule PO (17:58)
[2023-06-06] MEDS: trazodone 150 mg Tablet PO (20:14)
[2023-06-07] MEDS: TRAMadol 50 mg Tablet PO (00:49)
[2023-06-07 03:51] VITALS: BP 127/73; PULSE 71; RESP 15; TEMP 36.8; O2SAT 93
[2023-06-07] MEDS: pantoprazole DR 40 mg Tablet PO (05:28)
[2023-06-07 05:36] LABS: Basophils % 0.2 %; Eosinophils # 0.2 10^3/uL (0.0-0.8); Eosinophils % 1.9 %; Hematocrit 26.9 % (37-53); Lymphocytes # 0.7 10^3/uL (0.8-4.8); Lymphocytes % 7.1 %; Mean Corpuscular HGB Conc 30.1 g/dL (30-55); Mean Corpuscular Hemoglobin 26.7 pg (27-33); Mean Corpuscular Volume 88.8 fl (82-101); Mean Platelet Volume 9.2 fL (7.4-10.4); Monocytes # 0.6 10^3/uL (0.2-0.9); Monocytes % 6.8 %; Neutrophils % 82.7 %; Nucleated Red Blood Cells % 0 %; Platelet Count 359 10^3/cmm (157-399); Red Blood Count 3.03 10^6/uL (3.85-5.65); Red Cell Distribution Width 16.7 % (12.1-15.1); White Blood Count 9.43 10^3/uL (3.29-11.43)
[2023-06-07 05:51] VITALS: PULSE 70
[2023-06-07 05:53] LABS: Anion Gap 14.2 (5-19); Blood Urea Nitrogen 23 mg/dL (8-23); Calcium 8.7 mg/dL (8.5-10.5); Carbon Dioxide 21 mmol/L (22-29); Chloride 111 mmol/L (98-107); Glucose 127 mg/dL (65-115); Osmolality Calculated 299 mOsm/kg (285-295); Potassium 4.2 mmol/L (3.5-5.1); Sodium 142 mmol/L (136-145)
[2023-06-07 07:48] VITALS: BP 110/63; PULSE 75; RESP 16; TEMP 36.8; O2SAT 94
[2023-06-07 08:33] VITALS: PULSE 100; O2SAT 92
[2023-06-07] MEDS: ferrous sulfate EC 325 mg Tablet PO (08:47)
[2023-06-07] MEDS: ciprofloxacin 500 mg Tablet PO (08:47)
[2023-06-07] MEDS: escitalopram 10 mg Tablet PO (08:47)
[2023-06-07] MEDS: FUROsemide 20 mg Tablet PO (08:47)
[2023-06-07] MEDS: CELEcoxib 100 mg Capsule PO (08:47)
[2023-06-07] MEDS: potassium chloride ER 20 mEq Tablet PO (08:47)
[2023-06-07] MEDS: magnesium oxide 400 mg tablet PO (08:47)
[2023-06-07] MEDS: clopidogrel 75 mg Tablet PO (08:48)
[2023-06-07] MEDS: atorvastatin 40 mg Tablet 80 MG PO (08:48)
[2023-06-07] MEDS: apixaban 5 mg Tablet 2.5 MG PO (08:48)
[2023-06-07] MEDS: dilTIAZem ER (24HR) 180 mg Capsule PO (08:48)
--- NOTE | 2023-06-07 10:50 | PM.DCS ---
Discharge Providers Date of Admission: 06/01/23 15:53 Date of Discharge: June 07, 2023 Attending Provider at Admission: Ankit Brown MD Attending Provider at Discharge: Milo Lopez DO Consults: None Primary Care Provider: Portia Larose MD Diagnoses at Discharge Discharge Diagnosis (1) Gastroenteritis, Salmonella: Status: Acute (2) Generalized pain: Status: Acute (3) Atrial fibrillation: Status: Chronic (4) UTI (urinary tract infection): Status: Acute (5) Diastolic dysfunction: Status: Chronic (6) Physical deconditioning: Status: Acute Reason for Visit Reason for Visit: general weakness/dehydration Brief History: Siva Malik is a 82 year old male with a past medical history of anemia, CKD, CAD, BPH, depression, type 2 diabetes mellitus, diastolic dysfunction, atrial fibrillation who started on Eliquis.? But was recently admitted in December 2022 acute blood loss anemia requiring 3 unit of blood transfusion presumably secondary slow GI bleed.? Presents to the ER today because of increased generalized weakness for last 1 week.? As per patient he has been having diarrhea with 3-4 soft to watery bowel movements with mild abdominal discomfort for last 7 days.? Patient's daughter is also being admitted to the hospital has been treated for Salmonella enteritis.? Patient was not able to take care of himself hence the neighbor/caregiver brought the patient to the ER. Hospital Course Hospital Course 06/01/2023: placed on rocephin for empiric salmonella and UTI 06/02/2023: Multiple BMs.? Potassium low at 2.8 which was supplemented.? Also magnesium and phosphorus were low and supplemented.? Creatinine improving. 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 Difficulty breathing requiring 2 L of oxygen.? Fluid was stopped and patient was given IV Lasix.? He quickly improved.? And his was improving 06/04/2023: had not gotten out of bed since hospitalization.? PT worked with patient.? Review of up-to-date literature recommends fluoroquinolone for Salmonella this would also cover his E. coli urinary tract infection. 06/05/2023: Patient was seen out of bed to chair after working with physical therapy. 06/06/2023: Patient admitted that he sat in his recliner all day and sleeps there.? He takes a few steps to urinate or have a bowel movement.? When I asked the patient why such limited movement and movement he says he aches all over.? I also asked if he was satisfied while he was living.? He reports replied no .? When asked what would make him happy or he replied that I would like to move around more .? We discussed pain management, decreasing the swelling in his legs and going to [facility].? He was agreeable. He was started on scheduled celebrex at 100 mg bid and lexapro. I believe he is likely depressed and lexapro can show results in 1 week. Alleviating depression can help with pain and immobility. Lasix was resumed for leg edema. On the day of discharge he ACTUALLY SMILED and says he feet do not hurt today. Overall he feels better and the diarrhea has markedly improved. He will complete a course of antibiotics with 7 more doses total. Physical Exam Narrative: Frail elderly gentleman seen in bed today.? His color remains improved. Neurologic: Patient is alert and oriented to person place time and situation patient is nonfocal on exam Heart: Irregular.? S1-S2 a soft 2/6 systolic murmur was heard on todays exam heard best in LLSB Lungs: Clear to auscultation without wheezes rales or rhonchi Abdomen: Soft, no tenderness normal active bowel sounds Extremities pedal edema slighly improved. Discharge Data Studies Completed and Pending Pending at discharge Category Date Time Status COVID [SARS Covid-2 Antigen] Routine Lab 06/07/23 10:49 Ordered OVA and Parasites, Conc and PE Routine Lab 06/02/23 09:55 Received Salmonella / Shigella / Campy Routine Lab 06/02/23 09:55 Results Laboratory Results WBC 9.43 10^3/uL (3.29-11.43) 06/07/23 04:57 RBC 3.03 10^6/uL (3.85-5.65) L 06/07/23 04:57 Hgb 8.10 g/dL (11.27-16.99) L 06/07/23 04:57 Hct 26.9 % (37-53) L 06/07/23 04:57 MCV 88.8 fl (82-101) 06/07/23 04:57 MCH 26.7 pg (27-33) L 06/07/23 04:57 MCHC 30.1 g/dL (30-55) 06/07/23 04:57 RDW 16.7 % (12.1-15.1) H 06/07/23 04:57 Plt Count 359 10^3/cmm (157-399) 06/07/23 04:57 MPV 9.2 fL (7.4-10.4) 06/07/23 04:57 Neut % (Auto) 82.7 % 06/07/23 04:57 Lymph % (Auto) 7.1 % 06/07/23 04:57 [place] % (Auto) 6.8 % 06/07/23 04:57 Eos % (Auto) 1.9 % 06/07/23 04:57 Baso % (Auto) 0.2 % 06/07/23 04:57 Neut # (Auto) 7.80 10^3/uL (1.8-7.7) H 06/07/23 04:57 Lymph # (Auto) 0.7 10^3/uL (0.8-4.8) L 06/07/23 04:57 Anson # (Auto) 0.6 10^3/uL (0.2-0.9) 06/07/23 04:57 Eos # (Auto) 0.2 10^3/uL (0.0-0.8) 06/07/23 04:57 Baso # (Auto) 0.0 10^3/uL (0.0-0.1) 06/07/23 04:57 Nucleated RBC % (auto) 0 % 06/07/23 04:57 Nucleated RBCs # 0.0 /100WBC 06/07/23 04:57 Sodium 142 mmol/L (136-145) 06/07/23 04:57 Potassium 4.2 mmol/L (3.5-5.1) 06/07/23 04:57 Chloride 111 mmol/L (98-107) H 06/07/23 04:57 Carbon Dioxide 21 mmol/L (22-29) L 06/07/23 04:57 Anion Gap 14.2 (5-19) 06/07/23 04:57 BUN 23 mg/dL (8-23) 06/07/23 04:57 Creatinine 1.5 mg/dL (0.7-1.2) H 06/07/23 04:57 GFR Calculation Not Reportable 06/07/23 04:57 Glucose 127 mg/dL (65-115) H 06/07/23 04:57 Calculated Osmolality 299 mOsm/kg (285-295) H 06/07/23 04:57 Lactic Acid 2.8 mmol/L (0.5-2.2) H 06/01/23 11:35 Lactic Acid (Sepsis) 2.9 mmol/L (0.5-2.2) H 06/01/23 14:28 Calcium 8.7 mg/dL (8.5-10.5) 06/07/23 04:57 Phosphorus 2.6 mg/dL (2.5-4.5) 06/03/23 09:40 Magnesium 1.8 mg/dL (1.7-2.3) 06/04/23 05:50 Iron 28 ug/dL (59-158) L 06/01/23 11:35 TIBC 174 mcg/dl 06/01/23 11:35 % Saturation 16.0 % (20-50) L 06/01/23 11:35 Unsat Iron Binding 146 ug/dL (112-347) 06/01/23 11:35 Total Bilirubin 0.4 mg/dL (0.15-1.2) 06/03/23 09:40 AST 9 U/L (0-40) 06/03/23 09:40 ALT < 5 U/L (0-41) 06/03/23 09:40 Alkaline Phosphatase 45 U/L (40-130) 06/03/23 09:40 Total Protein 6.3 g/dL (6.6-8.7) L 06/03/23 09:40 Albumin 3.0 g/dL (3.5-5.2) L 06/03/23 09:40 Globulin 3.3 g/dL (1.3-4.6) 06/03/23 09:40 Vitamin B12 1519 pg/mL (232-1245) H 06/01/23 11:35 Folate 5.7 ng/mL (4.5-32.2) 06/02/23 04:20 Procalcitonin 0.12 ng/mL (0-0.5) 06/01/23 11:35 Urine Color Yellow (Yellow) 06/01/23 13:03 Urine Appearance Cloudy (CLEAR) A 06/01/23 13:03 Urine pH 5 (5-7) 06/01/23 13:03 Ur Specific [place] 1.015 (1.005-1.030) 06/01/23 13:03 Urine Protein Neg (Negative) 06/01/23 13:03 Urine Glucose (UA) Norm (Normal) 06/01/23 13:03 Urine Ketones Negative (Negative) 06/01/23 13:03 Urine Blood 2+ (Negative) H 06/01/23 13:03 Urine Nitrate Positive (Negative) H 06/01/23 13:03 Urine Bilirubin Neg (Negative) 06/01/23 13:03 Urine Urobilinogen Norm mg/dL (Negative) 06/01/23 13:03 Ur Leukocyte Esterase 2+ (Negative) H 06/01/23 13:03 Urine RBC 0-4 /hpf (0-2) H 06/01/23 13:03 Urine WBC Too numerous to cnt /hpf (0-5) H 06/01/23 13:03 Ur Squamous Epith Cells 0-4 /hpf (0-5) H 06/01/23 13:03 Amorphous Sediment Not Reportable 06/01/23 13:03 Urine Bacteria 4+ /hpf (NONE) H 06/01/23 13:03 Stl C. difficile Result See note 06/02/23 09:55 Vitals Last Vital Signs Temp 98.3 F 06/07/23 07:48 Pulse 100 06/07/23 08:33 Resp 16 06/07/23 07:48 BP 110/63 06/07/23 07:48 Pulse Ox 92 06/07/23 08:33 O2 Del Method Room Air 06/07/23 07:48 O2 Flow Rate 2 06/03/23 09:14 Discharge Plan Discharge Patient Disposition: Xfer SNF Condition: Stable Prescriptions: New tramadol 50 mg Tablet 50 mg PO Q6H PRN (Reason: Moderate Pain) Qty: 30 0RF ciprofloxacin HCl 500 mg Tablet 500 mg PO BID@0900,2100 Qty: 7 0RF celecoxib 100 mg Capsule 100 mg PO BID Qty: 60 0RF escitalopram oxalate 10 mg Tablet 10 mg PO DAILY Qty: 30 0RF Eliquis 5 mg Tablet 2.5 mg PO BID Qty: 60 0RF Continued clotrimazole [Athlete's Foot (clotrimazole)] 1 % cream 1 applic topical BID PRN (Reason: unknown) tamsulosin [Flomax] 0.4 mg Capsule 0.4 mg PO QPM cinnamon bark [Cinnamon] 500 mg Capsule 2,000 mg PO DAILY omeprazole 40 mg capsule,delayed release(DR/EC) 40 mg PO QAM acetaminophen 500 mg Tablet 1,000 mg PO Q6H PRN (Reason: Pain) potassium chloride [Klor-Con M20] 20 mEq tablet,ER particles/crystals 20 meq PO DAILY trazodone 100 mg Tablet 150 mg PO BEDTIME metformin 1,000 mg Tablet 500 mg PO BID cholecalciferol (vitamin D3) 25 mcg (1,000 unit) Tablet 25 mcg PO DAILY zinc oxide 20 % Ointment 1 applic TOPICAL TID PRN (Reason: skin protection) atorvastatin 80 mg Tablet 80 mg PO DAILY diltiazem HCl 180 mg Capsule,Extended Release 24 Hr 180 mg PO DAILY cyanocobalamin (vitamin B-12) 1,000 mcg Tablet 1,000 mcg PO DAILY ferrous sulfate 325 mg (65 mg iron) Tablet 325 mg PO DAILY furosemide 20 mg Tablet 20 mg PO DAILY megestrol 20 mg Tablet 20 mg PO QID melatonin 5 mg Capsule 5 mg PO BEDTIME sennosides-docusate sodium 8.6-50 mg Tablet 1 tab PO BID PRN (Reason: Constipation) Discontinued clopidogrel 75 mg Tablet 75 mg PO DAILY Discharge Orders: Discharge Order (Routine); Ordered 06/07/23 Ordered By: Milo Lopez Referrals: [facility] [Outside] Portia Larose MD [Primary Care Provider] - 06/15/23 11:30 am () Discharge Diet: Usual diet Discharge Activity: Increase activity as tolerated Discharge Attestations Time Spent in Discharge Care*: less than 30 min Status at Discharge: Cognitive status at discharge: cognitively intact, Behavioral status at discharge: cooperative and independent in ADL's, Quality Metrics Clinical Quality Measures [ No reported AMI, CVA or VTE this stay] Coding Level of Care Code Acute Code for [facility] Diagnoses Gastroenteritis, Salmonella A02.0 Generalized pain R52 Atrial fibrillation I48.91 UTI (urinary tract infection) N39.0 Diastolic dysfunction I51.89 Physical deconditioning R53.81
[2023-06-07 11:16] LABS: SARS Covid-2 Antigen negative (Negative)
[2023-06-07 11:28] VITALS: BP 107/58; PULSE 76; RESP 15; TEMP 36.7; O2SAT 93
== END 2023-06-07 13:28 | disposition skilled nursing facility (03) ==
LOC: ER 12:25 → MEDSURG 12:54
PROVIDERS: Admitting Provider Student in an Organized Health Care Education/Training Program; Emergency Provider Emergency Medicine; PCP Family Medicine; Visit Provider Internal Medicine
DX: A02.0 Salmonella enteritis (principal); E11.22 Type 2 diabetes mellitus with diabetic chronic kidney disease; I13.0 Hypertensive heart and chronic kidney disease with heart failure and stage 1 through stage 4 chronic kidney disease, or unspecified chronic kidney disease; N18.9 Chronic kidney disease, unspecified; I48.91 Unspecified atrial fibrillation; D63.1 Anemia in chronic kidney disease; I50.30 Unspecified diastolic (congestive) heart failure; N39.0 Urinary tract infection, site not specified; R53.81 Other malaise; I25.10 Atherosclerotic heart disease of native coronary artery without angina pectoris; D64.9 Anemia, unspecified; E86.0 Dehydration; N17.9 Acute kidney failure, unspecified; E83.42 Hypomagnesemia; E87.20 Acidosis, unspecified; E83.39 Other disorders of phosphorus metabolism; E87.6 Hypokalemia; Z66 Do not resuscitate; N40.1 Benign prostatic hyperplasia with lower urinary tract symptoms; N13.8 Other obstructive and reflux uropathy; Z87.891 Personal history of nicotine dependence; R19.7 Diarrhea, unspecified
CPT/HCPCS: 36415; 80048; 80053; 81001; 82274; 82607; 82746; 83540; 83550; 83605; 83630; 83735; 84100; 84132; 84145; 85025; 87040; 87045; 87077; 87086; 87177; 87186; 87209; 87324; 87426; 87427; 87449; 93005; 94664; 96360; 96361; 97110; 97116; 97161; 97530; 99285; G0378; J0696; J0744; J1940; J2270; J3475; J7030; Q3014

== ENCOUNTER 2023-09-03 10:01 | Emergency (ER) | payer OTHER, SELFPAY ==
[2023-09-03 10:02] VITALS: BP 154/78; PULSE 71; RESP 16; TEMP 36.6; O2SAT 97; BMI 22.4
--- NOTE | 2023-09-03 10:07 | XRR_ITS ---
PROCEDURE INFORMATION: Exam: XR Chest Exam date and time: 09/03/2023 10:27 AM Age: 83 years old Clinical indication: Other: Depressed; Additional info: Screening TECHNIQUE: Imaging protocol: Radiologic exam of the chest. Views: 1 view. COMPARISON: CT chest con [id number] 01/01/2023 1:12 AM FINDINGS: Lungs: Bilateral peripheral predominant pulmonary scarring. Pleural spaces: No pneumothorax. No pleural effusion. Heart/Mediastinum: The cardiomediastinal silhouette is within normal limits. Bones/joints: Unremarkable. XR/XR chest 1V portable [id number] IMPRESSION: Bilateral peripheral predominant pulmonary scarring.
--- NOTE | 2023-09-03 10:16 | ECG_ITS ---
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 Measurements Intervals Ivor Rate: 76 P: 65 RI: 204 QRS: -1 QRSD: 78 T: 56 QT: 384 QTc: 432 Interpretive Statements SINUS RHYTHM WITH OCCASIONAL ECTOPIC PREMATURE COMPLEXES Compared to ECG 06/03/2023 08:35:22 Atrial fibrillation no longer present ST (T wave) deviation no longer present Electronically Signed On 09-03-2023 12:24:11 SLEEVE SETTER LOCKSTITCH by Karel Torres M.D. [email or web address]
[2023-09-03 10:38] LABS: Basophils % 0.4 %; Eosinophils # 0.2 10^3/uL (0.0-0.8); Eosinophils % 1.6 %; Hematocrit 36.4 % (37-53); Lymphocytes # 0.9 10^3/uL (0.8-4.8); Lymphocytes % 7.8 %; Mean Corpuscular HGB Conc 30.8 g/dL (30-55); Mean Corpuscular Hemoglobin 25.2 pg (27-33); Mean Corpuscular Volume 81.8 fl (82-101); Mean Platelet Volume 9.3 fL (7.4-10.4); Monocytes # 0.6 10^3/uL (0.2-0.9); Neutrophils % 84.7 %; Nucleated Red Blood Cells % 0 %; Platelet Count 434 10^3/cmm (157-399); Red Blood Count 4.45 10^6/uL (3.85-5.65); Red Cell Distribution Width 16.8 % (12.1-15.1); White Blood Count 11.11 10^3/uL (3.29-11.43)
--- NOTE | 2023-09-03 10:49 | W.ED.PSYCHS ---
HPI - Psych General: Chief Complaint: Psychiatric Symptoms Stated Complaint: depressed Time Seen by Provider: 09/03/23 10:02 Source: patient Mode of arrival: EMS History of Present Illness: 83-year-old male presents emergency room via EMS. Patient made suicidal comments at the [facility]. He had asked the staff member to bring him a gun. He has not done anything to advance any, lethality he is on escitalopram no recent medication changes. He does not have access to any firearms. He is frustrated by his current living condition he denies any suicidal ideation at this time he is aware that he made these comments and that made the staff nervous and sent him here for evaluation. complaint: suicidal ideation Onset (ago): minute(s) Relieving factors: none Exacerbating factors: none Associated psychiatric symptoms: depression Associated symptoms: Deny auditory hallucinations, visual hallucinations, delusions, depression, homicidal ideation, suicidal ideation or racing thoughts Treatments prior to arrival: none Review of Systems Const: Denies: fever(s) or chills Card: Denies: chest pain Resp: Denies: dyspnea GI: Denies: abdominal pain : Denies: dysuria, urinary frequency or urinary urgency Musc: Denies: neck pain or back pain Skin/Breast: Denies: rash Psych: Denies: depression, visual hallucinations, auditory hallucinations, suicidal ideation or homicidal ideation [facility] ED PFSH: Medical History BPH loc w urin obs/LUTS Depression Anemia B12 deficiency History of Holter monitoring 02/2021 sinus rhythm with one 3.6 second pause noted. One episode of sinus bradycardia to 37 bpm. Taken off of beta blockade. 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 Second degree AV block, Mobitz type I History of echocardiogram 02/2022 EF 55-60% Diastolic dysfunction Polyp of colon Diverticulosis GERD (gastroesophageal reflux disease) Benign prostate hyperplasia Diabetes mellitus, type II microalbuminuria COVID 08/2022 Beta-bertrand intolerance 3.6-second pause on 02/19/2021 Atherosclerosis of coronary artery of [place] heart without angina pectoris Benign essential hypertension with target blood pressure below 140/90 CKD (chronic kidney disease) Hyperlipidemia Surgical History History of cardiac catheterization 07/2020 90-95% LAD lesion, 20-30% circ lesion, 50% ostial RCS, declined CABG and underwent PCI to LAD Status post open reduction and internal fixation (ORIF) of fracture (08/27/22) left intertrochanteric hip fracture, gamma nail, Dr Grey Status post laparoscopic cholecystectomy (12/27/19) Hx of cataract surgery H/O left wrist surgery Family History Mother , AT AGE 83 Pneumonia Father , AT AGE 30 Kidney disease Denies family history of CAD (coronary artery disease) Anesthesia complication Bleeding disorder Social History Smoking and tobacco/nicotine status: former use of tobacco/nicotine Alcohol intake: never Marital status: / Current occupational status: retired Physical Exam Const: COMMON NORMALS: no acute distress GENERAL APPEARANCE: cooperative and comfortable ORIENTATION/CONSCIOUSNESS: Yes awake, Yes oriented to person, Yes oriented to place and Yes oriented to time HENMT: COMMON NORMALS: normocephalic, atraumatic and hearing grossly normal bilaterally HEAD & SCALP: normocephalic and atraumatic Resp: COMMON NORMALS: normal respiratory effort, No retractions, No use of accessory muscles and clear to auscultation bilaterally AUSCULTATION: clear to auscultation bilaterally Cardio: COMMON NORMALS: regular rate, regular rhythm and No murmurs present (Cardio) RATE: regular rate RHYTHM: regular rhythm GI: COMMON NORMALS: Soft to palpation and No hepatosplenomegaly present AUSCULTATION: Yes normoactive bowel sounds PALPATION: Yes Soft to palpation, No Tenderness to palpation present (GI), No Guarding due to palpation present (GI) and Yes No hepatosplenomegaly present Extremity: COMMON NORMALS: normal to inspection, capillary refill normal, no clubbing, cyanosis or edema, no calf tenderness and no pedal edema Neuro: SENSORIUM/ORIENTATION: Yes oriented to person, Yes oriented to place and Yes oriented to time Psych: THOUGHT CONTENT: No delusions Skin: COMMON NORMALS: no rashes or lesions noted GENERAL SKIN EXAM: no rashes or lesions noted Course Vital Signs: Vital signs: Vital Signs Temperature 97.9 F 09/03/23 10:02 Pulse Rate 71 09/03/23 10:02 Respiratory Rate 16 09/03/23 10:02 Blood Pressure 154/78 09/03/23 10:02 Pulse Oximetry 97 09/03/23 10:02 Oxygen Delivery Me thod Room Air 09/03/23 10:02 [facility] - Psych Medical Decision Making Patient is having made suicidal comments that he does not really have the ability at all to advance any lethality. He stating now he made comments offhanded he does not actually intend to harm himself. Discussed with psychiatry they agree admission or transfer for admission is not warranted at this time recommend increasing his escitalopram to 20 mg daily follow-up with primary care doctor Medical Records I reviewed the patient's medical records. Lab Data I reviewed the patient's lab results. 09/03/23 10:24 09/03/23 10:24 Radiology Impressions Chest X-Ray 09/03/23 10:07 IMPRESSION: Bilateral peripheral predominant pulmonary scarring. Laboratory Results WBC 11.11 10^3/uL (3.29-11.43) 09/03/23 10:24 RBC 4.45 10^6/uL (3.85-5.65) 09/03/23 10:24 Hgb 11.20 g/dL (11.27-16.99) L 09/03/23 10:24 Hct 36.4 % (37-53) L 09/03/23 10:24 MCV 81.8 fl (82-101) L 09/03/23 10:24 MCH 25.2 pg (27-33) L 09/03/23 10:24 MCHC 30.8 g/dL (30-55) 09/03/23 10:24 RDW 16.8 % (12.1-15.1) H 09/03/23 10:24 Plt Count 434 10^3/cmm (157-399) H 09/03/23 10:24 MPV 9.3 fL (7.4-10.4) 09/03/23 10:24 Neut % (Auto) 84.7 % 09/03/23 10:24 Lymph % (Auto) 7.8 % 09/03/23 10:24 [place] % (Auto) 5.0 % 09/03/23 10:24 Eos % (Auto) 1.6 % 09/03/23 10:24 Baso % (Auto) 0.4 % 09/03/23 10:24 Neut # (Auto) 9.40 10^3/uL (1.8-7.7) H 09/03/23 10:24 Lymph # (Auto) 0.9 10^3/uL (0.8-4.8) 09/03/23 10:24 [place] # (Auto) 0.6 10^3/uL (0.2-0.9) 09/03/23 10:24 Eos # (Auto) 0.2 10^3/uL (0.0-0.8) 09/03/23 10:24 Baso # (Auto) 0.0 10^3/uL (0.0-0.1) 09/03/23 10:24 Nucleated RBC % (auto) 0 % 09/03/23 10:24 Nucleated RBCs # 0.0 /100WBC 09/03/23 10:24 Sodium 139 mmol/L (136-145) 09/03/23 10:24 Potassium 3.7 mmol/L (3.5-5.1) 09/03/23 10:24 Chloride 107 mmol/L (98-107) 09/03/23 10:24 Carbon Dioxide 22 mmol/L (22-29) 09/03/23 10:24 Anion Gap 13.7 (5-19) 09/03/23 10:24 BUN 28 mg/dL (8-23) H 09/03/23 10:24 Creatinine 1.3 mg/dL (0.7-1.2) H 09/03/23 10:24 GFR Calculation Not Reportable 09/03/23 10:24 Glucose 178 mg/dL (65-115) H 09/03/23 10:24 Calculated Osmolality 298 mOsm/kg (285-295) H 09/03/23 10:24 Calcium 9.7 mg/dL (8.5-10.5) 09/03/23 10:24 Total Bilirubin 0.3 mg/dL (0.15-1.2) 09/03/23 10:24 AST 7 U/L (0-40) 09/03/23 10:24 ALT < 5 U/L (0-41) 09/03/23 10:24 Alkaline Phosphatase 54 U/L (40-130) 09/03/23 10:24 Total Protein 7.0 g/dL (6.6-8.7) 09/03/23 10:24 Albumin 3.2 g/dL (3.5-5.2) L 09/03/23 10:24 Globulin 3.8 g/dL (1.3-4.6) 09/03/23 10:24 TSH 7.13 uIU/mL (0.27-4.20) H 09/03/23 10:24 Salicylates < 0.3 mg/dL (3-10) L 09/03/23 10:24 Acetaminophen < 5.0 ug/mL (10-30) L 09/03/23 10:24 All radiology interpretation(s) finalized by discharge Discharge Plan Discharge Patient Disposition: Home Clinical Impression: Depression Condition: Stable Prescriptions: Changed escitalopram oxalate 10 mg Tablet 20 mg PO DAILY Qty: 30 0RF No Action clotrimazole [Athlete's Foot (clotrimazole)] 1 % cream 1 applic topical BID PRN (Reason: unknown) tamsulosin [Flomax] 0.4 mg Capsule 0.4 mg PO QPM cinnamon bark [Cinnamon] 500 mg Capsule 2,000 mg PO DAILY omeprazole 40 mg capsule,delayed release(DR/EC) 40 mg PO QAM acetaminophen 500 mg Tablet 1,000 mg PO Q6H PRN (Reason: Pain) potassium chloride [Klor-Con M20] 20 mEq tablet,ER particles/crystals 20 meq PO DAILY trazodone 100 mg Tablet 150 mg PO BEDTIME metformin 1,000 mg Tablet 500 mg PO BID cholecalciferol (vitamin D3) 25 mcg (1,000 unit) Tablet 25 mcg PO DAILY zinc oxide 20 % Ointment 1 applic TOPICAL TID PRN (Reason: skin protection) atorvastatin 80 mg Tablet 80 mg PO DAILY diltiazem HCl 180 mg Capsule,Extended Release 24 Hr 180 mg PO DAILY cyanocobalamin (vitamin B-12) 1,000 mcg Tablet 1,000 mcg PO DAILY ferrous sulfate 325 mg (65 mg iron) Tablet 325 mg PO DAILY furosemide 20 mg Tablet 20 mg PO DAILY megestrol 20 mg Tablet 20 mg PO QID melatonin 5 mg Capsule 5 mg PO BEDTIME sennosides-docusate sodium 8.6-50 mg Tablet 1 tab PO BID PRN (Reason: Constipation) ciprofloxacin HCl 500 mg Tablet 500 mg PO BID@0900,2100 Qty: 7 0RF tramadol 50 mg Tablet 50 mg PO Q6H PRN (Reason: Moderate Pain) Qty: 30 0RF celecoxib 100 mg Capsule 100 mg PO BID Qty: 60 0RF Eliquis 5 mg Tablet 2.5 mg PO BID Qty: 60 0RF Discharge Orders: Discharge ED (Routine); Ordered 09/03/23 Ordered By: Emre Skaggs Referrals: Portia Larose MD [Primary Care Provider] - Discharge Diet: Usual diet Discharge Activity: Increase activity as tolerated Patient Instructions: Opioid Safety, Pain Management Coding Level of Care Code ED Dialysis Biomed Technician for Marla Stanley
[2023-09-03 11:09] LABS: Alanine Aminotransferase < 5 U/L (0-41); Albumin Level 3.2 g/dL (3.5-5.2); Alkaline Phosphatase 54 U/L (40-130); Anion Gap 13.7 (5-19); Aspartate Amino Transferase 7 U/L (0-40); Blood Urea Nitrogen 28 mg/dL (8-23); Calcium 9.7 mg/dL (8.5-10.5); Carbon Dioxide 22 mmol/L (22-29); Chloride 107 mmol/L (98-107); Globulin 3.8 g/dL (1.3-4.6); Glucose 178 mg/dL (65-115); Osmolality Calculated 298 mOsm/kg (285-295); Potassium 3.7 mmol/L (3.5-5.1); Sodium 139 mmol/L (136-145); Thyroid Stimulating Hormone 7.13 uIU/mL (0.27-4.20); Total Bilirubin 0.3 mg/dL (0.15-1.2)
[2023-09-03 11:16] LABS: Salicylate < 0.3 mg/dL (3-10)
[2023-09-03 11:17] LABS: Acetaminophen < 5.0 ug/mL (10-30)
== END 2023-09-03 12:09 | disposition home or self-care (01) ==
PROVIDERS: Emergency Provider Family Medicine; PCP Family Medicine
DX: F32.A Depression, unspecified (principal); Z79.01 Long term (current) use of anticoagulants; Z79.84 Long term (current) use of oral hypoglycemic drugs; Z87.891 Personal history of nicotine dependence; I25.10 Atherosclerotic heart disease of native coronary artery without angina pectoris; E11.22 Type 2 diabetes mellitus with diabetic chronic kidney disease; I12.9 Hypertensive chronic kidney disease with stage 1 through stage 4 chronic kidney disease, or unspecified chronic kidney disease; N18.9 Chronic kidney disease, unspecified; E78.5 Hyperlipidemia, unspecified
CPT/HCPCS: 36415; 71045; 80053; 80307; 84443; 85025; 93005; 99285

== ENCOUNTER 2023-09-18 13:16 | Emergency (ER) | payer OTHER, SELFPAY ==
--- NOTE | 2023-09-18 13:34 | XRR_ITS ---
PROCEDURE INFORMATION: Exam: XR Chest Exam date and time: 09/18/2023 1:40 PM Age: 83 years old Clinical indication: Shortness of breath; Additional info: Screening TECHNIQUE: Imaging protocol: Radiologic exam of the chest. Views: 1 view. COMPARISON: CR (CHEST, ) 09/03/2023 10:27 AM FINDINGS: Lungs: Calcified granuloma on the right. Chronic moderate interstitial fibrosis. Pleural spaces: Unremarkable. No pleural effusion. No pneumothorax. Heart/Mediastinum: See Vasculature finding. Vasculature: Moderate cardiomegaly and uncoiling of the thoracic aorta each accentuated by the AP positioning. Diaphragm: Elevated left hemidiaphragm. 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 XR/XR chest 1V portable [id number] IMPRESSION: No acute cardiopulmonary disease.
[2023-09-18 13:39] VITALS: BP 115/57; PULSE 68; RESP 16; TEMP 36.4; O2SAT 97; BMI 23.3
[2023-09-18 14:03] LABS: Basophils % 0.2 %; Eosinophils # 0.1 10^3/uL (0.0-0.8); Eosinophils % 1.3 %; Hematocrit 37.9 % (37-53); Lymphocytes # 0.6 10^3/uL (0.8-4.8); Lymphocytes % 6.7 %; Mean Corpuscular HGB Conc 30.3 g/dL (30-55); Mean Corpuscular Hemoglobin 25.3 pg (27-33); Mean Corpuscular Volume 83.3 fl (82-101); Mean Platelet Volume 9.2 fL (7.4-10.4); Monocytes # 0.4 10^3/uL (0.2-0.9); Monocytes % 4.3 %; Neutrophils # 8.23 10^3/uL (1.8-7.7); Neutrophils % 87.2 %; Nucleated Red Blood Cells % 0 %; Platelet Count 444 10^3/cmm (157-399); Red Blood Count 4.55 10^6/uL (3.85-5.65); Red Cell Distribution Width 16.8 % (12.1-15.1); White Blood Count 9.44 10^3/uL (3.29-11.43)
--- NOTE | 2023-09-18 14:07 | W.ED.PSYCHS ---
HPI - Psych General: Chief Complaint: Psychiatric Symptoms Stated Complaint: SI Time Seen by Provider: 09/18/23 13:33 Source: patient Mode of arrival: EMS History of Present Illness: 83-year-old male presents emergency room via EMS. Court from the [place] [facility] is that he has tried to harm self with the sheet and with the electrical cord. He denies this. He does not recall making any suicidal comments he does admit to being very depressed. He was seen a few weeks ago we increased his escitalopram reviewing his chart it looks like he is currently on Prozac and is not on the escitalopram. He has as needed Ativan as well. He also has 150 of trazodone at at bedtime. Symptoms seem to be worse at night. He does admit to being very depressed because none of his family comes and sees him. MD complaint: feels depressed Review of Systems Const: Denies: fever(s) or chills Card: Denies: chest pain Resp: Denies: dyspnea GI: Denies: abdominal pain : Denies: dysuria, urinary frequency or urinary urgency Musc: Denies: neck pain or back pain Skin/Breast: Denies: rash PFSH ED PFSH: Medical History BPH loc w urin obs/LUTS Depression Anemia B12 deficiency History of Holter monitoring 02/2021 sinus rhythm with one 3.6 second pause noted. One episode of sinus bradycardia to 37 bpm. Taken off of beta blockade. 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 Second degree AV block, Mobitz type I History of echocardiogram 02/2022 EF 55-60% Diastolic dysfunction Polyp of colon Diverticulosis GERD (gastroesophageal reflux disease) Benign prostate hyperplasia Diabetes mellitus, type II microalbuminuria COVID 08/2022 Beta-bertrand intolerance 3.6-second pause on 02/19/2021 Atherosclerosis of coronary artery of [place] heart without angina pectoris Benign essential hypertension with target blood pressure below 140/90 CKD (chronic kidney disease) Hyperlipidemia Surgical History History of cardiac catheterization 07/2020 90-95% LAD lesion, 20-30% circ lesion, 50% ostial RCS, declined CABG and underwent PCI to LAD Status post open reduction and internal fixation (ORIF) of fracture (08/27/22) left intertrochanteric hip fracture, gamma nail, Dr Grey Status post laparoscopic cholecystectomy (12/27/19) Hx of cataract surgery H/O left wrist surgery Family History Mother , AT AGE 83 Pneumonia Father , AT AGE 30 Kidney disease Denies family history of CAD (coronary artery disease) Anesthesia complication Bleeding disorder Social History Smoking and tobacco/nicotine status: former use of tobacco/nicotine Alcohol intake: never Marital status: / Current occupational status: retired Physical Exam Const: COMMON NORMALS: no acute distress GENERAL APPEARANCE: cooperative and comfortable ORIENTATION/CONSCIOUSNESS: Yes awake HENMT: COMMON NORMALS: normocephalic, atraumatic and hearing grossly normal bilaterally HEAD & SCALP: normocephalic and atraumatic Resp: COMMON NORMALS: normal respiratory effort, No retractions, No use of accessory muscles and clear to auscultation bilaterally AUSCULTATION: clear to auscultation bilaterally Cardio: COMMON NORMALS: regular rate, regular rhythm and No murmurs present (Cardio) RATE: regular rate RHYTHM: regular rhythm GI: COMMON NORMALS: Soft to palpation and No hepatosplenomegaly present AUSCULTATION: Yes normoactive bowel sounds PALPATION: Yes Soft to palpation, No Tenderness to palpation present (GI), No Guarding due to palpation present (GI) and Yes No hepatosplenomegaly present Extremity: COMMON NORMALS: normal to inspection, capillary refill normal, no clubbing, cyanosis or edema, no calf tenderness and no pedal edema Skin: COMMON NORMALS: no rashes or lesions noted GENERAL SKIN EXAM: no rashes or lesions noted Course Vital Signs: Vital signs: Vital Signs Temperature 97.5 F L 09/18/23 13:39 Pulse Rate 69 09/18/23 23:13 Respiratory Rate 18 09/18/23 23:13 Blood Pressure 147/64 09/18/23 23:13 Pulse Oximetry 97 09/18/23 23:13 Oxygen Delivery Me thod Room Air 09/18/23 23:13 MDM - Psych Medical Decision Making ER staff contacted [facility] [facility] to confirm history. I also discussed with Dr. Pitts. We asked Dr. Pitts on-call for psychiatry to consult. He does not feel patient will benefit from geriatric psychiatry placement does recommend Zyprexa 5 mg at at bedtime. Will discharge back to the [place] [facility]. Medical Records I reviewed the patient's medical records. Lab Data I reviewed the patient's lab results. 09/18/23 13:47 09/18/23 13:47 Radiology Impressions Chest X-Ray 09/18/23 13:34 IMPRESSION: No acute cardiopulmonary disease. Laboratory Results WBC 9.44 10^3/uL (3.29-11.43) 09/18/23 13:47 RBC 4.55 10^6/uL (3.85-5.65) 09/18/23 13:47 Hgb 11.50 g/dL (11.27-16.99) 09/18/23 13:47 Hct 37.9 % (37-53) 09/18/23 13:47 MCV 83.3 fl (82-101) 09/18/23 13:47 MCH 25.3 pg (27-33) L 09/18/23 13:47 MCHC 30.3 g/dL (30-55) 09/18/23 13:47 RDW 16.8 % (12.1-15.1) H 09/18/23 13:47 Plt Count 444 10^3/cmm (157-399) H 09/18/23 13:47 MPV 9.2 fL (7.4-10.4) 09/18/23 13:47 Neut % (Auto) 87.2 % 09/18/23 13:47 Lymph % (Auto) 6.7 % 09/18/23 13:47 [place] % (Auto) 4.3 % 09/18/23 13:47 Eos % (Auto) 1.3 % 09/18/23 13:47 Baso % (Auto) 0.2 % 09/18/23 13:47 Neut # (Auto) 8.23 10^3/uL (1.8-7.7) H 09/18/23 13:47 Lymph # (Auto) 0.6 10^3/uL (0.8-4.8) L 09/18/23 13:47 [place] # (Auto) 0.4 10^3/uL (0.2-0.9) 09/18/23 13:47 Eos # (Auto) 0.1 10^3/uL (0.0-0.8) 09/18/23 13:47 Baso # (Auto) 0.0 10^3/uL (0.0-0.1) 09/18/23 13:47 Nucleated RBC % (auto) 0 % 09/18/23 13:47 Nucleated RBCs # 0.0 /100WBC 09/18/23 13:47 Sodium 138 mmol/L (136-145) 09/18/23 13:47 Potassium 4.0 mmol/L (3.5-5.1) 09/18/23 13:47 Chloride 105 mmol/L (98-107) 09/18/23 13:47 Carbon Dioxide 22 mmol/L (22-29) 09/18/23 13:47 Anion Gap 15.0 (5-19) 09/18/23 13:47 BUN 25 mg/dL (8-23) H 09/18/23 13:47 Creatinine 1.4 mg/dL (0.7-1.2) H 09/18/23 13:47 GFR Calculation Not Reportable 09/18/23 13:47 Glucose 227 mg/dL (65-115) H 09/18/23 13:47 Calculated Osmolality 298 mOsm/kg (285-295) H 09/18/23 13:47 Calcium 9.5 mg/dL (8.5-10.5) 09/18/23 13:47 Total Bilirubin 0.3 mg/dL (0.15-1.2) 09/18/23 13:47 AST 8 U/L (0-40) 09/18/23 13:47 ALT 7 U/L (0-41) 09/18/23 13:47 Alkaline Phosphatase 63 U/L (40-130) 09/18/23 13:47 Total Protein 6.9 g/dL (6.6-8.7) 09/18/23 13:47 Albumin 3.3 g/dL (3.5-5.2) L 09/18/23 13:47 Globulin 3.6 g/dL (1.3-4.6) 09/18/23 13:47 Salicylates 2.7 mg/dL (3-10) L 09/18/23 13:47 Acetaminophen < 5.0 ug/mL (10-30) L 09/18/23 13:47 All radiology interpretation(s) finalized by discharge Discharge Plan Discharge Patient Disposition: Home Clinical Impression: Sundowning, Depression Condition: Stable Prescriptions: New Zyprexa 5 mg tablet 5 mg PO QPM Qty: 30 0RF No Action tamsulosin [Flomax] 0.4 mg Capsule 0.4 mg PO BEDTIME omeprazole 40 mg capsule,delayed release(DR/EC) 40 mg PO QAM acetaminophen 500 mg Tablet 1,000 mg PO TID PRN (Reason: Pain) diltiazem HCl 180 mg Capsule,Extended Release 24 Hr 180 mg PO DAILY cyanocobalamin (vitamin B-12) 1,000 mcg Tablet 1,000 mcg PO DAILY tramadol 50 mg Tablet 50 mg PO Q6H PRN (Reason: Moderate Pain) Qty: 30 0RF fluoxetine 40 mg capsule 40 mg PO DAILY trazodone 50 mg tablet 150 mg PO BEDTIME hydrocodone-acetaminophen 5-325 mg tablet 1 tab PO Q6H PRN (Reason: Pain) ondansetron HCl 8 mg tablet 8 mg PO Q6H PRN (Reason: Nausea And Vomiting) clopidogrel 75 mg tablet 75 mg PO DAILY lorazepam 0.5 mg tablet 0.5 mg PO TID PRN (Reason: Anxiety) docusate sodium 100 mg capsule 100 mg PO DAILY Eliquis 5 mg tablet 5 mg PO BID Discharge Orders: Discharge ED (Routine); Ordered 09/18/23 Ordered By: Emre Skaggs Referrals: Portia Larose MD [Primary Care Provider] - Discharge Diet: Usual diet Discharge Activity: Resume usual activity Patient Instructions: Opioid Safety, Pain Management Activity Restrictions/Additional Instructions: Thank you for choosing [facility] for your healthcare needs today. Please realize this is an emergency room and that we are providing you with a medical screening exam and this may not be complete and all inclusive of all the testing and or work up that you may need to determine your ailment or severity of your illness. It is very important that you follow up as instructed or that you return to the Emergency Department should you have concerns or if your condition changes or worsens in any way. You were seen today in the emergency room over concerns of expressions of self-harm. After discussing with you and with our on-call psychiatrist he does not recommend inpatient care recommends adding Zyprexa 5 mg at bedtime. Coding Level of Care Code ED History Instructor for Marla Stanley
[2023-09-18 14:22] LABS: Alanine Aminotransferase 7 U/L (0-41); Albumin Level 3.3 g/dL (3.5-5.2); Alkaline Phosphatase 63 U/L (40-130); Aspartate Amino Transferase 8 U/L (0-40); Blood Urea Nitrogen 25 mg/dL (8-23); Calcium 9.5 mg/dL (8.5-10.5); Carbon Dioxide 22 mmol/L (22-29); Chloride 105 mmol/L (98-107); Globulin 3.6 g/dL (1.3-4.6); Glucose 227 mg/dL (65-115); Osmolality Calculated 298 mOsm/kg (285-295); Salicylate 2.7 mg/dL (3-10); Sodium 138 mmol/L (136-145); Total Bilirubin 0.3 mg/dL (0.15-1.2); Total Protein 6.9 g/dL (6.6-8.7)
[2023-09-18 14:23] LABS: Acetaminophen < 5.0 ug/mL (10-30)
[2023-09-18 18:01] VITALS: O2SAT 99
[2023-09-18 19:30] VITALS: BP 110/61; PULSE 67; RESP 16; O2SAT 96
[2023-09-18 20:20] VITALS: BP 109/61; PULSE 62; RESP 16; O2SAT 99
[2023-09-18 21:55] VITALS: BP 118/64; PULSE 64; RESP 18; O2SAT 97
[2023-09-18 23:13] VITALS: BP 147/64; PULSE 69; RESP 18; O2SAT 97
== END 2023-09-18 21:32 | disposition home or self-care (01) ==
PROVIDERS: Emergency Provider Family Medicine; PCP Family Medicine
DX: F05 Delirium due to known physiological condition (principal); F32.A Depression, unspecified; Z79.02 Long term (current) use of antithrombotics/antiplatelets; Z79.01 Long term (current) use of anticoagulants; Z87.891 Personal history of nicotine dependence; E11.9 Type 2 diabetes mellitus without complications; E11.22 Type 2 diabetes mellitus with diabetic chronic kidney disease; I12.9 Hypertensive chronic kidney disease with stage 1 through stage 4 chronic kidney disease, or unspecified chronic kidney disease; N18.9 Chronic kidney disease, unspecified; I25.10 Atherosclerotic heart disease of native coronary artery without angina pectoris; E78.5 Hyperlipidemia, unspecified
CPT/HCPCS: 36415; 71045; 80053; 80307; 85025; 99285